=== PATIENT | female | born 1935 | race Caucasian/White ===

== ENCOUNTER → 2018-06-29 | Outpatient (CLI) | payer MEDICARE, BC ==
--- NOTE | 2018-06-29 21:57 | US ---
EXAMINATION TYPE: US kidneys/renal and bladder DATE OF EXAM: 06/29/2018 COMPARISON: NONE CLINICAL HISTORY: Chronic Kidney Disease N18.9. EXAM MEASUREMENTS: Right Kidney: 9.8 x 4.1 x 4.4 cm Left Kidney: 11.1 x 5.0 x 4.6 cm Right Kidney: Cyst measuring 3.4 x 2.4 x 2.8cm Left Kidney: No hydronephrosis or masses seen Bladder: wnl There is no evidence for hydronephrosis at this point in time. No nephrolithiasis is seen. Cystic fo cus upper pole right kidney is anechoic and shows increased through transmission, imperceptible wall. . The urinary bladder is anechoic. Cortical medullary differentiation is maintained, there is cortical thinning noted in the right kidne y. IMPRESSION: Simple cyst right kidney. Cortical thinning right kidney.
== END | disposition home or self-care (01) ==
LOC: RADUSMAIN 16:11
PROVIDERS: ATTEND Internal Medicine
DX: N28.1 Cyst of kidney, acquired (principal); N28.89 Other specified disorders of kidney and ureter; N18.3 Chronic kidney disease, stage 3 (moderate)
CPT/HCPCS: 76770

== ENCOUNTER 2019-12-15 05:47 | Emergency (ER) | payer MEDICARE, BC ==
[2019-12-15 05:58] VITALS: RESP 18; TEMP 98.5
[2019-12-15] MEDS ORDERED: ACETAMINOPHEN TAB 325 MG TAB PO STA (06:14)
[2019-12-15] MEDS ORDERED: SODIUM CHLORIDE 0.9% 500 ML 500 ML IV STA (06:14)
--- NOTE | 2019-12-15 06:21 | ED ---
General Adult HPI - General Chief complaint: Urogenital Stated complaint: Nausea/Cold To Touch/Frequent Urination Time Seen by Provider: 12/15/19 06:01 Source: patient, RN notes reviewed Mode of arrival: ambulatory Limitations: no limitations - History of Present Illness Initial comments: This is an 84-year-old female presents emergency Department chief complaint weakness. Patient states that around midnight she developed the sudden onset weakness states that she has had shaking chills just does not feel well. She does complain of a headache but did not take any Tylenol which she normally would. She denies any focal weakness denies any chest pain or shortness breath. Patient states that she she was treated with ciprofloxacin for urinary tract infection last week was notified a day or so ago that they need to switch to Macrobid in which she's taken 2 doses. She does admit that she's had frequent urination slight lower abdominal pain. She has meant to some nausea but this seems to be improving. - Related Data Home Medications Medication Instructions Recorded Confirmed ALPRAZolam [Xanax] 0.25 mg PO DAILY PRN 02/25/17 12/15/19 Aspirin [Adult Low Dose Aspirin EC] 81 mg PO DAILY 02/25/17 12/15/19 Cyanocobalamin [Vitamin B-12 1 injection SQ Q28D 02/25/17 12/15/19 Injection] Ergocalciferol [Vitamin D2 50,000 unit PO Q14D 02/25/17 12/15/19 (DRISDOL)] Lisinopril [Zestril] 10 mg PO DAILY 02/25/17 12/15/19 Nitroglycerin Sl Tabs [Nitrostat] 0.4 mg SL Q5M PRN 02/25/17 12/15/19 Oxybutynin Chloride [Ditropan] 5 mg PO DAILY 02/25/17 12/15/19 Propafenone [Rythmol] 150 mg PO TID 02/25/17 12/15/19 Allopurinol [Zyloprim] 100 mg PO BID 12/15/19 12/15/19 HYDROcodone/APAP 5-325MG [[place] 1 tab PO DAILY PRN 12/15/19 12/15/19 5-325] Warfarin [Coumadin] 7.5 mg PO HS 12/15/19 12/15/19 Allergies Allergy/AdvReac Type Severity Reaction Status Date / Time No Known Allergies Allergy Verified 12/15/19 09:59 Review of Systems ROS Statement: Those systems with pertinent positive or pertinent negative responses have been documented in the HPI. ROS Other: All systems not noted in ROS Statement are negative. Past Medical History Past Medical History: Atrial Fibrillation, Blood Disorder, Diabetes Mellitus, Hypertension, Osteoarthritis (OA) Additional Past Medical History / Comment(s): NEUTROPENIA. ANEMIA. History of Any Multi-Drug Resistant Organisms: None Reported Past Surgical History: Appendectomy, Cholecystectomy, Orthopedic Surgery Additional Past Surgical History / Comment(s): LEFT SHOULDER SURGERY. BILATERAL CATARACTS. Past Anesthesia/Blood Transfusion Reactions: No Reported Reaction Past Psychological History: No Psychological Hx Reported Smoking Status: Former smoker Past Alcohol Use History: None Reported Past Drug Use History: None Reported - Past Family History Mother Family Medical History: Rheumatoid Arthritis (RA) Father Family Medical History: Diabetes Mellitus General Exam Limitations: no limitations General appearance: alert, in no apparent distress Head exam: Present: atraumatic, normocephalic, normal inspection Eye exam: Present: normal appearance, PERRL, EOMI. Absent: scleral icterus, conjunctival injection, periorbital swelling ENT exam: Present: normal exam, normal oropharynx, mucous membranes moist, TM's normal bilaterally Neck exam: Present: normal inspection, full ROM. Absent: tenderness, meningismus, lymphadenopathy Respiratory exam: Present: normal lung sounds bilaterally. Absent: respiratory distress, wheezes, rales, rhonchi, stridor Cardiovascular Exam: Present: regular rate, normal rhythm, normal heart sounds. Absent: systolic murmur, diastolic murmur, rubs, gallop, clicks GI/Abdominal exam: Present: soft, tenderness (Mild suprapubic), normal bowel sounds. Absent: distended, guarding, rebound, rigid Back exam: Absent: CVA tenderness (R), CVA tenderness (L) Neurological exam: Present: alert, oriented X3, CN II-XII intact Skin exam: Present: warm, dry, intact, normal color. Absent: rash Course Vital Signs 12/15/19 05:50 Temperature 98.5 F Pulse Rate 100 Respiratory 18 Rate Blood Pressure 106/71 O2 Sat by Pulse 96 Oximetry Medical Decision Making - Medical Decision Making 84-year-old presented for generalized weakness. Labs reviewed is shows mild elevation of her renal function which is normal for her. Patient feels improved after IV fluids. Patient was given Rocephin for urinary tract infection. Patient's vital are stable no leukocytosis afebrile. Patient will continue her Macrobid as directed home return for any worsening symptoms. - Lab Data Result diagrams: 12/15/19 06:37 12/15/19 06:37 Lab Results 12/15/19 12/15/19 12/15/19 Range/Units 06:30 06:37 06:37 WBC 7.2 (3.8-10.6) k/uL RBC 4.17 (3.80-5.40) m/uL Hgb 12.5 (11.4-16.0) gm/dL Hct 38.2 (34.0-46.0) % MCV 91.4 (80.0-100.0) fL MCH 29.9 (25.0-35.0) pg MCHC 32.7 (31.0-37.0) g/dL RDW 13.6 (11.5-15.5) % Plt Count 181 (150-450) k/uL Neutrophils % 88 % Lymphocytes % 5 % Monocytes % 5 % Eosinophils % 2 % Basophils % 0 % Neutrophils # 6.3 (1.3-7.7) k/uL Lymphocytes # 0.4 L (1.0-4.8) k/uL Monocytes # 0.3 (0-1.0) k/uL Eosinophils # 0.1 (0-0.7) k/uL Basophils # 0.0 (0-0.2) k/uL Sodium 142 (137-145) mmol/L Potassium 4.0 (3.5-5.1) mmol/L Chloride 107 (98-107) mmol/L Carbon Dioxide 26 (22-30) mmol/L Anion Gap 9 mmol/L BUN 27 H (7-17) mg/dL Creatinine 1.07 H (0.52-1.04) mg/dL Est GFR (CKD-EPI)AfAm 56 (>60 ml/min/1.73 sqM) Est GFR (CKD-EPI)NonAf 48 (>60 ml/min/1.73 sqM) Glucose 153 H (74-99) mg/dL Plasma Lactic Acid Pk (0.7-2.0) mmol/L Calcium 9.6 (8.4-10.2) mg/dL Magnesium 2.1 (1.6-2.3) mg/dL Total Bilirubin 0.8 (0.2-1.3) mg/dL AST 25 (14-36) U/L ALT 14 (4-34) U/L Alkaline Phosphatase 83 (38-126) U/L Troponin I (0.000-0.034) ng/mL Total Protein 7.4 (6.3-8.2) g/dL Albumin 4.1 (3.5-5.0) g/dL Urine Color Urine Appearance (Clear) Urine pH (5.0-8.0) Ur Specific [place] (1.001-1.035) Urine Protein (Negative) Urine Glucose (UA) (Negative) Urine Ketones (Negative) Urine Blood (Negative) Urine Nitrite (Negative) Urine Bilirubin (Negative) Urine Urobilinogen (<2.0) mg/dL Ur Leukocyte Esterase (Negative) Urine RBC (0-5) /hpf Urine WBC (0-5) /hpf Ur Squamous Epith Cells (0-4) /hpf Urine Bacteria (None) /hpf Hyaline Casts (0-2) /lpf Urine Mucus (None) /hpf Influenza Type A RNA Not Detected (Not Detectd) Influenza Type B (PCR) Not Detected (Not Detectd) 12/15/19 12/15/19 12/15/19 Range/Units 06:37 06:37 09:10 WBC (3.8-10.6) k/uL RBC (3.80-5.40) m/uL Hgb (11.4-16.0) gm/dL Hct (34.0-46.0) % MCV (80.0-100.0) fL MCH (25.0-35.0) pg MCHC (31.0-37.0) g/dL RDW (11.5-15.5) % Plt Count (150-450) k/uL Neutrophils % % Lymphocytes % % Monocytes % % Eosinophils % % Basophils % % Neutrophils # (1.3-7.7) k/uL Lymphocytes # (1.0-4.8) k/uL Monocytes # (0-1.0) k/uL Eosinophils # (0-0.7) k/uL Basophils # (0-0.2) k/uL Sodium (137-145) mmol/L Potassium (3.5-5.1) mmol/L Chloride (98-107) mmol/L Carbon Dioxide (22-30) mmol/L Anion Gap mmol/L BUN (7-17) mg/dL Creatinine (0.52-1.04) mg/dL Est GFR (CKD-EPI)AfAm (>60 ml/min/1.73 sqM) Est GFR (CKD-EPI)NonAf (>60 ml/min/1.73 sqM) Glucose (74-99) mg/dL Plasma Lactic Acid Pk 0.9 (0.7-2.0) mmol/L Calcium (8.4-10.2) mg/dL Magnesium (1.6-2.3) mg/dL Total Bilirubin (0.2-1.3) mg/dL AST (14-36) U/L ALT (4-34) U/L Alkaline Phosphatase (38-126) U/L Troponin I <0.012 (0.000-0.034) ng/mL Total Protein (6.3-8.2) g/dL Albumin (3.5-5.0) g/dL Urine Color Yellow Urine Appearance Cloudy H (Clear) Urine pH 5.5 (5.0-8.0) Ur Specific [place] 1.018 (1.001-1.035) Urine Protein 1+ H (Negative) Urine Glucose (UA) Negative (Negative) Urine Ketones 1+ H (Negative) Urine Blood Moderate H (Negative) Urine Nitrite Negative (Negative) Urine Bilirubin Negative (Negative) Urine Urobilinogen <2.0 (<2.0) mg/dL Ur Leukocyte Esterase Large H (Negative) Urine RBC 48 H (0-5) /hpf Urine WBC >182 H (0-5) /hpf Ur Squamous Epith Cells 2 (0-4) /hpf Urine Bacteria Moderate H (None) /hpf Hyaline Casts 10 H (0-2) /lpf Urine Mucus Few H (None) /hpf Influenza Type A RNA (Not Detectd) Influenza Type B (PCR) (Not Detectd) Disposition Clinical Impression: Urinary tract infection Disposition: HOME SELF-CARE Condition: Stable Instructions (If sedation given, give patient instructions): Urinary Tract Infection in Women (ED) Additional Instructions: Please return to the Emergency Department if symptoms worsen or any other concerns. Is patient prescribed a controlled substance at d/c from ED?: No Referrals: Raissa Munguia MD [Primary Care Provider] - 1-2 days Time of Disposition: 10:20
--- NOTE | 2019-12-15 06:59 | XR ---
EXAM: XR Chest, 2 Views CLINICAL HISTORY: Reason: Weakness TECHNIQUE: Frontal and lateral views of the chest. COMPARISON: 12/14/15 FINDINGS: Lungs: Normal lung volumes. No evidence of airspace consolidation. No evidence of acute interstitial abnormality. Pleural space: Unremarkable. No pneumothorax. No pleural effusions. Heart: Unremarkable. No cardiomegaly. Mediastinum: No mediastinal widening or shift. Bones/joints: No acute osseous abnormality. IMPRESSION: No evidence of acute cardiopulmonary abnormality.
[2019-12-15 07:22] LABS: Basophils % (A) 0 %; Eosinophils # (A) 0.1 k/uL (0-0.7); Eosinophils % (A) 2 %; HCT 38.2 % (34.0-46.0); HGB 12.5 gm/dL (11.4-16.0); Lymphocytes # (A) 0.4 k/uL (1.0-4.8); Lymphocytes % (A) 5 %; MCH 29.9 pg (25.0-35.0); MCHC 32.7 g/dL (31.0-37.0); MCV 91.4 fL (80.0-100.0); Mean Platelet Volume 7.4; Monocytes # (A) 0.3 k/uL (0-1.0); Monocytes % (A) 5 %; Neutrophils # (A) 6.3 k/uL (1.3-7.7); Neutrophils % (A) 88 %; Platelet Count 181 k/uL (150-450); RBC 4.17 m/uL (3.80-5.40); RDW 13.6 % (11.5-15.5); WBC 7.2 k/uL (3.8-10.6)
[2019-12-15 07:26] LABS: Albumin 4.1 g/dL (3.5-5.0); Calcium 9.6 mg/dL (8.4-10.2); Magnesium 2.1 mg/dL (1.6-2.3); Total Bilirubin 0.8 mg/dL (0.2-1.3); Total Protein 7.4 g/dL (6.3-8.2)
[2019-12-15] MEDS ORDERED: SODIUM CHLORIDE 0.9% 1,000 ML IV ONE (08:06)
[2019-12-15 10:06] LABS: Appearance,Urine Cloudy (Clear); Bacteria,Urine Moderate /hpf; Bilirubin,Urine Negative (Negative); Blood,Urine Moderate (Negative); Color,Urine Yellow; Glucose,Urine (UA) Negative (Negative); Hyaline Casts,Urine 10 /lpf (0-2); Ketones,Urine 1+ (Negative); Leukocyte Esterase,Urine Large (Negative); Mucus,Urine Few /hpf; Nitrite,Urine Negative (Negative); PH, Urine 5.5 (5.0-8.0); Protein,Urine 1+ (Negative); RBC,Urine 48 /hpf (0-5); Specific Gravity,Urine 1.018 (1.001-1.035); Squamous Epithelial Cell,Urine 2 /hpf (0-4); Urobilinogen,Urine <2.0 mg/dL (<2.0); WBC,Urine >182 /hpf (0-5)
[2019-12-15] MEDS ORDERED: cefTRIAXone IN SWFI 1,000 MG/10 ML SYRINGE IVP STA (10:13)
[2019-12-15] MEDS ORDERED: ONDANSETRON 4 MG/2 ML VIAL IVP STA (10:19)
[2019-12-15 10:33] VITALS: BP 110/72; PULSE 88
== END 2019-12-15 10:32 | disposition home or self-care (01) ==
LOC: EC 05:47
DX: N39.0 Urinary tract infection, site not specified (principal); R53.1 Weakness; R51 Headache; R11.0 Nausea; I48.91 Unspecified atrial fibrillation; I10 Essential (primary) hypertension; M19.90 Unspecified osteoarthritis, unspecified site; Z87.891 Personal history of nicotine dependence; Z79.01 Long term (current) use of anticoagulants; Z79.82 Long term (current) use of aspirin; Z79.899 Other long term (current) drug therapy; Z90.49 Acquired absence of other specified parts of digestive tract
CPT/HCPCS: 99284; 96374; 96375; 96361 ×2; 36415; 93005; 80053; 83605; 83735; 84484; 85025; 81001; 87040; 87086; 87502; 71046; J2405; J0696

== ENCOUNTER 2019-12-23 09:03 | Inpatient (IN) | payer MEDICARE, BC ==
[2019-12-23] MEDS ORDERED: KETOROLAC 60 MG/2 ML VIAL IVP STA (09:14)
[2019-12-23] MEDS ORDERED: HYDROmorphone 1 MG/ML 1 ML SYRINGE IVP STA (09:15)
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
[2019-12-23 09:53] LABS: Basophils % (A) 1 %; Eosinophils # (A) 0.1 k/uL (0-0.7); Eosinophils % (A) 1 %; HCT 31.2 % (34.0-46.0); HGB 10.1 gm/dL (11.4-16.0); Lymphocytes # (A) 0.4 k/uL (1.0-4.8); Lymphocytes % (A) 6 %; MCH 29.9 pg (25.0-35.0); MCHC 32.5 g/dL (31.0-37.0); MCV 92.1 fL (80.0-100.0); Mean Platelet Volume 7.8; Monocytes # (A) 0.4 k/uL (0-1.0); Monocytes % (A) 7 %; Neutrophils # (A) 5.3 k/uL (1.3-7.7); Neutrophils % (A) 84 %; Platelet Count 218 k/uL (150-450); RBC 3.38 m/uL (3.80-5.40); RDW 13.2 % (11.5-15.5); WBC 6.3 k/uL (3.8-10.6)
[2019-12-23 10:20] LABS: Albumin 3.5 g/dL (3.5-5.0); C Reactive Protein 52.3 mg/L (<10.0); Calcium 8.6 mg/dL (8.4-10.2); Potassium 3.8 mmol/L (3.5-5.1); Total Bilirubin 0.7 mg/dL (0.2-1.3); Total Protein 6.5 g/dL (6.3-8.2)
--- NOTE | 2019-12-23 11:07 | XR ---
EXAMINATION TYPE: XR femur RT, XR knee complete RT DATE OF EXAM: 12/23/2019 CLINICAL HISTORY: Nontraumatic right leg pain TECHNIQUE: Two views of the right femur are obtained. 3 views of the right knee were also obtained. COMPARISON: None FINDINGS: There is no acute fracture or dislocation seen in the right femur. The right hip and knee joints appear aligned. However there is [id number] articulation of the weightbearing surface of th e acetabular roof with the femoral head with opposing surface sclerosis and small marginal osteophyte s. There is also diffuse osseous demineralization. Within the knee there is medial compartment joint space narrowing, tricompartmental pressure by osteophytes, and bicompartmental chondrocalcinosis. The re is also a small suprapatellar joint effusion. The overlying soft tissue appears unremarkable. IMPRESSION: 1. No acute fracture or dislocation in the right femur nor knee. 2. Severe right hip arthropathy as there is [id number] articulation of the acetabulum with the femo ral head and severe tricompartmental arthropathy of the right knee with bicompartmental chondrocalcin osis also noted. 3. Diffuse osseous demineralization.
[2019-12-23] MEDS ORDERED: cefTRIAXone IN SWFI 1,000 MG/10 ML SYRINGE IVP STA (11:37)
[2019-12-23] MEDS ORDERED: VANCOMYCIN IV PER PHARMACY 1 EACH MISC MISCELLANE PRN (11:39)
[2019-12-23] MEDS ORDERED: SODIUM CHLORIDE 0.9% 1,000 ML IV ONE (11:40)
[2019-12-23] MEDS ORDERED: VANCOMYCIN 1,500 MG in SODIUM CHLORIDE 0.9% 250 ML IVPB ONE (12:00)
[2019-12-23] MEDS ORDERED: PNEUMOCOCCAL VACC-PNEUMOVAX 23 25 MCG/0.5 ML VIAL IM ONE (12:49)
[2019-12-23] MEDS ORDERED: methylPREDNISolone ACETATE 80 MG/ML 1 ML VIAL INTRAARTIC STA (13:16)
[2019-12-23] MEDS ORDERED: LIDOCAINE 2% INJ 20 MG/ML (20 ML MDV) IV STA (13:17)
--- NOTE | 2019-12-23 13:31 | P.CNOR ---
History of Present Illness - [facility] Consult date: 12/23/19 Consult reason: joint pain History of present illness: The patient is very pleasant 84-year-old female who presents to the ER with relatively acute onset right knee and leg pain. She is accompanied in the ER by her son and daughter. She was seen by the emergency room physician and orthopedics was consulted to rule out possible septic knee arthritis. At the time of my evaluation the patient is complaining of severe right knee pain radiating up into her leg. Her son relates that she has had 1 week of progr essively worsening generalized malaise, low-grade fever, and chills. She has a history of both knee and hip arthritis. She also has a history of urinary tract infections. Past Medical History Past Medical History: Atrial Fibrillation, Blood Disorder, Diabetes Mellitus, Hypertension, Osteoarthritis (OA), Renal Disease, Vascular Disorder Additional Past Medical History / Comment(s): Bilateral knee injuries over 20 yrs ago, NIDDM type II-now diet controlled, iron anemia-has received iron infusions in the past, neutropenia, PVD, varicosities bilateral legs, arthritis in spine, CKD, past R renal cyst, UTIs, diverticular disease, sinus problems. History of Any Multi-Drug Resistant Organisms: None Reported Past Surgical History: Appendectomy, Cholecystectomy, Orthopedic Surgery Additional Past Surgical History / Comment(s): L shoulder rotator cuff repair, bilateral cataract removals, colonoscopies. Past Anesthesia/Blood Transfusion Reactions: No Reported Reaction, Motion Sickness Smoking Status: Former smoker - Past Family History Mother Family Medical History: Rheumatoid Arthritis (RA) Father Family Medical History: Diabetes Mellitus Additional Family Medical History / Comment(s): Father had diabetes later in his life. Medications and Allergies Home Medications Medication Instructions Recorded Confirmed Type ALPRAZolam [Xanax] 0.25 mg PO BID PRN 02/25/17 12/23/19 History Aspirin [Adult Low Dose Aspirin EC] 81 mg PO DAILY 02/25/17 12/23/19 History Cyanocobalamin [Vitamin B-12 1,000 mcg SQ Q21D 02/25/17 12/23/19 History Injection] Ergocalciferol [Vitamin D2 100,000 unit PO Q30D 02/25/17 12/23/19 History (DRISDOL)] Lisinopril [Zestril] 10 mg PO DAILY 02/25/17 12/23/19 History Nitroglycerin Sl Tabs [Nitrostat] 0.4 mg SL Q5M PRN 02/25/17 12/23/19 History Oxybutynin Chloride [Ditropan] 5 mg PO DAILY 02/25/17 12/23/19 History Propafenone [Rythmol] 150 mg PO TID 02/25/17 12/23/19 History Allopurinol [Zyloprim] 100 mg PO DAILY 12/15/19 12/23/19 History HYDROcodone/APAP 5-325MG [[place] 1 tab PO DAILY PRN 12/15/19 12/23/19 History 5-325] Warfarin [Coumadin] 7.5 mg PO HS 12/15/19 12/23/19 History Epoetin Mika [Procrit] 2,000 unit IJ Q30D 12/23/19 12/23/19 History Lidocaine 5% Patch [Lidoderm] 1 patch TOPICAL DAILY 12/23/19 12/23/19 History Nitrofurantoin Monohyd/M-Cryst 100 mg PO Q12HR 12/23/19 12/23/19 History [Macrobid] Allergies Allergy/AdvReac Type Severity Reaction Status Date / Time No Known Allergies Allergy Verified 12/23/19 10:46 Physical Examination On exam the patient is in moderate distress secondary to pain in her knee. She is alert and easily able to answer questions. A focused exam of the right knee was conducted. On inspection there is a moderate effusion to the knee. There is no overlying erythema or warmth. The knee is exquisitely tender and there is pain with any attempts at passive range of motion. There is minimal pain with passive range of motion of the hip. Results - Labs Labs: Abnormal Lab Results - Last 24 Hours (Table) 12/23/19 12/23/19 Range/Units 09:38 09:38 RBC 3.38 L (3.80-5.40) m/uL Hgb 10.1 L (11.4-16.0) gm/dL Hct 31.2 L (34.0-46.0) % Lymphocytes # 0.4 L (1.0-4.8) k/uL Glucose 144 H (74-99) mg/dL C-Reactive Protein 52.3 H (<10.0) mg/L H & H 12/23/19 Range/Units 09:38 Hgb 10.1 L (11.4-16.0) gm/dL Hct 31.2 L (34.0-46.0) % Result Diagrams: 12/23/19 09:38 12/23/19 09:38 Assessment and Plan (1) Arthritis of knee, degenerative Current Visit: Yes Status: Acute Code(s): M17.10 - UNILATERAL PRIMARY OSTEOARTHRITIS, UNSPECIFIED KNEE SNOMED Code(s): 819933488 Plan: The patient's presenting with a likely acute flare of arthritis in the right knee. She has a moderate to large effusion and x-rays show end-stage arthritis throughout the knee. Her knee was aspirated in the ER to rule out septic knee or crystalline arthropathy. 20 mL's of bloody fluid was aspirated. This was sent to the lab for culture, Gram stain, cell count, and crystal analysis. Due to the high likelihood of an acute flare of arthritis and corticosteroid injection was performed. I will defer to the ER for disposition. Procedure: Verbal consent for knee aspiration and injection was performed. The knee over the superolateral pole of the patella was prepped with alcohol and chlorhexidine. Easing sterile technique an 18-gauge needle was used to aspirate the knee. 20 mL's of blood-tinged fluid was aspirated. This was sent to the lab for analysis in Vacutainer tubes. The skin was once again prepped in a solution containing 1 mL of 80 mg/mL of Depo-Medrol and 3 mL's of 2% lidocaine was then sterilely injected into the knee without resistance. A Band-Aid was applied. The patient tolerated this well. Time with Patient: Greater than 30
[2019-12-23 13:53] LABS: Erythrocyte Sedimentation Rate 62 mm/hr (0-20)
[2019-12-23] MEDS ORDERED: HYDROcodone/APAP 5-325MG 1 EACH TAB PO PRN (14:16)
[2019-12-23] MEDS ORDERED: ALPRAZolam 0.25 MG TAB PO PRN (14:16)
[2019-12-23] MEDS ORDERED: NITROGLYCERIN SL TABS 0.4 MG TAB SUBLINGUAL PRN (14:16)
[2019-12-23] MEDS ORDERED: KETOROLAC 30 MG/ML 1 ML VIAL IVP PRN (14:18)
[2019-12-23 14:27] LABS: Amorphous Sediment,Urine Rare /hpf; Appearance,Urine Clear (Clear); Bacteria,Urine Occasional /hpf; Bilirubin,Urine Negative (Negative); Blood,Urine Moderate (Negative); Color,Urine Yellow; Glucose,Urine (UA) Negative (Negative); Ketones,Urine Trace (Negative); Leukocyte Esterase,Urine Negative (Negative); Mucus,Urine Rare /hpf; Nitrite,Urine Negative (Negative); PH, Urine 5.5 (5.0-8.0); Protein,Urine 1+ (Negative); RBC,Urine 43 /hpf (0-5); Specific Gravity,Urine 1.016 (1.001-1.035); Urobilinogen,Urine <2.0 mg/dL (<2.0); WBC,Urine 32 /hpf (0-5)
[2019-12-23 14:57] LABS: INR 4.3 (<1.2); Prothrombin Time 42.5 sec (9.0-12.0)
[2019-12-23 15:28] LABS: Appearance,BF Bloody; Color,BF Red; RBC, Body Fluid 82500 /uL
[2019-12-23] MEDS: PROPAFENONE 150 MG TAB PO SCH ×2 (15:59→21:49)
[2019-12-23 16:28] LABS: Nucleated Cells, Body Fluid 18000 /uL
[2019-12-23 16:30] LABS: Polynuclear WBC,Body Fluid 100 %; Total Cells Counted,Body Fluid 100
[2019-12-23] MEDS ORDERED: WARFARIN 0.5 MG TAB PO ONE (18:00)
[2019-12-23] MEDS ORDERED: ACETAMINOPHEN TAB 500 MG TAB PO PRN (21:15)
--- NOTE | 2019-12-23 23:07 | HP ---
HISTORY AND PHYSICAL DATE OF SERVICE: 12/23/2019 CHIEF COMPLAINTS: Pain and swelling of the right knee. HISTORY OF PRESENT ILLNESS: This 84-year-old woman with a past medical history of multiple medical problems, including atrial fibrillation, history of diabetes mellitus, hypertension, DJD, history of appendectomy, being followed by Dr. Munguia in the outpatient setting, had a rather sudden onset of pain and weakness of the right knee. The pain went up to the hip and the patient was unable to walk and put weight on it. The patient came to [facility] Emergency Room and the patient had a knee aspiration which resulted in some bloody aspiration. Initially septic arthritis was suspected, but according to Orthopedic Surgery, most likely the patient had DJD and osteoarthritis exacerbation with some fluid and gait instability resulting from that. The final cultures are pending at this time. There is no history of any fever, rigor or chills. No history of headache, loss of consciousness, seizures. INR was found to be 4.3. PAST MEDICAL HISTORY: History of atrial fibrillation, history of diabetes, hypertension, history of DJD, history of neutropenia, anemia. HOME MEDICATIONS: Home medications prior to admission include: 1. Coumadin 7.5 mg at bedtime. 2. Nitrostat 0.4 sublingually p.r.n. 3. [place] 1 tablet p.o. t.i.d. p.r.n. 4. Drisdol. 5. Procrit 2000 q.30 days. 6. Xanax 0.25 b.i.d. p.r.n. 7. Rythmol 150 mg p.o. t.i.d. 8. Macrobid 100 mg p.o. b.i.d. 9. Lidoderm 1 patch daily. 10.Ditropan 5 mg p.o. daily. 11.Zestril 10 mg p.o. daily. 12.Vitamin B2 1000 mcg b.i.d. 13.Aspirin 81 mg p.o. daily. 14.Zyloprim 100 mg p.o. daily. ALLERGIES: NONE. FAMILY HISTORY: History of rheumatoid arthritis in the family. SOCIAL HISTORY: Previous history of smoking. Occasional alcohol intake. REVIEW OF SYSTEMS: ENT: Diminished hearing. Diminished vision. CARDIOVASCULAR SYSTEM: No angina, palpitations. RESPIRATORY SYSTEM: No cough, hemoptysis. GI: No nausea, vomiting. : No dysuria or retention. NERVOUS SYSTEM: No numbness, weakness. ALLERGY/IMMUNOLOGY: No asthma, hayfever. MUSCULOSKELETAL: As mentioned earlier. HEMATOLOGY/ONCOLOGY: No history of anemia. ENDOCRINE: No history of diabetes, hypothyroidism. CONSTITUTIONAL: As mentioned earlier. DERMATOLOGY: Negative. RHEUMATOLOGY: Negative. PSYCHIATRY: As mentioned earlier. PHYSICAL EXAMINATION: Patient alert and oriented x3. Pulse 80, blood pressure 160/80, respirations 16, temperature 97.2, pulse ox 97% on room air. HEENT: Conjunctivae normal. Oral mucosa moist. NECK: No jugular venous distention. No carotid bruit. No lymph node enlargement. CARDIOVASCULAR SYSTEM: S1, S2 muffled. No S3. No S4. RESPIRATORY SYSTEM: Breath sounds diminished at the bases. No rhonchi. No crackles. ABDOMEN: Soft, non-tender. No mass palpable. LEGS: Right knee is slightly swollen. The movements are painful. Otherwise, no other abnormality. Gait dysfunction present. LYMPHATICS: No lymph node palpable in neck, axillae or groin. L JOINTS: No active deforming arthropathy. NERVOUS SYSTEM: Higher functions as mentioned earlier. Moves all 4 limbs. No focal deficit. LABS: WBC 6.3, hemoglobin 10.1. INR 4.3. Glucose 144. UA noted. The synovial fluid was also noted. RBC 82,500. ASSESSMENT: 1. Acute right arthritis with knee joint effusion, possibly secondary to degenerative joint disease. 2. Coumadin coagulopathy. 3. Anemia, normocytic; anemia of chronic disease. 4. History of atrial fibrillation, chronic, persistent. 5. Diabetes mellitus, type 2. 6. Hypertension. 7. History of degenerative joint disease. 8. History of neutropenia, anemia. 9. Appendectomy. 10.History of cholecystectomy. 11.History of degenerative joint disease. 12.Gait dysfunction. RECOMMENDATIONS AND DISCUSSION: In this 84-year-old woman who presented with multiple complex medical issues, we will monitor the patient closely, continue the current medications, continue with symptomatic treatment. I recommend holding Coumadin and aspirin at this time. Repeat labs. Follow closely with Orthopedic Surgery. Methylprednisone 80 mg intraarterial injection has been given. Continue with the pain management. Will obtain the PT/OT evaluation tomorrow. If the patient is stabilized, the patient may be discharged home. Closely follow with Dr. Munguia as well as Orthopedic Surgery. Prognosis guarded. Further recommendations to follow. A copy of this dictation is being forwarded to Dr. Munguia, who is the primary physician. I discussed with the patient, who understands and agrees. MMODL / IJN: [id number] /
[2019-12-24] MEDS ORDERED: VANCOMYCIN 1,250 MG in SODIUM CHLORIDE 0.9% 250 ML IVPB SCH (02:00)
[2019-12-24] MEDS: PROPAFENONE 150 MG TAB PO SCH (08:18)
[2019-12-24] MEDS ORDERED: NITROFURANTOIN MONOHYD/M-CRYST 100 MG CAP PO SCH (09:00)
[2019-12-24] MEDS ORDERED: LIDOCAINE 5% PATCH TOPICAL SCH (09:00)
[2019-12-24] MEDS ORDERED: ALLOPURINOL 100 MG TAB PO SCH (09:00)
[2019-12-24] MEDS ORDERED: ASPIRIN 81 MG PO SCH (09:00)
[2019-12-24] MEDS ORDERED: OXYBUTYNIN CHLORIDE 5 MG TAB PO SCH (09:00)
[2019-12-24] MEDS ORDERED: LISINOPRIL 10 MG TAB PO SCH (09:00)
[2019-12-24 09:24] LABS: Basophils % (A) 0 %; Eosinophils % (A) 0 %; HCT 31.4 % (34.0-46.0); HGB 10.1 gm/dL (11.4-16.0); Lymphocytes # (A) 0.3 k/uL (1.0-4.8); Lymphocytes % (A) 4 %; MCH 30.1 pg (25.0-35.0); MCHC 32.3 g/dL (31.0-37.0); MCV 93.2 fL (80.0-100.0); Mean Platelet Volume 7.9; Monocytes # (A) 0.2 k/uL (0-1.0); Monocytes % (A) 2 %; Neutrophils % (A) 94 %; Platelet Count 268 k/uL (150-450); RBC 3.36 m/uL (3.80-5.40); RDW 12.9 % (11.5-15.5); WBC 8.5 k/uL (3.8-10.6)
[2019-12-24 09:30] LABS: INR 4.3 (<1.2)
[2019-12-24 09:38] LABS: Calcium 8.6 mg/dL (8.4-10.2); Potassium 4.4 mmol/L (3.5-5.1)
--- NOTE | 2019-12-24 10:10 | P.PN ---
Subjective Progress Note Date: 12/24/19 This patient is an 84 year old female that presented to [facility] yesterday with complaints of right knee pain. The patient was evaluated by Dr. Clifton in the emergency room, and there was low concern for septic arthritis, and the patient was diagnosed with an acute arthritic flare. The patient's right knee was aspirated and synovial fluid was sent for analysis, and her knee was also injected with cortisone. Synovial fluid analysis revealed no crystals, nucleated cells 18,000. She was admitted under the care of internal medicine following this procedure. The patient was examined bedside. She states she is feeling very well this morning, she states her knee pain has improved substantially from yesterday. She was able to ambulate to the bathroom without assistance or a walker today. She denies hip pain, thigh pain, or knee pain. Patient denies fevers, chills, nausea, vomiting. She has no complaints today. Vital signs stable. Objective - Vital Signs Vital signs: Vital Signs Temp 98.4 F 12/24/19 05:06 Pulse 72 12/24/19 05:06 Resp 18 12/24/19 05:06 BP 157/74 12/24/19 05:06 Pulse Ox 98 12/24/19 05:06 Intake & Output 12/23/19 12/24/19 12/24/19 18:59 06:59 18:59 Intake Total 540 Balance 540 Weight 74.843 kg Intake: Oral 540 Other: Voiding Method Bedside Commode Bedside Commode # Voids 1 3 - Exam On examination, the patient is sitting up in bed in no apparent distress. She is alert and oriented 3. On inspection of the knee, there is no swelling, erythema, warmth, or skin discoloration. There is no pain on palpation of the knee. There is no pain with passive range of motion of the knee. There is no pain with passive range of motion of the hip. The calf is soft and nontender to palpation. Motor and sensory function appear to be intact of the right lower extremity. - Labs CBC & Chem 7: 12/24/19 09:01 12/24/19 09:01 Labs: Abnormal Lab Results - Last 24 Hours (Table) 12/23/19 12/23/19 12/23/19 Range/Units 09:38 09:38 09:40 RBC 3.38 L (3.80-5.40) m/uL Hgb 10.1 L (11.4-16.0) gm/dL Hct 31.2 L (34.0-46.0) % Neutrophils # (1.3-7.7) k/uL Lymphocytes # 0.4 L (1.0-4.8) k/uL ESR 62 H (0-20) mm/hr PT 42.5 H (9.0-12.0) sec INR 4.3 H (<1.2) Sodium (137-145) mmol/L BUN (7-17) mg/dL Glucose 144 H (74-99) mg/dL C-Reactive Protein 52.3 H (<10.0) mg/L Urine Protein (Negative) Urine Ketones (Negative) Urine Blood (Negative) Urine RBC (0-5) /hpf Urine WBC (0-5) /hpf Amorphous Sediment (None) /hpf Urine Bacteria (None) /hpf Urine Mucus (None) /hpf 12/23/19 12/24/19 12/24/19 Range/Units 14:00 09:01 09:01 RBC 3.36 L (3.80-5.40) m/uL Hgb 10.1 L (11.4-16.0) gm/dL Hct 31.4 L (34.0-46.0) % Neutrophils # 8.0 H (1.3-7.7) k/uL Lymphocytes # 0.3 L (1.0-4.8) k/uL ESR (0-20) mm/hr PT 43.0 H (9.0-12.0) sec INR 4.3 H (<1.2) Sodium (137-145) mmol/L BUN (7-17) mg/dL Glucose (74-99) mg/dL C-Reactive Protein (<10.0) mg/L Urine Protein 1+ H (Negative) Urine Ketones Trace H (Negative) Urine Blood Moderate H (Negative) Urine RBC 43 H (0-5) /hpf Urine WBC 32 H (0-5) /hpf Amorphous Sediment Rare H (None) /hpf Urine Bacteria Occasional H (None) /hpf Urine Mucus Rare H (None) /hpf 12/24/19 Range/Units 09:01 RBC (3.80-5.40) m/uL Hgb (11.4-16.0) gm/dL Hct (34.0-46.0) % Neutrophils # (1.3-7.7) k/uL Lymphocytes # (1.0-4.8) k/uL ESR (0-20) mm/hr PT (9.0-12.0) sec INR (<1.2) Sodium 135 L (137-145) mmol/L BUN 19 H (7-17) mg/dL Glucose 291 H (74-99) mg/dL C-Reactive Protein (<10.0) mg/L Urine Protein (Negative) Urine Ketones (Negative) Urine Blood (Negative) Urine RBC (0-5) /hpf Urine WBC (0-5) /hpf Amorphous Sediment (None) /hpf Urine Bacteria (None) /hpf Urine Mucus (None) /hpf Microbiology - Last 24 Hours (Table) 12/23/19 13:30 Gram Stain - Preliminary Knee - Right Body Fluid Culture - Preliminary 12/23/19 14:00 Urine Culture - Preliminary Urine,Catheterized Assessment and Plan Assessment: Right knee osteoarthritis Plan: - The patient is clear for discharge from an orthopedic standpoint. She may benson ght bear as tolerated on the right knee. I recommended she use a walker for ambulation until she may weight bear without pain. - I recommended rest, ice, elevation of the right knee is painful. Recommended topical or oral NSAIDs for pain control. - I explained to the patient that she may have cortisone injections into the right knee once every 3 months if needed. We will signing off this patient, and she may follow-up in the office as an outpatient on an as needed basis. Patient discussed with Dr. Clifton.
[2019-12-24 14:34] VITALS: BP 138/87; PULSE 76; RESP 16; TEMP 98.9
--- NOTE | 2019-12-27 08:48 | P.DS ---
Providers Date of admission: 12/23/19 11:40 Expected date of discharge: 12/24/19 Attending physician: Jeferson Reed Consults: 12/23/19 11:40 Consult Physician Urgent Consulting Provider: Edd Clifton Consult Reason/Comments: Septic knee Do you want consulting provider notified?: Yes Primary care physician: Raissa Munguia Hospital Course: Final diagnosis Acute right arthritis with knee joint effusion, possibly secondary to degenerative joint disease Coumadin coagulopathy Anemia, normocytic, anemia of chronic disease History of atrial fibrillation, chronic, persistent Diabetes mellitus type 2 Hypertension History of degenerative joint disease history of neutropenia, anemia Appendectomy history of cholecystectomy history of degenerative joint disease Gait dysfunction Discharge disposition Patient is being discharged in a stable condition with guarded prognosis to home and will follow-up with the Dr. Munguia in the outpatient setting upon discharge. Patient will also follow-up with Dr. Clifton as needed in the outpatient setting. Total time taken is 35 minutes. History of present illness This is a 84-year-old female who was recently admitted with sudden onset of pain and weakness of the right knee with the inability to walk or put weight on and was being closely monitored. During hospitalization patient had a right knee aspiration and was evaluated by orthopedic surgery. Recommendations to follow up with Dr. Clifton in the outpatient setting as needed. Cultures were obtained of the knee aspiration but are pending at this time. Orthopedic surgery suspected likely her DJD along with osteoarthritis exacerbation with some fluid buildup and gait instability resulted from that. Patient will continue with outpatient physical therapy in the outpatient setting. Currently patient's condition is stable and is ready for discharge today. No reports of chest pain, palpitations, or shortness of breath. Patient is afebrile. No reports of nausea or vomiting and patient is tolerating diet. Guarded prognosis. On exam vital signs are stable. Temp is 98.9 F, pulse is 76, respirations are 16, blood pressures 138/87, oxygen saturation is 97 % on room air. Cardio S1, S2 are muffled. Respiratory system shows diminished breath sounds at the bases with no wheezing or rhonchi noted. Abdomen is soft, and nontender. Nervous system shows no focal deficits with mild diffuse weakness. Please refer to medication reconciliation sheet for a list of medications. Patient Condition at Discharge: Stable Plan - Discharge Summary Discharge Rx Participant: No New Discharge Prescriptions: Continue Lisinopril [Zestril] 10 mg PO DAILY ALPRAZolam [Xanax] 0.25 mg PO BID PRN PRN Reason: Anxiety Ergocalciferol [Vitamin D2 (DRISDOL)] 100,000 unit PO Q30D Oxybutynin Chloride [Ditropan] 5 mg PO DAILY Nitroglycerin Sl Tabs [Nitrostat] 0.4 mg SL Q5M PRN PRN Reason: Chest Pain Cyanocobalamin [Vitamin B-12 Injection] 1,000 mcg SQ Q21D Aspirin [Adult Low Dose Aspirin EC] 81 mg PO DAILY Propafenone [Rythmol] 150 mg PO TID Warfarin [Coumadin] 7.5 mg PO HS Allopurinol [Zyloprim] 100 mg PO DAILY Nitrofurantoin Monohyd/M-Cryst [Macrobid] 100 mg PO Q12HR Lidocaine 5% Patch [Lidoderm 5% Patch] 1 patch TOPICAL DAILY Epoetin Mika [Procrit] 2,000 unit IJ Q30D HYDROcodone/APAP 5-325MG [[place] 5-325] 1 tab PO DAILY PRN #12 tab PRN Reason: Pain Discharge Medication List ALPRAZolam [Xanax] 0.25 mg PO BID PRN 02/25/17 [History] Aspirin [Adult Low Dose Aspirin EC] 81 mg PO DAILY 02/25/17 [History] Cyanocobalamin [Vitamin B-12 Injection] 1,000 mcg SQ Q21D 02/25/17 [History] Ergocalciferol [Vitamin D2 (DRISDOL)] 100,000 unit PO Q30D 02/25/17 [History] Lisinopril [Zestril] 10 mg PO DAILY 02/25/17 [History] Nitroglycerin Sl Tabs [Nitrostat] 0.4 mg SL Q5M PRN 02/25/17 [History] Oxybutynin Chloride [Ditropan] 5 mg PO DAILY 02/25/17 [History] Propafenone [Rythmol] 150 mg PO TID 02/25/17 [History] Allopurinol [Zyloprim] 100 mg PO DAILY 12/15/19 [History] Warfarin [Coumadin] 7.5 mg PO HS 12/15/19 [History] Epoetin Mika [Procrit] 2,000 unit IJ Q30D 12/23/19 [History] Lidocaine 5% Patch [Lidoderm 5% Patch] 1 patch TOPICAL DAILY 12/23/19 [History] Nitrofurantoin Monohyd/M-Cryst [Macrobid] 100 mg PO Q12HR 12/23/19 [History] HYDROcodone/APAP 5-325MG [[place] 5-325] 1 tab PO DAILY PRN #12 tab 12/24/19 [Rx] Follow up Appointment(s)/Referral(s): Raissa Munguia MD [Primary Care Provider] - 12/31/19 11:00 am Edd Clifton MD [Medical Doctor] - As Needed Ambulatory/Diagnostic Orders: Prothrombin Time INR [LAB.AMB] Time Frame: 1 Day, Location: None Selected Patient Instructions/Handouts: Arthritis (DC) Activity/Diet/Wound Care/Special Instructions: Activity Limited until follow-up Follow-up with primary care provider upon discharge Follow-up with orthopedics Hold Coumadin this evening and repeat PT/INR in the morning Discharge Disposition: HOME SELF-CARE
[2020-01-09] MEDS ORDERED: CYANOCOBALAMIN 1,000 MCG/ML 1 ML VIAL SQ SCH (09:00)
[2020-01-09] MEDS ORDERED: ERGOCALCIFEROL 50,000 UNIT CAP PO SCH (09:00)
== END 2019-12-24 14:20 | disposition home or self-care (01) | DRG 554 ==
LOC: EC 09:03 → 6NMEDSUR 11:40
PROVIDERS: ADMIT Internal Medicine; ATTEND Internal Medicine
PROC: 3E0U3BZ Introduction of Anesthetic Agent into Joints, Percutaneous Approach (ICD-10-PCS; principal; 2019-12-23)
PROC: 3E0U33Z Introduction of Anti-inflammatory into Joints, Percutaneous Approach (ICD-10-PCS; principal; 2019-12-23)
PROC: 0S9C3ZX Drainage of Right Knee Joint, Percutaneous Approach, Diagnostic (ICD-10-PCS; principal; 2019-12-23)
PROC: 3E0234Z Introduction of Serum, Toxoid and Vaccine into Muscle, Percutaneous Approach (ICD-10-PCS; 2019-12-23)
DX: M17.0 Bilateral primary osteoarthritis of knee (principal); I48.19 Other persistent atrial fibrillation; D63.8 Anemia in other chronic diseases classified elsewhere; E11.51 Type 2 diabetes mellitus with diabetic peripheral angiopathy without gangrene; I10 Essential (primary) hypertension; M16.0 Bilateral primary osteoarthritis of hip; Z23 Encounter for immunization; K57.90 Diverticulosis of intestine, part unspecified, without perforation or abscess without bleeding; M47.9 Spondylosis, unspecified; N28.1 Cyst of kidney, acquired; R79.1 Abnormal coagulation profile; T45.515A Adverse effect of anticoagulants, initial encounter; R26.9 Unspecified abnormalities of gait and mobility; Z79.82 Long term (current) use of aspirin; Z79.01 Long term (current) use of anticoagulants; Z79.899 Other long term (current) drug therapy; Z87.891 Personal history of nicotine dependence; Z90.49 Acquired absence of other specified parts of digestive tract; Z87.440 Personal history of urinary (tract) infections; Z98.42 Cataract extraction status, left eye; Z98.41 Cataract extraction status, right eye; Z98.890 Other specified postprocedural states; Z83.3 Family history of diabetes mellitus; Z82.61 Family history of arthritis
CPT/HCPCS: 20610; 36415; 80048; 80053; 81001; 83605; 84550; 85025; 85610; 85652; 86140; 87040; 87070; 87086; 87205; 89050; 89060; 90732; 96374; 96375; 99285

== ENCOUNTER → 2021-10-15 | Outpatient (CLI) | payer MEDICARE, BC ==
--- NOTE | 2021-10-15 22:42 | US ---
EXAMINATION TYPE: US pelvic complete DATE OF EXAM: 10/15/2021 COMPARISON: CT 2009 CLINICAL HISTORY: R10.2 Pelvic and perineal pain. Generalize pain TECHNIQUE: Transabdominal (TA). Transabdominal sonographic images of the pelvis were acquired. Date of LMP: Pt states in age 41's EXAM MEASUREMENTS: Uterus: 6.3 x 2.8 x 4.1 cm Endometrial Stripe: 0.3 cm 1. Uterus: Anteverted Heterogeneous with some dystrophic calcifications 2. Endometrium: wnl 3. Right Ovary: Obscured by overlying bowel gas 4. Left Ovary: Obscured by overlying bowel gas 5. Bilateral Adnexa: wnl 6. Posterior cul-de-sac: wnl Heterogeneous anteverted small size uterus correlates with patient's age. No suspicious thickening of endometrial stripe. No free fluid. Neither ovary identified but no suspicious adnexal masses seen. IMPRESSION: No adnexal masses noted.
== END | disposition home or self-care (01) ==
LOC: RADUSWWP 15:11
PROVIDERS: ATTEND Internal Medicine
DX: R10.2 Pelvic and perineal pain (principal); R10.84 Generalized abdominal pain
CPT/HCPCS: 76856

== ENCOUNTER → 2021-10-15 | Outpatient (CLI) | payer MEDICARE, BC ==
--- NOTE | 2021-10-15 16:26 | US ---
EXAMINATION TYPE: US kidneys/renal and bladder DATE OF EXAM: 10/15/2021 COMPARISON: US kidneys June 29, 2018. CT abdomen and pelvis October 01, 2010 CLINICAL HISTORY: CKD Stage III N18.3. CKD EXAM MEASUREMENTS: Right Kidney: 10.3 x 4.5 x 4.8 cm Left Kidney: 10.5 x 4.5 x 4.8 cm Right Kidney: No evidence of hydro, cyst mid= 4.4 x 3.6 x 4.5 cm- appears to have increased in size w hen compared to previous Left Kidney: Appeared wnl Bladder: wnl Bilateral Jets seen: Yes There is no evidence for hydronephrosis at this point in time. No nephrolithiasis is seen. Exophytic 4.5 cm thin-walled cyst upper pole of the right kidney not significantly changed from 2010 CT. Some increased cortical echogenicity bilaterally. The urinary bladder is satisfactorily distended. Bilat eral ureteral jets are seen. IMPRESSION: No hydronephrosis is seen bilaterally.
== END | disposition home or self-care (01) ==
LOC: RADUSWWP 15:13
PROVIDERS: ATTEND Nurse Practitioner Family
DX: N18.31 Chronic kidney disease, stage 3a (principal)
CPT/HCPCS: 76770

== ENCOUNTER → 2021-10-18 | Outpatient (CLI) | payer MEDICARE, BC ==
--- NOTE | 2021-10-18 13:50 | BD ---
EXAMINATION TYPE: Axial Bone Density DATE OF EXAM: 10/18/2021 COMPARISON: NONE CLINICAL HISTORY: 86 YR OLD FEMALE.....ICD-10 CODE: M85.89 DISORDER OF BD Height: 63.2 Weight: 171 FRAX RISK QUESTIONS: Glucocorticoids (More than 3mos): YES (Ex: prednisone, prednisolone, methylprednisolone, dexamethasone, and hydrocortisone). RISK FACTORS HISTORY OF: Active: NO, USING CANE, Postmenopausal woman: YES, 51 Lost more than 2 inches in height since high school: YES Frequent falls: UNSTEADY, USING CANE Hyperparathyroidism: UNKNOWN Adrenal Insufficiency: UNKNOWN MEDICATIONS: Additional Medications: ASPIRIN, VIT D, BP MEDS, CHOLESTEROL MEDS, KIDNEY MEDS, Additional History: RENAL, ARTHRITIS, SEVERE BACK AND HIP PAIN EXAM MEASUREMENTS: Bone mineral densitometry was performed using the [employer] System. Bone mineral density as measured about the Lumbar spine is: ----- L1-L4(G/cm2): 1.352 T Score Values are as follows: ----- L1: 0.3 ----- L2: -1.1 ----- L3: 1.9 ----- L4: 2.4 ----- L1-L4: 1.4 Bone mineral density FIRST DEXA STUDY.....BASELINE Bone mineral density about the R hip (g/cm2): 0.800 Bone mineral density about the L hip (g/cm2): 0.800 T Score values are as follows: -----R Neck: -1.8 -----L Neck: -2.6 -----R Total: -1.6 -----L Total: -1.6 Bone mineral density FIRST DEXA SCAN.......BASELINE STUDY FRAX%s: THERE IS A 27.5% CHANCE FOR A MAJOR OSTEOPOROTIC FX AND A 11.5% FOR HIPS......PROBABILITY FOR FX IN 10 YRS TIME IMPRESSION: Osteopenia NOTE: T-SCORE=SD OF THE YOUNG ADULT MEAN.
== END | disposition home or self-care (01) ==
LOC: RADBDWWP 12:23
PROVIDERS: ATTEND Internal Medicine
DX: M85.89 Other specified disorders of bone density and structure, multiple sites (principal); Z78.0 Asymptomatic menopausal state
CPT/HCPCS: 77080

== ENCOUNTER → 2021-10-18 | Outpatient (CLI) | payer MEDICARE, BC ==
[2021-10-18 14:40] LABS: Appearance,Urine Cloudy (Clear); Bacteria,Urine Rare /hpf; Bilirubin,Urine Negative (Negative); Blood,Urine Small (Negative); Color,Urine Yellow; Glucose,Urine (UA) Negative (Negative); Ketones,Urine Negative (Negative); Leukocyte Esterase,Urine Large (Negative); Mucus,Urine Rare /hpf; Nitrite,Urine Negative (Negative); PH, Urine 5.5 (5.0-8.0); Protein,Urine 1+ (Negative); RBC,Urine 4 /hpf (0-5); Specific Gravity,Urine 1.017 (1.001-1.035); Squamous Epithelial Cell,Urine 19 /hpf (0-4); Urobilinogen,Urine <2.0 mg/dL (<2.0); WBC,Urine 14 /hpf (0-5)
[2021-10-18 19:03] LABS: HCT 33.9 % (37.2-46.3); HGB 10.6 g/dL (12.0-15.0); MCH 29.9 pg (27.0-32.0); MCHC 31.3 g/dL (32.0-37.0); MCV 95.8 fL (80.0-97.0); Mean Platelet Volume 10.8 fL (9.5-12.2); Platelet Count 197 X 10*3/uL (140-440); RBC 3.54 X 10*6/uL (4.10-5.20); WBC 3.91 X 10*3/uL (4.50-10.00)
[2021-10-18 21:37] LABS: % Iron Saturation 26.74 (12.00-45.00); African American GFR (CKD) 62.5 (60.0-200.0); Albumin 4.3 g/dL (3.8-4.9); Albumin/Globulin Ratio 1.57 (1.60-3.17); Anion Gap 12.7 mmol/L (10.00-18.00); BUN/Creat Ratio 28.96 Ratio (12.00-20.00); Blood Urea Nitrogen 27.8 mg/dL (9.0-27.0); Calcium 9.5 mg/dL (8.7-10.3); Carbon Dioxide 24.6 mmol/L (20.0-27.5); Globulin 2.7 g/dL (1.6-3.3); Magnesium 2.3 mg/dL (1.5-2.4); Non-African American GFR(CKD) 53.9 (60.0-200.0); Potassium 4.2 mmol/L (3.5-5.5); Total Bilirubin 0.3 mg/dL (0.30-1.20); Uric Acid 7.2 mg/dL (2.9-7.7)
[2021-10-19 01:57] LABS: Urine Creatinine 86.5 mg/dL (28.0-217.0)
== END | disposition home or self-care (01) ==
LOC: LABWHC1 12:27
PROVIDERS: ATTEND Nurse Practitioner Family
DX: D64.9 Anemia, unspecified (principal); N39.0 Urinary tract infection, site not specified; N25.81 Secondary hyperparathyroidism of renal origin; E55.9 Vitamin D deficiency, unspecified; M10.9 Gout, unspecified; N18.31 Chronic kidney disease, stage 3a; R80.9 Proteinuria, unspecified
CPT/HCPCS: 36415; 80053; 81001; 82043; 82306; 82570; 82728; 83540; 83550; 83735; 83970; 84100; 84550; 85027; 85610

== ENCOUNTER → 2023-06-18 | Outpatient (CLI) | payer MEDICARE, BC ==
--- NOTE | 2023-06-18 16:32 | XR ---
EXAMINATION TYPE: XR Hip Complete RT DATE OF EXAM: 06/18/2023 4:04 PM INDICATION: Patient age:Female; 88 years old; Reason for study: [id number] RT HIP PAIN; [facility]. COMPARISON: Right femur radiograph 12/23/2019 TECHNIQUE: The right hip was examined in the frontal and lateral projections and a AP pelvis. FINDINGS: No acute fracture or dislocation. Severe osteoarthritic changes of the right hip with super ior joint space narrowing with [id number] contact. There is acetabular sclerosis identified with walker bchondral cystic change. Marginal spurring demonstrated. No soft tissue swelling or joint effusion. D egenerative changes of the pubic symphysis. IMPRESSION: 1. No acute osseous pathology. 2. Severe right hip osteoarthritic changes redemonstrated.
== END | disposition home or self-care (01) ==
LOC: RADXRYALE 15:45
PROVIDERS: ATTEND Internal Medicine
DX: M16.11 Unilateral primary osteoarthritis, right hip (principal)
CPT/HCPCS: 73502

== ENCOUNTER 2023-08-14 01:36 | Inpatient (IN) | payer MEDICARE, BC ==
--- NOTE | 2023-08-14 03:38 | ED ---
General Adult HPI - General Chief complaint: Back Pain/Injury Stated complaint: Nausea, Pain Time Seen by Provider: 08/14/23 01:58 Source: patient Mode of arrival: wheelchair Limitations: no limitations - History of Present Illness Initial comments: Aileen is an 88-year-old female who presents the emergency department today for evaluation of generalized body aches, pain in her back and bilateral legs, low- grade fever nausea and decreased appetite. Patient reports she just really not feeling well at all this started on Friday and is progressively worsened. She has been hospitalized before for dehydration but feels worse today than those previous times. - Related Data Home Medications Medication Instructions Recorded Confirmed ALPRAZolam [Xanax] 0.25 mg PO BID PRN 02/25/17 12/23/19 Aspirin [Adult Low Dose Aspirin EC] 81 mg PO DAILY 02/25/17 12/23/19 Cyanocobalamin [Vitamin B-12 1,000 mcg SQ Q21D 02/25/17 12/23/19 Injection] Ergocalciferol [Vitamin D2 100,000 unit PO Q30D 02/25/17 12/23/19 (DRISDOL)] Nitroglycerin Sl Tabs [Nitrostat] 0.4 mg SL Q5M PRN 02/25/17 12/23/19 Propafenone [Rythmol] 150 mg PO TID 02/25/17 12/23/19 lisinopriL [Zestril] 10 mg PO DAILY 02/25/17 12/23/19 oxyBUTYnin chloride [Ditropan] 5 mg PO DAILY 02/25/17 12/23/19 Warfarin [Coumadin] 7.5 mg PO HS 12/15/19 12/23/19 allopurinoL [Zyloprim] 100 mg PO DAILY 12/15/19 12/23/19 Epoetin Mika [Procrit] 2,000 unit IJ Q30D 12/23/19 12/23/19 Lidocaine 5% Patch [Lidoderm 5% 1 patch TOPICAL DAILY 12/23/19 12/23/19 Patch] Nitrofurantoin Monohyd/M-Cryst 100 mg PO Q12HR 12/23/19 12/23/19 [Macrobid] Previous Rx's Medication Instructions Recorded HYDROcodone/APAP 5-325MG [Mears 1 tab PO DAILY PRN #12 tab 12/24/19 5325] Allergies Allergy/AdvReac Type Severity Reaction Status Date / Time No Known Allergies Allergy Verified 08/14/23 01:42 Review of Systems ROS Statement: Those systems with pertinent positive or pertinent negative responses have been documented in the HPI. ROS Other: All systems not noted in ROS Statement are negative. Past Medical History Past Medical History: Atrial Fibrillation, Blood Disorder, Diabetes Mellitus, Hypertension, Osteoarthritis (OA) Additional Past Medical History / Comment(s): NEUTROPENIA. ANEMIA. History of Any Multi-Drug Resistant Organisms: None Reported Past Surgical History: Appendectomy, Cholecystectomy, Orthopedic Surgery Additional Past Surgical History / Comment(s): LEFT SHOULDER SURGERY. BILATERAL CATARACTS. Past Anesthesia/Blood Transfusion Reactions: No Reported Reaction Past Psychological History: No Psychological Hx Reported Smoking Status: Never smoker Past Alcohol Use History: None Reported Past Drug Use History: None Reported - Past Family History Mother Family Medical History: Rheumatoid Arthritis (RA) Father Family Medical History: Diabetes Mellitus Additional Family Medical History / Comment(s): Father had diabetes later in his life. General Exam - General Exam Comments Initial Comments: Physical Exam GENERAL: Elderly female in moderate distress secondary to pain HENT: Normocephalic, Atraumatic. EYES: PERRL, EOMI PULMONARY: Unlabored respirations. CARDIOVASCULAR: RRR Warm and well perfused extremities ABDOMEN: Soft, Non-distended SKIN: No rashes or bruising : Deferred NEUROLOGIC: Alert and oriented Normal speech MUSCULOSKELETAL: Moving all extremities with no apparent injury PSYCHIATRIC: No SI/HI Limitations: no limitations Course Vital Signs 08/14/23 08/14/23 08/14/23 01:42 02:45 06:08 Temperature 99.8 F H Pulse Rate 87 76 73 Respiratory 18 18 18 Rate Blood Pressure 133/70 132/80 138/73 O2 Sat by Pulse 98 98 95 Oximetry Medical Decision Making - Medical Decision Making Was pt. sent in by a medical professional or institution (, PA, SADDLE STITCHER, urgent care, hospital, or alf...) When possible be specific @ -No Did you speak to anyone other than the patient for history (EMS, parent, family, police, friend...)? What history was obtained from this source @ -Son Did you review nursing and triage notes (agree or disagree)? Why? @ -I reviewed and agree with nursing and triage notes Were old charts reviewed (outside hosp., previous admission, EMS record, old EKG, old radiological studies, urgent care reports/EKG's, alf records)? Report findings @ -Previous labs reviewed Differential Diagnosis (chest pain, altered mental status, abdominal pain women, abdominal pain men, vaginal bleeding, weakness, fever, dyspnea, syncope, headache, dizziness, GI bleed, back pain, seizure, CVA, palpatations, mental health, musculoskeletal)? @ -Differential: Hypoglycemia, shock, sepsis, hyponatremia, anemia, infection, [place], ETOH, adverse medicine reaction, overdose, stroke, this is not meant to be an all-inclusive list. EKG interpreted by me (3pts min.). @ -As above X-rays interpreted by me (1pt min.). @ -None done CT interpreted by me (1pt min.). @ -None done U/S interpreted by me (1pt. min.). @ -None done What testing was considered but not performed or refused? (CT, X-rays, U/S, labs)? Why? @ -None What meds were considered but not given or refused? Why? @ -None Did you discuss the management of the patient with other professionals (professionals i.e. , PA, SADDLE STITCHER, lab, RT, psych nurse, social professionals, grinder, teacher, senior grants officer, watch caser)? Give summary @ -No Was smoking cessation discussed for >3mins.? @ -No Was critical care preformed (if so, how long)? @ -No Were there social determinants of health that impacted care today? How? (Homelessness, low income, unemployed, alcoholism, drug addiction, transportation, low edu. Level, literacy, decrease access to med. care, [place] [facility], rehab)? @ -No Was there de-escalation of care discussed even if they declined (Discuss DNR or withdrawal of care, Hospice)? DNR status @ -No What co-morbidities impacted this encounter? (DM, HTN, Smoking, COPD, CAD, Cancer, CVA, ARF, Chemo, Hep., AIDS, mental health diagnosis, sleep apnea, morbid obesity)? @ -None Was patient admitted / discharged? Hospital course, mention meds given and route, prescriptions, significant lab abnormalities, going to OR and other per tinent info. @ -Admit Patient seen and evaluated labs were obtained, labs are significant for mild acute kidney injury suggestive of dehydration and elevated creatinine kinase. P atient was not feeling much better after gentle IV fluids and pain medication. Patient will be admitted for further evaluation. Undiagnosed new problem with uncertain prognosis? @ -No Drug Therapy requiring intensive monitoring for toxicity (Heparin, Nitro, Insulin, Cardizem)? @ -No Were any procedures done? @ -No Diagnosis/symptom? @ Acute, or Chronic, or Acute on Chronic? @ -default Uncomplicated (without systemic symptoms) or Complicated (systemic symptoms)? @ -default Side effects of treatment? @ -No Exacerbation, Progression, or Severe Exacerbation? @ -No Poses a threat to life or bodily function? How? (Chest pain, [place], [place], pneumonia, PE, COPD, DKA, ARF, appy, cholecystitis, CVA, Diverticulitis, Homicidal, Suicidal, threat to staff... and all critical care pts) @ -No - Lab Data Result diagrams: 08/14/23 03:55 08/14/23 03:55 Lab Results 08/14/23 08/14/23 08/14/23 Range/Units 03:06 03:55 03:55 WBC 7.7 (3.8-10.6) k/uL RBC 4.29 (3.80-5.40) m/uL Hgb 13.1 (11.4-16.0) gm/dL Hct 39.3 (34.0-46.0) % MCV 91.7 (80.0-100.0) fL MCH 30.6 (25.0-35.0) pg MCHC 33.3 (31.0-37.0) g/dL RDW 14.0 (11.5-15.5) % Plt Count 129 L (150-450) k/uL MPV 7.4 Neutrophils % 90 % Lymphocytes % 4 % Monocytes % 5 % Eosinophils % 1 % Basophils % 0 % Neutrophils # 6.9 (1.3-7.7) k/uL Lymphocytes # 0.3 L (1.0-4.8) k/uL Monocytes # 0.3 (0-1.0) k/uL Eosinophils # 0.0 (0-0.7) k/uL Basophils # 0.0 (0-0.2) k/uL PT 10.7 (9.0-12.0) sec INR 1.0 (<1.2) APTT 27.8 (22.0-30.0) sec Sodium (137-145) mmol/L Potassium (3.5-5.1) mmol/L Chloride (98-107) mmol/L Carbon Dioxide (22-30) mmol/L Anion Gap mmol/L BUN (7-17) mg/dL Creatinine (0.52-1.04) mg/dL Est GFR (CKD-EPI)AfAm (>60 ml/min/1.73 sqM) Est GFR (CKD-EPI)NonAf (>60 ml/min/1.73 sqM) Glucose (74-99) mg/dL Plasma Lactic Acid Pk (0.7-2.0) mmol/L Calcium (8.4-10.2) mg/dL Magnesium (1.6-2.3) mg/dL Total Bilirubin (0.2-1.3) mg/dL AST (14-36) U/L ALT (4-34) U/L Alkaline Phosphatase (38-126) U/L Creatine Kinase (30-135) U/L Total Protein (6.3-8.2) g/dL Albumin (3.5-5.0) g/dL Influenza Type A (PCR) Not Detected (Not Detectd) Influenza Type B (PCR) Not Detected (Not Detectd) RSV (PCR) Not Detected (Not Detectd) SARS-CoV-2 (PCR) Not Detected (Not Detectd) 08/14/23 08/14/23 Range/Units 03:55 03:55 WBC (3.8-10.6) k/uL RBC (3.80-5.40) m/uL Hgb (11.4-16.0) gm/dL Hct (34.0-46.0) % MCV (80.0-100.0) fL MCH (25.0-35.0) pg MCHC (31.0-37.0) g/dL RDW (11.5-15.5) % Plt Count (150-450) k/uL MPV Neutrophils % % Lymphocytes % % Monocytes % % Eosinophils % % Basophils % % Neutrophils # (1.3-7.7) k/uL Lymphocytes # (1.0-4.8) k/uL Monocytes # (0-1.0) k/uL Eosinophils # (0-0.7) k/uL Basophils # (0-0.2) k/uL PT (9.0-12.0) sec INR (<1.2) APTT (22.0-30.0) sec Sodium 140 (137-145) mmol/L Potassium 3.3 L (3.5-5.1) mmol/L Chloride 102 (98-107) mmol/L Carbon Dioxide 25 (22-30) mmol/L Anion Gap 13 mmol/L BUN 30 H (7-17) mg/dL Creatinine 1.08 H (0.52-1.04) mg/dL Est GFR (CKD-EPI)AfAm 53 (>60 ml/min/1.73 sqM) Est GFR (CKD-EPI)NonAf 46 (>60 ml/min/1.73 sqM) Glucose 210 H (74-99) mg/dL Plasma Lactic Acid Pk 1.1 (0.7-2.0) mmol/L Calcium 9.7 (8.4-10.2) mg/dL Magnesium 2.5 H (1.6-2.3) mg/dL Total Bilirubin 1.8 H (0.2-1.3) mg/dL AST 35 (14-36) U/L ALT 25 (4-34) U/L Alkaline Phosphatase 86 (38-126) U/L Creatine Kinase 208 H (30-135) U/L Total Protein 7.1 (6.3-8.2) g/dL Albumin 3.9 (3.5-5.0) g/dL Influenza Type A (PCR) (Not Detectd) Influenza Type B (PCR) (Not Detectd) RSV (PCR) (Not Detectd) SARS-CoV-2 (PCR) (Not Detectd) Disposition Clinical Impression: Myalgia, Hypokalemia, Elevated creatine kinase Disposition: ADMITTED IP TO THIS HOSP Condition: Stable Is patient prescribed a controlled substance at d/c from ED?: No Referrals: Raissa Munguia MD [Primary Care Provider] - 1-2 days
[2023-08-14 04:08] LABS: Basophils % (A) 0 %; Eosinophils % (A) 1 %; HCT 39.3 % (34.0-46.0); HGB 13.1 gm/dL (11.4-16.0); Lymphocytes # (A) 0.3 k/uL (1.0-4.8); Lymphocytes % (A) 4 %; MCH 30.6 pg (25.0-35.0); MCHC 33.3 g/dL (31.0-37.0); MCV 91.7 fL (80.0-100.0); Mean Platelet Volume 7.4; Monocytes # (A) 0.3 k/uL (0-1.0); Monocytes % (A) 5 %; Neutrophils # (A) 6.9 k/uL (1.3-7.7); Neutrophils % (A) 90 %; Platelet Count 129 k/uL (150-450); RBC 4.29 m/uL (3.80-5.40); WBC 7.7 k/uL (3.8-10.6)
[2023-08-14 04:29] LABS: Partial Thromboplastin Time 27.8 sec (22.0-30.0); Prothrombin Time 10.7 sec (9.0-12.0)
[2023-08-14] MEDS ORDERED: ACETAMINOPHEN TAB 325 MG TAB PO STA (04:39)
[2023-08-14 04:44] LABS: ALT 25 U/L (4-34); AST 35 U/L (14-36); African American GFR (CKD) 53 (>60 ml/min/1.73 sqM); Albumin 3.9 g/dL (3.5-5.0); Alkaline Phosphatase 86 U/L (38-126); Anion Gap 13 mmol/L; Blood Urea Nitrogen 30 mg/dL (7-17); Calcium 9.7 mg/dL (8.4-10.2); Carbon Dioxide 25 mmol/L (22-30); Chloride 102 mmol/L (98-107); Creatine Kinase 208 U/L (30-135); Glucose 210 mg/dL (74-99); Magnesium 2.5 mg/dL (1.6-2.3); Non-African American GFR(CKD) 46 (>60 ml/min/1.73 sqM); Potassium 3.3 mmol/L (3.5-5.1); Sodium 140 mmol/L (137-145); Total Bilirubin 1.8 mg/dL (0.2-1.3); Total Protein 7.1 g/dL (6.3-8.2)
[2023-08-14] MEDS ORDERED: SODIUM CHLORIDE 0.9% 500 ML 500 ML IV ONE (05:52)
[2023-08-14] MEDS ORDERED: POTASSIUM CHLORIDE ER 20 MEQ TAB.ER PO STA (05:53)
[2023-08-14] MEDS: SODIUM CHLORIDE 0.9% 1,000 ML IV SCH ×2 (06:07→21:33)
[2023-08-14] MEDS ORDERED: MORPHINE SULFATE 2 MG/ML SYRINGE IVP STA (06:50)
[2023-08-14] MEDS ORDERED: NALOXONE 0.4 MG/ML 1 ML VIAL IV PRN (07:27)
[2023-08-14] MEDS ORDERED: MORPHINE SULFATE 4 MG/ML SYRINGE IVP STA (08:09)
[2023-08-14 09:04] LABS: Appearance,Urine Cloudy (Clear); Bacteria,Urine Many /hpf; Bilirubin,Urine Negative (Negative); Blood,Urine Moderate (Negative); Budding Yeast,Urine Many /hpf; Color,Urine Light Yellow; Glucose,Urine (UA) 4+ (Negative); Ketones,Urine 1+ (Negative); Leukocyte Esterase,Urine Moderate (Negative); Mucus,Urine Occasional /hpf; Nitrite,Urine Negative (Negative); Protein,Urine 1+ (Negative); RBC,Urine 36 /hpf (0-5); Specific Gravity,Urine 1.024 (1.001-1.035); Squamous Epithelial Cell,Urine 1 /hpf (0-4); Urobilinogen,Urine <2.0 mg/dL (<2.0); WBC,Urine 38 /hpf (0-5)
[2023-08-14] MEDS ORDERED: DEXTROSE 50% SYRINGE 50 ML IVP PRN ×2 (09:41)
[2023-08-14] MEDS ORDERED: CYCLOBENZAPRINE 5 MG TAB PO STA (09:41)
[2023-08-14] MEDS ORDERED: NON FORMULARY DRUG (Ergocalciferol 50,000 UNIT Cap) PO SCH (09:45)
[2023-08-14] MEDS: Acetaminophen-Codeine 300-30mg TAB PO PRN ×2 (09:54→17:05)
[2023-08-14] MEDS: NON FORMULARY DRUG (Neuriva 1 CAP) PO SCH (10:33)
[2023-08-14] MEDS: NON FORMULARY DRUG (Glucosamine/Chondr Su A Sod [Osteo Bi-Flex Caplet] 1 EACH Tablet) PO SCH (10:33)
[2023-08-14] MEDS: NON FORMULARY DRUG (Prevagen 1 CAP) PO SCH (10:34)
[2023-08-14] MEDS: AMIODARONE 200 MG TAB PO SCH (10:51)
[2023-08-14] MEDS: METOPROLOL SUCCINATE (ER) 50 MG TAB.ER.24H PO SCH (10:51)
[2023-08-14] MEDS: APIXABAN 5 MG TAB PO SCH ×2 (10:51→21:32)
[2023-08-14] MEDS: DOCUSATE 100 MG CAP PO SCH (10:51)
[2023-08-14] MEDS: DAPAGLIFLOZIN PROPANEDIOL 5 MG TABLET PO SCH (10:51)
[2023-08-14 13:01] LABS: Glucose,Whole Blood 157 mg/dL (70-110)
[2023-08-14] MEDS: INSULIN ASPART (NovoLOG) 100 UNIT/ML VIAL SQ SCH ×3 (13:28→21:33)
--- NOTE | 2023-08-14 14:50 | XR ---
EXAMINATION TYPE: XR chest 1V DATE OF EXAM: 08/14/2023 COMPARISON: 12/15/2019 HISTORY: 88-year-old female with fever TECHNIQUE: Single frontal view of the chest is obtained. FINDINGS: Heart borderline enlarged. Interstitial dominance to slightly increased. No consolidation or pleural effusion. Rotator cuff arthropathy on the right. Suture anchors left humeral head from prior cuff rep air. Postsurgical widening left AC joint. IMPRESSION: Slight increased interstitial density could represent bronchitis or asthma. No focal infiltrate seen.
--- NOTE | 2023-08-14 15:48 | US ---
EXAMINATION TYPE: US kidneys/renal and bladder DATE OF EXAM: 08/14/2023 COMPARISON: CLINICAL INDICATION: Female, 88 years old with history of VIVIAN, UTI; Abnormal labs. Hx renal cyst. EXAM MEASUREMENTS: Right Kidney: 10.5 x 4.7 x 5.0 cm Left Kidney: 9.8 x 4.4 x 4.5 cm Right Kidney: Exophytic upper pole cyst measuring 5.7 x 5.3 x 4.5 cm. No hydronephrosis. Left Kidney: No hydronephrosis or masses seen Bladder: Dependent echoes along the posterior wall suggesting debris Right jet seen IMPRESSION: 1. No hydronephrosis. 2. A large exophytic cyst from the upper pole right kidney measuring up to 5.7 cm. 3. Some layering debris within the bladder. Correlate with urinalysis and with symptoms to exclude cy stitis or hematuria.
[2023-08-14] MEDS ORDERED: CYCLOBENZAPRINE 5 MG TAB PO PRN (17:04)
[2023-08-14 17:27] LABS: Glucose,Whole Blood 135 mg/dL (70-110)
[2023-08-14 20:48] LABS: Glucose,Whole Blood 236 mg/dL (70-110)
--- NOTE | 2023-08-14 20:56 | P.HPIM ---
History of Present Illness H&P Date: 08/14/23 Chief Complaint: Generalized body aches Patient is a 88-year-old female with a past medical history of atrial fibrillation on anticoagulation with Eliquis, and diabetes type 2 [id number], hypertension, hyperlipidemia, osteoarthritis and other problems presents to ER with complaints of generalized body aches, pain in her back and also bilateral lower extremities. Patient states that she did have low-grade fever and nausea and decreased appetite since last Friday and is getting worse. Denies any chest pain or shortness of breath. No diarrhea or abdominal pain. Laboratory data showed WBC 7.7 hemoglobin 13.1 and platelets 129 Sodium 140 potassium 3.3 chloride 102 bicarb is 25 BUN 13 creatinine 1.08 and blood sugar is 210 Magnesium 2.5, total bilirubin level is 1.8 and alk phos 86. CK2 08 Urinalysis showed cloudy with 1+ protein 4+ glucose 1+ ketones and elevated RBCs and WBCs. With moderate leukocyte esterase. Influenza A, B, RSV PCR and COVID-19 PCR not detected. Patient has been taking Farxiga for the past 2 months. Chest x-ray showed slight increased interstitial density could represent bronchitis or asthma. No focal infiltrate seen. Bladder ultrasound showed no hydronephrosis. Large ago Phytex cyst on the upper pole of the right kidney measuring 5.7 cm. Some layering debris's within the bladder. Correlate with urinalysis and symptoms. Exclude cystitis or hematuria. Review of Systems Constitutional: Patient complains of low-grade fevers and no chills. Patient does have generalized weakness and muscle aches.. Abdomen: Patient denied any nausea or vomiting or abd. pain Cardiovascular: Patient denies any chest pain or short of breath no palpitations. Respiratory: patient denied any cough . no sputum production. No shortness of breath Neurologic: Patient denied any numbness or tingling headache. Musculoskeletal: Patient denies any complaints of joint swelling or deformity. Lower extremity pain. Skin: Negative Psychiatric: Negative Endocrine: No heat or cold intolerance. No recent weight gain. Genitourinary: No dysuria or hematuria. All other 14 point ROS negative except the above Past Medical History Past Medical History: Atrial Fibrillation, Blood Disorder, Diabetes Mellitus, Hypertension, Osteoarthritis (OA) Additional Past Medical History / Comment(s): NEUTROPENIA. ANEMIA. History of Any Multi-Drug Resistant Organisms: None Reported Past Surgical History: Appendectomy, Cholecystectomy, Orthopedic Surgery Additional Past Surgical History / Comment(s): LEFT SHOULDER SURGERY. BILATERAL CATARACTS. Past Anesthesia/Blood Transfusion Reactions: No Reported Reaction Past Psychological History: No Psychological Hx Reported Smoking Status: Never smoker Past Alcohol Use History: None Reported Past Drug Use History: None Reported - Past Family History Mother Family Medical History: Rheumatoid Arthritis (RA) Father Family Medical History: Diabetes Mellitus Additional Family Medical History / Comment(s): Father had diabetes later in his life. Medications and Allergies Home Medications Medication Instructions Recorded Confirmed Type Ergocalciferol [Vitamin D2 100,000 unit PO Q30D 02/25/17 08/14/23 History (DRISDOL)] Acetaminophen-Codeine 300-30mg 1 tab PO BID PRN 08/14/23 08/14/23 History [Tylenol w/codeine #3] Amiodarone [Cordarone] 200 mg PO DAILY 08/14/23 08/14/23 History Apixaban [Eliquis] 5 mg PO BID 08/14/23 08/14/23 History Dapagliflozin Propanediol [Farxiga] 5 mg PO DAILY 08/14/23 08/14/23 History Docusate [Colace] 100 mg PO DAILY 08/14/23 08/14/23 History Glucosamine/Chondr Belcher A Sod [Osteo 1 tab PO DAILY 08/14/23 08/14/23 History Bi-Flex Caplet] Metoprolol Succinate (ER) [Toprol 50 mg PO DAILY 08/14/23 08/14/23 History Xl] Neuriva 1 cap PO DAILY 08/14/23 08/14/23 History Prevagen 1 cap PO DAILY 08/14/23 08/14/23 History Rosuvastatin Calcium 5 mg PO HS 08/14/23 08/14/23 History calcitrioL [Calcitriol] 0.25 mcg PO MOWEFR 08/14/23 08/14/23 History Allergies Allergy/AdvReac Type Severity Reaction Status Date / Time No Known Allergies Allergy Verified 08/14/23 08:09 Physical Exam Vitals: Vital Signs Temp Pulse Pulse Resp BP BP Pulse Ox 08/14/23 09:35 98.8 F 82 15 149/81 99 08/14/23 09:05 98.4 F 82 16 155/72 90 L 08/14/23 08:30 75 18 147/95 97 08/14/23 06:08 73 18 138/73 95 08/14/23 02:45 76 18 132/80 98 08/14/23 01:42 99.8 F H 87 18 133/70 98 Intake and Output 08/13/23 08/14/23 08/14/23 22:59 06:59 14:59 Other: Weight 72.575 kg PHYSICAL EXAMINATION: Patient is lying in the bed comfortably, no acute distress, awake alert and oriented.. HEENT: Normocephalic. Neck is supple. Pupils reactive. Nostrils clear. Oral cavity is moist. Neck reveals no JVD, carotid bruits, or thyromegaly. CHEST EXAMINATION: Trachea is central. Symmetrical expansion. Lung vargas clear to auscultation and percussion. Bibasilar diminished sounds. No wheezing. CARDIAC: Normal S1, S2 with no gallops. No murmurs ABDOMEN: Soft. Bowel sounds present. Nontender. No organomegaly. No abdominal bruits. Extremities: reveal no edema. No clubbing or cyanosis Neurologically awake, alert, oriented x2-3 with well-coordinated movements. No focal deficits noted Skin: No rash or skin lesions. Psychiatric: Coperative. Nonsuicidal, Musculoskeletal: No joint swelling or deformity. Results CBC & Chem 7: 08/14/23 03:55 08/14/23 03:55 Labs: Abnormal Lab Results - Last 24 Hours (Table) 08/14/23 08/14/23 08/14/23 Range/Units 03:55 03:55 07:54 Plt Count 129 L (150-450) k/uL Lymphocytes # 0.3 L (1.0-4.8) k/uL Potassium 3.3 L (3.5-5.1) mmol/L BUN 30 H (7-17) mg/dL Creatinine 1.08 H (0.52-1.04) mg/dL Glucose 210 H (74-99) mg/dL Magnesium 2.5 H (1.6-2.3) mg/dL Total Bilirubin 1.8 H (0.2-1.3) mg/dL Creatine Kinase 208 H (30-135) U/L Urine Appearance Cloudy H (Clear) Urine Protein 1+ H (Negative) Urine Glucose (UA) 4+ H (Negative) Urine Ketones 1+ H (Negative) Urine Blood Moderate H (Negative) Ur Leukocyte Esterase Moderate H (Negative) Urine RBC 36 H (0-5) /hpf Urine WBC 38 H (0-5) /hpf Urine Bacteria Many H (None) /hpf Urine Mucus Occasional H (None) /hpf Urine Yeast (Budding) Many H (None) /hpf Thrombosis Risk Factor Assmnt - DVT/VTE Prophylaxis DVT/VTE Prophylaxis: Pharmacologic Prophylaxis ordered Assessment and Plan Assessment: Acute urinary tract infection Generalized body aches and pain in her back and lower extremities. Mild acute kidney injury likely prerenal Mild rhabdomyolysis with CPK 208 Chronic persistent atrial fibrillation on anticoagulation with Eliquis Diabetes type 2 with hyperglycemia Hypertension Degenerative joint disease History of cholecystectomy Gait dysfunction DVT prophylaxis and GI prophylaxis. Patient is already on Eliquis. Plan: Patient will be continued on IV hydration with normal saline at 75 cc/h. Started on antibiotics, ceftriaxone 1 g daily and follow-up urine culture report. Continue with Flexeril for muscle spasms. Continue with pain management. Patient will be started back on home medications including amiodarone, apixaban and metoprolol. Cardiac insulin sliding scale and A1c level was ordered. Follow-up renal function. Follow-up CBC and BMP tomorrow. Replace potassium. Prognosis guarded at this time. PT OT will be consulted. Time with Patient: Greater than 30
[2023-08-14] MEDS: ATORVASTATIN 10 MG TAB PO SCH (21:32)
[2023-08-14] MEDS: CYCLOBENZAPRINE 5 MG TAB PO PRN (21:33)
[2023-08-15 07:15] LABS: Glucose,Whole Blood 154 mg/dL (70-110)
[2023-08-15] MEDS: Acetaminophen-Codeine 300-30mg TAB PO PRN (08:41)
[2023-08-15] MEDS: AMIODARONE 200 MG TAB PO SCH (08:43)
[2023-08-15] MEDS: CYCLOBENZAPRINE 5 MG TAB PO PRN (08:43)
[2023-08-15] MEDS: METOPROLOL SUCCINATE (ER) 50 MG TAB.ER.24H PO SCH (08:43)
[2023-08-15] MEDS: DAPAGLIFLOZIN PROPANEDIOL 5 MG TABLET PO SCH (08:43)
[2023-08-15] MEDS: FAMOTIDINE 20 MG TAB PO SCH (08:44)
[2023-08-15] MEDS: DOCUSATE 100 MG CAP PO SCH (08:44)
[2023-08-15] MEDS: APIXABAN 5 MG TAB PO SCH ×2 (08:44→20:53)
[2023-08-15] MEDS ORDERED: Acetaminophen-Codeine 300-30mg TAB PO PRN (08:53)
--- NOTE | 2023-08-15 09:29 | P.GSCN ---
History of Present Illness Consult date: 08/15/23 Reason for Consult: Bilateral lower extremity pain and discoloration Requesting physician: Dolores Chaudhari History of present illness: This is a pleasant 88-year-old female who was admitted to the hospital for generalized weakness and myalgia. She has a past medical history including type 2 diabetes mellitus, atrial fibrillation on Eliquis, anemia, hypertension, hyperlipidemia, and osteoarthritis. She is a nonsmoker. Patient came in with complaints of generalized body aches and pain from her neck she states down to her back to her hips and down her legs. She states his pain has been constant and wakes her up during the night. States that she feels like her legs are burning and changed colors and purple at times. Patient has not had any workup done for lower extremity or back pain at this point. She currently denies any chest pain, shortness of breath, abdominal pain, however does state she has nausea with no vomiting, had a low-grade fever at home and a headache currently. She was admitted for generalized myalgia, mild rhabdomyolysis, concern for acute urinary tract infection and started on ceftriaxone. Vascular surgery was consulted for lower extremity pain. Review of Systems A 14 point review systems was completed all pertinent positives and negatives as stated in the HPI. Past Medical History Past Medical History: Atrial Fibrillation, Blood Disorder, Diabetes Mellitus, Hypertension, Osteoarthritis (OA) Additional Past Medical History / Comment(s): NEUTROPENIA. ANEMIA. History of Any Multi-Drug Resistant Organisms: None Reported Past Surgical History: Appendectomy, Cholecystectomy, Orthopedic Surgery Additional Past Surgical History / Comment(s): LEFT SHOULDER SURGERY. BILATERAL CATARACTS. Past Anesthesia/Blood Transfusion Reactions: No Reported Reaction Past Psychological History: No Psychological Hx Reported Smoking Status: Never smoker Past Alcohol Use History: None Reported Past Drug Use History: None Reported - Past Family History Mother Family Medical History: Rheumatoid Arthritis (RA) Father Family Medical History: Diabetes Mellitus Additional Family Medical History / Comment(s): Father had diabetes later in his life. Medications and Allergies Home Medications Medication Instructions Recorded Confirmed Type Ergocalciferol [Vitamin D2 100,000 unit PO Q30D 02/25/17 08/14/23 History (DRISDOL)] Acetaminophen-Codeine 300-30mg 1 tab PO BID PRN 08/14/23 08/14/23 History [Tylenol w/codeine #3] Amiodarone [Cordarone] 200 mg PO DAILY 08/14/23 08/14/23 History Apixaban [Eliquis] 5 mg PO BID 08/14/23 08/14/23 History Dapagliflozin Propanediol [Farxiga] 5 mg PO DAILY 08/14/23 08/14/23 History Docusate [Colace] 100 mg PO DAILY 08/14/23 08/14/23 History Glucosamine/Chondr Belcher A Sod [Osteo 1 tab PO DAILY 08/14/23 08/14/23 History Bi-Flex Caplet] Metoprolol Succinate (ER) [Toprol 50 mg PO DAILY 08/14/23 08/14/23 History Xl] Neuriva 1 cap PO DAILY 08/14/23 08/14/23 History Prevagen 1 cap PO DAILY 08/14/23 08/14/23 History Rosuvastatin Calcium 5 mg PO HS 08/14/23 08/14/23 History calcitrioL [Calcitriol] 0.25 mcg PO MOWEFR 08/14/23 08/14/23 History Allergies Allergy/AdvReac Type Severity Reaction Status Date / Time No Known Allergies Allergy Verified 08/14/23 08:09 Surgical - Exam Vital Signs Temp Pulse Resp BP Pulse Ox 99.8 F H 87 18 133/70 98 08/14/23 01:42 08/14/23 01:42 08/14/23 01:42 08/14/23 01:42 08/14/23 01:42 General appearance: The patient is alert, oriented, appears in no acute distress. HET: Head is normocephalic and atraumatic. Pupils are equal and reactive. Neck: Supple. Heart: Regular. Lungs: Equal expansion, normal respiratory effort. Abdomen: Soft, nontender, nondistended. Extremities: Normal skin color and turgor. Palpable bilateral femoral, popliteal, posterior tibial and dorsalis pedis pulses. Sensorimotor intact. She does have tenderness to the touch. Neurological: No focal deficits. Sensorimotor intact. Results - Labs 08/15/23 05:40 08/14/23 03:55 Abnormal Lab Results - Last 24 Hours (Table) 08/14/23 08/14/23 08/14/23 Range/Units 07:54 12:55 17:26 POC Glucose (mg/dL) 157 H 135 H (70-110) mg/dL Urine Appearance Cloudy H (Clear) Urine Protein 1+ H (Negative) Urine Glucose (UA) 4+ H (Negative) Urine Ketones 1+ H (Negative) Urine Blood Moderate H (Negative) Ur Leukocyte Esterase Moderate H (Negative) Urine RBC 36 H (0-5) /hpf Urine WBC 38 H (0-5) /hpf Urine Bacteria Many H (None) /hpf Urine Mucus Occasional H (None) /hpf Urine Yeast (Budding) Many H (None) /hpf 08/14/23 08/15/23 Range/Units 20:47 07:14 POC Glucose (mg/dL) 236 H 154 H (70-110) mg/dL Urine Appearance (Clear) Urine Protein (Negative) Urine Glucose (UA) (Negative) Urine Ketones (Negative) Urine Blood (Negative) Ur Leukocyte Esterase (Negative) Urine RBC (0-5) /hpf Urine WBC (0-5) /hpf Urine Bacteria (None) /hpf Urine Mucus (None) /hpf Urine Yeast (Budding) (None) /hpf - Imaging Comments: Chest x-ray slight increased interstitial density could represent bronchitis or asthma. No focal infiltrate seen. Bladder ultrasound: No hydronephrosis, large exophytic cyst from the upper pole right kidney measuring up to 5.7 cm, some layering debris within the bladder. Correlate with urinalysis with symptoms to exclude cystitis or hematuria. Lower extremity arterial ultrasound with bilateral multiphasic signals. Normal TBI. Overall normal study. Assessment and Plan Assessment: 1. Lower extremity pain likely related to diabetic neuropathy/microvascular disease 2. Myalgia 3. Weakness 4. Suspected urinary tract infection 5. Neck and Back pain 6. Atrial fibrillation on Eliquis 7. Osteoarthritis Plan: 1. Arterial ultrasound of lower extremities ordered and reviewed 2. Will try gabapentin 100 mg 3 times a day for peripheral neuropathy 3. There is no indication for any vascular surgical intervention at this time 4. Consider further workup for back pain and lower extremity pain with neurology Thank you for this consultation. We will sign off at this time. The impression and plan of care has been dictated as directed. Dr. Becker I performed a history and examination of this patient, discussed the same with the dictator. I agree with the dictator's note ,documented as a scribe. Any additional findings or plans will be noted.
[2023-08-15] MEDS: NON FORMULARY DRUG (Neuriva 1 CAP) PO SCH (10:35)
[2023-08-15] MEDS: NON FORMULARY DRUG (Glucosamine/Chondr Su A Sod [Osteo Bi-Flex Caplet] 1 EACH Tablet) PO SCH (10:35)
[2023-08-15] MEDS: NON FORMULARY DRUG (Prevagen 1 CAP) PO SCH (10:37)
--- NOTE | 2023-08-15 10:45 | US ---
EXAMINATION TYPE: US arterial LE single level DATE OF EXAM: 08/15/2023 10:15 AM CLINICAL INDICATION: Female, 88 years old with history of DM, bilateral lower extremity pain; leg carmel n History of: Smoker: N Hypertension: ON MEDS Diabetic: TYPE 2 Hyperlipidemia: N TIA/CVA: N Previous Vascular Surgery: N CAD: N HI: N Vascular Ulcers: N Claudication: N Gangrene: N Doppler Waveforms: Right: Multiphasic Left: Multiphasic Right Brachial Pressure: 121 Left Brachial Pressure: IV IN ARM Ankle-Brachial Indices: Right: Not obtainable due to non-occlusive vessels Left: Not obtainable due to non-occlusive vessels Toe Brachial Indices: Right: 1.3 Left: 1.4 IMPRESSION: Normal TBI indices.
[2023-08-15] MEDS: INSULIN ASPART (NovoLOG) 100 UNIT/ML VIAL SQ SCH ×4 (10:46→20:53)
[2023-08-15 11:10] LABS: HCT 37.4 % (37.2-46.3); HGB 11.8 d/dL (12.0-15.0); MCH 29.3 pg (27.0-32.0); MCHC 31.6 d/dL (32.0-37.0); MCV 92.8 FL (80.0-97.0); Mean Platelet Volume 10.4 FL (9.5-12.2); NRBC Per 100 WBC 0 X 10*3/uL (0.00-0.01); Platelet Count 124 X 10*3/uL (140-440); RBC 4.03 X 10*6/uL (4.10-5.20); RDW 14.5 % (11.5-14.5); WBC 7.04 X 10*3/uL (4.50-10.00)
[2023-08-15 11:32] LABS: Glucose,Whole Blood 186 mg/dL (70-110)
[2023-08-15 11:55] LABS: Basophils # (A) 0.01 X 10*3/uL (0.00-0.10); Basophils % (A) 0.1 %; Eosinophils # (A) 0 X 10*3/uL (0.04-0.35); Eosinophils % (A) 0 %; Lymphocytes % (A) 4.3 %; Monocytes # (A) 0.71 X 10*3/uL (0.20-1.00); Monocytes % (A) 10.1 %; Neutrophils # (A) 5.99 X 10*3/uL (1.80-7.70); Neutrophils % (A) 85.1 %
[2023-08-15 11:56] LABS: Crenated RBC 2+
[2023-08-15] MEDS: SODIUM CHLORIDE 0.9% 1,000 ML IV SCH ×2 (13:35→20:55)
[2023-08-15] MEDS: HYDROmorphone 0.5 MG/0.5 ML SYRINGE IVP PRN (13:51)
[2023-08-15 14:11] LABS: ALT 15 U/L (8-44); AST 20 U/L (13-35); Albumin 2.9 d/dL (3.8-4.9); Albumin/Globulin Ratio 1.12 Ratio (1.60-3.17); Alkaline Phosphatase 65 U/L (41-126); Blood Urea Nitrogen 22.7 mg/dL (9.0-27.0); Calcium 8.9 mg/dL (8.7-10.3); Carbon Dioxide 19.8 mmol/L (21.6-31.8); Chloride 102 mmol/L (96-109); Creatine Kinase 67 U/L (26-186); Globulin 2.6 d/dL (1.6-3.3); Glucose 147 mg/dL (70-110); Potassium 3.3 mmol/L (3.5-5.5); Sodium 136 mmol/L (135-145); Total Bilirubin 0.8 mg/dL (0.3-1.2); Total Protein 5.5 d/dL (6.2-8.2)
--- NOTE | 2023-08-15 15:20 | CT ---
EXAMINATION TYPE: CT CervThorLumbar spine w con DATE OF EXAM: 08/15/2023 COMPARISON: None HISTORY: 88-year-old female neck, back, and leg pain with weakness TECHNIQUE: Contiguous axial scanning of the cervical, thoracic, and lumbar spine performed with IV Co ntrast, patient injected with 80 cc mL of Isovue 300. Coronal/sagittal reconstructions performed. CT DLP: 1982.6 mGycm Automated exposure control for dose reduction was used. FINDINGS: CERVICAL SPINE: S-shaped scoliosis throughout the spine. No craniocervical junction abnormality, predental space widening, or prevertebral soft tissue swellin g. Degenerative change of the C1 dens articulation. There There is moderate multilevel spondylotic change. Degenerative grade 1 anterolisthesis C3-C4 and C4-C5. Degenerative grade 1 retrolisthesis C5-C6 and C 6-C7. Overall changes result in at least moderate spinal canal stenosis at C5-C6 and C6/C7. Mild elsewhere in the cervical spine. Moderate bilateral neural foraminal stenoses at C3-C4, severe left C4-C5, moderate to severe both ignacio es C5-C6, mild to moderate C6/C7. THORACIC SPINE: Moderate multilevel spondylotic change. [facility] within the mid thoracic spine. Vertebral body heights are preserved and alignment is maintained. Scattered mild disc osteophyte complexes mildly narrowing the spinal canal such as at T2-T3 and T4-T5 . Scattered facet arthropathy. On the right, changes result in moderate neuroforaminal stenosis at T1-T2 and mild at T10-T11. On the left, changes result in moderate neuroforaminal stenosis at T1-T2 and mild at T10-T11. On the right, changes result in mild neural foraminal stenosis T1-T2 and T2-T3 as well as T10-T11. LUMBAR SPINE: Advanced multilevel spondylotic changes including degenerative disc disease as well as hypertrophic f acet arthropathy. Degenerative trace grade 1 retrolisthesis L1-L2, L2-L3, L3-L4. Vertebral body heights are preserved. Baastrup's disease. Changes result in a focal moderate spinal canal stenosis at L3-L4 and also L1-L2. On the left, moderate to severe neural foraminal stenosis at L5-S1 and moderate at L4-L5. Moderate al so at L2-L3. On the right, changes result in moderate to severe neuroforaminal stenosis L1-L2 and moderate at L2-L 3 and L5-S1. INCIDENTAL COLON * Enlarged caliber to the main right and left pulmonary arteries up to 2.8 cm suggesting underlying pulmonary artery hypertension. * Dependent atelectasis. Small right and trace left effusions. * Right renal cyst measuring 5.1 cm. * Multiple cysts are present throughout the pancreas measuring up to 3.2 cm. Only a few were present back in 2010, largest measuring 2.0 cm. * Sigmoid diverticulosis. IMPRESSION: 1. S-SHAPED SCOLIOSIS THROUGHOUT THE SPINE. GREATEST CURVATURE IN THE LUMBAR SPINE AND SECONDARY LEFT LATERAL SUBLUXATION AT L3-L4. CERVICAL SPINE: 2. Moderate multilevel spondylotic change in the cervical spine with degenerative grade 1 spondylolis thesis C3-C4, C4-C5, C5-C6, C6-C7. 3. Overall moderate spinal canal stenoses at C5-C6 and C6/C7. 4. Variable neuroforaminal stenoses as outlined above. THORACIC SPINE: 5. Mild/moderate degenerative disc disease. Scattered facet arthropathy. No vertebral compression col lapse or malalignment. 6. 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 LUMBAR SPINE: 7. Moderate to advanced multilevel spondylotic change 8. No vertebral compression collapse or malalignment. 9. Focal moderate spinal canal stenoses at L1-L2 and L3-L4. 10. Variable neuroforaminal stenoses as outlined above, moderate to severe on the left at L5-S1 and o n the right at L1-L2. INCIDENTAL: 11. Extensive cystic change throughout the pancreas with cysts measuring up to 3.2 cm. These are incr eased in both size and number compared to 06/29/2010 where cysts measuring up to 2.0 cm. Correlate for any known diagnosis. Multiple underlying serous cystadenomas or sequela of prior pancreatitis are in the differential. 12. Small bilateral pleural effusions with adjacent atelectasis.
[2023-08-15] MEDS: HYDROcodone/APAP 5-325MG 1 EACH TAB PO PRN ×2 (15:27→21:16)
[2023-08-15] MEDS: GABAPENTIN 100 MG CAP PO SCH ×2 (15:27→20:53)
[2023-08-15 17:06] LABS: Glucose,Whole Blood 257 mg/dL (70-110)
[2023-08-15 20:19] LABS: Glucose,Whole Blood 301 mg/dL (70-110)
[2023-08-15] MEDS: ATORVASTATIN 10 MG TAB PO SCH (20:53)
--- NOTE | 2023-08-15 23:26 | PN ---
PROGRESS NOTE DATE OF SERVICE: 08/15/2023 SUBJECTIVE: This 88-year-old woman with past medical history of multiple medical issues with significant pain and weakness of both lower limbs. The patient also had evidence of some local tenderness and some swelling also. The lower extremity ultrasound was unremarkable. The patient is closely monitored. There is no history of any fever, rigors, or chills. COVID-19 is negative. PAST MEDICAL HISTORY: Reviewed. REVIEW OF SYSTEMS: A 14-point review is negative except as mentioned. CURRENT MEDICATIONS: Reviewed include metoprolol, dose and rest of medications noted. OBJECTIVE: VITAL SIGNS: Pulse is 70, blood pressure 119/60, respirations 17. HEENT: Conjunctivae normal. NECK: No jugular venous distention. CARDIOVASCULAR: S1, S2. RESPIRATIONS: Breath sounds diminished at the bases. ABDOMEN: Soft. LEGS: Minimal edema bilateral, significant weakness and significant pain also present. LABORATORY DATA: Creatinine 1.08 and creatine kinase 208, other labs are noted. ASSESSMENT: 1. Bilateral pain and weakness, possibly acute myositis. 2. Generalized body aches in the back and lower extremities. 3. Mild acute kidney injury. 4. Mild rhabdomyolysis. 5. Chronic persistent atrial fibrillation. 6. Diabetes mellitus, type 2. 7. Hypertension. 8. Multiple medical issues. 9. Mild thrombocytopenia. RECOMMENDATIONS AND DISCUSSION: I recommended to continue current management, continue symptomatic treatment. Please also history and diagnosis some mild thrombocytopenia. Recommended repeat labs, symptomatic treatment, pain management. Monitor blood sugars closely, monitor CK closely. I would also recommend COVID-19 PCR testing also. Guarded prognosis. Further recommendations to follow. MMODL / IJN: [id number] /
[2023-08-16] MEDS: HYDROcodone/APAP 5-325MG 1 EACH TAB PO PRN (06:47)
[2023-08-16 07:35] LABS: Glucose,Whole Blood 222 mg/dL (70-110)
[2023-08-16] MEDS: DOCUSATE 100 MG CAP PO SCH (08:05)
[2023-08-16] MEDS: DAPAGLIFLOZIN PROPANEDIOL 5 MG TABLET PO SCH (08:05)
[2023-08-16] MEDS: INSULIN ASPART (NovoLOG) 100 UNIT/ML VIAL SQ SCH ×4 (08:05→20:28)
[2023-08-16] MEDS: FAMOTIDINE 20 MG TAB PO SCH (08:06)
[2023-08-16] MEDS: METOPROLOL SUCCINATE (ER) 50 MG TAB.ER.24H PO SCH (08:06)
[2023-08-16] MEDS: GABAPENTIN 100 MG CAP PO SCH ×3 (08:06→20:29)
[2023-08-16] MEDS: AMIODARONE 200 MG TAB PO SCH (08:06)
[2023-08-16] MEDS: APIXABAN 5 MG TAB PO SCH ×2 (08:06→20:29)
[2023-08-16] MEDS: NON FORMULARY DRUG (Prevagen 1 CAP) PO SCH (10:04)
[2023-08-16] MEDS: NON FORMULARY DRUG (Glucosamine/Chondr Su A Sod [Osteo Bi-Flex Caplet] 1 EACH Tablet) PO SCH (10:04)
[2023-08-16] MEDS: NON FORMULARY DRUG (Neuriva 1 CAP) PO SCH (10:04)
[2023-08-16] MEDS: HYDROmorphone 0.5 MG/0.5 ML SYRINGE IVP PRN (11:08)
[2023-08-16 12:27] LABS: Glucose,Whole Blood 191 mg/dL (70-110)
[2023-08-16] MEDS: methylPREDNISolone SOD SUCCI 125 MG/2 ML VIAL IV SCH ×2 (13:57→18:30)
[2023-08-16] MEDS ORDERED: Potassium Replacement Protocol 1 EACH MISC MISCELLANE PRN (15:04)
[2023-08-16] MEDS ORDERED: Magnesium Replacement Protocol 1 EACH MISC MISCELLANE PRN (15:04)
[2023-08-16] MEDS: SODIUM CHLORIDE 0.9% 1,000 ML IV SCH (15:36)
[2023-08-16 17:46] LABS: Glucose,Whole Blood 190 mg/dL (70-110)
[2023-08-16 20:18] LABS: Glucose,Whole Blood 166 mg/dL (70-110)
[2023-08-16] MEDS: ATORVASTATIN 10 MG TAB PO SCH (20:29)
--- NOTE | 2023-08-16 23:42 | P.CONS ---
History of Present Illness - Reason for Consult Consult date: 08/16/23 Infection questionable Requesting physician: Ana Novoa - Chief Complaint Generalized body aches and weakness x few days - History of Present Illness Patient is a 88-year-old female with a past medical history significant for Atrial Fibrillation, Blood Disorder, Diabetes Mellitus, Hypertension, Osteoarthritis (OA) presenting to the hospital 2 days ago for eval uation of generalized body aches pain in her back and bilateral legs low-grade fever nausea and decreased appetite apparently patient symptom has been getting worse for about 4 days before presentation to the hospital the patient denies having any history of any trauma or fall has been complaining of some chills and low-grade fever no headache or URI symptoms did have decreased oral intake nausea but no vomiting no abdominal pain or diarrhea patient did have a urinary symptoms of concentrated urine some burning but no suprapubic or flank pain patient on presentation to the hospital did have a low-grade fever of 99.8 degrees for right patient did have a normal white count BUN/creatinine was m ildly elevated liver enzymes are normal CRP is elevated urine was cloudy with moderate leukocyte esterase 38 WBC influenza RSV and COVID testing was negative urine cultures currently growing gram-negative patient did have a abdominal bladder ultrasound no hydronephrosis some layering debris's within the bladder concerning for cystitis did have a CT of the cervical thoracic and lumbar spine mostly degenerative changes patient currently on Rocephin infectious disease was consulted today concerning for infection and antibiotic therapy Review of Systems Positive point and negatives has been mentioned in the HPI, complete review of systems was performed and all other systems are negative Past Medical History Past Medical History: Atrial Fibrillation, Blood Disorder, Diabetes Mellitus, Hypertension, Osteoarthritis (OA) Additional Past Medical History / Comment(s): NEUTROPENIA. ANEMIA. History of Any Multi-Drug Resistant Organisms: None Reported Past Surgical History: Appendectomy, Cholecystectomy, Orthopedic Surgery Additional Past Surgical History / Comment(s): LEFT SHOULDER SURGERY. BILATERAL CATARACTS. Past Anesthesia/Blood Transfusion Reactions: No Reported Reaction Past Psychological History: No Psychological Hx Reported Smoking Status: Never smoker Past Alcohol Use History: None Reported Past Drug Use History: None Reported - Past Family History Mother Family Medical History: Rheumatoid Arthritis (RA) Father Family Medical History: Diabetes Mellitus Additional Family Medical History / Comment(s): Father had diabetes later in his life. Medications and Allergies Home Medications Medication Instructions Recorded Confirmed Type Ergocalciferol [Vitamin D2 100,000 unit PO Q30D 02/25/17 08/14/23 History (DRISDOL)] Acetaminophen-Codeine 300-30mg 1 tab PO BID PRN 08/14/23 08/14/23 History [Tylenol w/codeine #3] Amiodarone [Cordarone] 200 mg PO DAILY 08/14/23 08/14/23 History Apixaban [Eliquis] 5 mg PO BID 08/14/23 08/14/23 History Dapagliflozin Propanediol [Farxiga] 5 mg PO DAILY 08/14/23 08/14/23 History Docusate [Colace] 100 mg PO DAILY 08/14/23 08/14/23 History Glucosamine/Chondr Belcher A Sod [Osteo 1 tab PO DAILY 08/14/23 08/14/23 History Bi-Flex Caplet] Metoprolol Succinate (ER) [Toprol 50 mg PO DAILY 08/14/23 08/14/23 History Xl] Neuriva 1 cap PO DAILY 08/14/23 08/14/23 History Prevagen 1 cap PO DAILY 08/14/23 08/14/23 History Rosuvastatin Calcium 5 mg PO HS 08/14/23 08/14/23 History calcitrioL [Calcitriol] 0.25 mcg PO MOWEFR 08/14/23 08/14/23 History Allergies Allergy/AdvReac Type Severity Reaction Status Date / Time No Known Allergies Allergy Verified 08/14/23 08:09 Physical Exam Vitals: Vital Signs Temp Pulse Resp BP Pulse Ox 08/16/23 08:00 99.2 F 118 H 18 113/70 08/16/23 02:17 98.7 F 80 16 117/74 94 L 08/15/23 20:00 16 08/15/23 19:18 97.8 F 78 16 97/63 93 L 08/15/23 11:30 98.6 F 70 17 109/61 95 Intake and Output 08/15/23 08/16/23 08/16/23 22:59 06:59 14:59 Output Total 300 300 Balance -300 -300 Output: Urine 300 300 Other: Voiding Method External Catheter External Catheter GENERAL DESCRIPTION: An elderly female lying in bed, no distress. No tachypnea or accessory muscle of respiration use. HEENT: Shows Pallor , no scleral icterus. Oral mucous membrane is dry. NECK: Trachea central, no thyromegaly. LUNGS: Unlabored breathing. Clear to auscultation anteriorly. No wheeze or crackle. HEART: S1, S2, regular rate and rhythm. No loud murmur ABDOMEN: Soft, mild distention but no significant tenderness EXTREMITIES: No edema of feet. SKIN: No rash, no masses palpable. NEUROLOGICAL: The patient is awake, alert, oriented x3, mood and affect normal. Results CBC & Chem 7: 08/15/23 05:40 08/15/23 05:40 Labs: Abnormal Lab Results - Last 24 Hours (Table) 08/15/23 08/15/23 08/15/23 Range/Units 05:40 05:40 05:40 RBC 4.03 L (4.10-5.20) X 10*6/uL Hgb 11.8 L (12.0-15.0) d/dL MCHC 31.6 L (32.0-37.0) d/dL Plt Count 124 L (140-440) X 10*3/uL Lymphocytes # 0.30 L (0.90-5.00) X 10*3/uL Eosinophils # 0 L (0.04-0.35) X 10*3/uL Crenated Cell 2+ A ESR (0-30) mm/Hr Potassium 3.3 L (3.5-5.5) mmol/L Carbon Dioxide 19.8 L (21.6-31.8) mmol/L Anion Gap 14.20 H (4.00-12.00) mmol/L Est GFR (CKD-EPI) 55 L (>=60) BUN/Creatinine Ratio 22.70 H (12.00-20.00) Ratio Glucose 147 H (70-110) mg/dL POC Glucose (mg/dL) (70-110) mg/dL Hemoglobin A1c 7.9 H (<=6.0) % C-Reactive Protein (0.00-0.80) mg/dL Total Protein 5.5 L (6.2-8.2) d/dL Albumin 2.9 L (3.8-4.9) d/dL Albumin/Globulin Ratio 1.12 L (1.60-3.17) Ratio 08/15/23 08/15/23 08/15/23 Range/Units 05:40 05:40 11:31 RBC (4.10-5.20) X 10*6/uL Hgb (12.0-15.0) d/dL MCHC (32.0-37.0) d/dL Plt Count (140-440) X 10*3/uL Lymphocytes # (0.90-5.00) X 10*3/uL Eosinophils # (0.04-0.35) X 10*3/uL Crenated Cell ESR 77 H (0-30) mm/Hr Potassium (3.5-5.5) mmol/L Carbon Dioxide (21.6-31.8) mmol/L Anion Gap (4.00-12.00) mmol/L Est GFR (CKD-EPI) (>=60) BUN/Creatinine Ratio (12.00-20.00) Ratio Glucose (70-110) mg/dL POC Glucose (mg/dL) 186 H (70-110) mg/dL Hemoglobin A1c (<=6.0) % C-Reactive Protein 29.30 H (0.00-0.80) mg/dL Total Protein (6.2-8.2) d/dL Albumin (3.8-4.9) d/dL Albumin/Globulin Ratio (1.60-3.17) Ratio 08/15/23 08/15/23 08/16/23 Range/Units 17:05 20:17 07:18 RBC (4.10-5.20) X 10*6/uL Hgb (12.0-15.0) d/dL MCHC (32.0-37.0) d/dL Plt Count (140-440) X 10*3/uL Lymphocytes # (0.90-5.00) X 10*3/uL Eosinophils # (0.04-0.35) X 10*3/uL Crenated Cell ESR (0-30) mm/Hr Potassium (3.5-5.5) mmol/L Carbon Dioxide (21.6-31.8) mmol/L Anion Gap (4.00-12.00) mmol/L Est GFR (CKD-EPI) (>=60) BUN/Creatinine Ratio (12.00-20.00) Ratio Glucose (70-110) mg/dL POC Glucose (mg/dL) 257 H 301 H 222 H (70-110) mg/dL Hemoglobin A1c (<=6.0) % C-Reactive Protein (0.00-0.80) mg/dL Total Protein (6.2-8.2) d/dL Albumin (3.8-4.9) d/dL Albumin/Globulin Ratio (1.60-3.17) Ratio Microbiology - Last 24 Hours (Table) 08/14/23 11:58 Urine Culture - Preliminary Urine,Clean Catch Gram Neg Bacilli Assessment and Plan (1) UTI (urinary tract infection) Current Visit: Yes Status: Acute Code(s): N39.0 - URINARY TRACT INFECTION, SITE NOT SPECIFIED SNOMED Code(s): 71446847 Plan: 1patient was in the hospital generalized weakness decreased appetite did have low-grade fever urinary symptom positive UA likely a component of symptomatic Uritact infection likely from enteric gram-negative pathogen with urine currently showing gram-negative bacilli with ID and sensitivities pending, patient is currently breathing comfortably on room air abdominal soft on clear examination no evidence of any joint swelling or cellulitis 2-Rocephin 1 g daily to continue while waiting for the culture to finalize 3-gentle IV fluid We will follow on clinical condition and cultures to further adjust medication if needed Thank you for this consultation we will follow the patient along with you Dictation was produced using [employer] dictation software. please excuse any grammatical, word or spelling errors. Time with Patient: Greater than 30
--- NOTE | 2023-08-17 02:44 | PN ---
PROGRESS NOTE DATE OF SERVICE: 08/16/2023 SUBJECTIVE: This is an 88-year-old woman, admitted with multiple complex medical issues including severe pain and weakness, also had elevated CRP and ESR. The patient also has history of rheumatoid arthritis, empiric treatment with IV steroids recommended for rheumatoid arthritis exacerbation or possible inflammatory myositis or polyarthropathy. The patient is covered by empiric antibiotics. Urine culture showed gram-negative bacilli. PAST MEDICAL HISTORY: Reviewed. REVIEW OF SYSTEMS: A 14-point review is negative except as mentioned earlier. CURRENT MEDICATIONS: Reviewed. IV steroids. PHYSICAL EXAMINATION: VITAL SIGNS: Pulse is 118, blood pressure 113/70, respirations 18. HEENT: Conjunctivae normal. CARDIOVASCULAR: S1, S2. RESPIRATIONS: Breath sounds diminished at the bases. ABDOMEN: Soft, nontender. LEGS: Bilateral legs are painful, swollen and tender. LABORATORY DATA: Creatine kinase is improved at 67, glucose is 191, potassium 3.3. ASSESSMENT: 1. Bilateral pain and weakness of both legs, possibly inflammatory myopathy or rheumatoid arthritis acute exacerbation. 2. Generalized body aches of the back and lower extremities. 3. Acute kidney injury. 4. Acute urinary tract infection, present on admission with gram-negative bacilli. 5. Mild acute abnormalities present on admission. 6. Chronic persistent atrial fibrillation. 7. Diabetes mellitus, type 2. 8. Multiple medical issues. 9. Mild thrombocytopenia. RECOMMENDATIONS AND DISCUSSION: This is an 88-year-old woman presented with multiple complex medical issues, we will monitor the patient closely. Recommend IV steroids. Monitor blood sugars closely. Otherwise, I would also recommend symptomatic treatment for Pain and Infectious Disease evaluation. Obtain cultures. Closely monitor rheumatoid factor and GRETCHEN. Prognosis guarded. Further recommendations to follow. See orders for further details. MMODL / IJN: [id number] /
[2023-08-17] MEDS: methylPREDNISolone SOD SUCCI 125 MG/2 ML VIAL IV SCH ×5 (03:53→23:24)
[2023-08-17] MEDS: SODIUM CHLORIDE 0.9% 1,000 ML IV SCH ×3 (04:16→23:24)
[2023-08-17 07:39] LABS: Glucose,Whole Blood 193 mg/dL (70-110)
[2023-08-17] MEDS: FAMOTIDINE 20 MG TAB PO SCH (09:03)
[2023-08-17] MEDS: AMIODARONE 200 MG TAB PO SCH (09:03)
[2023-08-17] MEDS: INSULIN ASPART (NovoLOG) 100 UNIT/ML VIAL SQ SCH ×4 (09:03→20:51)
[2023-08-17] MEDS: DOCUSATE 100 MG CAP PO SCH (09:03)
[2023-08-17] MEDS: APIXABAN 5 MG TAB PO SCH ×2 (09:03→20:51)
[2023-08-17] MEDS: GABAPENTIN 100 MG CAP PO SCH ×3 (09:03→20:50)
[2023-08-17] MEDS: DAPAGLIFLOZIN PROPANEDIOL 5 MG TABLET PO SCH (09:03)
[2023-08-17] MEDS: METOPROLOL SUCCINATE (ER) 50 MG TAB.ER.24H PO SCH (09:03)
[2023-08-17 10:09] LABS: Basophils # (A) 0.01 X 10*3/uL (0.00-0.10); Basophils % (A) 0.1 %; Eosinophils # (A) 0 X 10*3/uL (0.04-0.35); Eosinophils % (A) 0 %; HCT 36.6 % (37.2-46.3); HGB 11.7 d/dL (12.0-15.0); Lymphocytes # (A) 0.41 X 10*3/uL (0.90-5.00); Lymphocytes % (A) 5.5 %; MCV 90.6 FL (80.0-97.0); Mean Platelet Volume 10.9 FL (9.5-12.2); Monocytes # (A) 0.22 X 10*3/uL (0.20-1.00); NRBC Per 100 WBC 0 X 10*3/uL (0.00-0.01); Neutrophils # (A) 6.74 X 10*3/uL (1.80-7.70); Neutrophils % (A) 90.9 %; Platelet Count 128 X 10*3/uL (140-440); RBC 4.04 X 10*6/uL (4.10-5.20); WBC 7.42 X 10*3/uL (4.50-10.00)
[2023-08-17] MEDS: NON FORMULARY DRUG (Neuriva 1 CAP) PO SCH (10:10)
[2023-08-17] MEDS: NON FORMULARY DRUG (Glucosamine/Chondr Su A Sod [Osteo Bi-Flex Caplet] 1 EACH Tablet) PO SCH (10:10)
[2023-08-17] MEDS: NON FORMULARY DRUG (Prevagen 1 CAP) PO SCH (10:10)
--- NOTE | 2023-08-17 10:34 | P.CNNES ---
History of Present Illness Consult date: 08/16/23 Requesting physician: Dolores Chaudhari Reason for Consult: neck, back, lumbar weakness, inability to ambulate History of Present Illness: Patient is a 88-year-old female otherwise very healthy came to the hospital the day before yesterday on 08/14/2023 at 1:36 AM for diffuse body pains, weakness, altered mental status. Patient not able to provide any history. I spoke to patient's son on the phone, who provided very detailed history. Apparently patient has been having legs hurting for the last 1 month. Patient saw her primary physician, who recommended arterial Doppler to be checked. Patient's son also has noted that patient's personality has somewhat changed in the last 1 month, and she is is more of an "angry person", which she never used to be before. Patient's son mentions that last Friday on 08/10/2023 patient was otherwise well. On Friday, 4 AM patient woke up with pain in the back of her legs that extended down from neck all the way to the feet. He saw her on when his stay and patient wasn't diffuse body pains. When he came in, she was sitting on the edge of the bed, sitting there for 3 hours, as she has no strength and was hurting. Any movement was producing extreme pain. If he would move her leg about 1-1/2 inch, patient would be in so much pain. It hurts all the way from neck to the feet. Patient's son mentions that he has to help her stand and put her in the wheelchair as she was crying from pain. She was very miserable. Patient does admit to having headache 08/19 and states it is "a lot". She does not have any previous history of headaches. He noticed that she was hallucinating, seeing people, talking to people who were not there. The nurse reported that patient believes that she is in her kitchen at home. Patient's son mentions that she will use his walker at home. He also admits that patient loves being outside and patient's daughter has mentioned that there were some horrendous mosquitoes around her home. When I entered the room, patient said "come here, get my arms, so I can go out". She then had hallucinated, something pointing to eggs on my working cart. Vital signs on arrival blood pressure 133/70, pulse rate 87 to present 99.8. Blood test shows normal CBC, PT/PTT, normal sodium, potassium 3.3, BUN 30, creatinine 1.08. Hepatic panel is normal, CK mildly elevated 208. UA shows moderate leukocyte esterase, 38 WBCs and many bacteria. Influenza, RSV and coronavirus PCR negative. Repeat CK normal at 67. Chest x-ray showed slight increased interstitial density could represent bronchitis or asthma. No focal infiltrates seen. Abdominal ultrasound showed no hydronephrosis. A large exophytic cyst from the upper pole right kidney measuring up to 5.7 cm. Some alleviating debris within the bladder. Correlate with urinalysis and with symptoms to exclude cystitis or hematuria. Arterial Doppler negative for any peripheral arterial disease. CT of the lumbar spine showed moderate to advanced multilevel spondylotic change. No vertebral compression collapse or malalignment. Focal moderate spinal canal stenosis at L1-L2 and L3-L4. Variable neuro foraminal stenosis, moderate to severe on the left at L5-S1 and on the right at L1-L2. Thoracic spine revealed mild/moderate degenerative disc disease. Scattered facet arthropathy. No vertebral compression collapse or malalignment. 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 CT of the cervical spine showed moderate multilevel spondylotic change in the cervical spine with degenerative grade 1 spondylolisthesis C3-C4, C4-C5, C5-C6, C6-C7. Overall moderate spinal canal stenosis at C5-C6 and C6-C7. Variable neural foraminal stenosis. Overall, S shaped scoliosis throughout the spine. Grade discourage her in the lumbar spine and secondary left lateral subluxation at L3-L4. No history of tobacco or alcohol use. Review of Systems Review of systems as per description from patient's son. Patient does admit to having headache "a lot" very severe. Constitutional: Denies chills, Denies fever (Feels cold constantly) Eyes: denies blurred vision, denies diplopia, denies pain Ears: deny: decreased hearing, ear discharge Ears, nose, mouth and throat: Reports headache, Reports nasal congestion, Denies sore throat Cardiovascular: Reports shortness of breath, Denies chest pain, Denies lightheadedness Respiratory: Denies cough, Denies excessive sputum Gastrointestinal: Reports nausea, Reports vomiting, Denies abdominal pain, Denies diarrhea Genitourinary: Reports urinary frequency, Denies dysuria, Denies hematuria, Denies urge incontinence Musculoskeletal: Reports low back pain, Reports myalgias, Reports neck pain Integumentary: Denies pruritus, Denies rash Neurological: Reports weakness, Denies seizures Psychiatric: Reports anxiety, Reports depression, Reports hallucinations Endocrine: Reports fatigue, Denies weight change Past Medical History Past Medical History: Atrial Fibrillation, Blood Disorder, Diabetes Mellitus, Hypertension, Osteoarthritis (OA) Additional Past Medical History / Comment(s): NEUTROPENIA. ANEMIA. History of Any Multi-Drug Resistant Organisms: None Reported Past Surgical History: Appendectomy, Cholecystectomy, Orthopedic Surgery Additional Past Surgical History / Comment(s): LEFT SHOULDER SURGERY. BILATERAL CATARACTS. Past Anesthesia/Blood Transfusion Reactions: No Reported Reaction Past Psychological History: No Psychological Hx Reported Smoking Status: Never smoker Past Alcohol Use History: None Reported Past Drug Use History: None Reported - Past Family History Mother Family Medical History: Rheumatoid Arthritis (RA) Father Family Medical History: Diabetes Mellitus Additional Family Medical History / Comment(s): Father had diabetes later in his life. Medications and Allergies Home Medications Medication Instructions Recorded Confirmed Type Ergocalciferol [Vitamin D2 100,000 unit PO Q30D 02/25/17 08/14/23 History (DRISDOL)] Acetaminophen-Codeine 300-30mg 1 tab PO BID PRN 08/14/23 08/14/23 History [Tylenol w/codeine #3] Amiodarone [Cordarone] 200 mg PO DAILY 08/14/23 08/14/23 History Apixaban [Eliquis] 5 mg PO BID 08/14/23 08/14/23 History Dapagliflozin Propanediol [Farxiga] 5 mg PO DAILY 08/14/23 08/14/23 History Docusate [Colace] 100 mg PO DAILY 08/14/23 08/14/23 History Glucosamine/Chondr Belcher A Sod [Osteo 1 tab PO DAILY 08/14/23 08/14/23 History Bi-Flex Caplet] Metoprolol Succinate (ER) [Toprol 50 mg PO DAILY 08/14/23 08/14/23 History Xl] Neuriva 1 cap PO DAILY 08/14/23 08/14/23 History Prevagen 1 cap PO DAILY 08/14/23 08/14/23 History Rosuvastatin Calcium 5 mg PO HS 08/14/23 08/14/23 History calcitrioL [Calcitriol] 0.25 mcg PO MOWEFR 08/14/23 08/14/23 History Allergies Allergy/AdvReac Type Severity Reaction Status Date / Time No Known Allergies Allergy Verified 08/14/23 08:09 Physical Examination - Vital Signs Vital Signs: Vital Signs Temp Pulse Resp BP Pulse Ox 08/16/23 15:18 92 L 08/16/23 11:14 98.1 F 78 16 109/70 94 L 08/16/23 08:00 99.2 F 118 H 18 113/70 08/16/23 02:17 98.7 F 80 16 117/74 94 L 08/15/23 20:00 16 08/15/23 19:18 97.8 F 78 16 97/63 93 L Intake and Output 08/16/23 08/16/23 08/16/23 06:59 14:59 22:59 Intake Total 525 Output Total 300 Balance -300 525 Intake: Intake, IV Titration 525 Amount Sodium Chloride 0.9% 1, 525 000 ml @ 75 mls/hr IV . [id number] [facility] Rx#:[id number] Output: Urine 300 Other: Voiding Method External Catheter Patient is an elderly female, who is laying in the bed in no obvious distress at rest, but however when she is moved, she winces in pain. Patient is obviously encephalopathic, altered mentation, hallucinating, trying to pick something from the air it appears. Patient does wake up, and answers to the questions. Patient believes it is July and the year is in the 80s. She could not tell what building she is in. At first she said that she was in [place], but then she said that she is in [place]. Patient was able to tell that she lives in [place], [place]. Speech and language functions are normal. Patient can name and repeat very well. No aphasia or dysarthria. Attention, concentration is significantly impaired and fund of knowledge is very limited at this time. On cranial nerve examination, pupils are equal, round and reacting to light, visual vargas are full on confrontation, with no neglect on double simultaneous depression. Extraocular muscles are intact with no nystagmus. Face is symmetric, tongue protrudes to the midline. Palatal elevation and sensation normal, hearing and shoulder shrug normal, facial sensation normal. Her neck appears very stiff and it hurts to move passively. 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 Deltoids are weak partly from pain. In the lower limbs, patient able to lift her legs off the bed just a little. However any passive movement makes her wince and it hurts. Deep tendon reflexes are symmetric about 1+ and plantars downgoing. Sensory to touch is equal with no neglect on double simultaneous stimulation. Cerebellar function showed no ataxia for [id number] testing. Cannot perform for [id number] testing the lower limbs. Tone and bulk of muscles normal. Gait deferred. Patient not able to walk because of pain. On general examination, there is no carotid bruit or murmur, S1-S2 audible. Chest is clear on consultation. Abdomen is soft nontender. No organomegaly, bowel sounds present. Peripheral pulses are present. Mild peripheral edema. Patient's knees appear swollen, very tender. Results - Laboratory Findings CBC and BMP: 08/15/23 05:40 08/15/23 05:40 Abnormal Lab Findings: Abnormal Labs 08/14/23 08/14/23 08/14/23 03:55 03:55 07:54 RBC Hgb MCHC Plt Count 129 L Lymphocytes # 0.3 L Eosinophils # Crenated Cell ESR Potassium 3.3 L Carbon Dioxide Anion Gap BUN 30 H Creatinine 1.08 H Est GFR (CKD-EPI) BUN/Creatinine Ratio Glucose 210 H POC Glucose (mg/dL) Hemoglobin A1c Magnesium 2.5 H Total Bilirubin 1.8 H Creatine Kinase 208 H C-Reactive Protein Total Protein Albumin Albumin/Globulin Ratio Urine Appearance Cloudy H Urine Protein 1+ H Urine Glucose (UA) 4+ H Urine Ketones 1+ H Urine Blood Moderate H Ur Leukocyte Esterase Moderate H Urine RBC 36 H Urine WBC 38 H Urine Bacteria Many H Urine Mucus Occasional H Urine Yeast (Budding) Many H Rheumatoid Factor 08/14/23 08/14/23 08/14/23 12:55 17:26 20:47 RBC Hgb MCHC Plt Count Lymphocytes # Eosinophils # Crenated Cell ESR Potassium Carbon Dioxide Anion Gap BUN Creatinine Est GFR (CKD-EPI) BUN/Creatinine Ratio Glucose POC Glucose (mg/dL) 157 H 135 H 236 H Hemoglobin A1c Magnesium Total Bilirubin Creatine Kinase C-Reactive Protein Total Protein Albumin Albumin/Globulin Ratio Urine Appearance Urine Protein Urine Glucose (UA) Urine Ketones Urine Blood Ur Leukocyte Esterase Urine RBC Urine WBC Urine Bacteria Urine Mucus Urine Yeast (Budding) Rheumatoid Factor 08/15/23 08/15/23 08/15/23 05:40 05:40 05:40 RBC 4.03 L Hgb 11.8 L MCHC 31.6 L Plt Count 124 L Lymphocytes # 0.30 L Eosinophils # 0 L Crenated Cell 2+ A ESR Potassium 3.3 L Carbon Dioxide 19.8 L Anion Gap 14.20 H BUN Creatinine Est GFR (CKD-EPI) 55 L BUN/Creatinine Ratio 22.70 H Glucose 147 H POC Glucose (mg/dL) Hemoglobin A1c 7.9 H Magnesium Total Bilirubin Creatine Kinase C-Reactive Protein Total Protein 5.5 L Albumin 2.9 L Albumin/Globulin Ratio 1.12 L Urine Appearance Urine Protein Urine Glucose (UA) Urine Ketones Urine Blood Ur Leukocyte Esterase Urine RBC Urine WBC Urine Bacteria Urine Mucus Urine Yeast (Budding) Rheumatoid Factor 08/15/23 08/15/23 08/15/23 05:40 05:40 07:14 RBC Hgb MCHC Plt Count Lymphocytes # Eosinophils # Crenated Cell ESR 77 H Potassium Carbon Dioxide Anion Gap BUN Creatinine Est GFR (CKD-EPI) BUN/Creatinine Ratio Glucose POC Glucose (mg/dL) 154 H Hemoglobin A1c Magnesium Total Bilirubin Creatine Kinase C-Reactive Protein 29.30 H Total Protein Albumin Albumin/Globulin Ratio Urine Appearance Urine Protein Urine Glucose (UA) Urine Ketones Urine Blood Ur Leukocyte Esterase Urine RBC Urine WBC Urine Bacteria Urine Mucus Urine Yeast (Budding) Rheumatoid Factor 08/15/23 08/15/23 08/15/23 11:31 17:05 20:17 RBC Hgb MCHC Plt Count Lymphocytes # Eosinophils # Crenated Cell ESR Potassium Carbon Dioxide Anion Gap BUN Creatinine Est GFR (CKD-EPI) BUN/Creatinine Ratio Glucose POC Glucose (mg/dL) 186 H 257 H 301 H Hemoglobin A1c Magnesium Total Bilirubin Creatine Kinase C-Reactive Protein Total Protein Albumin Albumin/Globulin Ratio Urine Appearance Urine Protein Urine Glucose (UA) Urine Ketones Urine Blood Ur Leukocyte Esterase Urine RBC Urine WBC Urine Bacteria Urine Mucus Urine Yeast (Budding) Rheumatoid Factor 08/16/23 08/16/23 08/16/23 07:18 10:35 12:07 RBC Hgb MCHC Plt Count Lymphocytes # Eosinophils # Crenated Cell ESR Potassium Carbon Dioxide Anion Gap BUN Creatinine Est GFR (CKD-EPI) BUN/Creatinine Ratio Glucose POC Glucose (mg/dL) 222 H 191 H Hemoglobin A1c Magnesium Total Bilirubin Creatine Kinase C-Reactive Protein Total Protein Albumin Albumin/Globulin Ratio Urine Appearance Urine Protein Urine Glucose (UA) Urine Ketones Urine Blood Ur Leukocyte Esterase Urine RBC Urine WBC Urine Bacteria Urine Mucus Urine Yeast (Budding) Rheumatoid Factor 18 H Assessment and Plan Assessment: * 88-year-old female, otherwise healthy, presented with 4 week history of leg pains, changes in the personality, with 5 day history of diffuse body pains from neck all the way to the feet, and also severe headache /. Patient is hallucinating, encephalopathic. Patient is slightly tremulous. Exact cause of encephalopathy uncertain. Altered mentation may be related to UTI. Rule out West Nile virus. Patient had a very low-grade fever only on presentation and does not have leukocytosis, but her symptoms are concerning for West Nile virus. * Elevated rheumatoid factor 18/15 with elevated ESR 77 and CRP 29/0.8. Rule out rheumatoid arthritis * Probable UTI with urine cultures growing greater than 100,000 CFU per mL Klebsiella pneumoniae * Hypokalemia * Diabetes * Atrial fibrillation, currently on Eliquis * Hypertension * Osteoarthritis Plan: * Patient currently on ceftriaxone for UTI. * Check West Nile virus serology. * Consider lumbar puncture for checking for West Nile virus. However patient is on Eliquis, which may have to be stopped. Lumbar puncture if needed, will be done under anesthesia, as patient will not be able to tolerate lumbar puncture by the bedside because of diffuse pain. * We will discuss with ID. * Check folic acid, B12 * Consider rheumatology consultation. * Discussed with patient's son in detail. Neurology will follow. * Thank you for the consult.
[2023-08-17 10:37] LABS: ALT 15 U/L (8-44); AST 21 U/L (13-35); Albumin 2.7 d/dL (3.8-4.9); Albumin/Globulin Ratio 1.04 Ratio (1.60-3.17); Alkaline Phosphatase 67 U/L (41-126); Blood Urea Nitrogen 34.5 mg/dL (9.0-27.0); Calcium 9.9 mg/dL (8.7-10.3); Carbon Dioxide 18.7 mmol/L (21.6-31.8); Chloride 102 mmol/L (96-109); Globulin 2.6 d/dL (1.6-3.3); Glucose 217 mg/dL (70-110); Magnesium 2.4 mg/dL (1.5-2.4); Potassium 4.3 mmol/L (3.5-5.5); Sodium 136 mmol/L (135-145); Total Bilirubin 0.5 mg/dL (0.3-1.2); Total Protein 5.3 d/dL (6.2-8.2)
[2023-08-17 11:06] LABS: Vitamin B12 >3600.0 pg/mL (200.0-944.0)
[2023-08-17 12:27] LABS: Glucose,Whole Blood 218 mg/dL (70-110)
--- NOTE | 2023-08-17 13:36 | P.PN ---
Subjective Progress Note Date: 08/17/23 Principal diagnosis: Klebsiella urinary tract infection Patient is a 88-year-old female with a past medical history significant for Atrial Fibrillation, Blood Disorder, Diabetes Mellitus, Hypertension, Osteoarthritis (OA) presenting to the hospital for evaluation of generalized body aches pain in her back and bilateral legs low-grade fever nausea and decreased appetite , patient did have a positive UA Unasyn concerning for a symptomatic UTI On today's evaluation and that is 08/17/2023, the patient continues to be afebrile, the patient is breathing comfortably on room air, the patient seemed to be slightly sleepy today and did not answer any questions no vomiting or diarrhea has been reported. Patient did have white count was 7.42, creatinine 1.0, urine is growing Klebsiella Objective - Vital Signs Vital signs: Vital Signs Temp 98.7 F 08/17/23 12:25 Pulse 76 08/17/23 12:25 Resp 17 08/17/23 12:25 BP 125/82 08/17/23 12:25 Pulse Ox 96 08/17/23 12:25 FiO2 Intake & Output 08/16/23 08/17/23 08/17/23 18:59 06:59 18:59 Intake Total 525 Output Total 350 Balance 525 -350 Intake: Intake, IV Titration 525 Amount Sodium Chloride 0.9% 1, 525 000 ml @ 75 mls/hr IV . [id number] [facility] Rx#:[id number] Oral 0 Output: Urine 350 Other: Voiding Method External Catheter External Catheter External Catheter # Voids 1 - Exam GENERAL DESCRIPTION: An elderly female lying in bed in no distress RESPIRATORY SYSTEM: Unlabored breathing , decreased breath sounds at bases HEART: S1 S2 regular rate and rhythm , ABDOMEN: Soft , no tenderness EXTREMITIES: No edema feet - Labs CBC & Chem 7: 08/17/23 06:09 08/17/23 06:09 Labs: Abnormal Lab Results - Last 24 Hours (Table) 08/16/23 08/16/23 08/16/23 Range/Units 10:35 17:19 20:17 RBC (4.10-5.20) X 10*6/uL Hgb (12.0-15.0) d/dL Hct (37.2-46.3) % RDW (11.5-14.5) % Plt Count (140-440) X 10*3/uL Lymphocytes # (0.90-5.00) X 10*3/uL Eosinophils # (0.04-0.35) X 10*3/uL Carbon Dioxide (21.6-31.8) mmol/L Anion Gap (4.00-12.00) mmol/L BUN (9.0-27.0) mg/dL Est GFR (CKD-EPI) (>=60) BUN/Creatinine Ratio (12.00-20.00) Ratio Glucose (70-110) mg/dL POC Glucose (mg/dL) 190 H 166 H (70-110) mg/dL Total Protein (6.2-8.2) d/dL Albumin (3.8-4.9) d/dL Albumin/Globulin Ratio (1.60-3.17) Ratio Vitamin B12 (200.0-944.0) pg/mL Rheumatoid Factor 18 H (0-15) IU/mL 08/17/23 08/17/23 08/17/23 Range/Units 06:09 06:09 07:19 RBC 4.04 L (4.10-5.20) X 10*6/uL Hgb 11.7 L (12.0-15.0) d/dL Hct 36.6 L (37.2-46.3) % RDW 15.0 H (11.5-14.5) % Plt Count 128 L (140-440) X 10*3/uL Lymphocytes # 0.41 L (0.90-5.00) X 10*3/uL Eosinophils # 0 L (0.04-0.35) X 10*3/uL Carbon Dioxide 18.7 L (21.6-31.8) mmol/L Anion Gap 15.30 H (4.00-12.00) mmol/L BUN 34.5 H (9.0-27.0) mg/dL Est GFR (CKD-EPI) 55 L (>=60) BUN/Creatinine Ratio 34.50 H (12.00-20.00) Ratio Glucose 217 H (70-110) mg/dL POC Glucose (mg/dL) 193 H (70-110) mg/dL Total Protein 5.3 L (6.2-8.2) d/dL Albumin 2.7 L (3.8-4.9) d/dL Albumin/Globulin Ratio 1.04 L (1.60-3.17) Ratio Vitamin B12 >3600.0 H (200.0-944.0) pg/mL Rheumatoid Factor (0-15) IU/mL 08/17/23 Range/Units 12:22 RBC (4.10-5.20) X 10*6/uL Hgb (12.0-15.0) d/dL Hct (37.2-46.3) % RDW (11.5-14.5) % Plt Count (140-440) X 10*3/uL Lymphocytes # (0.90-5.00) X 10*3/uL Eosinophils # (0.04-0.35) X 10*3/uL Carbon Dioxide (21.6-31.8) mmol/L Anion Gap (4.00-12.00) mmol/L BUN (9.0-27.0) mg/dL Est GFR (CKD-EPI) (>=60) BUN/Creatinine Ratio (12.00-20.00) Ratio Glucose (70-110) mg/dL POC Glucose (mg/dL) 218 H (70-110) mg/dL Total Protein (6.2-8.2) d/dL Albumin (3.8-4.9) d/dL Albumin/Globulin Ratio (1.60-3.17) Ratio Vitamin B12 (200.0-944.0) pg/mL Rheumatoid Factor (0-15) IU/mL Microbiology - Last 24 Hours (Table) 08/14/23 11:58 Urine Culture - Final Urine,Clean Catch Klebsiella pneumoniae Assessment and Plan (1) UTI (urinary tract infection) Current Visit: Yes Status: Acute Code(s): N39.0 - URINARY TRACT INFECTION, SITE NOT SPECIFIED SNOMED Code(s): 23364582 Plan: 1patient was in the hospital generalized weakness decreased appetite did have low-grade fever urinary symptom positive UA likely a component of symptomatic Uritact infection likely from enteric gram-negative pathogen with urine currently showing gram-negative bacilli with ID and sensitivities pending, patient is currently breathing comfortably on room air abdominal soft on clear examination no evidence of any joint swelling or cellulitis 2-patient urine culture did grow Klebsiella that is sensitive to Rocephin 3patient to continue with Rocephin 1 g daily and monitor clinical course closely Dictation was produced using dragon dictation software. please excuse any grammatical, word or spelling errors. Time with Patient: Less than 30
[2023-08-17 17:02] LABS: Glucose,Whole Blood 215 mg/dL (70-110)
[2023-08-17 20:24] LABS: Glucose,Whole Blood 317 mg/dL (70-110)
[2023-08-17 20:24] LABS: Glucose,Whole Blood 484 mg/dL (70-110)
[2023-08-17] MEDS: ATORVASTATIN 10 MG TAB PO SCH (20:50)
--- NOTE | 2023-08-17 23:05 | PN ---
PROGRESS NOTE DATE OF SERVICE: 08/17/2023 SUBJECTIVE: This is an 88-year-old woman who was admitted with bilateral leg pain, probably has rheumatoid arthritis acute exacerbation. Multiple consultants are following the patient closely. Infectious Disease is also following the patient. UTI with Klebsiella pneumonia is also noted, which is poly sensitive. PAST MEDICAL HISTORY: Reviewed. REVIEW OF SYSTEMS: A 14-point review is negative except as mentioned earlier. CURRENT MEDICATIONS: Reviewed include Rocephin. Doses and rest of medication noted. PHYSICAL EXAMINATION: VITAL SIGNS: Pulse is 94, blood pressure 119/70, respirations 16. HEENT: Conjunctivae normal. NECK: No jugular venous distention. CARDIOVASCULAR: S1, S2. RESPIRATIONS: Diminished at the bases, scattered rhonchi. ABDOMEN: Soft. NERVOUS SYSTEM: Significant pain and swelling in the lower legs. Otherwise, no focal deficits. LABORATORY DATA: Reviewed. ASSESSMENT: 1. 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 2. Generalized body aches in back and lower extremity. 3. Acute kidney injury. 4. Acute urinary tract infection with Klebsiella pneumonia present on admission. 5. Chronic persistent atrial fibrillation. 6. Diabetes mellitus, type 2. 7. Multiple medical issues. 8. Gait dysfunction. RECOMMENDATIONS: Recommend to continue current medications, continue symptomatic treatment. I would recommend repeat labs. Monitor blood sugars closely. Continue the IV steroids. Continue empiric antibiotics. Closely follow with multiple consultants including Neurology. The prognosis guarded. Further recommendations to follow. MMODL / IJN: [id number] /
--- NOTE | 2023-08-18 01:15 | P.PN ---
Subjective Progress Note Date: 08/17/23 Patient was seen for a follow-up. Patient is sleeping at this time. Family members were not present. Objective - Vital Signs Vital signs: Vital Signs Temp 97.8 F 08/17/23 20:00 Pulse 94 08/17/23 20:00 Resp 17 08/17/23 20:00 BP 123/79 08/17/23 20:00 Pulse Ox 96 08/17/23 20:00 FiO2 Intake & Output 08/17/23 08/17/23 08/18/23 06:59 18:59 06:59 Output Total 350 Balance -350 Output: Urine 350 Other: Voiding Method External Catheter External Catheter External Catheter # Voids 2 - Exam Examination deferred. Per nurse report, patient is not screaming as much in her mentation is slightly better. Not much hallucinating. - Labs CBC & Chem 7: 08/17/23 06:09 08/17/23 06:09 Labs: Abnormal Lab Results - Last 24 Hours (Table) 08/17/23 08/17/23 08/17/23 Range/Units 06:09 06:09 07:19 RBC 4.04 L (4.10-5.20) X 10*6/uL Hgb 11.7 L (12.0-15.0) d/dL Hct 36.6 L (37.2-46.3) % RDW 15.0 H (11.5-14.5) % Plt Count 128 L (140-440) X 10*3/uL Lymphocytes # 0.41 L (0.90-5.00) X 10*3/uL Eosinophils # 0 L (0.04-0.35) X 10*3/uL Carbon Dioxide 18.7 L (21.6-31.8) mmol/L Anion Gap 15.30 H (4.00-12.00) mmol/L BUN 34.5 H (9.0-27.0) mg/dL Est GFR (CKD-EPI) 55 L (>=60) BUN/Creatinine Ratio 34.50 H (12.00-20.00) Ratio Glucose 217 H (70-110) mg/dL POC Glucose (mg/dL) 193 H (70-110) mg/dL Total Protein 5.3 L (6.2-8.2) d/dL Albumin 2.7 L (3.8-4.9) d/dL Albumin/Globulin Ratio 1.04 L (1.60-3.17) Ratio Vitamin B12 >3600.0 H (200.0-944.0) pg/mL 08/17/23 08/17/23 08/17/23 Range/Units 12:22 17:01 20:05 RBC (4.10-5.20) X 10*6/uL Hgb (12.0-15.0) d/dL Hct (37.2-46.3) % RDW (11.5-14.5) % Plt Count (140-440) X 10*3/uL Lymphocytes # (0.90-5.00) X 10*3/uL Eosinophils # (0.04-0.35) X 10*3/uL Carbon Dioxide (21.6-31.8) mmol/L Anion Gap (4.00-12.00) mmol/L BUN (9.0-27.0) mg/dL Est GFR (CKD-EPI) (>=60) BUN/Creatinine Ratio (12.00-20.00) Ratio Glucose (70-110) mg/dL POC Glucose (mg/dL) 218 H 215 H 484 H (70-110) mg/dL Total Protein (6.2-8.2) d/dL Albumin (3.8-4.9) d/dL Albumin/Globulin Ratio (1.60-3.17) Ratio Vitamin B12 (200.0-944.0) pg/mL 08/17/23 Range/Units 20:06 RBC (4.10-5.20) X 10*6/uL Hgb (12.0-15.0) d/dL Hct (37.2-46.3) % RDW (11.5-14.5) % Plt Count (140-440) X 10*3/uL Lymphocytes # (0.90-5.00) X 10*3/uL Eosinophils # (0.04-0.35) X 10*3/uL Carbon Dioxide (21.6-31.8) mmol/L Anion Gap (4.00-12.00) mmol/L BUN (9.0-27.0) mg/dL Est GFR (CKD-EPI) (>=60) BUN/Creatinine Ratio (12.00-20.00) Ratio Glucose (70-110) mg/dL POC Glucose (mg/dL) 317 H (70-110) mg/dL Total Protein (6.2-8.2) d/dL Albumin (3.8-4.9) d/dL Albumin/Globulin Ratio (1.60-3.17) Ratio Vitamin B12 (200.0-944.0) pg/mL Microbiology - Last 24 Hours (Table) 08/16/23 12:03 Blood Culture - Preliminary Blood Assessment and Plan Assessment: * 88-year-old female, otherwise healthy, presented with 4 week history of leg pains, changes in the personality, with 5 day history of diffuse body pains from neck all the way to the feet, and also severe headache 08/19. Patient is hallucinating, encephalopathic. Patient is slightly tremulous. Exact cause of encephalopathy uncertain. Altered mentation may be related to UTI. Rule out West Nile virus. Patient had a very low-grade fever only on presentation and does not have leukocytosis, but her symptoms are concerning for West Nile virus. * Elevated rheumatoid factor 18/15 with elevated ESR 77 and CRP 29/0.8. Rule out rheumatoid arthritis * Probable UTI with urine cultures growing greater than 100,000 CFU per mL Klebsiella pneumoniae * Hypokalemia * Diabetes * Atrial fibrillation, currently on Eliquis * Hypertension * Osteoarthritis Plan: * Patient currently on ceftriaxone for UTI. * Check West Nile virus serology. * Anesthesia declined lumbar puncture because patient on Eliquis. * We will discuss with ID. * Folic acid 12.30, B12 > 3600 * Consider rheumatology consultation. * Dr. Eleazar Huddleston to resume neurology service in the morning.
[2023-08-18] MEDS: methylPREDNISolone SOD SUCCI 125 MG/2 ML VIAL IV SCH ×3 (05:24→18:20)
[2023-08-18] MEDS: HYDROmorphone 0.5 MG/0.5 ML SYRINGE IVP PRN (05:52)
[2023-08-18 07:37] LABS: Glucose,Whole Blood 291 mg/dL (70-110)
[2023-08-18] MEDS: APIXABAN 5 MG TAB PO SCH ×2 (08:24→20:22)
[2023-08-18] MEDS: FAMOTIDINE 20 MG TAB PO SCH (08:24)
[2023-08-18] MEDS: METOPROLOL SUCCINATE (ER) 50 MG TAB.ER.24H PO SCH (08:24)
[2023-08-18] MEDS: INSULIN ASPART (NovoLOG) 100 UNIT/ML VIAL SQ SCH ×3 (08:24→18:13)
[2023-08-18] MEDS: DAPAGLIFLOZIN PROPANEDIOL 5 MG TABLET PO SCH (08:24)
[2023-08-18] MEDS: AMIODARONE 200 MG TAB PO SCH (08:24)
[2023-08-18] MEDS: DOCUSATE 100 MG CAP PO SCH (08:24)
[2023-08-18] MEDS: GABAPENTIN 100 MG CAP PO SCH ×3 (08:24→20:22)
[2023-08-18] MEDS: NON FORMULARY DRUG (Glucosamine/Chondr Su A Sod [Osteo Bi-Flex Caplet] 1 EACH Tablet) PO SCH (08:25)
[2023-08-18] MEDS: NON FORMULARY DRUG (Prevagen 1 CAP) PO SCH (08:26)
[2023-08-18] MEDS: NON FORMULARY DRUG (Neuriva 1 CAP) PO SCH (08:26)
[2023-08-18 11:08] LABS: BUN/Creat Ratio 43.91 Ratio (12.00-20.00); Blood Urea Nitrogen 48.3 mg/dL (9.0-27.0); Carbon Dioxide 19.8 mmol/L (21.6-31.8); Chloride 101 mmol/L (96-109); Glucose 315 mg/dL (70-110); Potassium 4.6 mmol/L (3.5-5.5); Sodium 136 mmol/L (135-145)
[2023-08-18 11:50] LABS: Glucose,Whole Blood 432 mg/dL (70-110)
[2023-08-18 12:05] LABS: Basophils # (A) 0.05 X 10*3/uL (0.00-0.10); Basophils % (A) 0.5 %; Eosinophils # (A) 0.03 X 10*3/uL (0.04-0.35); Eosinophils % (A) 0.3 %; HCT 40.8 % (37.2-46.3); Lymphocytes # (A) 0.51 X 10*3/uL (0.90-5.00); Lymphocytes % (A) 4.7 %; MCH 29.5 pg (27.0-32.0); MCHC 31.9 d/dL (32.0-37.0); MCV 92.5 FL (80.0-97.0); Mean Platelet Volume 11.3 FL (9.5-12.2); Monocytes # (A) 0.35 X 10*3/uL (0.20-1.00); Monocytes % (A) 3.2 %; NRBC Per 100 WBC 0 X 10*3/uL (0.00-0.01); Neutrophils # (A) 9.78 X 10*3/uL (1.80-7.70); Neutrophils % (A) 90.2 %; Platelet Count 181 X 10*3/uL (140-440); RBC 4.41 X 10*6/uL (4.10-5.20); RBC Morphology Normal (Normal); RDW 15.7 % (11.5-14.5); WBC 10.84 X 10*3/uL (4.50-10.00)
[2023-08-18] MEDS ORDERED: INSULIN REGULAR 100 UNIT/ML VIAL (IV) IV ONE (12:48)
[2023-08-18] MEDS: INSULIN DETEMIR (LEVEMIR) 100 UNIT/ML SYR SQ SCH ×2 (13:22→20:20)
[2023-08-18] MEDS: KETOROLAC 15 MG/ML 1 ML VIAL IVP SCH ×2 (13:22→20:20)
--- NOTE | 2023-08-18 13:23 | PN ---
PROGRESS NOTE DATE OF SERVICE: 08/18/2023 This is an 88-year-old woman, who was admitted with possible acute rheumatoid arthritis exacerbation, also on IV steroids. The sugars are significantly elevated to 484, improved to 291, but again is 432 F. Recommend the patient be started on Lantus 20 subcu b.i.d. and regular insulin 10 IV extra to 12 units. She also got discussed at length with the staff and we will monitor sugars after 2 hours and continue to monitor. Overall prognosis extremely guarded because of multiple complex medical issues and further recommendations to follow. See orders for further details. MMODL / IJN: [id number] /
--- NOTE | 2023-08-18 13:41 | PN ---
PROGRESS NOTE DATE OF SERVICE: 08/18/2023 SUBJECTIVE: This 88-year-old woman was admitted with weakness of both legs, possibly rheumatoid arthritis exacerbation. The patient is improving significantly. No chest pain, no palpitations, no fever. OBJECTIVE: VITAL SIGNS: Pulse 77, blood pressure 140/70, and respirations 18. CHEST: Clear to auscultation. CARDIOVASCULAR: S1, S2. ABDOMEN: Soft. NERVOUS SYSTEM: Mild pain and weakness in the lower limbs. LABORATORY DATA: Noted. ASSESSMENT: 1. Bilateral pain and weakness with both legs, possible inflammatory myopathy, rheumatoid arthritis, acute exacerbation. 2. Generalized body aches in the back and lower extremity. 3. Acute kidney injury. 4. Acute urinary tract infection with Klebsiella pneumonia present on admission. 5. Chronic persistent atrial fibrillation. 6. Diabetes mellitus type 2. 7. Multiple medical issues. 8. Gait dysfunction. RECOMMENDATIONS AND DISCUSSION: This 88-year-old woman presented with multiple complex medical issues, we will monitor the patient closely. I would recommend to continue the current management, continue symptomatic treatment. We will initiate Lantus insulin, continue to monitor. Guarded prognosis. Further recommendations to follow. Consistent carb diet. MMODL / IJN: [id number] /
[2023-08-18 17:03] LABS: Glucose,Whole Blood 500 mg/dL (70-110)
[2023-08-18 17:27] LABS: Glucose,Whole Blood 471 mg/dL (70-110)
[2023-08-18] MEDS ORDERED: DEXTROSE 50% SYRINGE 50 ML IVP PRN ×2 (18:08)
[2023-08-18] MEDS: SODIUM CHLORIDE 0.9% 1,000 ML IV SCH (18:21)
[2023-08-18 18:50] LABS: Glucose,Whole Blood 581 mg/dL (70-110)
[2023-08-18] MEDS: INSULIN REGULAR 100 UNIT in SODIUM CHLORIDE 0.9% 100 ML IV SCH (18:53)
[2023-08-18 20:03] LABS: Glucose,Whole Blood 484 mg/dL (70-110)
[2023-08-18] MEDS: ATORVASTATIN 10 MG TAB PO SCH (20:21)
[2023-08-18 21:10] LABS: Glucose,Whole Blood 394 mg/dL (70-110)
[2023-08-18 22:08] LABS: Glucose,Whole Blood 354 mg/dL (70-110)
[2023-08-18 22:52] LABS: Glucose,Whole Blood 347 mg/dL (70-110)
[2023-08-19 00:03] LABS: Glucose,Whole Blood 307 mg/dL (70-110)
[2023-08-19] MEDS: methylPREDNISolone SOD SUCCI 125 MG/2 ML VIAL IV SCH ×3 (00:32→13:25)
[2023-08-19 01:09] LABS: Glucose,Whole Blood 312 mg/dL (70-110)
[2023-08-19 01:50] LABS: Glucose,Whole Blood 193 mg/dL (70-110)
[2023-08-19] MEDS: INSULIN REGULAR 100 UNIT in SODIUM CHLORIDE 0.9% 100 ML IV SCH ×2 (01:57→02:19)
[2023-08-19 03:07] LABS: Glucose,Whole Blood 161 mg/dL (70-110)
[2023-08-19 04:13] LABS: Glucose,Whole Blood 113 mg/dL (70-110)
[2023-08-19] MEDS: KETOROLAC 15 MG/ML 1 ML VIAL IVP SCH ×3 (04:36→22:49)
[2023-08-19 05:01] LABS: Glucose,Whole Blood 77 mg/dL (70-110)
[2023-08-19 06:07] LABS: Glucose,Whole Blood 64 mg/dL (70-110)
[2023-08-19 06:31] LABS: Glucose,Whole Blood 111 mg/dL (70-110)
[2023-08-19 07:00] LABS: Glucose,Whole Blood 115 mg/dL (70-110)
[2023-08-19 07:59] LABS: Glucose,Whole Blood 106 mg/dL (70-110)
[2023-08-19 09:02] LABS: Glucose,Whole Blood 98 mg/dL (70-110)
[2023-08-19] MEDS: DOCUSATE 100 MG CAP PO SCH (09:54)
[2023-08-19] MEDS: GABAPENTIN 100 MG CAP PO SCH ×3 (09:54→22:49)
[2023-08-19] MEDS: FAMOTIDINE 20 MG TAB PO SCH (09:55)
[2023-08-19] MEDS: APIXABAN 5 MG TAB PO SCH ×2 (09:55→22:49)
[2023-08-19] MEDS: AMIODARONE 200 MG TAB PO SCH (09:55)
[2023-08-19] MEDS: DAPAGLIFLOZIN PROPANEDIOL 5 MG TABLET PO SCH (09:55)
[2023-08-19] MEDS: NON FORMULARY DRUG (Neuriva 1 CAP) PO SCH (09:56)
[2023-08-19] MEDS: NON FORMULARY DRUG (Glucosamine/Chondr Su A Sod [Osteo Bi-Flex Caplet] 1 EACH Tablet) PO SCH (09:56)
[2023-08-19] MEDS: METOPROLOL SUCCINATE (ER) 50 MG TAB.ER.24H PO SCH (09:57)
[2023-08-19] MEDS: NON FORMULARY DRUG (Prevagen 1 CAP) PO SCH (10:01)
[2023-08-19 10:03] LABS: Glucose,Whole Blood 85 mg/dL (70-110)
[2023-08-19] MEDS: SODIUM CHLORIDE 0.9% 1,000 ML IV SCH ×2 (10:05→18:55)
[2023-08-19 11:04] LABS: Glucose,Whole Blood 121 mg/dL (70-110)
[2023-08-19 12:02] LABS: Glucose,Whole Blood 162 mg/dL (70-110)
--- NOTE | 2023-08-19 12:37 | P.PN ---
Subjective Progress Note Date: 08/18/23 Principal diagnosis: Klebsiella urinary tract infection Patient is a 88-year-old female with a past medical history significant for Atrial Fibrillation, Blood Disorder, Diabetes Mellitus, Hypertension, Osteoarthritis (OA) presenting to the hospital for evaluation of generalized body aches pain in her back and bilateral legs low-grade fever nausea and decreased appetite , patient did have a positive UA Unasyn concerning for a symptomatic UTI On today's evaluation and that is 08/18/2023, the patient denies any fever or any chills, the patient is breathing comfortably on room air and no need for supplemental oxygen, patient denies abdominal pain and no nausea/vomiting /diarrhea,the patient denies chest pain or cough, Patient did have white count is 10.84, creatinine 1.1, urine is growing Klebsiella Objective - Vital Signs Vital signs: Vital Signs Temp 97.5 F L 08/18/23 11:40 Pulse 77 08/18/23 11:40 Resp 18 08/18/23 11:40 BP 114/74 08/18/23 11:40 Pulse Ox 92 L 08/18/23 11:40 FiO2 Intake & Output 08/17/23 08/18/23 08/18/23 18:59 06:59 18:59 Other: Voiding Method External Catheter External Catheter Bedside Commode Diaper Incontinent # Voids 2 1 # Bowel Movements 1 - Exam GENERAL DESCRIPTION: An elderly female lying in bed in no distress RESPIRATORY SYSTEM: Unlabored breathing , decreased breath sounds at bases HEART: S1 S2 regular rate and rhythm , ABDOMEN: Soft , no tenderness EXTREMITIES: No edema feet - Labs CBC & Chem 7: 08/18/23 06:57 08/18/23 06:57 Labs: Abnormal Lab Results - Last 24 Hours (Table) 08/16/23 08/17/23 08/17/23 Range/Units 10:35 17:01 20:05 WBC (4.50-10.00) X 10*3/uL MCHC (32.0-37.0) d/dL RDW (11.5-14.5) % Neutrophils # (1.80-7.70) X 10*3/uL Lymphocytes # (0.90-5.00) X 10*3/uL Eosinophils # (0.04-0.35) X 10*3/uL Carbon Dioxide (21.6-31.8) mmol/L Anion Gap (4.00-12.00) mmol/L BUN (9.0-27.0) mg/dL Est GFR (CKD-EPI) (>=60) BUN/Creatinine Ratio (12.00-20.00) Ratio Glucose (70-110) mg/dL POC Glucose (mg/dL) 215 H 484 H (70-110) mg/dL GRETCHEN Screen POSITIVE A (Negative) 08/17/23 08/18/23 08/18/23 Range/Units 20:06 06:57 06:57 WBC 10.84 H (4.50-10.00) X 10*3/uL MCHC 31.9 L (32.0-37.0) d/dL RDW 15.7 H (11.5-14.5) % Neutrophils # 9.78 H (1.80-7.70) X 10*3/uL Lymphocytes # 0.51 L (0.90-5.00) X 10*3/uL Eosinophils # 0.03 L (0.04-0.35) X 10*3/uL Carbon Dioxide 19.8 L (21.6-31.8) mmol/L Anion Gap 15.20 H (4.00-12.00) mmol/L BUN 48.3 H (9.0-27.0) mg/dL Est GFR (CKD-EPI) 49 L (>=60) BUN/Creatinine Ratio 43.91 H (12.00-20.00) Ratio Glucose 315 H (70-110) mg/dL POC Glucose (mg/dL) 317 H (70-110) mg/dL GRETCHEN Screen (Negative) 08/18/23 08/18/23 Range/Units 07:11 11:42 WBC (4.50-10.00) X 10*3/uL MCHC (32.0-37.0) d/dL RDW (11.5-14.5) % Neutrophils # (1.80-7.70) X 10*3/uL Lymphocytes # (0.90-5.00) X 10*3/uL Eosinophils # (0.04-0.35) X 10*3/uL Carbon Dioxide (21.6-31.8) mmol/L Anion Gap (4.00-12.00) mmol/L BUN (9.0-27.0) mg/dL Est GFR (CKD-EPI) (>=60) BUN/Creatinine Ratio (12.00-20.00) Ratio Glucose (70-110) mg/dL POC Glucose (mg/dL) 291 H 432 H (70-110) mg/dL GRETCHEN Screen (Negative) Microbiology - Last 24 Hours (Table) 08/16/23 12:03 Blood Culture - Preliminary Blood Assessment and Plan (1) UTI (urinary tract infection) Current Visit: Yes Status: Acute Code(s): N39.0 - URINARY TRACT INFECTION, SITE NOT SPECIFIED SNOMED Code(s): 98445311 Plan: 1patient was in the hospital generalized weakness decreased appetite did have low-grade fever urinary symptom positive UA likely a component of symptomatic Uritact infection likely from enteric gram-negative pathogen with urine currently showing gram-negative bacilli with ID and sensitivities pending, patient is currently breathing comfortably on room air abdominal soft on clear examination no evidence of any joint swelling or cellulitis 2-patient urine culture did grow Klebsiella that is sensitive to Rocephin 3patient did have some clinical improvement and will continue with Rocephin 1 g daily and monitor clinical course closely Dictation was produced using [employer] dictation software. please excuse any gra mmatical, word or spelling errors. Time with Patient: Less than 30
--- NOTE | 2023-08-19 12:38 | P.PN ---
Subjective Progress Note Date: 08/19/23 Principal diagnosis: Klebsiella urinary tract infection Patient is a 88-year-old female with a past medical history significant for Atrial Fibrillation, Blood Disorder, Diabetes Mellitus, Hypertension, Osteoarthritis (OA) presenting to the hospital for evaluation of generalized body aches pain in her back and bilateral legs low-grade fever nausea and decreased appetite , patient did have a positive UA Unasyn concerning for a symptomatic UTI On today's evaluation and that is 08/19/2023, the patient remains to be afebrile the patient is breathing comfortably on room air, the patient denies having any chest pain shortness of breath or cough, patient denies abdominal pain and no nausea/vomiting /diarrhea, patient denies any headache and is aware that she is at [facility], transferred to the cardiology floor because of mental status changes and did have a low blood sugar Patient did have white count is 10.84, creatinine 1.1 as of yesterday no lab drawn today, urine is growing Klebsiella Objective - Vital Signs Vital signs: Vital Signs Temp 97.3 F L 08/19/23 12:00 Pulse 62 08/19/23 12:00 Resp 18 08/19/23 12:00 BP 120/68 08/19/23 12:00 Pulse Ox 99 08/19/23 12:00 FiO2 Intake & Output 08/18/23 08/19/23 08/19/23 18:59 06:59 18:59 Intake Total 900 687.430 0 Output Total 100 Balance 900 687.430 -100 Weight 72.575 kg Intake: Intake, IV Titration 900 147.430 0 Amount Insulin Regular 100 unit 147.430 0 In Sodium Chloride 0.9% 100 ml @ Titrate IV .Q0M JACEK Rx#:[id number] Sodium Chloride 0.9% 1, 900 000 ml @ 75 mls/hr IV . [id number] JACEK Rx#:[id number] Oral 540 Output: Urine 100 Other: Voiding Method Bedside Commode Bedside Commode Bedside Commode Diaper Diaper Diaper Incontinent Incontinent Incontinent # Voids 3 1 - Exam GENERAL DESCRIPTION: An elderly female lying in bed in no distress RESPIRATORY SYSTEM: Unlabored breathing , decreased breath sounds at bases HEART: S1 S2 regular rate and rhythm , ABDOMEN: Soft , no tenderness EXTREMITIES: No edema feet - Labs CBC & Chem 7: 08/18/23 06:57 08/18/23 06:57 Labs: Abnormal Lab Results - Last 24 Hours (Table) 08/18/23 08/18/23 08/18/23 Range/Units 17:02 17:04 18:48 POC Glucose (mg/dL) 500 H 471 H 581 H (70-110) mg/dL 08/18/23 08/18/23 08/18/23 Range/Units 20:01 20:59 22:06 POC Glucose (mg/dL) 484 H 394 H 354 H (70-110) mg/dL 08/18/23 08/19/23 08/19/23 Range/Units 22:51 00:02 01:08 POC Glucose (mg/dL) 347 H 307 H 312 H (70-110) mg/dL 08/19/23 08/19/23 08/19/23 Range/Units 01:49 03:02 04:12 POC Glucose (mg/dL) 193 H 161 H 113 H (70-110) mg/dL 08/19/23 08/19/23 08/19/23 Range/Units 06:06 06:28 06:58 POC Glucose (mg/dL) 64 L 111 H 115 H (70-110) mg/dL 08/19/23 08/19/23 Range/Units 11:03 12:01 POC Glucose (mg/dL) 121 H 162 H (70-110) mg/dL Microbiology - Last 24 Hours (Table) 08/16/23 12:03 Blood Culture - Preliminary Blood Assessment and Plan (1) UTI (urinary tract infection) Current Visit: Yes Status: Acute Code(s): N39.0 - URINARY TRACT INFECTION, SITE NOT SPECIFIED SNOMED Code(s): 34163988 Plan: 1patient was in the hospital generalized weakness decreased appetite did have low-grade fever urinary symptom positive UA likely a component of symptomatic Uritact infection likely from enteric gram-negative pathogen with urine currently showing gram-negative bacilli with ID and sensitivities pending, patient is currently breathing comfortably on room air abdominal soft on clear examination no evidence of any joint swelling or cellulitis 2-patient urine culture did grow Klebsiella that is sensitive to Rocephin 3patient has shown clinical improvement and will continue with Rocephin 1 g daily clinically doubt encephalitis Dictation was produced using [employer] software. please excuse any grammatical, word or spelling errors. Time with Patient: Less than 30
[2023-08-19 16:19] LABS: Glucose,Whole Blood 320 mg/dL (70-110)
[2023-08-19] MEDS: INSULIN ASPART (NovoLOG) 100 UNIT/ML VIAL SQ SCH ×2 (17:10→22:50)
--- NOTE | 2023-08-19 18:01 | P.PN ---
Subjective Progress Note Date: 08/19/23 I'm seeing the patient for the first time during this admission. Please refer to Dr. Cunningham's note for further details. According to the patient she's been having chronic lower back pain for at least a year and it's in the posterior entire back pain that radiates down both legs and the she stated that she followed up with a surgeon for her lower back was told the she had severe stenosis and she does not qualify for any surgical intervention because of her age. In the last 1 week and she's been having worsening of lower back pain. She denies of any urinary bowel issues denies of any upper extremity weakness or numbness in the upper extremity and denies any numbness in the lower extremity at. She usually walks with a cane but because of her worsening the back pain and she's having difficulty. She stated that she has minimal headache if all and denies any nausea vomiting or visual disturbance. In his hospital stay it seems that she has underlying urinary tract infection and ID is on board. Objective - Vital Signs Vital signs: Vital Signs Temp 97.7 F 08/19/23 16:00 Pulse 63 08/19/23 16:00 Resp 16 08/19/23 16:00 BP 121/62 08/19/23 16:00 Pulse Ox 97 08/19/23 16:00 FiO2 Intake & Output 08/18/23 08/19/23 08/19/23 18:59 06:59 18:59 Intake Total 900 687.430 180 Output Total 200 Balance 900 687.430 -20 Weight 72.575 kg Intake: Intake, IV Titration 900 147.430 0 Amount Insulin Regular 100 unit 147.430 0 In Sodium Chloride 0.9% 100 ml @ Titrate IV .Q0M JACEK Rx#:[id number] Sodium Chloride 0.9% 1, 900 000 ml @ 75 mls/hr IV . [id number] JACEK Rx#:[id number] Oral 540 180 Output: Urine 200 Other: Voiding Method Bedside Commode Bedside Commode Bedside Commode Diaper Diaper Diaper Incontinent Incontinent Incontinent # Voids 3 1 - Exam GENERAL: The patient is lying in bed and is in mild acute distress. NEUROLOGICAL: Higher mental function: The patient is awake, alert, oriented to self, place. She correctly stated current year. Initially stated it was July but then later stated August. Patient is following commands. No aphasia and no neglect. Cranial nerves: The pupils are round, equal and reactive to light. Visual f ields are full to confrontation throughout. Extraocular movement is intact no nystagmus is noted. The facial strength is normal throughout. Hearing is normal bilaterally to hand rub. Tongue is midline and moved [id number] without any difficulty. No dysarthria is noted but patient is moderate hypophonic. Motor: The strength is bilateral forearm extension is 4-4+. Otherwise uppers are 5/5. In lowers was limited because of pain and had 2 bilaterally. Normal tone and bulk. Cerebellum: Normal finger to nose bilaterally. Sensation: Sensation is normal to touch throughout. Reflexes (right/left): 2+ in uppers while lowers are 1+. Plantars are mute bilaterally. - Labs CBC & Chem 7: 08/18/23 06:57 08/18/23 06:57 Labs: Abnormal Lab Results - Last 24 Hours (Table) 08/18/23 08/18/23 08/18/23 Range/Units 18:48 20:01 20:59 POC Glucose (mg/dL) 581 H 484 H 394 H (70-110) mg/dL 08/18/23 08/18/23 08/19/23 Range/Units 22:06 22:51 00:02 POC Glucose (mg/dL) 354 H 347 H 307 H (70-110) mg/dL 08/19/23 08/19/23 08/19/23 Range/Units 01:08 01:49 03:02 POC Glucose (mg/dL) 312 H 193 H 161 H (70-110) mg/dL 08/19/23 08/19/23 08/19/23 Range/Units 04:12 06:06 06:28 POC Glucose (mg/dL) 113 H 64 L 111 H (70-110) mg/dL 08/19/23 08/19/23 08/19/23 Range/Units 06:58 11:03 12:01 POC Glucose (mg/dL) 115 H 121 H 162 H (70-110) mg/dL 08/19/23 Range/Units 16:18 POC Glucose (mg/dL) 320 H (70-110) mg/dL Microbiology - Last 24 Hours (Table) 08/16/23 12:03 Blood Culture - Preliminary Blood Assessment and Plan Assessment: * 88-year-old female, otherwise healthy, presented with 4 week history of leg pains, changes in the personality, with 5 day history of diffuse body pains from neck all the way to the feet, and also severe headache 10/10. Patient is hallucinating, encephalopathic. Patient is slightly tremulous. Exact cause of encephalopathy uncertain. Encephalopathy due to urosepsis. Denies off any further headaches. No confusion.--mentation has improved * acute on chronic lower back pain. Possible urosepsis exacerbated her lower back pain. * Elevated rheumatoid factor 18/15 with elevated ESR 77 and CRP 29/0.8. * Probable UTI with urine cultures growing greater than 100,000 CFU per mL Klebsiella pneumoniae * Hypokalemia * Diabetes * Atrial fibrillation, currently on Eliquis * Hypertension * Osteoarthritis Plan: * CT of the lumbar spine showed moderate to advanced multilevel spondylotic change. No vertebral compression collapse or malalignment. Focal moderate spinal canal stenosis at L1-L2 and L3-L4. Variable neuro foraminal stenosis, moderate to severe on the left at L5-S1 and on the right at L1-L2. Thoracic spine revealed mild/moderate degenerative disc disease. Scattered facet arthropathy. No vertebral compression collapse or malalignment. 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 CT of the cervical spine showed moderate multilevel spondylotic change in the cervical spine with degenerative grade 1 spondylolisthesis C3-C4, C4-C5, C5-C6, C6-C7. Overall moderate spinal canal stenosis at C5-C6 and C6-C7. Variable neural foraminal stenosis. Overall, S shaped scoliosis throughout the spine. Grade discourage her in the lumbar spine and secondary left lateral subluxation at L3-L4. * Patient currently on ceftriaxone for UTI. * West Nile virus serology is ordered by Dr. Cunningham and is pending. * Dr. Willis was concerned about West Nile virus and he spoke with elvia mcguire and they declined lumbar puncture since the patient is on Eliquis at. Also he notified me that the he spoke with ID and they felt that this was due to underlying the urinary tract infection. * Rheumatoid factor is 18. GRETCHEN is positive. * Folic acid 12.30, B12 > 3600 * Hemoglobin A1c 7.9. * Initial CK level is 208 and the repeated is 67. * Per Dr. Cunningham, Consider rheumatology consultation. * PT and OT are consulted * We'll defer the rest of the medical management to primary team The plan was discussed with the patient and her nurse. Will continue to follow-up sporadically. Time with Patient: Less than 30
[2023-08-19 20:34] LABS: Glucose,Whole Blood 368 mg/dL (70-110)
[2023-08-19] MEDS: ATORVASTATIN 10 MG TAB PO SCH (22:49)
[2023-08-19] MEDS: INSULIN DETEMIR (LEVEMIR) 100 UNIT/ML SYR SQ SCH (23:10)
--- NOTE | 2023-08-20 05:20 | P.PN ---
Subjective Progress Note Date: 08/19/23 This is an 88-year-old female who was recently admitted with weakness of bilateral lower extremities with significant pain and difficulty in ambulation. Patient was noted to have significant history of severe stenosis and was deemed not a surgical candidate given her age. Patient is lethargic today although arousable oral intake remains poor and patient was seen and evaluated by physical therapy awaiting notes for possible ECF. Patient maintained on antibiotics in the form of ceftriaxone with infectious disease following an urine culture showing Klebsiella pneumonia. Patient's urine is more co ncentrated and having some retention requiring indwelling Merchant catheter. Patient being lethargic will limit IV narcotic use and discontinue Dilaudid and add Celebrex and adjust medications accordingly. Patient is currently afebrile with no reported chest pain or shortness of breath. Patient needs encouragement with meals. Review of systems: Constitutional: reports of fatigue, no fever, or chills Cardiovascular: No reports of chest pain or palpitations Respiratory: No reports of shortness of breath or cough GI: No reports of nausea, no reports of vomiting, reports not much of an appetite : No reports of dysuria nursing staff reported retention requiring indwelling Merchant catheter with decreased urine output Neurovascular: reports of generalized weakness, difficulty in ambulating All medications have been reviewed PHYSICAL EXAMINATION: GENERAL: The patient is alert and oriented x2, lethargic although arousable Well developed, ill-appearing, elderly appearing HEENT: Pupils are round and equally reacting to light. EOMI. no scleral icterus. No conjunctival pallor. Normocephalic, atraumatic. No pharyngeal erythema. No thyromegaly. CARDIOVASCULAR: S1 and S2 muffled PULMONARY: diminished breath sounds bilaterally with no wheezing or rhonchi noted. ABDOMEN: soft. Nontender on exam. non-distended, normoactive bowel sounds. No palpable organomegaly. MUSCULOSKELETAL: No joint swelling or deformity. EXTREMITIES: No cyanosis, clubbing, or pedal edema. NEUROLOGICAL: Gross neurological examination did not reveal any focal deficits. Diffuse weakness, significant muscle wasting noted SKIN: No rashes. Assessment: Bilateral lower extremity pain and weakness, likely secondary to severe spinal stenosis, rheumatoid arthritis ruled out generalized body aches of the back and lower extremity Acute kidney injury likely secondary to poor oral intake and dehydration Acute urinary tract infection with Klebsiella pneumonia, present on admission Urinary retention requiring indwelling Merchant catheter Chronic persistent atrial fibrillation, currently rate controlled Diabetes mellitus, type II, uncontrolled with hyper glycemia Gait dysfunction and generalized weakness GI prophylaxis DVT prophylaxis Full code Plan: Patient presented with significant pain in the lower extremities and inability to ambulate although was supposedly ambulatory a few days prior to admission Extensive neurological workup with no plans of surgical intervention. Interventional radiology was consulted for possible LP although refusing as patient was on anticoagulation Patient did have elevated sed rate although do not believe this is rheumatoid arthritis, most likely significant osteoarthritis with no noted wilmar involvement or features to represent rheumatoid arthritis Patient with extremely uncontrolled elevated blood sugars was placed on insulin drip which is discontinued as blood sugars are in the 60s and will adjust medications and continue with Accu-Cheks before meals and at bedtime and 2 AM and sliding scale along with long-acting. Awaiting PT/OT therapy evaluation and would recommend physical therapy daily and will consult case management for possible ECF Infectious disease following this patient is maintained on antibiotics in the form of ceftriaxone with urine cultures positive for Klebsiella pneumonia. Patient did have some difficulty with urination and decreasing urine output was retention requiring indwelling Merchant catheter. Follow-up a.m. labs The impression and plan of care has been dictated by Dolores Chaudhari, nurse practitioner as directed. Dr. Mo MD I have performed a history and examination and MDM of this patient, discussed the same with the dictator, and agree with the dictator's assessment and plan as written ,documented as a scribe. Based on total visit time, I have performed more than 50% of the visit. Any additional findings or plans will be noted. Objective - Vital Signs Vital signs: Vital Signs Temp 97.3 F L 08/19/23 08:00 Pulse 57 L 08/19/23 08:00 Resp 18 08/19/23 08:00 BP 115/64 08/19/23 08:00 Pulse Ox 97 08/19/23 08:00 FiO2 Intake & Output 08/18/23 08/19/23 08/19/23 18:59 06:59 18:59 Intake Total 900 687.430 0 Output Total 100 Balance 900 687.430 -100 Weight 72.575 kg Intake: Intake, IV Titration 900 147.430 0 Amount Insulin Regular 100 unit 147.430 0 In Sodium Chloride 0.9% 100 ml @ Titrate IV .Q0M [facility] Rx#:[id number] Sodium Chloride 0.9% 1, 900 000 ml @ 75 mls/hr IV . [id number] Rx#:[id number] Oral 540 Output: Urine 100 Other: Voiding Method Bedside Commode Bedside Commode Diaper Diaper Incontinent Incontinent # Voids 3 1 - Labs CBC & Chem 7: 08/18/23 06:57 08/18/23 06:57 Labs: Abnormal Lab Results - Last 24 Hours (Table) 08/16/23 08/18/23 08/18/23 Range/Units 10:35 06:57 06:57 WBC 10.84 H (4.50-10.00) X 10*3/uL MCHC 31.9 L (32.0-37.0) d/dL RDW 15.7 H (11.5-14.5) % Neutrophils # 9.78 H (1.80-7.70) X 10*3/uL Lymphocytes # 0.51 L (0.90-5.00) X 10*3/uL Eosinophils # 0.03 L (0.04-0.35) X 10*3/uL Carbon Dioxide 19.8 L (21.6-31.8) mmol/L Anion Gap 15.20 H (4.00-12.00) mmol/L BUN 48.3 H (9.0-27.0) mg/dL Est GFR (CKD-EPI) 49 L (>=60) BUN/Creatinine Ratio 43.91 H (12.00-20.00) Ratio Glucose 315 H (70-110) mg/dL POC Glucose (mg/dL) (70-110) mg/dL GRETCHEN Screen POSITIVE A (Negative) 08/18/23 08/18/23 08/18/23 Range/Units 11:42 17:02 17:04 WBC (4.50-10.00) X 10*3/uL MCHC (32.0-37.0) d/dL RDW (11.5-14.5) % Neutrophils # (1.80-7.70) X 10*3/uL Lymphocytes # (0.90-5.00) X 10*3/uL Eosinophils # (0.04-0.35) X 10*3/uL Carbon Dioxide (21.6-31.8) mmol/L Anion Gap (4.00-12.00) mmol/L BUN (9.0-27.0) mg/dL Est GFR (CKD-EPI) (>=60) BUN/Creatinine Ratio (12.00-20.00) Ratio Glucose (70-110) mg/dL POC Glucose (mg/dL) 432 H 500 H 471 H (70-110) mg/dL GRETCHEN Screen (Negative) 08/18/23 08/18/23 08/18/23 Range/Units 18:48 20:01 20:59 WBC (4.50-10.00) X 10*3/uL MCHC (32.0-37.0) d/dL RDW (11.5-14.5) % Neutrophils # (1.80-7.70) X 10*3/uL Lymphocytes # (0.90-5.00) X 10*3/uL Eosinophils # (0.04-0.35) X 10*3/uL Carbon Dioxide (21.6-31.8) mmol/L Anion Gap (4.00-12.00) mmol/L BUN (9.0-27.0) mg/dL Est GFR (CKD-EPI) (>=60) BUN/Creatinine Ratio (12.00-20.00) Ratio Glucose (70-110) mg/dL POC Glucose (mg/dL) 581 H 484 H 394 H (70-110) mg/dL GRETCHEN Screen (Negative) 08/18/23 08/18/23 08/19/23 Range/Units 22:06 22:51 00:02 WBC (4.50-10.00) X 10*3/uL MCHC (32.0-37.0) d/dL RDW (11.5-14.5) % Neutrophils # (1.80-7.70) X 10*3/uL Lymphocytes # (0.90-5.00) X 10*3/uL Eosinophils # (0.04-0.35) X 10*3/uL Carbon Dioxide (21.6-31.8) mmol/L Anion Gap (4.00-12.00) mmol/L BUN (9.0-27.0) mg/dL Est GFR (CKD-EPI) (>=60) BUN/Creatinine Ratio (12.00-20.00) Ratio Glucose (70-110) mg/dL POC Glucose (mg/dL) 354 H 347 H 307 H (70-110) mg/dL GRETCHEN Screen (Negative) 08/19/23 08/19/23 08/19/23 Range/Units 01:08 01:49 03:02 WBC (4.50-10.00) X 10*3/uL MCHC (32.0-37.0) d/dL RDW (11.5-14.5) % Neutrophils # (1.80-7.70) X 10*3/uL Lymphocytes # (0.90-5.00) X 10*3/uL Eosinophils # (0.04-0.35) X 10*3/uL Carbon Dioxide (21.6-31.8) mmol/L Anion Gap (4.00-12.00) mmol/L BUN (9.0-27.0) mg/dL Est GFR (CKD-EPI) (>=60) BUN/Creatinine Ratio (12.00-20.00) Ratio Glucose (70-110) mg/dL POC Glucose (mg/dL) 312 H 193 H 161 H (70-110) mg/dL GERTCHEN Screen (Negative) 08/19/23 08/19/23 08/19/23 Range/Units 04:12 06:06 06:28 WBC (4.50-10.00) X 10*3/uL MCHC (32.0-37.0) d/dL RDW (11.5-14.5) % Neutrophils # (1.80-7.70) X 10*3/uL Lymphocytes # (0.90-5.00) X 10*3/uL Eosinophils # (0.04-0.35) X 10*3/uL Carbon Dioxide (21.6-31.8) mmol/L Anion Gap (4.00-12.00) mmol/L BUN (9.0-27.0) mg/dL Est GFR (CKD-EPI) (>=60) BUN/Creatinine Ratio (12.00-20.00) Ratio Glucose (70-110) mg/dL POC Glucose (mg/dL) 113 H 64 L 111 H (70-110) mg/dL GRETCHEN Screen (Negative) 08/19/23 Range/Units 06:58 WBC (4.50-10.00) X 10*3/uL MCHC (32.0-37.0) d/dL RDW (11.5-14.5) % Neutrophils # (1.80-7.70) X 10*3/uL Lymphocytes # (0.90-5.00) X 10*3/uL Eosinophils # (0.04-0.35) X 10*3/uL Carbon Dioxide (21.6-31.8) mmol/L Anion Gap (4.00-12.00) mmol/L BUN (9.0-27.0) mg/dL Est GFR (CKD-EPI) (>=60) BUN/Creatinine Ratio (12.00-20.00) Ratio Glucose (70-110) mg/dL POC Glucose (mg/dL) 115 H (70-110) mg/dL GRETCHEN Screen (Negative) Microbiology - Last 24 Hours (Table) 08/16/23 12:03 Blood Culture - Preliminary Blood
[2023-08-20] MEDS: KETOROLAC 15 MG/ML 1 ML VIAL IVP SCH (06:48)
[2023-08-20 07:03] LABS: Glucose,Whole Blood 307 mg/dL (70-110)
[2023-08-20] MEDS: INSULIN ASPART (NovoLOG) 100 UNIT/ML VIAL SQ SCH ×5 (07:06→21:00)
[2023-08-20] MEDS: INSULIN DETEMIR (LEVEMIR) 100 UNIT/ML SYR SQ SCH ×2 (07:06→21:00)
[2023-08-20] MEDS: MELOXICAM 7.5 MG TAB PO SCH (09:43)
[2023-08-20] MEDS: METOPROLOL SUCCINATE (ER) 50 MG TAB.ER.24H PO SCH (09:44)
[2023-08-20] MEDS: FAMOTIDINE 20 MG TAB PO SCH (09:44)
[2023-08-20] MEDS: DOCUSATE 100 MG CAP PO SCH (09:44)
[2023-08-20] MEDS: AMIODARONE 200 MG TAB PO SCH (09:44)
[2023-08-20] MEDS: GABAPENTIN 100 MG CAP PO SCH (09:44)
[2023-08-20] MEDS: APIXABAN 5 MG TAB PO SCH ×2 (09:44→21:00)
[2023-08-20] MEDS: DAPAGLIFLOZIN PROPANEDIOL 5 MG TABLET PO SCH (09:52)
[2023-08-20] MEDS: NON FORMULARY DRUG (Glucosamine/Chondr Su A Sod [Osteo Bi-Flex Caplet] 1 EACH Tablet) PO SCH (09:55)
[2023-08-20] MEDS: NON FORMULARY DRUG (Neuriva 1 CAP) PO SCH (09:56)
[2023-08-20] MEDS: NON FORMULARY DRUG (Prevagen 1 CAP) PO SCH (11:42)
[2023-08-20 11:43] LABS: Glucose,Whole Blood 303 mg/dL (70-110)
--- NOTE | 2023-08-20 11:57 | P.PN ---
Subjective Progress Note Date: 08/20/23 Principal diagnosis: Klebsiella urinary tract infection Patient is a 88-year-old female with a past medical history significant for Atrial Fibrillation, Blood Disorder, Diabetes Mellitus, Hypertension, Osteoarthritis (OA) presenting to the hospital for evaluation of generalized body aches pain in her back and bilateral legs low-grade fever nausea and decreased appetite , patient did have a positive UA Unasyn concerning for a symptomatic UTI On today's evaluation and that is 08/20/2023, the patient denies any fever or any chills, the patient is breathing comfortably on room air and no need for supplemental oxygen, the patient denies chest pain or cough, patient denies nausea/vomiting and no diarrhea has been reported Patient did have white count is 10.84, creatinine 1.1 as of 08/18/2023 no lab results in the system today, urine is growing Klebsiella Objective - Vital Signs Vital signs: Vital Signs Temp 97.8 F 08/20/23 08:00 Pulse 67 08/20/23 08:00 Resp 16 08/20/23 08:00 BP 134/83 08/20/23 08:00 Pulse Ox 100 08/20/23 08:00 FiO2 Intake & Output 08/19/23 08/20/23 08/20/23 18:59 06:59 18:59 Intake Total 360 Output Total 1225 700 Balance -865 -700 Weight 72.575 kg Intake: Intake, IV Titration 0 Amount Insulin Regular 100 unit 0 In Sodium Chloride 0.9% 100 ml @ Titrate IV .Q0M [facility] Rx#:[id number] Oral 360 Output: Urine 1225 700 Uretheral (Merchant) 1025 Other: Voiding Method Bedside Commode Bedside Commode Bedside Commode Diaper Diaper Diaper Incontinent Incontinent Incontinent Indwelling Catheter - Exam GENERAL DESCRIPTION: An elderly female lying in bed in no distress RESPIRATORY SYSTEM: Unlabored breathing , decreased breath sounds at bases HEART: S1 S2 regular rate and rhythm , ABDOMEN: Soft , no tenderness EXTREMITIES: No edema feet - Labs CBC & Chem 7: 08/18/23 06:57 08/18/23 06:57 Labs: Abnormal Lab Results - Last 24 Hours (Table) 08/19/23 08/19/23 08/19/23 Range/Units 12:01 16:18 20:33 POC Glucose (mg/dL) 162 H 320 H 368 H (70-110) mg/dL 08/20/23 08/20/23 Range/Units 07:02 11:40 POC Glucose (mg/dL) 307 H 303 H (70-110) mg/dL Microbiology - Last 24 Hours (Table) 08/16/23 12:03 Blood Culture - Preliminary Blood Assessment and Plan (1) UTI (urinary tract infection) Current Visit: Yes Status: Acute Code(s): N39.0 - URINARY TRACT INFECTION, SITE NOT SPECIFIED SNOMED Code(s): 93224137 Plan: 1patient was in the hospital generalized weakness decreased appetite did have low-grade fever urinary symptom positive UA likely a component of symptomatic Uritact infection likely from enteric gram-negative pathogen with urine currently showing gram-negative bacilli with ID and sensitivities pending, patient is currently breathing comfortably on room air abdominal soft on clear examination no evidence of any joint swelling or cellulitis 2-patient urine culture did grow Klebsiella that is sensitive to Rocephin 3patient is slowly clinically improving and will continue with Rocephin 1 g daily and plan to finish therapy with oral Ceftin Dictation was produced using [employer] dictation software. please excuse any grammatical, word or spelling errors. Time with Patient: Less than 30
[2023-08-20 12:26] LABS: Basophils % (A) 0 %; Eosinophils % (A) 0 %; HCT 39.9 % (34.0-46.0); HGB 12.3 gm/dL (11.4-16.0); Hypochromasia Marked; Lymphocytes # (A) 0.5 k/uL (1.0-4.8); Lymphocytes % (A) 4 %; MCH 29.8 pg (25.0-35.0); MCHC 30.9 g/dL (31.0-37.0); MCV 96.4 fL (80.0-100.0); Mean Platelet Volume 8.5; Monocytes # (A) 0.4 k/uL (0-1.0); Monocytes % (A) 3 %; Neutrophils # (A) 12.1 k/uL (1.3-7.7); Neutrophils % (A) 92 %; Platelet Count 223 k/uL (150-450); RBC 4.14 m/uL (3.80-5.40); RDW 14.7 % (11.5-15.5); WBC 13.1 k/uL (3.8-10.6)
[2023-08-20] MEDS: DULoxetine HCL 30 MG CAPSULE.DR PO SCH (12:53)
[2023-08-20 12:58] LABS: ALT 16 U/L (4-34); AST 18 U/L (14-36); African American GFR (CKD) 45 (>60 ml/min/1.73 sqM); Albumin 2.1 g/dL (3.5-5.0); Alkaline Phosphatase 62 U/L (38-126); Anion Gap 8 mmol/L; Blood Urea Nitrogen 75 mg/dL (7-17); Calcium 9.2 mg/dL (8.4-10.2); Carbon Dioxide 18 mmol/L (22-30); Chloride 103 mmol/L (98-107); Glucose 305 mg/dL (74-99); Non-African American GFR(CKD) 39 (>60 ml/min/1.73 sqM); Potassium 5.3 mmol/L (3.5-5.1); Sodium 129 mmol/L (137-145); Total Bilirubin 0.4 mg/dL (0.2-1.3); Total Protein 4.9 g/dL (6.3-8.2)
[2023-08-20] MEDS ORDERED: BENZOCAINE/MENTHOL LOZENG 1 EACH LOZENGE MUCOUS MEM PRN (14:35)
[2023-08-20 16:27] LABS: Glucose,Whole Blood 314 mg/dL (70-110)
[2023-08-20] MEDS ORDERED: DEXTROSE 50% SYRINGE 50 ML IVP PRN ×2 (17:44)
--- NOTE | 2023-08-20 18:09 | P.PN ---
Subjective Progress Note Date: 08/20/23 On follow-up with the patient and she continues to have weakness in the lower extremities. Per physical therapy and she is a bit better today compared to couple days ago in which she is able to sit up on her own but she continues to have the significant weakness in the lowers. Objective - Vital Signs Vital signs: Vital Signs Temp 97.9 F 08/20/23 16:00 Pulse 66 08/20/23 16:00 Resp 17 08/20/23 16:00 BP 114/74 08/20/23 16:00 Pulse Ox 97 08/20/23 16:00 FiO2 Intake & Output 08/19/23 08/20/23 08/20/23 18:59 06:59 18:59 Intake Total 360 Output Total 1225 1175 Balance -865 -1175 Weight 72.575 kg Intake: Intake, IV Titration 0 Amount Insulin Regular 100 unit 0 In Sodium Chloride 0.9% 100 ml @ Titrate IV .Q0M [facility] Rx#:[id number] Oral 360 Output: Urine 1225 1175 Uretheral (Merchant) 1025 Other: Voiding Method Bedside Commode Bedside Commode Bedside Commode Diaper Diaper Diaper Incontinent Incontinent Incontinent Indwelling Catheter - Exam GENERAL: The patient is sitting up in chair and is in mild acute distress. NEUROLOGICAL: Higher mental function: The patient is awake, alert, oriented to self, place. She correctly stated current year. Initially stated it was July but then later stated August. Patient is following commands. No aphasia and no neglect. Cranial nerves: The pupils are round, equal and reactive to light. Visual vargas are full to confrontation throughout. Extraocular movement is intact no nystagmus is noted. The facial strength is normal throughout. Hearing is normal bilaterally to hand rub. Tongue is midline and moved [id number] without any difficulty. No dysarthria is noted but patient is moderate hypophonic. Motor: The strength is bilateral forearm extension is 4-4+. Otherwise uppers are 5/5. In lowers was limited because of pain and had 2 bilaterally. Normal tone and bulk. Cerebellum: Normal finger to nose bilaterally. Sensation: Sensation is normal to touch throughout. Reflexes (right/left): 2+ in uppers while lowers are 1+. Plantars are mute bilaterally. - Labs CBC & Chem 7: 08/20/23 11:32 08/20/23 11:32 Labs: Abnormal Lab Results - Last 24 Hours (Table) 08/19/23 08/20/23 08/20/23 Range/Units 20:33 07:02 11:32 WBC 13.1 H (3.8-10.6) k/uL MCHC 30.9 L (31.0-37.0) g/dL Neutrophils # 12.1 H (1.3-7.7) k/uL Lymphocytes # 0.5 L (1.0-4.8) k/uL Sodium (137-145) mmol/L Potassium (3.5-5.1) mmol/L Carbon Dioxide (22-30) mmol/L BUN (7-17) mg/dL Creatinine (0.52-1.04) mg/dL Glucose (74-99) mg/dL POC Glucose (mg/dL) 368 H 307 H (70-110) mg/dL Total Protein (6.3-8.2) g/dL Albumin (3.5-5.0) g/dL 08/20/23 08/20/23 08/20/23 Range/Units 11:32 11:40 16:25 WBC (3.8-10.6) k/uL MCHC (31.0-37.0) g/dL Neutrophils # (1.3-7.7) k/uL Lymphocytes # (1.0-4.8) k/uL Sodium 129 L (137-145) mmol/L Potassium 5.3 H (3.5-5.1) mmol/L Carbon Dioxide 18 L (22-30) mmol/L BUN 75 H (7-17) mg/dL Creatinine 1.24 H (0.52-1.04) mg/dL Glucose 305 H (74-99) mg/dL POC Glucose (mg/dL) 303 H 314 H (70-110) mg/dL Total Protein 4.9 L (6.3-8.2) g/dL Albumin 2.1 L (3.5-5.0) g/dL Microbiology - Last 24 Hours (Table) 08/16/23 12:03 Blood Culture - Preliminary Blood Assessment and Plan Assessment: * 88-year-old female, otherwise healthy, presented with 4 week history of leg pains, changes in the personality, with 5 day history of diffuse body pains from neck all the way to the feet, and also severe headache 10/10. Patient is hallucinating, encephalopathic. Patient is slightly tremulous. Exact cause of encephalopathy uncertain. Encephalopathy due to urosepsis. Denies off any further headaches. No confusion.--mentation has improved * acute on chronic lower back pain. On examination has lowers > upper extremity weakness: Rule out any cervical or lumbar severe stenosis. Possible urosepsis exacerbated her lower back pain. * Elevated rheumatoid factor 18/15 with elevated ESR 77 and CRP 29/0.8. * Probable UTI with urine cultures growing greater than 100,000 CFU per mL Klebsiella pneumoniae * Hypokalemia * Diabetes * Atrial fibrillation, currently on Eliquis * Hypertension * Osteoarthritis Plan: * CT of the lumbar spine showed moderate to advanced multilevel spondylotic change. No vertebral compression collapse or malalignment. Focal moderate spinal canal stenosis at L1-L2 and L3-L4. Variable neuro foraminal stenosis, moderate to severe on the left at L5-S1 and on the right at L1-L2. Thoracic spine revealed mild/moderate degenerative disc disease. Scattered facet arthropathy. No vertebral compression collapse or malalignment. 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 CT of the cervical spine showed moderate multilevel spondylotic change in the cervical spine with degenerative grade 1 spondylolisthesis C3-C4, C4-C5, C5-C6, C6-C7. Overall moderate spinal canal stenosis at C5-C6 and C6-C7. Variable neural foraminal stenosis. Overall, S shaped scoliosis throughout the spine. Grade discourage her in the lumbar spi ne and secondary left lateral subluxation at L3-L4. * Patient currently on ceftriaxone for UTI. * West Nile virus serology is ordered by Dr. Cunningham and is pending. * Dr. Cunningham was concerned about West Nile virus and he spoke with anesthesiology and they declined lumbar puncture since the patient is on Eliquis at. Also he notified me that the he spoke with ID and they felt that this was due to underlying the urinary tract infection. * I ordered MRI Cervical and lumbar spine w/ and w/o. If negative pursue MRI Thoracic spine. * Rheumatoid factor is 18. GRETCHEN is positive. I ordered titer level. * Folic acid 12.30, B12 > 3600 * Hemoglobin A1c 7.9. * Initial CK level is 208 and the repeated is 67. * Per Dr. Cunningham, Consider rheumatology consultation. * PT and OT are consulted * We'll defer the rest of the medical management to primary team The plan was discussed with the patient and her nurse and primary team N.P. Will continue to follow. Time with Patient: Less than 30
[2023-08-20 20:56] LABS: Glucose,Whole Blood 230 mg/dL (70-110)
[2023-08-20] MEDS: ATORVASTATIN 10 MG TAB PO SCH (21:00)
[2023-08-20] MEDS: SODIUM CHLORIDE 0.9% 1,000 ML IV SCH (23:13)
--- NOTE | 2023-08-21 01:45 | P.PN ---
Subjective Progress Note Date: 08/20/23 This is an 88-year-old female who was recently admitted with weakness of bilateral lower extremities with significant pain and difficulty in ambulation. Patient was noted to have significant history of severe stenosis and was deemed not a surgical candidate given her age. Patient is lethargic today although arousable oral intake remains poor and patient was seen and evaluated by physical therapy awaiting notes for possible ECF. Patient maintained on antibiotics in the form of ceftriaxone with infectious disease following an urine culture showing Klebsiella pneumonia. Patient's urine is more co ncentrated and having some retention requiring indwelling Merchant catheter. Patient being lethargic will limit IV narcotic use and discontinue Dilaudid and add Celebrex and adjust medications accordingly. Patient is currently afebrile with no reported chest pain or shortness of breath. Patient needs encouragement with meals. 08/20/2023 Patient seen and evaluated in follow-up today with family members at bedside. Patient is more awake and alert and reports continued significant weakness. Patient being followed by multiple medical consultations including neurology and has ordered MRI of the spine which is currently pending. Patient continues to have indwelling Merchant catheter and urine is significantly concentrated with scant amount of blood and sediment noted and is being maintained on IV antibiotics with infectious disease following 4 Klebsiella UTI. Patient is afebrile with no reported chest pain or shortness of breath. Patient's blood sugars are uncontrolled and have resume long-acting along with sliding scale and will add pre-meal insulins. Continue consistent carb, low potassium diet. Encouraged to increase activity as tolerated and recommended physical therapy daily. Case management following plan is for ECF once stabilized discharge. Review of systems: Constitutional: reports of fatigue, no fever, or chills Cardiovascular: No reports of chest pain or palpitations Respiratory: No reports of shortness of breath or cough GI: No reports of nausea, no reports of vomiting, reports not much of an appetite and dislikes bread products and receiving these with each meal : No reports of dysuria nursing staff reported retention requiring indwelling Merchant catheter with decreased urine output Neurovascular: reports of generalized weakness, difficulty in ambulating All medications have been reviewed PHYSICAL EXAMINATION: GENERAL: The patient is alert and oriented x2, lethargic although arousable Well developed, ill-appearing, elderly appearing HEENT: Pupils are round and equally reacting to light. EOMI. no scleral icterus. No conjunctival pallor. Normocephalic, atraumatic. No pharyngeal erythema. No thyromegaly. CARDIOVASCULAR: S1 and S2 muffled PULMONARY: diminished breath sounds bilaterally with no wheezing or rhonchi noted. ABDOMEN: soft. Nontender on exam. non-distended, normoactive bowel sounds. No palpable organomegaly. MUSCULOSKELETAL: No joint swelling or deformity. EXTREMITIES: No cyanosis, clubbing, or pedal edema. NEUROLOGICAL: Gross neurological examination did not reveal any focal deficits. Diffuse weakness, significant muscle wasting noted SKIN: No rashes. Assessment: Bilateral lower extremity pain and weakness, likely secondary to severe spinal stenosis, rheumatoid arthritis ruled out generalized body aches of the back and lower extremity Acute kidney injury likely secondary to poor oral intake and dehydration Acute urinary tract infection with Klebsiella pneumonia, present on admission Urinary retention requiring indwelling Merchant catheter Chronic persistent atrial fibrillation, currently rate controlled Diabetes mellitus, type II, uncontrolled with hyper glycemia Gait dysfunction and generalized weakness GI prophylaxis DVT prophylaxis Full code Plan: Patient presented with significant pain in the lower extremities and inability to ambulate although was supposedly ambulatory a few days prior to admission Extensive neurological workup with no plans of surgical intervention. Interventional radiology was consulted for possible LP although refusing as patient was on anticoagulation Patient did have elevated sed rate although do not believe this is rheumatoid arthritis, most likely significant osteoarthritis with no noted wilmar involvement or features to represent rheumatoid arthritis Neuro has ordered MRI of the spine which is currently pending. Neurology had ordered West Nile viral studies which are pending and per lab takes one to 7 days for results and was sent on 08/19/2023 Patient with extremely uncontrolled elevated blood sugars currently off insulin drip maintained on long-acting along with sliding scale and will adjust the medications and add pre-meal insulins as well Continue with physical therapy daily and discussed with case management for possible ECF. Encouraged increased activity as tolerated Infectious disease following this patient is maintained on antibiotics in the form of ceftriaxone with urine cultures positive for Klebsiella pneumonia. Patient did have some difficulty with urination and decreasing urine output was retention requiring indwelling Merchant catheter. Continue indwelling Merchant catheter for now. Follow-up a.m. labs The impression and plan of care has been dictated by Dolores Chaudhari, nurse practitioner as directed. Dr. Mo MD I have performed a history and examination and MDM of this patient, discussed the same with the dictator, and agree with the dictator's assessment and plan as written ,documented as a scribe. Based on total visit time, I have performed more than 50% of the visit. Any additional findings or plans will be noted. Objective - Vital Signs Vital signs: Vital Signs Temp 97.8 F 08/20/23 12:00 Pulse 64 08/20/23 12:00 Resp 16 08/20/23 12:00 BP 109/62 08/20/23 12:00 Pulse Ox 99 08/20/23 12:00 FiO2 Intake & Output 08/19/23 08/20/23 08/20/23 18:59 06:59 18:59 Intake Total 360 Output Total 1225 700 Balance -865 -700 Weight 72.575 kg Intake: Intake, IV Titration 0 Amount Insulin Regular 100 unit 0 In Sodium Chloride 0.9% 100 ml @ Titrate IV .Q0M [facility] Rx#:[id number] Oral 360 Output: Urine 1225 700 Uretheral (Merchant) 1025 Other: Voiding Method Bedside Commode Bedside Commode Bedside Commode Diaper Diaper Diaper Incontinent Incontinent Incontinent Indwelling Catheter - Labs CBC & Chem 7: 08/20/23 11:32 08/20/23 11:32 Labs: Abnormal Lab Results - Last 24 Hours (Table) 08/19/23 08/19/23 08/20/23 Range/Units 16:18 20:33 07:02 WBC (3.8-10.6) k/uL MCHC (31.0-37.0) g/dL Neutrophils # (1.3-7.7) k/uL Lymphocytes # (1.0-4.8) k/uL Sodium (137-145) mmol/L Potassium (3.5-5.1) mmol/L Carbon Dioxide (22-30) mmol/L BUN (7-17) mg/dL Creatinine (0.52-1.04) mg/dL Glucose (74-99) mg/dL POC Glucose (mg/dL) 320 H 368 H 307 H (70-110) mg/dL Total Protein (6.3-8.2) g/dL Albumin (3.5-5.0) g/dL 08/20/23 08/20/23 08/20/23 Range/Units 11:32 11:32 11:40 WBC 13.1 H (3.8-10.6) k/uL MCHC 30.9 L (31.0-37.0) g/dL Neutrophils # 12.1 H (1.3-7.7) k/uL Lymphocytes # 0.5 L (1.0-4.8) k/uL Sodium 129 L (137-145) mmol/L Potassium 5.3 H (3.5-5.1) mmol/L Carbon Dioxide 18 L (22-30) mmol/L BUN 75 H (7-17) mg/dL Creatinine 1.24 H (0.52-1.04) mg/dL Glucose 305 H (74-99) mg/dL POC Glucose (mg/dL) 303 H (70-110) mg/dL Total Protein 4.9 L (6.3-8.2) g/dL Albumin 2.1 L (3.5-5.0) g/dL Microbiology - Last 24 Hours (Table) 08/16/23 12:03 Blood Culture - Preliminary Blood
[2023-08-21 06:16] LABS: Glucose,Whole Blood 67 mg/dL (70-110)
[2023-08-21] MEDS: INSULIN DETEMIR (LEVEMIR) 100 UNIT/ML SYR SQ SCH ×2 (06:23→21:03)
[2023-08-21] MEDS: INSULIN ASPART (NovoLOG) 100 UNIT/ML VIAL SQ SCH ×7 (06:23→21:04)
[2023-08-21 06:29] LABS: Glucose,Whole Blood 66 mg/dL (70-110)
[2023-08-21 06:35] LABS: ANA Pattern SPK
[2023-08-21 06:45] LABS: Glucose,Whole Blood 79 mg/dL (70-110)
[2023-08-21] MEDS: APIXABAN 5 MG TAB PO SCH ×2 (08:34→22:34)
[2023-08-21] MEDS: AMIODARONE 200 MG TAB PO SCH (08:34)
[2023-08-21] MEDS: DULoxetine HCL 30 MG CAPSULE.DR PO SCH (08:34)
[2023-08-21 08:35] LABS: Basophils % (A) 0 %; Eosinophils # (A) 0.1 k/uL (0-0.7); Eosinophils % (A) 0 %; HCT 39.5 % (34.0-46.0); HGB 12.3 gm/dL (11.4-16.0); Hypochromasia Slight; Lymphocytes # (A) 0.7 k/uL (1.0-4.8); Lymphocytes % (A) 5 %; MCH 29.6 pg (25.0-35.0); MCV 95.4 fL (80.0-100.0); Mean Platelet Volume 8.4; Monocytes # (A) 0.5 k/uL (0-1.0); Monocytes % (A) 3 %; Neutrophils # (A) 13.5 k/uL (1.3-7.7); Neutrophils % (A) 91 %; Platelet Count 221 k/uL (150-450); RBC 4.14 m/uL (3.80-5.40); RDW 14.9 % (11.5-15.5); WBC 14.8 k/uL (3.8-10.6)
[2023-08-21] MEDS: FAMOTIDINE 20 MG TAB PO SCH (08:35)
[2023-08-21] MEDS: DOCUSATE 100 MG CAP PO SCH (08:35)
[2023-08-21] MEDS: METOPROLOL SUCCINATE (ER) 50 MG TAB.ER.24H PO SCH (08:35)
[2023-08-21] MEDS: MELOXICAM 7.5 MG TAB PO SCH (08:35)
[2023-08-21] MEDS: NON FORMULARY DRUG (Prevagen 1 CAP) PO SCH (08:36)
[2023-08-21] MEDS: DAPAGLIFLOZIN PROPANEDIOL 5 MG TABLET PO SCH (08:39)
[2023-08-21] MEDS: NON FORMULARY DRUG (Neuriva 1 CAP) PO SCH (08:39)
[2023-08-21] MEDS: NON FORMULARY DRUG (Glucosamine/Chondr Su A Sod [Osteo Bi-Flex Caplet] 1 EACH Tablet) PO SCH (08:39)
[2023-08-21 08:59] LABS: ALT 15 U/L (4-34); AST 19 U/L (14-36); African American GFR (CKD) 57 (>60 ml/min/1.73 sqM); Alkaline Phosphatase 59 U/L (38-126); Anion Gap 7 mmol/L; Blood Urea Nitrogen 63 mg/dL (7-17); Calcium 9.1 mg/dL (8.4-10.2); Carbon Dioxide 19 mmol/L (22-30); Chloride 105 mmol/L (98-107); Glucose 100 mg/dL (74-99); Non-African American GFR(CKD) 50 (>60 ml/min/1.73 sqM); Potassium 4.3 mmol/L (3.5-5.1); Sodium 131 mmol/L (137-145); Total Bilirubin 0.3 mg/dL (0.2-1.3); Total Protein 4.6 g/dL (6.3-8.2)
[2023-08-21 11:25] LABS: Glucose,Whole Blood 71 mg/dL (70-110)
[2023-08-21 12:23] LABS: West Nile Virus IgM Antibody 0.05 INDEX (<0.90)
--- NOTE | 2023-08-21 15:22 | MR ---
EXAMINATION TYPE: MR lumbar spine wo/w con DATE OF EXAM: 08/21/2023 2:53 PM COMPARISON: NONE HISTORY: Leg weakness CONTRAST: The patient was injected with 7 mL intravenous Gadavist gadolinium contrast. Multiplanar, MultiSpin echo imaging of the lumbar spine was performed. There is severe scoliotic cur vature convex to the left. Left lateral subluxation of L3 on L4. L1-L2: Severe disc desiccation with posterocentral disc endplate complex. Mild central stenosis and r ight foraminal encroachment. Right greater than left foraminal encroachment. L2-L3: Severe disc desiccation. Posterior disc bulge without evidence for herniation or central steno sis. No significant foraminal encroachment. L3-L4: Severe disc desiccation with circumferential disc bulge greatest posteriorly. Posterocentral d isc endplate complex results in mild constriction of the thecal sac with borderline stenosis. Mild bi lateral neural foraminal encroachment. L4-L5: Severe disc desiccation with circumferential disc bulge. Mild posterocentral disc protrusion. Effacement ventral thecal sac with resultant left lateral recess stenosis and left foraminal encroach ment. No central stenosis present. L5-S1: Mild disc desiccation with mild posterior disc bulge. No herniation or central stenosis. Moder ate left-sided foraminal encroachment with mild right-sided foraminal encroachment. No evidence for c entral stenosis. Lumbar segments are intact. No paraspinal masses are identified. Conus medullaris has a normal appe arance. No pathologic enhancement. IMPRESSION: 1. Multilevel degenerative disc disease with disc endplate complex seen at several levels. Mild centr al stenosis and right foraminal encroachment at L1-L2. Borderline stenosis at L3-4. Left lateral rece ss stenosis at L4-5. 2. Varying degrees of foraminal encroachment.
--- NOTE | 2023-08-21 15:31 | P.PN ---
Subjective Progress Note Date: 08/21/23 I am following up with patient and continues to have weakness predominately lowers > upper extremity. Feels slightly getting better. Objective - Vital Signs Vital signs: Vital Signs Temp 98.2 F 08/21/23 15:14 Pulse 69 08/21/23 15:14 Resp 19 08/21/23 15:14 BP 108/70 08/21/23 15:14 Pulse Ox 95 08/21/23 15:14 FiO2 Intake & Output 08/20/23 08/21/23 08/21/23 18:59 06:59 18:59 Intake Total 360 Output Total 1175 800 Balance -1175 -800 360 Weight 72.575 kg Intake: Oral 360 Output: Urine 1175 800 Other: Voiding Method Bedside Commode Indwelling Catheter Indwelling Catheter Diaper Incontinent Indwelling Catheter # Voids 1 # Bowel Movements 1 - Exam GENERAL: The patient is sitting up in chair and is in mild acute distress. NEUROLOGICAL: Higher mental function: The patient is awake, alert, oriented to self, place. She correctly stated current year. Initially stated it was July but then later stated August. Patient is following commands. No aphasia and no neglect. Cranial nerves: The pupils are round, equal and reactive to light. Visual vargas are full to confrontation throughout. Extraocular movement is intact no nystagmus is noted. The facial strength is normal throughout. Hearing is normal bilaterally to hand rub. Tongue is midline and moved [id number] without any difficulty. No dysarthria is noted but patient is moderate hypophonic. Motor: The strength is bilateral forearm extension is 4-4+. Otherwise uppers are 5/5. In lowers was limited because of pain and had 2 bilaterally. Normal tone and bulk. Cerebellum: Normal finger to nose bilaterally. Sensation: Sensation is normal to touch throughout. Reflexes (right/left): 2+ in uppers while lowers are 1+. Plantars are mute bilaterally. - Labs CBC & Chem 7: 08/21/23 08:22 08/21/23 08:22 Labs: Abnormal Lab Results - Last 24 Hours (Table) 08/20/23 08/20/23 08/20/23 Range/Units 16:25 18:17 20:55 WBC (3.8-10.6) k/uL Neutrophils # (1.3-7.7) k/uL Lymphocytes # (1.0-4.8) k/uL Sodium (137-145) mmol/L Carbon Dioxide (22-30) mmol/L BUN (7-17) mg/dL Glucose (74-99) mg/dL POC Glucose (mg/dL) 314 H 230 H (70-110) mg/dL Total Protein (6.3-8.2) g/dL Albumin (3.5-5.0) g/dL GRETCHEN Screen POSITIVE A (Negative) 08/21/23 08/21/23 08/21/23 Range/Units 06:15 06:28 08:22 WBC 14.8 H (3.8-10.6) k/uL Neutrophils # 13.5 H (1.3-7.7) k/uL Lymphocytes # 0.7 L (1.0-4.8) k/uL Sodium (137-145) mmol/L Carbon Dioxide (22-30) mmol/L BUN (7-17) mg/dL Glucose (74-99) mg/dL POC Glucose (mg/dL) 67 L 66 L (70-110) mg/dL Total Protein (6.3-8.2) g/dL Albumin (3.5-5.0) g/dL GRETCHEN Screen (Negative) 08/21/23 Range/Units 08:22 WBC (3.8-10.6) k/uL Neutrophils # (1.3-7.7) k/uL Lymphocytes # (1.0-4.8) k/uL Sodium 131 L (137-145) mmol/L Carbon Dioxide 19 L (22-30) mmol/L BUN 63 H (7-17) mg/dL Glucose 100 H (74-99) mg/dL POC Glucose (mg/dL) (70-110) mg/dL Total Protein 4.6 L (6.3-8.2) g/dL Albumin 2.0 L (3.5-5.0) g/dL GRETCHEN Screen (Negative) Assessment and Plan Assessment: * 88-year-old female, otherwise healthy, presented with 4 week history of leg pains, changes in the personality, with 5 day history of diffuse body pains from neck all the way to the feet, and also severe headache 10/. Patient is hallucinating, encephalopathic. Patient is slightly tremulous. Exact cause of encephalopathy uncertain. Encephalopathy due to urosepsis. Denies off any further headaches. No confusion.--mentation has improved * acute on chronic lower back pain. On examination has lowers > upper extremity weakness: Rule out any cervical or lumbar severe stenosis. Possible urosepsis exacerbated her lower back pain. * Elevated rheumatoid factor 18/15 with elevated ESR 77 and CRP 29/0.8. * Probable UTI with urine cultures growing greater than 100,000 CFU per mL Klebs iella pneumoniae * Hypokalemia * Diabetes * Atrial fibrillation, currently on Eliquis * Hypertension * Osteoarthritis Plan: * CT of the lumbar spine showed moderate to advanced multilevel spondylotic change. No vertebral compression collapse or malalignment. Focal moderate s constantin canal stenosis at L1-L2 and L3-L4. Variable neuro foraminal stenosis, moderate to severe on the left at L5-S1 and on the right at L1-L2. Thoracic spine revealed mild/moderate degenerative disc disease. Scattered facet arthropathy. No vertebral compression collapse or malalignment. 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 CT of the cervical spine showed moderate multilevel spondylotic change in the cervical spine with degenerative grade 1 spondylolisthesis C3-C4, C4-C5, C5-C6, C6-C7. Overall moderate spinal canal stenosis at C5-C6 and C6-C7. Variable neural foraminal stenosis. Overall, S shaped scoliosis throughout the spine. Grade discourage her in the lumbar spine and secondary left lateral subluxation at L3-L4. * Patient currently on ceftriaxone for UTI. * West Nile virus serology is negative. * Dr. Cunningham was concerned about West Nile virus and he spoke with anesthesiology and they declined lumbar puncture since the patient is on Eliquis at. Also he notified me that the he spoke with ID and they felt that this was due to underlying the urinary tract infection. * Pending MRI Cervical and lumbar spine w/ and w/o. If negative pursue MRI Thoracic spine. * Rheumatoid factor is 18. GRETCHEN is positive. Titer level: 1:320. Per Dr. Cunningham, Consider rheumatology consultation. * I ordered dsDNA, repeat ESR and CRP. * Folic acid 12.30, B12 > 3600 * Hemoglobin A1c 7.9. * Initial CK level is 208 and the repeated is 67. * PT and OT are consulted * We'll defer the rest of the medical management to primary team The plan was discussed with the patient, her niece who is at bedside and primary team N.P. Will continue to follow. Time with Patient: Less than 30
--- NOTE | 2023-08-21 15:48 | MR ---
EXAMINATION TYPE: MR cervical spine wo/w con DATE OF EXAM: 08/21/2023 2:54 PM COMPARISON: NONE HISTORY: Arm and leg weakness CONTRAST: The patient was injected with 7 mL intravenous Gadavist gadolinium contrast. Multiplanar MultiSpin echo imaging of the cervical spine was performed. C2-C3: No evidence for degenerative disc disease. No disc bulge/herniation or protrusion. No Canal stenosis. Foramina are patent bilaterally. C3-C4: Disc desiccation noted. Mild posterior disc bulge with effacement ventral thecal sac. No evide nce of herniation. Mild degenerative change of the left-sided uncovertebral joint resulting in mild l eft foraminal encroachment. C4-C5: Disc desiccation noted. Mild posterior disc bulge with effacement ventral thecal sac. No evide nce of herniation. Mild degenerative change of the left-sided uncovertebral joint resulting in modera te left foraminal encroachment. C5-C6: Moderate disc desiccation posterior disc bulge and partial encapsulating spur. Ventral spondyl osis. Effacement ventral thecal sac with mild central stenosis noted. Moderate bilateral neural robyn inal encroachment seen. No evidence for compressive myelopathy. C6-C7: Moderate to severe disc desiccation with posterocentral disc endplate complex. There is efface ment of the ventral thecal sac collections seen in borderline stenosis. Mild bilateral foraminal encr oachment. Spondylosis and degenerative endplate marrow change. C7-T1: No evidence for degenerative disc disease. No disc bulge/herniation or protrusion. No Canal stenosis. Foramina are patent bilaterally. Incidental T1 hemangioma. No cervical spine fracture. There is normal alignment. Cervical spinal cord is of normal signal. C raniovertebral junction relationships are within normal limits. No pathologic enhancement. IMPRESSION: 1. Multilevel degenerative disc disease 2. Borderline to mild central stenosis at C5-6 and C6-7. 3. Varying degrees of bilateral foraminal encroachment.
[2023-08-21] MEDS: traMADol 50 MG TAB PO PRN (15:58)
[2023-08-21] MEDS: NYSTATIN 100,000 UNIT/ML SUSP 500,000 UNIT/5 ML CUP PO SCH ×3 (15:59→22:34)
[2023-08-21 16:12] LABS: Glucose,Whole Blood 111 mg/dL (70-110)
--- NOTE | 2023-08-21 16:21 | P.PN ---
Subjective Progress Note Date: 08/21/23 Principal diagnosis: Klebsiella urinary tract infection Patient is a 88-year-old female with a past medical history significant for Atrial Fibrillation, Blood Disorder, Diabetes Mellitus, Hypertension, Osteoarthritis (OA) presenting to the hospital for evaluation of generalized body aches pain in her back and bilateral legs low-grade fever nausea and decreased appetite , patient did have a positive UA Unasyn concerning for a symptomatic UTI On today's evaluation and that is 08/21/2023, the patient remains to be afebrile the patient is breathing comfortably on room air, the patient denies chest pain and no significant cough or sputum production, patient denies nausea/vomiting however is complaining of diarrhea with 3 loose stools today, patient, during of some sores in the mouth but no difficulty swallowing Patient did have white count is slightly up to 14.8, creatinine 1.02, urine is growing Klebsiella Objective - Vital Signs Vital signs: Vital Signs Temp 98.3 F 08/21/23 08:32 Pulse 68 08/21/23 11:31 Resp 16 08/21/23 11:31 BP 124/58 08/21/23 11:31 Pulse Ox 96 08/21/23 11:31 FiO2 Intake & Output 08/20/23 08/21/23 08/21/23 18:59 06:59 18:59 Intake Total 360 Output Total 1175 800 Balance -1175 -800 360 Weight 72.575 kg Intake: Oral 360 Output: Urine 1175 800 Other: Voiding Method Bedside Commode Indwelling Catheter Indwelling Catheter Diaper Incontinent Indwelling Catheter # Voids 1 # Bowel Movements 1 - Exam GENERAL DESCRIPTION: An elderly female lying in bed in no distress RESPIRATORY SYSTEM: Unlabored breathing , decreased breath sounds at bases HEART: S1 S2 regular rate and rhythm , ABDOMEN: Soft , no tenderness EXTREMITIES: No edema feet - Labs CBC & Chem 7: 08/21/23 08:22 08/21/23 08:22 Labs: Abnormal Lab Results - Last 24 Hours (Table) 08/20/23 08/20/23 08/20/23 Range/Units 16:25 18:17 20:55 WBC (3.8-10.6) k/uL Neutrophils # (1.3-7.7) k/uL Lymphocytes # (1.0-4.8) k/uL Sodium (137-145) mmol/L Carbon Dioxide (22-30) mmol/L BUN (7-17) mg/dL Glucose (74-99) mg/dL POC Glucose (mg/dL) 314 H 230 H (70-110) mg/dL Total Protein (6.3-8.2) g/dL Albumin (3.5-5.0) g/dL GRETCHEN Screen POSITIVE A (Negative) 08/21/23 08/21/23 08/21/23 Range/Units 06:15 06:28 08:22 WBC 14.8 H (3.8-10.6) k/uL Neutrophils # 13.5 H (1.3-7.7) k/uL Lymphocytes # 0.7 L (1.0-4.8) k/uL Sodium (137-145) mmol/L Carbon Dioxide (22-30) mmol/L BUN (7-17) mg/dL Glucose (74-99) mg/dL POC Glucose (mg/dL) 67 L 66 L (70-110) mg/dL Total Protein (6.3-8.2) g/dL Albumin (3.5-5.0) g/dL GRETCHEN Screen (Negative) 08/21/23 Range/Units 08:22 WBC (3.8-10.6) k/uL Neutrophils # (1.3-7.7) k/uL Lymphocytes # (1.0-4.8) k/uL Sodium 131 L (137-145) mmol/L Carbon Dioxide 19 L (22-30) mmol/L BUN 63 H (7-17) mg/dL Glucose 100 H (74-99) mg/dL POC Glucose (mg/dL) (70-110) mg/dL Total Protein 4.6 L (6.3-8.2) g/dL Albumin 2.0 L (3.5-5.0) g/dL GRETCHEN Screen (Negative) Assessment and Plan (1) UTI (urinary tract infection) Current Visit: Yes Status: Acute Code(s): N39.0 - URINARY TRACT INFECTION, SITE NOT SPECIFIED SNOMED Code(s): 25390712 (2) Diarrhea Current Visit: Yes Status: Acute Code(s): R19.7 - DIARRHEA, UNSPECIFIED SNOMED Code(s): 94618587 (3) Thrush Current Visit: Yes Status: Acute Code(s): B37.0 - CANDIDAL STOMATITIS SNOMED Code(s): 75862156 Plan: 1patient was in the hospital generalized weakness decreased appetite did have low-grade fever urinary symptom positive UA likely a component of symptomatic Uritact infection likely from enteric gram-negative pathogen with urine currently showing gram-negative bacilli with ID and sensitivities pending, patient is currently breathing comfortably on room air abdominal soft on clear examination no evidence of any joint swelling or cellulitis 2-patient urine culture did grow Klebsiella that is sensitive to Rocephin 3-patient did have diarrhea which a culture for C. diff and treat if positive 4-also complaining of sores in the mouth we will add nystatin swish and swallow continue with Rocephin and monitor clinical course closely Dictation was produced using [employer] dictation software. please excuse any grammatical, word or spelling errors. Time with Patient: Less than 30
[2023-08-21 16:38] LABS: C Reactive Protein 3.4 mg/dL (<1.0)
[2023-08-21 20:33] LABS: Glucose,Whole Blood 192 mg/dL (70-110)
[2023-08-21] MEDS: ATORVASTATIN 10 MG TAB PO SCH (22:34)
[2023-08-22] MEDS: traMADol 50 MG TAB PO PRN ×3 (00:41→12:09)
[2023-08-22 05:17] LABS: DNA Double-Stranded POSITIVE
--- NOTE | 2023-08-22 05:47 | P.PN ---
Subjective Progress Note Date: 08/21/23 This is an 88-year-old female who was recently admitted with weakness of bilateral lower extremities with significant pain and difficulty in ambulation. Patient was noted to have significant history of severe stenosis and was deemed not a surgical candidate given her age. Patient is lethargic today although arousable oral intake remains poor and patient was seen and evaluated by physical therapy awaiting notes for possible ECF. Patient maintained on antibiotics in the form of ceftriaxone with infectious disease following an urine culture showing Klebsiella pneumonia. Patient's urine is more co ncentrated and having some retention requiring indwelling Merchant catheter. Patient being lethargic will limit IV narcotic use and discontinue Dilaudid and add Celebrex and adjust medications accordingly. Patient is currently afebrile with no reported chest pain or shortness of breath. Patient needs encouragement with meals. 08/20/2023 Patient seen and evaluated in follow-up today with family members at bedside. Patient is more awake and alert and reports continued significant weakness. Patient being followed by multiple medical consultations including neurology and has ordered MRI of the spine which is currently pending. Patient continues to have indwelling Merchant catheter and urine is significantly concentrated with scant amount of blood and sediment noted and is being maintained on IV antibiotics with infectious disease following 4 Klebsiella UTI. Patient is afebrile with no reported chest pain or shortness of breath. Patient's blood sugars are uncontrolled and have resume long-acting along with sliding scale and will add pre-meal insulins. Continue consistent carb, low potassium diet. Encouraged to increase activity as tolerated and recommended physical therapy daily. Case management following plan is for ECF once stabilized discharge. 08/21/2023 Patient is seen in follow-up today more awake and alert AND is with significant weakness. Patient is being scheduled for MRI of the cervical and lumbar spine with neurology following closely. Patient is also continued on antibiotics with infectious disease following for Klebsiella pneumonia noted in the urine. Blood cultures remain negative. Blood sugars are extremely uncontrolled with hyper and hypoglycemia and will adjust the medications accordingly. Dietary following and will continue low potassium with consistent carb diet. Encouraged oral intake as patient is not eating very much. Family at bedside reports he is eating better than yesterday. Continue with physical therapy daily. Concerns with positive GRETCHEN and titer is elevated at 1/320 which is significant and further lab tests being ordered by neurology will attempt to consult rheumatology and appreciate input and recommendations. Patient is maintained on Tylenol and having some continued pain will add low-dose Ultram and monitor mentation. Patient is currently afebrile with reports of chest pain or shortness of breath. No reported nausea or vomiting and tolerating oral intake Review of systems: Constitutional: reports of fatigue, no fever, or chills Cardiovascular: No reports of chest pain or palpitations Respiratory: No reports of shortness of breath or cough GI: No reports of nausea, no reports of vomiting, reports not much of an appetite and is reporting to eating a little better today : No reports of dysuria nursing staff reported retention requiring indwelling Merchant catheter with decreased urine output, reports urine is more clear Neurovascular: reports of generalized weakness, difficulty in ambulating All medications have been reviewed PHYSICAL EXAMINATION: GENERAL: The patient is alert and oriented x2, more awake today, Well developed, ill-appearing, elderly appearing HEENT: Pupils are round and equally reacting to light. EOMI. no scleral icterus. No conjunctival pallor. Normocephalic, atraumatic. No pharyngeal erythema. No thyromegaly. CARDIOVASCULAR: S1 and S2 muffled PULMONARY: diminished breath sounds bilaterally with no wheezing or rhonchi noted. ABDOMEN: soft. Nontender on exam. non-distended, normoactive bowel sounds. No palpable organomegaly. MUSCULOSKELETAL: No joint swelling or deformity. EXTREMITIES: No cyanosis, clubbing, or pedal edema. NEUROLOGICAL: Gross neurological examination did not reveal any focal deficits. Diffuse weakness, significant muscle wasting noted SKIN: No rashes. Assessment: Bilateral lower extremity pain and weakness, likely secondary to severe spinal stenosis, undergoing further workup and MRI cervical and lumbar ordered and pending generalized body aches of the back and lower extremity Acute kidney injury likely secondary to poor oral intake and dehydration Acute urinary tract infection with Klebsiella pneumonia, present on admission Urinary retention requiring indwelling Merchant catheter Chronic persistent atrial fibrillation, currently rate controlled Diabetes mellitus, type II, uncontrolled with hyper glycemia Gait dysfunction and generalized weakness History of osteoarthritis Positive GRETCHEN and elevated titer, under investigation GI prophylaxis DVT prophylaxis Full code Plan: Patient presented with significant pain in the lower extremities and inability to ambulate although was supposedly ambulatory a few days prior to admission Extensive neurological workup with no plans of surgical intervention. Interventional radiology was consulted for possible LP although refusing as patient was on anticoagulation Patient did have elevated sed rate although do not believe this is rheumatoid arthritis, most likely significant osteoarthritis with no noted wilmar involvement or features to represent rheumatoid arthritis. Concerned with positive GRETCHEN and titer is elevated, discussed with neurology and further testing ordered and pending and will consult rheumatology and appreciate input and recommendations Neuro has ordered MRI of the cervical and lumbar spine which is currently pending. West Nile viral studies are negative Patient with extremely uncontrolled blood sugars with hyper and hypoglycemia currently off insulin drip maintained on long-acting along with sliding scale and pre-meal insulin. Will adjust and monitor closely Continue with physical therapy daily and discussed with case management for possible ECF. Encouraged increased activity as tolerated Infectious disease following this patient is maintained on antibiotics in the form of ceftriaxone with urine cultures positive for Klebsiella pneumonia. Neri zheng did have some difficulty with urination and decreasing urine output was retention requiring indwelling Merchant catheter. Continue indwelling Merchant catheter for now. Follow-up a.m. labs Await rheumatology evaluation The impression and plan of care has been dictated by Dolores Chaudhari, nurse practitioner as directed. Dr. Mo MD I have performed a history and examination and MDM of this patient, discussed the same with the dictator, and agree with the dictator's assessment and plan as written ,documented as a scribe. Based on total visit time, I have performed more than 50% of the visit. Any additional findings or plans will be noted. Objective - Vital Signs Vital signs: Vital Signs Temp 98 F 08/22/23 02:00 Pulse 65 08/22/23 02:00 Resp 17 08/21/23 19:50 BP 105/68 08/22/23 02:00 Pulse Ox 95 08/22/23 02:00 FiO2 Intake & Output 08/21/23 08/21/23 08/22/23 06:59 18:59 06:59 Intake Total 360 Output Total 800 450 450 Balance -800 -90 -450 Weight 72.575 kg Intake: Oral 360 Output: Urine 800 450 450 Uretheral (Merchant) 450 450 Other: Voiding Method Indwelling Catheter Indwelling Catheter Indwelling Catheter # Voids 1 # Bowel Movements 1 - Labs CBC & Chem 7: 08/21/23 08:22 08/21/23 08:22 Labs: Abnormal Lab Results - Last 24 Hours (Table) 08/21/23 08/21/23 08/21/23 Range/Units 06:15 06:28 08:22 WBC (3.8-10.6) k/uL Neutrophils # (1.3-7.7) k/uL Lymphocytes # (1.0-4.8) k/uL Sodium (137-145) mmol/L Carbon Dioxide (22-30) mmol/L BUN (7-17) mg/dL Glucose (74-99) mg/dL POC Glucose (mg/dL) 67 L 66 L (70-110) mg/dL C-Reactive Protein (<1.0) mg/dL Total Protein (6.3-8.2) g/dL Albumin (3.5-5.0) g/dL GRETCHEN Screen POSITIVE A (Negative) 08/21/23 08/21/23 08/21/23 Range/Units 08:22 08:22 16:08 WBC 14.8 H (3.8-10.6) k/uL Neutrophils # 13.5 H (1.3-7.7) k/uL Lymphocytes # 0.7 L (1.0-4.8) k/uL Sodium 131 L (137-145) mmol/L Carbon Dioxide 19 L (22-30) mmol/L BUN 63 H (7-17) mg/dL Glucose 100 H (74-99) mg/dL POC Glucose (mg/dL) (70-110) mg/dL C-Reactive Protein 3.4 H (<1.0) mg/dL Total Protein 4.6 L (6.3-8.2) g/dL Albumin 2.0 L (3.5-5.0) g/dL GRETCHEN Screen (Negative) 08/21/23 08/21/23 Range/Units 16:11 20:31 WBC (3.8-10.6) k/uL Neutrophils # (1.3-7.7) k/uL Lymphocytes # (1.0-4.8) k/uL Sodium (137-145) mmol/L Carbon Dioxide (22-30) mmol/L BUN (7-17) mg/dL Glucose (74-99) mg/dL POC Glucose (mg/dL) 111 H 192 H (70-110) mg/dL C-Reactive Protein (<1.0) mg/dL Total Protein (6.3-8.2) g/dL Albumin (3.5-5.0) g/dL GRETCHEN Screen (Negative) Microbiology - Last 24 Hours (Table) 08/16/23 12:03 Blood Culture - Final Blood
[2023-08-22 06:06] LABS: Glucose,Whole Blood 137 mg/dL (70-110)
[2023-08-22] MEDS: INSULIN ASPART (NovoLOG) 100 UNIT/ML VIAL SQ SCH ×7 (07:07→21:07)
[2023-08-22] MEDS: INSULIN DETEMIR (LEVEMIR) 100 UNIT/ML SYR SQ SCH ×2 (07:28→21:07)
[2023-08-22] MEDS: APIXABAN 5 MG TAB PO SCH ×2 (09:06→21:07)
[2023-08-22] MEDS: DAPAGLIFLOZIN PROPANEDIOL 5 MG TABLET PO SCH (09:06)
[2023-08-22] MEDS: DOCUSATE 100 MG CAP PO SCH (09:06)
[2023-08-22] MEDS: AMIODARONE 200 MG TAB PO SCH (09:06)
[2023-08-22] MEDS: DULoxetine HCL 30 MG CAPSULE.DR PO SCH (09:06)
[2023-08-22] MEDS: FAMOTIDINE 20 MG TAB PO SCH (09:06)
[2023-08-22] MEDS: NON FORMULARY DRUG (Glucosamine/Chondr Su A Sod [Osteo Bi-Flex Caplet] 1 EACH Tablet) PO SCH ×2 (09:45→09:58)
[2023-08-22] MEDS: NON FORMULARY DRUG (Neuriva 1 CAP) PO SCH (09:45)
[2023-08-22] MEDS: NYSTATIN 100,000 UNIT/ML SUSP 500,000 UNIT/5 ML CUP PO SCH ×4 (09:51→21:07)
[2023-08-22] MEDS: MELOXICAM 7.5 MG TAB PO SCH (09:51)
[2023-08-22] MEDS: METOPROLOL SUCCINATE (ER) 50 MG TAB.ER.24H PO SCH (09:52)
[2023-08-22] MEDS: NON FORMULARY DRUG (Prevagen 1 CAP) PO SCH (09:53)
[2023-08-22 11:09] LABS: Glucose,Whole Blood 157 mg/dL (70-110)
[2023-08-22 11:28] LABS: Basophils # (A) 0.03 X 10*3/uL (0.00-0.10); Basophils % (A) 0.2 %; Eosinophils # (A) 0.12 X 10*3/uL (0.04-0.35); Eosinophils % (A) 0.7 %; HCT 35.9 % (37.2-46.3); HGB 11.4 d/dL (12.0-15.0); Lymphocytes # (A) 0.81 X 10*3/uL (0.90-5.00); Lymphocytes % (A) 4.6 %; MCH 28.9 pg (27.0-32.0); MCHC 31.8 d/dL (32.0-37.0); MCV 90.9 FL (80.0-97.0); Mean Platelet Volume 10.8 FL (9.5-12.2); Monocytes # (A) 0.68 X 10*3/uL (0.20-1.00); Monocytes % (A) 3.9 %; NRBC Per 100 WBC 0 X 10*3/uL (0.00-0.01); Neutrophils # (A) 15.54 X 10*3/uL (1.80-7.70); Neutrophils % (A) 89.1 %; Platelet Count 208 X 10*3/uL (140-440); RBC 3.95 X 10*6/uL (4.10-5.20); RDW 15.9 % (11.5-14.5); WBC 17.44 X 10*3/uL (4.50-10.00)
[2023-08-22 11:43] LABS: Magnesium 2.1 mg/dL (1.5-2.4)
[2023-08-22 11:52] LABS: ALT 15 U/L (8-44); AST 15 U/L (13-35); Albumin 2.1 d/dL (3.8-4.9); Albumin/Globulin Ratio 0.91 Ratio (1.60-3.17); Alkaline Phosphatase 54 U/L (41-126); BUN/Creat Ratio 50.78 Ratio (12.00-20.00); Blood Urea Nitrogen 45.7 mg/dL (9.0-27.0); Carbon Dioxide 23.6 mmol/L (21.6-31.8); Chloride 104 mmol/L (96-109); Globulin 2.3 d/dL (1.6-3.3); Glucose 142 mg/dL (70-110); Potassium 4.1 mmol/L (3.5-5.5); Sodium 134 mmol/L (135-145); Total Bilirubin 0.2 mg/dL (0.3-1.2); Total Protein 4.4 d/dL (6.2-8.2)
[2023-08-22] MEDS ORDERED: GABAPENTIN 100 MG CAP PO SCH (12:45)
[2023-08-22 13:19] LABS: ANA Pattern SPK
--- NOTE | 2023-08-22 14:08 | XR ---
EXAMINATION TYPE: XR Hip Complete RT DATE OF EXAM: 08/22/2023 CLINICAL HISTORY: pain TECHNIQUE: AP and frogleg views of the right hip are obtained. COMPARISON: 06/18/2023 FINDINGS: There is no acute fracture/dislocation evident. The joint space appears severely narrowe d with subchondral sclerosis noted of the humeral head and superior acetabulum. Subchondral cyst form ation and marginal bony spurring.. The overlying soft tissue appears unremarkable. IMPRESSION: 1. There is no acute fracture or dislocation. Advanced changes of osteoarthritis. ICD 10 NO FRACTURE, INITIAL EVALUATION
[2023-08-22] MEDS ORDERED: GABAPENTIN 100 MG CAP PO PRN (14:32)
--- NOTE | 2023-08-22 14:50 | P.PN ---
Subjective Progress Note Date: 08/22/23 I am following-up with patient and she feels about the same. She continues to have diffuse pain with movement. Objective - Vital Signs Vital signs: Vital Signs Temp 98.0 F 08/22/23 13:14 Pulse 66 08/22/23 13:14 Resp 19 08/22/23 13:14 BP 96/59 08/22/23 13:14 Pulse Ox 95 08/22/23 13:14 FiO2 Intake & Output 08/21/23 08/22/23 08/22/23 18:59 06:59 18:59 Intake Total 360 Output Total 450 1160 600 Balance -90 -1160 -600 Weight 72.575 kg 86 kg Intake: Oral 360 Output: Urine 450 1160 600 Uretheral (Merchant) 450 450 600 Other: Voiding Method Indwelling Catheter Indwelling Catheter Indwelling Catheter # Bowel Movements 1 - Exam GENERAL: The patient is lyin in bed and is not in acute distress. NEUROLOGICAL: Higher mental function: The patient is awake, alert, oriented to self, place and time. Is following simple commands. No aphasia and no neglect. Cranial nerves: The pupils are round, equal and reactive to light. Visual vargas are full to confrontation throughout. Extraocular movement is intact no nystagmus is noted. The facial strength is normal throughout. Tongue is midline and moved [id number] without any difficulty. No dysarthria is noted but patient is moderate hypophonic. Motor: The strength is bilateral forearm extension is 4-4+. Otherwise uppers are 5/5. In lowers was limited because of pain and had 2 bilaterally. Normal tone and bulk. Cerebellum: Normal finger to nose bilaterally. Sensation: Sensation is normal to touch throughout. - Labs CBC & Chem 7: 08/22/23 06:30 08/22/23 06:30 Labs: Abnormal Lab Results - Last 24 Hours (Table) 08/21/23 08/21/23 08/21/23 Range/Units 08:22 16:08 16:11 WBC (4.50-10.00) X 10*3/uL RBC (4.10-5.20) X 10*6/uL Hgb (12.0-15.0) d/dL Hct (37.2-46.3) % MCHC (32.0-37.0) d/dL RDW (11.5-14.5) % Neutrophils # (1.80-7.70) X 10*3/uL Lymphocytes # (0.90-5.00) X 10*3/uL Sodium (135-145) mmol/L BUN (9.0-27.0) mg/dL BUN/Creatinine Ratio (12.00-20.00) Ratio Glucose (70-110) mg/dL POC Glucose (mg/dL) 111 H (70-110) mg/dL Total Bilirubin (0.3-1.2) mg/dL C-Reactive Protein 3.4 H (<1.0) mg/dL Total Protein (6.2-8.2) d/dL Albumin (3.8-4.9) d/dL Albumin/Globulin Ratio (1.60-3.17) Ratio GRETCHEN Screen POSITIVE A (Negative) 08/21/23 08/22/23 08/22/23 Range/Units 20:31 06:05 06:30 WBC 17.44 H (4.50-10.00) X 10*3/uL RBC 3.95 L (4.10-5.20) X 10*6/uL Hgb 11.4 L (12.0-15.0) d/dL Hct 35.9 L (37.2-46.3) % MCHC 31.8 L (32.0-37.0) d/dL RDW 15.9 H (11.5-14.5) % Neutrophils # 15.54 H (1.80-7.70) X 10*3/uL Lymphocytes # 0.81 L (0.90-5.00) X 10*3/uL Sodium (135-145) mmol/L BUN (9.0-27.0) mg/dL BUN/Creatinine Ratio (12.00-20.00) Ratio Glucose (70-110) mg/dL POC Glucose (mg/dL) 192 H 137 H (70-110) mg/dL Total Bilirubin (0.3-1.2) mg/dL C-Reactive Protein (<1.0) mg/dL Total Protein (6.2-8.2) d/dL Albumin (3.8-4.9) d/dL Albumin/Globulin Ratio (1.60-3.17) Ratio GRETCHEN Screen (Negative) 08/22/23 08/22/23 Range/Units 06:30 11:08 WBC (4.50-10.00) X 10*3/uL RBC (4.10-5.20) X 10*6/uL Hgb (12.0-15.0) d/dL Hct (37.2-46.3) % MCHC (32.0-37.0) d/dL RDW (11.5-14.5) % Neutrophils # (1.80-7.70) X 10*3/uL Lymphocytes # (0.90-5.00) X 10*3/uL Sodium 134 L (135-145) mmol/L BUN 45.7 H (9.0-27.0) mg/dL BUN/Creatinine Ratio 50.78 H (12.00-20.00) Ratio Glucose 142 H (70-110) mg/dL POC Glucose (mg/dL) 157 H (70-110) mg/dL Total Bilirubin 0.2 L (0.3-1.2) mg/dL C-Reactive Protein (<1.0) mg/dL Total Protein 4.4 L (6.2-8.2) d/dL Albumin 2.1 L (3.8-4.9) d/dL Albumin/Globulin Ratio 0.91 L (1.60-3.17) Ratio GRETCHEN Screen (Negative) Microbiology - Last 24 Hours (Table) 08/16/23 12:03 Blood Culture - Final Blood Assessment and Plan Assessment: * 88-year-old female, otherwise healthy, presented with 4 week history of leg pains, changes in the personality, with 5 day history of diffuse body pains from neck all the way to the feet, and also severe headache 08/19. Patient is hallucinating, encephalopathic. Patient is slightly tremulous. Encephalopathy due to urosepsis. Denies off any further headaches. No confusion.--mentation has improved. Unsure if patient had lupus exacerbation. * acute on chronic lower back pain. On examination has lowers > upper extremity weakness: Rule out any cervical or lumbar severe stenosis. Possible urosepsis exacerbated her lower back pain. * Elevated rheumatoid factor 18/15 with elevated ESR 77 and CRP 29/0.8. Repeat ESR is normal. * Probable UTI with urine cultures growing greater than 100,000 CFU per mL Klebsiella pneumoniae * Lupus for past couple years * Diabetes * Atrial fibrillation, currently on Eliquis * Hypertension * Osteoarthritis Plan: * CT of the lumbar spine showed moderate to advanced multilevel spondylotic bland ge. No vertebral compression collapse or malalignment. Focal moderate spinal canal stenosis at L1-L2 and L3-L4. Variable neuro foraminal stenosis, moderate to severe on the left at L5-S1 and on the right at L1-L2. Thoracic spine revealed mild/moderate degenerative disc disease. Scattered facet arthropathy. No vertebral compression collapse or malalignment. 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 CT of the cervical spine showed moderate multilevel spondylotic change in the cervical spine with degenerative grade 1 spondylolisthesis C3-C4, C4-C5, C5-C6, C6-C7. Overall moderate spinal canal stenosis at C5-C6 and C6-C7. Variable neural foraminal stenosis. Overall, S shaped scoliosis throughout the spine. Grade discourage her in the lumbar spine and secondary left lateral subluxation at L3-L4. * Patient currently on ceftriaxone for UTI. * West Nile virus serology is negative. * MRI of the cervical spine is reported as multilevel degenerative disc disease. Borderline mild central stenosis at C5-C6 and C6-C7. Varying degree of bilateral foraminal encroachment. * MRI lumbar spine is reported as multilevel degenerative disc disease with disc endplate complex seen at several levels. Mild central stenosis and right for maternal encroachment at L1-L2. Borderline stenosis at L3-L4. Left lateral recess stenosis at L4 5. Varying degree of foraminal encroachment. * I spoke with the family members regarding her MRI results of the cervical and lumbar and they stated that stated that its chronic and they want to hold off any orthopedic surgical intervention at this time. * During her initial hospital visit Dr. Cunningham was concerned about West Nile and recommended an LP. Since patient continues to have significant weakness mostly in the lower than upper extremity can consider LP. * Rheumatoid factor is 18. GRETCHEN is positive. Titer level: 1:320. Her antidsDNA is positive. She states she is known to have Lupus and was diagnosed by her Digital Campaign Specialist a couple years ago per patient. According to her family members they're not aware that she had lupus. Per Dr. Cunningham, recommended Consideration of rheumatology consultation. Unsure if patient had a flare lupus exacerbating her weakness of the extremities mostly lower than the upper. Consider starting her on steroids. * For pain that the patient was started on gabapentin 100 mg 1 tablet 3 times a day when necessary. Cymbalta was discontinued since the per family member she was too sleepy. * Folic acid 12.30, B12 > 3600 * Hemoglobin A1c 7.9. * Initial CK level is 208 and the repeated is 67. * PT and OT are consulted * We'll defer the rest of the medical management to primary team The plan was discussed with the patient, family member and primary team N.P. Will continue to follow. Dr. Reddy will start neurology service tomorrow A.M. then Dr. Cunningham will resume this Friday A.M. Time with Patient: Less than 30
[2023-08-22 17:27] LABS: Glucose,Whole Blood 143 mg/dL (70-110)
--- NOTE | 2023-08-22 17:40 | CT ---
EXAMINATION TYPE: CT brain wo con CT DLP: 1189.4 mGycm, Automated exposure control for dose reduction was used. DATE OF EXAM: 08/22/2023 5:29 PM COMPARISON: None. CLINICAL INDICATION:Female, 88 years old with history of altered mental status, AMS TECHNIQUE: Brain: Axial CT images of the brain were obtained with coronal and sagittal reformats created and rev iewed. Contrast used: None. Oral contrast used: None. FINDINGS: Brain: Extra-axial spaces: No abnormal extra-axial fluid collections. Ventricular system: Dilatation in proportion to the degree of cerebral atrophy. Cerebral parenchyma: No acute intraparenchymal hemorrhage or mass effect. The nava-white junction ap pears well preserved. Moderate generalized atrophy. Cerebellum: Unremarkable. Mass effect: No evidence of midline shift. Intracranial vasculature: Atherosclerotic calcifications of the larger arteries noted near the skull base. Soft tissues: Normal. Calvarium/osseous structures: No depressed skull fracture. Chronic degenerative changes of the cranio cervical junction are seen. Paranasal sinuses and mastoid air cells: Small fluid levels and/or mucosal thickening in the right mo re so than left sphenoid sinuses. Mastoid air cells are clear. Visualized orbits: Orbital contents are intact. IMPRESSION: No acute intracranial CT abnormality. Mild paranasal sinus disease, correlate for sinusitis.
[2023-08-22 19:56] LABS: Glucose,Whole Blood 188 mg/dL (70-110)
[2023-08-22] MEDS: ATORVASTATIN 10 MG TAB PO SCH (21:07)
--- NOTE | 2023-08-22 22:11 | P.PN ---
Subjective Progress Note Date: 08/22/23 This is an 88-year-old female who was recently admitted with weakness of bilateral lower extremities with significant pain and difficulty in ambulation. Patient was noted to have significant history of severe stenosis and was deemed not a surgical candidate given her age. Patient is lethargic today although arousable oral intake remains poor and patient was seen and evaluated by physical therapy awaiting notes for possible ECF. Patient maintained on antibiotics in the form of ceftriaxone with infectious disease following an urine culture showing Klebsiella pneumonia. Patient's urine is more co ncentrated and having some retention requiring indwelling Merchant catheter. Patient being lethargic will limit IV narcotic use and discontinue Dilaudid and add Celebrex and adjust medications accordingly. Patient is currently afebrile with no reported chest pain or shortness of breath. Patient needs encouragement with meals. 08/20/2023 Patient seen and evaluated in follow-up today with family members at bedside. Patient is more awake and alert and reports continued significant weakness. Patient being followed by multiple medical consultations including neurology and has ordered MRI of the spine which is currently pending. Patient continues to have indwelling Merchant catheter and urine is significantly concentrated with scant amount of blood and sediment noted and is being maintained on IV antibiotics with infectious disease following 4 Klebsiella UTI. Patient is afebrile with no reported chest pain or shortness of breath. Patient's blood sugars are uncontrolled and have resume long-acting along with sliding scale and will add pre-meal insulins. Continue consistent carb, low potassium diet. Encouraged to increase activity as tolerated and recommended physical therapy daily. Case management following plan is for ECF once stabilized discharge. 08/21/2023 Patient is seen in follow-up today more awake and alert AND is with significant weakness. Patient is being scheduled for MRI of the cervical and lumbar spine with neurology following closely. Patient is also continued on antibiotics with infectious disease following for Klebsiella pneumonia noted in the urine. Blood cultures remain negative. Blood sugars are extremely uncontrolled with hyper and hypoglycemia and will adjust the medications accordingly. Dietary following and will continue low potassium with consistent carb diet. Encouraged oral intake as patient is not eating very much. Family at bedside reports he is eating better than yesterday. Continue with physical therapy daily. Concerns with positive GRETCHEN and titer is elevated at 1/320 which is significant and further lab tests being ordered by neurology will attempt to consult rheumatology and appreciate input and recommendations. Patient is maintained on Tylenol and having some continued pain will add low-dose Ultram and monitor mentation. Patient is currently afebrile with reports of chest pain or shortness of breath. No reported nausea or vomiting and tolerating oral intake 08/22/2023 Patient is seen in follow-up and continues to report pain most significantly in her lower extremities and her right hip and is having very little improvement. Family reports have noticed significant sleepiness since starting Cymbalta and requesting to have it discontinued. Patient is maintained on Ultram along with Tylenol as needed and will add low-dose gabapentin as needed as well. Patient did have positive GRETCHEN and DNA stranding suggesting lupus and after further discussion with the patient, patient reported she was told she had this years ago although unsure when. Family was not aware of this. Patient continues with right upper and lower extremity weakness and family is concerned as patient had a stroke. Will obtain CT brain. Patient was on a course of steroids with no relief other than causing increased uncontrollable diabetes leading to insulin drip. Patient is afebrile with no reported chest pain or shortness of breath. Patient is making little improvement on working with physical therapy. Patient will need ECF on discharge for continued strength and mobility. Review of systems: Constitutional: reports of fatigue, no fever, or chills Cardiovascular: No reports of chest pain or palpitations Respiratory: No reports of shortness of breath or cough GI: No reports of nausea, no reports of vomiting, reports not much of an appetite and is reporting to eating very little today : No reports of dysuria nursing staff reported retention requiring indwelling Merchant catheter, Merchant catheter was removed today Neurovascular: reports of generalized weakness, difficulty in ambulating All medications have been reviewed PHYSICAL EXAMINATION: GENERAL: The patient is alert and oriented x2, lethargic today, Well developed, ill-appearing, elderly appearing HEENT: Pupils are round and equally reacting to light. EOMI. no scleral icterus. No conjunctival pallor. Normocephalic, atraumatic. No pharyngeal erythema. No thyromegaly. CARDIOVASCULAR: S1 and S2 muffled PULMONARY: diminished breath sounds bilaterally with no wheezing or rhonchi noted. ABDOMEN: soft. Nontender on exam. non-distended, normoactive bowel sounds. No palpable organomegaly. MUSCULOSKELETAL: No joint swelling or deformity. EXTREMITIES: No cyanosis, clubbing, or pedal edema. NEUROLOGICAL: Gross neurological examination did not reveal any focal deficits. Diffuse weakness, significant muscle wasting noted SKIN: No rashes. Assessment: Bilateral lower extremity pain and weakness, likely secondary to severe spinal stenosis, undergoing further workup and MRI cervical and lumbar was negative for significant findings other than degenerative disc disease with stenosis at multiple levels generalized body aches of the back and lower extremity Positive GRETCHEN titer and antibody and DNA strand was positive suggesting lupus. Patient reports being told she had lupus years ago although unsure when and family had no recollection of this Acute kidney injury likely secondary to poor oral intake and dehydration Acute urinary tract infection with Klebsiella pneumonia, present on admission Urinary retention requiring indwelling Merchant catheter, Merchant removed today due to void Chronic persistent atrial fibrillation, currently rate controlled Diabetes mellitus, type II, uncontrolled with hyper glycemia Gait dysfunction and generalized weakness History of osteoarthritis GI prophylaxis DVT prophylaxis Full code Plan: Patient presented with significant pain in the lower extremities and inability to ambulate although was supposedly ambulatory a few days prior to admission Extensive neurological workup with no plans of surgical intervention. Concerned with positive GRETCHEN and titer is elevated, discussed with neurology and DNA stra nds were positive suggesting lupus. After further discussion with the patient she reported she was told by hematology that she follows with that she had lupus although family was not aware of this, patient had been maintained on IV steroids and showed no improvement and were discontinued due to continued persistent uncontrolled elevated blood sugars West Nile virus is negative Patient continue on IV antibiotics with infectious disease following for Klebsiella pneumonia Family reporting they feel she is more fatigued and lethargic with Cymbalta being started and will discontinue. Make gabapentin when necessary and continue with Ultram and Tylenol as needed Patient with extremely uncontrolled blood sugars with hyper and hypoglycemia currently off insulin drip maintained on long-acting along with sliding scale and pre-meal insulin. Will adjust and monitor closely Continue with physical therapy daily and discussed with case management for ECF. Patient will need ECF on discharge. Patient making minimal improvements and is almost maximum assist and due to pain has been not working very well with physical therapy. Encouraged increased activity as tolerated Indwelling Merchant catheter was removed and patient is due to void Follow-up a.m. labs Attempted to consult rheumatology to appreciate input and recommendations although no available rheumatology services at this time and will refer outpatient Family discussing further with other members of the family about CODE STATUS and will update nursing staff. No code is appropriate for this patient given significant comorbidities and age. Due to Multiple complex medical issues, prognosis is guarded The impression and plan of care has been dictated by Dolores Chaudhari, nurse practitioner as directed. Dr. Derek MD I have performed a history and examination and MDM of this patient, discussed the same with the dictator, and agree with the dictator's assessment and plan as written ,documented as a scribe. Based on total visit time, I have performed more than 50% of the visit. Any additional findings or plans will be noted. Objective - Vital Signs Vital signs: Vital Signs Temp 97.3 F L 08/22/23 20:00 Pulse 63 08/22/23 20:00 Resp 18 08/22/23 20:00 BP 121/70 08/22/23 20:00 Pulse Ox 97 08/22/23 20:00 FiO2 Intake & Output 08/22/23 08/22/23 08/23/23 06:59 18:59 06:59 Output Total 1160 900 Balance -1160 -900 Weight 86 kg Output: Urine 1160 900 Uretheral (Merchant) 450 600 Other: Voiding Method Indwelling Catheter Indwelling Catheter - Labs CBC & Chem 7: 08/22/23 06:30 08/22/23 06:30 Labs: Abnormal Lab Results - Last 24 Hours (Table) 08/22/23 08/22/23 08/22/23 Range/Units 06:05 06:30 06:30 WBC 17.44 H (4.50-10.00) X 10*3/uL RBC 3.95 L (4.10-5.20) X 10*6/uL Hgb 11.4 L (12.0-15.0) d/dL Hct 35.9 L (37.2-46.3) % MCHC 31.8 L (32.0-37.0) d/dL RDW 15.9 H (11.5-14.5) % Neutrophils # 15.54 H (1.80-7.70) X 10*3/uL Lymphocytes # 0.81 L (0.90-5.00) X 10*3/uL Sodium 134 L (135-145) mmol/L BUN 45.7 H (9.0-27.0) mg/dL BUN/Creatinine Ratio 50.78 H (12.00-20.00) Ratio Glucose 142 H (70-110) mg/dL POC Glucose (mg/dL) 137 H (70-110) mg/dL Total Bilirubin 0.2 L (0.3-1.2) mg/dL Total Protein 4.4 L (6.2-8.2) d/dL Albumin 2.1 L (3.8-4.9) d/dL Albumin/Globulin Ratio 0.91 L (1.60-3.17) Ratio 08/22/23 08/22/23 08/22/23 Range/Units 11:08 17:25 19:55 WBC (4.50-10.00) X 10*3/uL RBC (4.10-5.20) X 10*6/uL Hgb (12.0-15.0) d/dL Hct (37.2-46.3) % MCHC (32.0-37.0) d/dL RDW (11.5-14.5) % Neutrophils # (1.80-7.70) X 10*3/uL Lymphocytes # (0.90-5.00) X 10*3/uL Sodium (135-145) mmol/L BUN (9.0-27.0) mg/dL BUN/Creatinine Ratio (12.00-20.00) Ratio Glucose (70-110) mg/dL POC Glucose (mg/dL) 157 H 143 H 188 H (70-110) mg/dL Total Bilirubin (0.3-1.2) mg/dL Total Protein (6.2-8.2) d/dL Albumin (3.8-4.9) d/dL Albumin/Globulin Ratio (1.60-3.17) Ratio Microbiology - Last 24 Hours (Table) 08/16/23 12:03 Blood Culture - Final Blood
--- NOTE | 2023-08-22 23:11 | P.PN ---
Subjective Progress Note Date: 08/22/23 Principal diagnosis: Klebsiella urinary tract infection Patient is a 88-year-old female with a past medical history significant for Atrial Fibrillation, Blood Disorder, Diabetes Mellitus, Hypertension, Osteoarthritis (OA) presenting to the hospital for evaluation of generalized body aches pain in her back and bilateral legs low-grade fever nausea and decreased appetite , patient did have a positive UA Unasyn concerning for a symptomatic UTI On today's evaluation and that is 08/22/2023, the patient continues to be afebrile the patient is breathing comfortably on room air, the patient denies chest pain or cough, patient denies abdominal pain and no nausea/vomiting and no diarrhea has been reported by nursing staff , during of some sores in the mouth but no difficulty swallowing Patient did have white count is slightly up to 17.44, creatinine 0.9, urine is growing Klebsiella Objective - Vital Signs Vital signs: Vital Signs Temp 98.0 F 08/22/23 13:14 Pulse 66 08/22/23 13:14 Resp 19 08/22/23 13:14 BP 96/59 08/22/23 13:14 Pulse Ox 95 08/22/23 13:14 FiO2 Intake & Output 08/21/23 08/22/23 08/22/23 18:59 06:59 18:59 Intake Total 360 Output Total 450 1160 600 Balance -90 -1160 -600 Weight 72.575 kg 86 kg Intake: Oral 360 Output: Urine 450 1160 600 Uretheral (Merchant) 450 450 600 Other: Voiding Method Indwelling Catheter Indwelling Catheter Indwelling Catheter # Bowel Movements 1 - Exam GENERAL DESCRIPTION: An elderly female lying in bed in no distress RESPIRATORY SYSTEM: Unlabored breathing , decreased breath sounds at bases HEART: S1 S2 regular rate and rhythm , ABDOMEN: Soft , no tenderness EXTREMITIES: No edema feet - Labs CBC & Chem 7: 08/22/23 06:30 08/22/23 06:30 Labs: Abnormal Lab Results - Last 24 Hours (Table) 08/21/23 08/21/23 08/21/23 Range/Units 08:22 16:08 16:11 WBC (4.50-10.00) X 10*3/uL RBC (4.10-5.20) X 10*6/uL Hgb (12.0-15.0) d/dL Hct (37.2-46.3) % MCHC (32.0-37.0) d/dL RDW (11.5-14.5) % Neutrophils # (1.80-7.70) X 10*3/uL Lymphocytes # (0.90-5.00) X 10*3/uL Sodium (135-145) mmol/L BUN (9.0-27.0) mg/dL BUN/Creatinine Ratio (12.00-20.00) Ratio Glucose (70-110) mg/dL POC Glucose (mg/dL) 111 H (70-110) mg/dL Total Bilirubin (0.3-1.2) mg/dL C-Reactive Protein 3.4 H (<1.0) mg/dL Total Protein (6.2-8.2) d/dL Albumin (3.8-4.9) d/dL Albumin/Globulin Ratio (1.60-3.17) Ratio GRETCHEN Screen POSITIVE A (Negative) 08/21/23 08/22/23 08/22/23 Range/Units 20:31 06:05 06:30 WBC 17.44 H (4.50-10.00) X 10*3/uL RBC 3.95 L (4.10-5.20) X 10*6/uL Hgb 11.4 L (12.0-15.0) d/dL Hct 35.9 L (37.2-46.3) % MCHC 31.8 L (32.0-37.0) d/dL RDW 15.9 H (11.5-14.5) % Neutrophils # 15.54 H (1.80-7.70) X 10*3/uL Lymphocytes # 0.81 L (0.90-5.00) X 10*3/uL Sodium (135-145) mmol/L BUN (9.0-27.0) mg/dL BUN/Creatinine Ratio (12.00-20.00) Ratio Glucose (70-110) mg/dL POC Glucose (mg/dL) 192 H 137 H (70-110) mg/dL Total Bilirubin (0.3-1.2) mg/dL C-Reactive Protein (<1.0) mg/dL Total Protein (6.2-8.2) d/dL Albumin (3.8-4.9) d/dL Albumin/Globulin Ratio (1.60-3.17) Ratio GRETCHEN Screen (Negative) 08/22/23 08/22/23 Range/Units 06:30 11:08 WBC (4.50-10.00) X 10*3/uL RBC (4.10-5.20) X 10*6/uL Hgb (12.0-15.0) d/dL Hct (37.2-46.3) % MCHC (32.0-37.0) d/dL RDW (11.5-14.5) % Neutrophils # (1.80-7.70) X 10*3/uL Lymphocytes # (0.90-5.00) X 10*3/uL Sodium 134 L (135-145) mmol/L BUN 45.7 H (9.0-27.0) mg/dL BUN/Creatinine Ratio 50.78 H (12.00-20.00) Ratio Glucose 142 H (70-110) mg/dL POC Glucose (mg/dL) 157 H (70-110) mg/dL Total Bilirubin 0.2 L (0.3-1.2) mg/dL C-Reactive Protein (<1.0) mg/dL Total Protein 4.4 L (6.2-8.2) d/dL Albumin 2.1 L (3.8-4.9) d/dL Albumin/Globulin Ratio 0.91 L (1.60-3.17) Ratio GRETCHEN Screen (Negative) Microbiology - Last 24 Hours (Table) 08/16/23 12:03 Blood Culture - Final Blood Assessment and Plan (1) UTI (urinary tract infection) Current Visit: Yes Status: Acute Code(s): N39.0 - URINARY TRACT INFECTION, SITE NOT SPECIFIED SNOMED Code(s): 49803255 (2) Diarrhea Current Visit: Yes Status: Acute Code(s): R19.7 - DIARRHEA, UNSPECIFIED SNOMED Code(s): 49409252 (3) Thrush Current Visit: Yes Status: Acute Code(s): B37.0 - CANDIDAL STOMATITIS SNOMED Code(s): 41015688 Plan: 1patient was in the hospital generalized weakness decreased appetite did have low-grade fever urinary symptom positive UA likely a component of symptomatic Uritact infection likely from enteric gram-negative pathogen with urine current ly showing gram-negative bacilli with ID and sensitivities pending, patient is currently breathing comfortably on room air abdominal soft on clear examination no evidence of any joint swelling or cellulitis 2-patient urine culture did grow Klebsiella that is sensitive to Rocephin 3-patient complaining of sores in the mouth we will add nystatin swish and swallow continue with Rocephin and monitor clinical course closely 4-leukocytosis , will repeat her UA , check CRP and repeat CBC with am Lab , MARY esparza if no retention d/w nursning staff Dictation was produced using [employer] dictation software. please excuse any grammatical, word or spelling errors. Time with Patient: Less than 30
[2023-08-23] MEDS: traMADol 50 MG TAB PO PRN ×3 (01:55→20:53)
[2023-08-23 05:54] LABS: Glucose,Whole Blood 83 mg/dL (70-110)
[2023-08-23] MEDS: INSULIN ASPART (NovoLOG) 100 UNIT/ML VIAL SQ SCH ×7 (06:30→21:05)
[2023-08-23 07:22] LABS: Basophils % (A) 0 %; Eosinophils # (A) 0.1 k/uL (0-0.7); Eosinophils % (A) 0 %; HCT 38.9 % (34.0-46.0); HGB 12.2 gm/dL (11.4-16.0); Hypochromasia Slight; Lymphocytes # (A) 0.8 k/uL (1.0-4.8); Lymphocytes % (A) 5 %; MCH 29.3 pg (25.0-35.0); MCHC 31.2 g/dL (31.0-37.0); MCV 93.8 fL (80.0-100.0); Mean Platelet Volume 8.3; Monocytes # (A) 0.5 k/uL (0-1.0); Monocytes % (A) 3 %; Neutrophils # (A) 16.9 k/uL (1.3-7.7); Neutrophils % (A) 92 %; Platelet Count 219 k/uL (150-450); RBC 4.15 m/uL (3.80-5.40); WBC 18.3 k/uL (3.8-10.6)
[2023-08-23 07:37] LABS: African American GFR (CKD) 67 (>60 ml/min/1.73 sqM); Anion Gap 6 mmol/L; Blood Urea Nitrogen 40 mg/dL (7-17); C Reactive Protein 6.8 mg/dL (<1.0); Calcium 8.9 mg/dL (8.4-10.2); Carbon Dioxide 25 mmol/L (22-30); Chloride 103 mmol/L (98-107); Glucose 80 mg/dL (74-99); Non-African American GFR(CKD) 59 (>60 ml/min/1.73 sqM); Potassium 3.8 mmol/L (3.5-5.1); Sodium 134 mmol/L (137-145)
[2023-08-23] MEDS: FAMOTIDINE 20 MG TAB PO SCH (08:13)
[2023-08-23] MEDS: APIXABAN 5 MG TAB PO SCH ×2 (08:15→20:54)
[2023-08-23] MEDS: AMIODARONE 200 MG TAB PO SCH (08:15)
[2023-08-23] MEDS: METOPROLOL SUCCINATE (ER) 50 MG TAB.ER.24H PO SCH (08:15)
[2023-08-23] MEDS: MELOXICAM 7.5 MG TAB PO SCH (08:15)
[2023-08-23] MEDS: INSULIN DETEMIR (LEVEMIR) 100 UNIT/ML SYR SQ SCH ×2 (08:16→20:53)
[2023-08-23] MEDS: NON FORMULARY DRUG (Glucosamine/Chondr Su A Sod [Osteo Bi-Flex Caplet] 1 EACH Tablet) PO SCH (10:00)
[2023-08-23] MEDS: DOCUSATE 100 MG CAP PO SCH (10:00)
[2023-08-23] MEDS: NON FORMULARY DRUG (Neuriva 1 CAP) PO SCH (10:02)
[2023-08-23] MEDS: NON FORMULARY DRUG (Prevagen 1 CAP) PO SCH (10:02)
[2023-08-23] MEDS: DAPAGLIFLOZIN PROPANEDIOL 5 MG TABLET PO SCH (10:02)
[2023-08-23] MEDS: NYSTATIN 100,000 UNIT/ML SUSP 500,000 UNIT/5 ML CUP PO SCH ×4 (10:03→20:55)
[2023-08-23 11:16] LABS: Glucose,Whole Blood 125 mg/dL (70-110)
[2023-08-23] MEDS: ONDANSETRON 4 MG/2 ML VIAL IVP PRN (13:34)
--- NOTE | 2023-08-23 13:43 | P.PN ---
Subjective Progress Note Date: 08/23/23 Principal diagnosis: Klebsiella urinary tract infection Patient is a 88-year-old female with a past medical history significant for Atrial Fibrillation, Blood Disorder, Diabetes Mellitus, Hypertension, Osteoarthritis (OA) presenting to the hospital for evaluation of generalized body aches pain in her back and bilateral legs low-grade fever nausea and decreased appetite , patient did have a positive UA Unasyn concerning for a symptomatic UTI On today's evaluation and that is 08/23/2023, the patient remains to be afebrile the patient is breathing comfortably on room air and not requiring supplemental oxygen, the patient denies chest pain and no significant cough, patient denies abdominal pain and no nausea/vomiting or diarrhea reported by PCT Patient did have white count is slightly up to 18.3, creatinine 0.89, repeat UA requested and not done Objective - Vital Signs Vital signs: Vital Signs Temp 97.7 F 08/23/23 07:05 Pulse 75 08/23/23 07:05 Resp 19 08/23/23 07:05 BP 110/62 08/23/23 07:05 Pulse Ox 100 08/23/23 07:05 FiO2 Intake & Output 08/22/23 08/23/23 08/23/23 18:59 06:59 18:59 Output Total 707 167 5884 Balance -900 -847 -1400 Output: Urine 503 319 7239 Straight 350 700 Uretheral (Merchant) 600 Stool 1 Other: Voiding Method Indwelling Catheter External Catheter # Bowel Movements 2 - Exam GENERAL DESCRIPTION: An elderly female lying in bed in no distress RESPIRATORY SYSTEM: Unlabored breathing , decreased breath sounds at bases HEART: S1 S2 regular rate and rhythm , ABDOMEN: Soft , no tenderness EXTREMITIES: No edema feet - Labs CBC & Chem 7: 08/23/23 06:55 08/23/23 06:55 Labs: Abnormal Lab Results - Last 24 Hours (Table) 08/22/23 08/22/23 08/23/23 Range/Units 17:25 19:55 06:55 WBC 18.3 H (3.8-10.6) k/uL Neutrophils # 16.9 H (1.3-7.7) k/uL Lymphocytes # 0.8 L (1.0-4.8) k/uL Sodium (137-145) mmol/L BUN (7-17) mg/dL POC Glucose (mg/dL) 143 H 188 H (70-110) mg/dL C-Reactive Protein (<1.0) mg/dL 08/23/23 08/23/23 Range/Units 06:55 11:14 WBC (3.8-10.6) k/uL Neutrophils # (1.3-7.7) k/uL Lymphocytes # (1.0-4.8) k/uL Sodium 134 L (137-145) mmol/L BUN 40 H (7-17) mg/dL POC Glucose (mg/dL) 125 H (70-110) mg/dL C-Reactive Protein 6.8 H (<1.0) mg/dL Assessment and Plan (1) UTI (urinary tract infection) Current Visit: Yes Status: Acute Code(s): N39.0 - URINARY TRACT INFECTION, SITE NOT SPECIFIED SNOMED Code(s): 94820046 (2) Diarrhea Current Visit: Yes Status: Acute Code(s): R19.7 - DIARRHEA, UNSPECIFIED SNOMED Code(s): 88851066 (3) Thrush Current Visit: Yes Status: Acute Code(s): B37.0 - CANDIDAL STOMATITIS SNOMED Code(s): 90798971 Plan: 1patient was in the hospital generalized weakness decreased appetite did have low-grade fever urinary symptom positive UA likely a component of symptomatic Uritact infection likely from enteric gram-negative pathogen with urine currently showing gram-negative bacilli with ID and sensitivities pending, ronna nt is currently breathing comfortably on room air abdominal soft on clear examination no evidence of any joint swelling or cellulitis 2-patient urine culture did grow Klebsiella that is sensitive to Rocephin 3-patient complaining of sores in the mouth we will add nystatin swish and swallow 4- with worsening leukocytosis , will repeat her UA which was ordered yesterday and not done , add diflucan and repeat CBC with am labs Dictation was produced using [employer] dictation software. please excuse any grammatical, word or spelling errors. Time with Patient: Less than 30
--- NOTE | 2023-08-23 16:10 | XR ---
EXAMINATION TYPE: XR chest 1V portable DATE OF EXAM: 08/23/2023 3:14 PM CLINICAL INDICATION:Female, 88 years old with history of hypoxia on RA; COMPARISON: Chest radiographs from 08/14/2023, CT 08/15/2023. TECHNIQUE: XR chest 1V portable Frontal view of the chest. FINDINGS: Lungs/Pleura: Right lower lobe airspace opacities. Small left pleural effusion. There is no evidence of pleural effusion, focal consolidation, or pneumothorax. Pulmonary vascularity: Mild pulmonary vascular congestion. Heart/mediastinum: Cardiomediastinal silhouette is enlarged and stable. Musculoskeletal: No acute osseous pathology. Other findings: None IMPRESSION: 1. Right lower lobe airspace opacities concerning for pneumonia. Correlate for aspiration. 2. Small pleural effusion correlate for CHF.
[2023-08-23 16:32] LABS: Glucose,Whole Blood 127 mg/dL (70-110)
[2023-08-23 17:04] LABS: Appearance,Urine Cloudy (Clear); Bacteria,Urine Moderate /hpf; Bilirubin,Urine Negative (Negative); Blood,Urine Large (Negative); Budding Yeast,Urine Many /hpf; Color,Urine Light Red; Glucose,Urine (UA) 4+ (Negative); Hyaline Casts,Urine 46 /lpf (0-2); Ketones,Urine Negative (Negative); Leukocyte Esterase,Urine Large (Negative); Mucus,Urine Rare /hpf; Nitrite,Urine Negative (Negative); PH, Urine 5.5 (5.0-8.0); Protein,Urine 1+ (Negative); RBC,Urine >182 /hpf (0-5); Specific Gravity,Urine 1.018 (1.001-1.035); Squamous Epithelial Cell,Urine 3 /hpf (0-4); Urobilinogen,Urine <2.0 mg/dL (<2.0); WBC,Urine >182 /hpf (0-5)
[2023-08-23] MEDS: FLUCONAZOLE 100 MG TAB PO SCH (17:10)
[2023-08-23 19:42] LABS: Glucose,Whole Blood 258 mg/dL (70-110)
[2023-08-23] MEDS: ATORVASTATIN 10 MG TAB PO SCH (20:54)
[2023-08-23] MEDS ORDERED: SODIUM CHLORIDE 0.9% 1,000 ML IV SCH (22:15)
--- NOTE | 2023-08-23 22:16 | P.PN ---
Subjective Progress Note Date: 08/23/23 This is an 88-year-old female who was recently admitted with weakness of bilateral lower extremities with significant pain and difficulty in ambulation. Patient was noted to have significant history of severe stenosis and was deemed not a surgical candidate given her age. Patient is lethargic today although arousable oral intake remains poor and patient was seen and evaluated by physical therapy awaiting notes for possible ECF. Patient maintained on antibiotics in the form of ceftriaxone with infectious disease following an urine culture showing Klebsiella pneumonia. Patient's urine is more conc entrated and having some retention requiring indwelling Merchant catheter. Patient being lethargic will limit IV narcotic use and discontinue Dilaudid and add Celebrex and adjust medications accordingly. Patient is currently afebrile with no reported chest pain or shortness of breath. Patient needs encouragement with meals. 08/20/2023 Patient seen and evaluated in follow-up today with family members at bedside. Patient is more awake and alert and reports continued significant weakness. Patient being followed by multiple medical consultations including neurology and has ordered MRI of the spine which is currently pending. Patient continues to have indwelling Merchant catheter and urine is significantly concentrated with scant amount of blood and sediment noted and is being maintained on IV antibiotics with infectious disease following 4 Klebsiella UTI. Patient is afebrile with no reported chest pain or shortness of breath. Patient's blood sugars are uncontrolled and have resume long-acting along with sliding scale and will add pre-meal insulins. Continue consistent carb, low potassium diet. Encouraged to increase activity as tolerated and recommended physical therapy daily. Case management following plan is for ECF once stabilized discharge. 08/21/2023 Patient is seen in follow-up today more awake and alert AND is with significant weakness. Patient is being scheduled for MRI of the cervical and lumbar spine with neurology following closely. Patient is also continued on antibiotics with infectious disease following for Klebsiella pneumonia noted in the urine. Blood cultures remain negative. Blood sugars are extremely uncontrolled with hyper and hypoglycemia and will adjust the medications accordingly. Dietary following and will continue low potassium with consistent carb diet. Encouraged oral intake as patient is not eating very much. Family at bedside reports he is eating better than yesterday. Continue with physical therapy daily. Concerns with positive GRETCHEN and titer is elevated at 1/320 which is significant and further lab tests being ordered by neurology will attempt to consult rheumatology and appreciate input and recommendations. Patient is maintained on Tylenol and having some continued pain will add low-dose Ultram and monitor mentation. Patient is currently afebrile with reports of chest pain or shortness of breath. No reported nausea or vomiting and tolerating oral intake 08/22/2023 Patient is seen in follow-up and continues to report pain most significantly in her lower extremities and her right hip and is having very little improvement. Family reports have noticed significant sleepiness since starting Cymbalta and requesting to have it discontinued. Patient is maintained on Ultram along with Tylenol as needed and will add low-dose gabapentin as needed as well. Patient did have positive GRETCHEN and DNA stranding suggesting lupus and after further discussion with the patient, patient reported she was told she had this years ago although unsure when. Family was not aware of this. Patient continues with right upper and lower extremity weakness and family is concerned as patient had a stroke. Will obtain CT brain. Patient was on a course of steroids with no relief other than causing increased uncontrollable diabetes leading to insulin drip. Patient is afebrile with no reported chest pain or shortness of breath. Patient is making little improvement on working with physical therapy. Patient will need ECF on discharge for continued strength and mobility. 08/23/2023 Patient is currently lying in the bed. Awake, alert but lethargic and weak. Patient does have a minimal oral intake. Also requiring oxygen at 2 L via nasal cannula. Patient is also retaining urine requiring straight catheterization x2 and Merchant cath is being placed today. Patient has been afebrile. No nausea vomiting. Patient did not have any bowel movement today. Repeat UA and chest x-ray was ordered. Patient is being current on ceftriaxone 1 g daily for urinary tract infection. Urine culture showed Klebsiella. Laboratory data showed WBC count increasing to 18.3 hemoglobin 12.2 and platelets 219 Sodium 134 potassium 3.8 chloride 103 bicarb is 25 BUN 40 and creatinine 0.89 and blood sugar is 125. CRP 6.8. Current medications reviewed. Review of systems: Constitutional: reports of fatigue, no fever, or chills Cardiovascular: No reports of chest pain or palpitations Respiratory: No reports of shortness of breath or cough GI: No reports of nausea, no reports of vomiting, reports not much of an appetite and is reporting to eating very little today : No reports of dysuria nursing staff reported retention requiring indwelling Merchant catheter, Merchant catheter was removed today Neurovascular: reports of generalized weakness, difficulty in ambulating All medications have been reviewed PHYSICAL EXAMINATION: GENERAL: The patient is alert and oriented x2, lethargic today, Well developed, ill-appearing, elderly appearing HEENT: Pupils are round and equally reacting to light. EOMI. no scleral icterus. No conjunctival pallor. Normocephalic, atraumatic. No pharyngeal erythema. No thyromegaly. CARDIOVASCULAR: S1 and S2 muffled PULMONARY: diminished breath sounds bilaterally with no wheezing or rhonchi noted. ABDOMEN: soft. Nontender on exam. non-distended, normoactive bowel sounds. No palpable organomegaly. MUSCULOSKELETAL: No joint swelling or deformity. EXTREMITIES: No cyanosis, clubbing, or pedal edema. NEUROLOGICAL: Gross neurological examination did not reveal any focal deficits. Diffuse weakness, significant muscle wasting noted SKIN: No rashes. Assessment: Bilateral lower extremity pain and weakness, likely secondary to severe spinal stenosis, undergoing further workup and MRI cervical and lumbar was negative for significant findings other than degenerative disc disease with stenosis at multiple levels generalized body aches of the back and lower extremity Positive GRETCHEN titer and antibody and DNA strand was positive suggesting lupus. Patient reports being told she had lupus years ago although unsure when and family had no recollection of this Acute kidney injury likely secondary to poor oral intake and dehydration Acute urinary tract infection with Klebsiella pneumonia, present on admission Urinary retention requiring indwelling Merchant catheter, Merchant removed today due to void Chronic persistent atrial fibrillation, currently rate controlled Diabetes mellitus, type II, uncontrolled with hyper glycemia Gait dysfunction and generalized weakness History of osteoarthritis GI prophylaxis DVT prophylaxis Full code Plan: Patient presented with significant pain in the lower extremities and inability to ambulate although was supposedly ambulatory a few days prior to admission Extensive neurological workup with no plans of surgical intervention. Concerned with positive GRETCHEN and titer is elevated, discussed with neurology and DNA strands were positive suggesting lupus. After further discussion with the patient she reported she was told by hematology that she follows with that she had lupus although family was not aware of this, patient had been maintained on IV steroids and showed no improvement and were discontinued due to continued persistent uncontrolled elevated blood sugars West Nile virus is negative Patient continue on IV antibiotics with infectious disease following for Klebsiella pneumonia Family reporting they feel she is more fatigued and lethargic with Cymbalta being started and will discontinue. Make gabapentin when necessary and continue with Ultram and Tylenol as needed Patient with extremely uncontrolled blood sugars with hyper and hypoglycemia currently off insulin drip maintained on long-acting along with sliding scale and pre-meal insulin. Will adjust and monitor closely Continue with physical therapy daily and discussed with case management for ECF. Patient will need ECF on discharge. Patient making minimal improvements and is almost maximum assist and due to pain has been not working very well with physical therapy. Encouraged increased activity as tolerated Patient is still retaining urine requiring straight catheterization. Merchant catheter was replaced. Repeat urinalysis was ordered. Also chest x-ray was ordered due to patient requiring 2 L oxygen via nasal cannula. We will start on gentle IV hydration since patient has very poor oral intake. Attempted to consult rheumatology to appreciate input and recommendations although no available rheumatology services at this time and will refer outpatient Family discussing further with other members of the family about CODE STATUS and will update nursing staff. No code is appropriate for this patient given significant comorbidities and age. Due to Multiple complex medical issues, prognosis is guarded Objective - Vital Signs Vital signs: Vital Signs Temp 97.7 F 08/23/23 07:05 Pulse 75 08/23/23 07:05 Resp 19 08/23/23 07:05 BP 110/62 08/23/23 07:05 Pulse Ox 100 08/23/23 07:05 FiO2 Intake & Output 08/22/23 08/23/23 08/23/23 18:59 06:59 18:59 Output Total 557 854 6622 Balance -900 -847 -1400 Output: Urine 371 964 3841 Straight 350 700 Uretheral (Merchant) 600 Stool 1 Other: Voiding Method Indwelling Catheter External Catheter # Bowel Movements 2 - Labs CBC & Chem 7: 08/23/23 06:55 08/23/23 06:55 Labs: Abnormal Lab Results - Last 24 Hours (Table) 08/22/23 08/22/23 08/23/23 Range/Units 17:25 19:55 06:55 WBC 18.3 H (3.8-10.6) k/uL Neutrophils # 16.9 H (1.3-7.7) k/uL Lymphocytes # 0.8 L (1.0-4.8) k/uL Sodium (137-145) mmol/L BUN (7-17) mg/dL POC Glucose (mg/dL) 143 H 188 H (70-110) mg/dL C-Reactive Protein (<1.0) mg/dL 08/23/23 08/23/23 Range/Units 06:55 11:14 WBC (3.8-10.6) k/uL Neutrophils # (1.3-7.7) k/uL Lymphocytes # (1.0-4.8) k/uL Sodium 134 L (137-145) mmol/L BUN 40 H (7-17) mg/dL POC Glucose (mg/dL) 125 H (70-110) mg/dL C-Reactive Protein 6.8 H (<1.0) mg/dL
[2023-08-24] MEDS: PIPERACILLIN-TAZOBACTAM 3.375 GM in SODIUM CHLORIDE 0.9% 100 ML IVPB SCH ×4 (00:15→22:11)
[2023-08-24] MEDS: traMADol 50 MG TAB PO PRN (04:57)
[2023-08-24 06:04] LABS: Glucose,Whole Blood 199 mg/dL (70-110)
[2023-08-24] MEDS: INSULIN ASPART (NovoLOG) 100 UNIT/ML VIAL SQ SCH ×7 (06:47→22:11)
[2023-08-24] MEDS: INSULIN DETEMIR (LEVEMIR) 100 UNIT/ML SYR SQ SCH ×2 (06:51→20:21)
[2023-08-24 09:11] LABS: HCT 36.8 % (37.2-46.3); HGB 11.5 d/dL (12.0-15.0); MCHC 31.3 d/dL (32.0-37.0); MCV 92.7 FL (80.0-97.0); Mean Platelet Volume 11.2 FL (9.5-12.2); NRBC Per 100 WBC 0 X 10*3/uL (0.00-0.01); Platelet Count 224 X 10*3/uL (140-440); RBC 3.97 X 10*6/uL (4.10-5.20); WBC 22.87 X 10*3/uL (4.50-10.00)
[2023-08-24] MEDS: MELOXICAM 7.5 MG TAB PO SCH (09:13)
[2023-08-24] MEDS: AMIODARONE 200 MG TAB PO SCH (09:13)
[2023-08-24] MEDS: FLUCONAZOLE 100 MG TAB PO SCH (09:13)
[2023-08-24] MEDS: APIXABAN 5 MG TAB PO SCH ×2 (09:13→20:24)
[2023-08-24] MEDS: DAPAGLIFLOZIN PROPANEDIOL 5 MG TABLET PO SCH (09:14)
[2023-08-24] MEDS: NYSTATIN 100,000 UNIT/ML SUSP 500,000 UNIT/5 ML CUP PO SCH ×4 (09:14→22:09)
[2023-08-24] MEDS: FAMOTIDINE 20 MG TAB PO SCH (09:14)
[2023-08-24] MEDS: NON FORMULARY DRUG (Neuriva 1 CAP) PO SCH (09:15)
[2023-08-24] MEDS: NON FORMULARY DRUG (Prevagen 1 CAP) PO SCH (09:15)
[2023-08-24 09:19] LABS: ALT 12 U/L (8-44); AST 16 U/L (13-35); Albumin 2.3 d/dL (3.8-4.9); Albumin/Globulin Ratio 0.88 Ratio (1.60-3.17); Alkaline Phosphatase 61 U/L (41-126); Blood Urea Nitrogen 39.4 mg/dL (9.0-27.0); Calcium 9.2 mg/dL (8.7-10.3); Carbon Dioxide 22.9 mmol/L (21.6-31.8); Chloride 104 mmol/L (96-109); Globulin 2.6 d/dL (1.6-3.3); Glucose 219 mg/dL (70-110); Potassium 4.6 mmol/L (3.5-5.5); Sodium 136 mmol/L (135-145); Total Bilirubin 0.3 mg/dL (0.3-1.2); Total Protein 4.9 d/dL (6.2-8.2)
[2023-08-24 09:39] LABS: Basophils # (A) 0.02 X 10*3/uL (0.00-0.10); Basophils % (A) 0.1 %; Eosinophils # (A) 0.01 X 10*3/uL (0.04-0.35); Eosinophils % (A) 0 %; Lymphocytes # (A) 0.64 X 10*3/uL (0.90-5.00); Lymphocytes % (A) 2.8 %; Monocytes # (A) 0.93 X 10*3/uL (0.20-1.00); Monocytes % (A) 4.1 %; Neutrophils # (A) 21.07 X 10*3/uL (1.80-7.70); Neutrophils % (A) 92.1 %; RBC Morphology Normal (Normal)
[2023-08-24] MEDS: IPRATROPIUM-ALBUTEROL 3 ML NEB INHALATION PRN ×2 (10:08→17:20)
[2023-08-24] MEDS ORDERED: FUROSEMIDE 10 MG/ML 2 ML VIAL IV ONE ×2 (10:52→11:30)
[2023-08-24] MEDS: NON FORMULARY DRUG (Glucosamine/Chondr Su A Sod [Osteo Bi-Flex Caplet] 1 EACH Tablet) PO SCH (11:44)
[2023-08-24] MEDS: DOCUSATE 100 MG CAP PO SCH (11:44)
[2023-08-24] MEDS: METOPROLOL SUCCINATE (ER) 50 MG TAB.ER.24H PO SCH (11:46)
[2023-08-24 11:49] LABS: Glucose,Whole Blood 293 mg/dL (70-110)
[2023-08-24] MEDS: ONDANSETRON 4 MG/2 ML VIAL IVP PRN (12:41)
--- NOTE | 2023-08-24 13:24 | P.CNPUL ---
History of Present Illness Consult date: 08/24/23 Requesting physician: Jeferson Reed Reason for consult: dyspnea, hypoxemia, abnormal CXR/CT Chief complaint: Shortness of breath History of present illness: This is an 88-year-old female patient with a history of atrial fibrillation anticoagulated with Eliquis, diabetes mellitus, hypertension, osteoarthritis, lifetime nonsmoker. She presented here to the emergency department back on 08/14/2023 with his generalized aches pains weakness and poor appetite. She is being treated for severe spinal stenosis, possible lupus, acute kidney injury, urinary tract infection with Klebsiella pneumoniae. We're consulted today as she had developed increasing lethargy, shortness of breath and hypoxemia. Initially on room air and currently on 5 L nasal cannula. Computed tomography scan of the brain revealed no acute intracranial process. Chest x-ray reveals right lower lobe airspace opacity possible aspiration. Small bilateral effusions and fluid volume overload. White count 22.8. Hemoglobin 11.5. Platelets 224. Sodium 136. Potassium 4.6. Bicarb 23. BUN 39. Creatinine 1.0. Glucose 219. She is currently on Zosyn. Review of Systems ROS unobtainable: due to mental status Past Medical History Past Medical History: Atrial Fibrillation, Blood Disorder, Diabetes Mellitus, Hypertension, Osteoarthritis (OA) Additional Past Medical History / Comment(s): NEUTROPENIA. ANEMIA. History of Any Multi-Drug Resistant Organisms: None Reported Past Surgical History: Appendectomy, Cholecystectomy, Orthopedic Surgery Additional Past Surgical History / Comment(s): LEFT SHOULDER SURGERY. BILATERAL CATARACTS. Past Anesthesia/Blood Transfusion Reactions: No Reported Reaction Past Psychological History: No Psychological Hx Reported Smoking Status: Never smoker Past Alcohol Use History: None Reported Past Drug Use History: None Reported - Past Family History Mother Family Medical History: Rheumatoid Arthritis (RA) Father Family Medical History: Diabetes Mellitus Additional Family Medical History / Comment(s): Father had diabetes later in his life. Medications and Allergies Home Medications Medication Instructions Recorded Confirmed Type Ergocalciferol [Vitamin D2 100,000 unit PO Q30D 02/25/17 08/14/23 History (DRISDOL)] Acetaminophen-Codeine 300-30mg 1 tab PO BID PRN 08/14/23 08/14/23 History [Tylenol w/codeine #3] Amiodarone [Cordarone] 200 mg PO DAILY 08/14/23 08/14/23 History Apixaban [Eliquis] 5 mg PO BID 08/14/23 08/14/23 History Dapagliflozin Propanediol [Farxiga] 5 mg PO DAILY 08/14/23 08/14/23 History Docusate [Colace] 100 mg PO DAILY 08/14/23 08/14/23 History Glucosamine/Chondr Belcher A Sod [Osteo 1 tab PO DAILY 08/14/23 08/14/23 History Bi-Flex Caplet] Metoprolol Succinate (ER) [Toprol 50 mg PO DAILY 08/14/23 08/14/23 History Xl] Neuriva 1 cap PO DAILY 08/14/23 08/14/23 History Prevagen 1 cap PO DAILY 08/14/23 08/14/23 History Rosuvastatin Calcium 5 mg PO HS 08/14/23 08/14/23 History calcitrioL [Calcitriol] 0.25 mcg PO MOWEFR 08/14/23 08/14/23 History Allergies Allergy/AdvReac Type Severity Reaction Status Date / Time No Known Allergies Allergy Verified 08/14/23 08:09 Physical Exam Vitals: Vital Signs Temp Pulse Pulse Resp BP Pulse Ox 08/24/23 11:47 89 18 123/66 08/24/23 10:59 85 18 140/82 89 L 08/24/23 10:24 83 08/24/23 10:08 83 94 L 08/24/23 07:05 97.6 F 79 20 120/78 91 L 08/24/23 01:12 98 F 76 18 106/65 92 L 08/23/23 19:47 97.5 F L 81 18 129/69 91 L 08/23/23 13:45 97.9 F 73 16 103/68 94 L Intake and Output 08/23/23 08/24/23 08/24/23 22:59 06:59 14:59 Output Total 610 200 Balance -610 -200 Output: Urine 610 200 Other: Voiding Method Indwelling Catheter Weight 94.5 kg GENERAL EXAM: Lethargic, arousable, 88-year-old female, on 5 L nasal cannula, fairly comfortable in no apparent distress. HEAD: Normocephalic. EYES: Normal reaction of pupils, equal size. NOSE: Clear with pink turbinates. THROAT: No erythema or exudates. NECK: No masses, no JVD. CHEST: No chest wall deformity. LUNGS: Equal air entry with crackles in bilateral bases, few scattered rhonchi. CVS: S1 and S2 normal with no audible murmur, regular rhythm. ABDOMEN: No hepatosplenomegaly, normal bowel sounds, no guarding or rigidity. SPINE: No scoliosis or deformity SKIN: No rashes CENTRAL NERVOUS SYSTEM: No focal deficits, tone is normal in all 4 extremities. EXTREMITIES: There is no peripheral edema. No clubbing, no cyanosis. Peripher al pulses are intact. Results - Laboratory Findings CBC and BMP: 08/24/23 04:41 08/24/23 04:41 PT/INR, D-dimer PT 10.7 sec (9.0-12.0) 08/14/23 03:55 INR 1.0 (<1.2) 08/14/23 03:55 Abnormal lab findings: Abnormal Labs 08/14/23 08/14/23 08/14/23 03:55 03:55 07:54 WBC RBC Hgb Hct MCHC RDW Plt Count 129 L Neutrophils # Lymphocytes # 0.3 L Eosinophils # Crenated Cell ESR Sodium Potassium 3.3 L Carbon Dioxide Anion Gap BUN 30 H Creatinine 1.08 H Est GFR (CKD-EPI) BUN/Creatinine Ratio Glucose 210 H POC Glucose (mg/dL) Hemoglobin A1c Magnesium 2.5 H Total Bilirubin 1.8 H Creatine Kinase 208 H C-Reactive Protein Total Protein Albumin Albumin/Globulin Ratio Vitamin B12 Urine Appearance Cloudy H Urine Protein 1+ H Urine Glucose (UA) 4+ H Urine Ketones 1+ H Urine Blood Moderate H Ur Leukocyte Esterase Moderate H Urine RBC 36 H Urine WBC 38 H Urine WBC Clumps Urine Bacteria Many H Hyaline Casts Urine Mucus Occasional H Urine Yeast (Budding) Many H Rheumatoid Factor GRETCHEN Screen 08/14/23 08/14/23 08/14/23 12:55 17:26 20:47 WBC RBC Hgb Hct MCHC RDW Plt Count Neutrophils # Lymphocytes # Eosinophils # Crenated Cell ESR Sodium Potassium Carbon Dioxide Anion Gap BUN Creatinine Est GFR (CKD-EPI) BUN/Creatinine Ratio Glucose POC Glucose (mg/dL) 157 H 135 H 236 H Hemoglobin A1c Magnesium Total Bilirubin Creatine Kinase C-Reactive Protein Total Protein Albumin Albumin/Globulin Ratio Vitamin B12 Urine Appearance Urine Protein Urine Glucose (UA) Urine Ketones Urine Blood Ur Leukocyte Esterase Urine RBC Urine WBC Urine WBC Clumps Urine Bacteria Hyaline Casts Urine Mucus Urine Yeast (Budding) Rheumatoid Factor GRETCHEN Screen 08/15/23 08/15/23 08/15/23 05:40 05:40 05:40 WBC RBC 4.03 L Hgb 11.8 L Hct MCHC 31.6 L RDW Plt Count 124 L Neutrophils # Lymphocytes # 0.30 L Eosinophils # 0 L Crenated Cell 2+ A ESR Sodium Potassium 3.3 L Carbon Dioxide 19.8 L Anion Gap 14.20 H BUN Creatinine Est GFR (CKD-EPI) 55 L BUN/Creatinine Ratio 22.70 H Glucose 147 H POC Glucose (mg/dL) Hemoglobin A1c 7.9 H Magnesium Total Bilirubin Creatine Kinase C-Reactive Protein Total Protein 5.5 L Albumin 2.9 L Albumin/Globulin Ratio 1.12 L Vitamin B12 Urine Appearance Urine Protein Urine Glucose (UA) Urine Ketones Urine Blood Ur Leukocyte Esterase Urine RBC Urine WBC Urine WBC Clumps Urine Bacteria Hyaline Casts Urine Mucus Urine Yeast (Budding) Rheumatoid Factor GRETCHEN Screen 08/15/23 08/15/23 08/15/23 05:40 05:40 07:14 WBC RBC Hgb Hct MCHC RDW Plt Count Neutrophils # Lymphocytes # Eosinophils # Crenated Cell ESR 77 H Sodium Potassium Carbon Dioxide Anion Gap BUN Creatinine Est GFR (CKD-EPI) BUN/Creatinine Ratio Glucose POC Glucose (mg/dL) 154 H Hemoglobin A1c Magnesium Total Bilirubin Creatine Kinase C-Reactive Protein 29.30 H Total Protein Albumin Albumin/Globulin Ratio Vitamin B12 Urine Appearance Urine Protein Urine Glucose (UA) Urine Ketones Urine Blood Ur Leukocyte Esterase Urine RBC Urine WBC Urine WBC Clumps Urine Bacteria Hyaline Casts Urine Mucus Urine Yeast (Budding) Rheumatoid Factor GRETCHEN Screen 08/15/23 08/15/23 08/15/23 11:31 17:05 20:17 WBC RBC Hgb Hct MCHC RDW Plt Count Neutrophils # Lymphocytes # Eosinophils # Crenated Cell ESR Sodium Potassium Carbon Dioxide Anion Gap BUN Creatinine Est GFR (CKD-EPI) BUN/Creatinine Ratio Glucose POC Glucose (mg/dL) 186 H 257 H 301 H Hemoglobin A1c Magnesium Total Bilirubin Creatine Kinase C-Reactive Protein Total Protein Albumin Albumin/Globulin Ratio Vitamin B12 Urine Appearance Urine Protein Urine Glucose (UA) Urine Ketones Urine Blood Ur Leukocyte Esterase Urine RBC Urine WBC Urine WBC Clumps Urine Bacteria Hyaline Casts Urine Mucus Urine Yeast (Budding) Rheumatoid Factor GRETCHEN Screen 08/16/23 08/16/23 08/16/23 07:18 10:35 10:35 WBC RBC Hgb Hct MCHC RDW Plt Count Neutrophils # Lymphocytes # Eosinophils # Crenated Cell ESR Sodium Potassium Carbon Dioxide Anion Gap BUN Creatinine Est GFR (CKD-EPI) BUN/Creatinine Ratio Glucose POC Glucose (mg/dL) 222 H Hemoglobin A1c Magnesium Total Bilirubin Creatine Kinase C-Reactive Protein Total Protein Albumin Albumin/Globulin Ratio Vitamin B12 Urine Appearance Urine Protein Urine Glucose (UA) Urine Ketones Urine Blood Ur Leukocyte Esterase Urine RBC Urine WBC Urine WBC Clumps Urine Bacteria Hyaline Casts Urine Mucus Urine Yeast (Budding) Rheumatoid Factor 18 H GRETCHEN Screen POSITIVE A 08/16/23 08/16/23 08/16/23 12:07 17:19 20:17 WBC RBC Hgb Hct MCHC RDW Plt Count Neutrophils # Lymphocytes # Eosinophils # Crenated Cell ESR Sodium Potassium Carbon Dioxide Anion Gap BUN Creatinine Est GFR (CKD-EPI) BUN/Creatinine Ratio Glucose POC Glucose (mg/dL) 191 H 190 H 166 H Hemoglobin A1c Magnesium Total Bilirubin Creatine Kinase C-Reactive Protein Total Protein Albumin Albumin/Globulin Ratio Vitamin B12 Urine Appearance Urine Protein Urine Glucose (UA) Urine Ketones Urine Blood Ur Leukocyte Esterase Urine RBC Urine WBC Urine WBC Clumps Urine Bacteria Hyaline Casts Urine Mucus Urine Yeast (Budding) Rheumatoid Factor GRECTHEN Screen 08/17/23 08/17/23 08/17/23 06:09 06:09 07:19 WBC RBC 4.04 L Hgb 11.7 L Hct 36.6 L MCHC RDW 15.0 H Plt Count 128 L Neutrophils # Lymphocytes # 0.41 L Eosinophils # 0 L Crenated Cell ESR Sodium Potassium Carbon Dioxide 18.7 L Anion Gap 15.30 H BUN 34.5 H Creatinine Est GFR (CKD-EPI) 55 L BUN/Creatinine Ratio 34.50 H Glucose 217 H POC Glucose (mg/dL) 193 H Hemoglobin A1c Magnesium Total Bilirubin Creatine Kinase C-Reactive Protein Total Protein 5.3 L Albumin 2.7 L Albumin/Globulin Ratio 1.04 L Vitamin B12 >3600.0 H Urine Appearance Urine Protein Urine Glucose (UA) Urine Ketones Urine Blood Ur Leukocyte Esterase Urine RBC Urine WBC Urine WBC Clumps Urine Bacteria Hyaline Casts Urine Mucus Urine Yeast (Budding) Rheumatoid Factor GRETCHEN Screen 08/17/23 08/17/23 08/17/23 12:22 17:01 20:05 WBC RBC Hgb Hct MCHC RDW Plt Count Neutrophils # Lymphocytes # Eosinophils # Crenated Cell ESR Sodium Potassium Carbon Dioxide Anion Gap BUN Creatinine Est GFR (CKD-EPI) BUN/Creatinine Ratio Glucose POC Glucose (mg/dL) 218 H 215 H 484 H Hemoglobin A1c Magnesium Total Bilirubin Creatine Kinase C-Reactive Protein Total Protein Albumin Albumin/Globulin Ratio Vitamin B12 Urine Appearance Urine Protein Urine Glucose (UA) Urine Ketones Urine Blood Ur Leukocyte Esterase Urine RBC Urine WBC Urine WBC Clumps Urine Bacteria Hyaline Casts Urine Mucus Urine Yeast (Budding) Rheumatoid Factor GRETCHEN Screen 08/17/23 08/18/23 08/18/23 20:06 06:57 06:57 WBC 10.84 H RBC Hgb Hct MCHC 31.9 L RDW 15.7 H Plt Count Neutrophils # 9.78 H Lymphocytes # 0.51 L Eosinophils # 0.03 L Crenated Cell ESR Sodium Potassium Carbon Dioxide 19.8 L Anion Gap 15.20 H BUN 48.3 H Creatinine Est GFR (CKD-EPI) 49 L BUN/Creatinine Ratio 43.91 H Glucose 315 H POC Glucose (mg/dL) 317 H Hemoglobin A1c Magnesium Total Bilirubin Creatine Kinase C-Reactive Protein Total Protein Albumin Albumin/Globulin Ratio Vitamin B12 Urine Appearance Urine Protein Urine Glucose (UA) Urine Ketones Urine Blood Ur Leukocyte Esterase Urine RBC Urine WBC Urine WBC Clumps Urine Bacteria Hyaline Casts Urine Mucus Urine Yeast (Budding) Rheumatoid Factor GRETCHEN Screen 08/18/23 08/18/23 08/18/23 07:11 11:42 17:02 WBC RBC Hgb Hct MCHC RDW Plt Count Neutrophils # Lymphocytes # Eosinophils # Crenated Cell ESR Sodium Potassium Carbon Dioxide Anion Gap BUN Creatinine Est GFR (CKD-EPI) BUN/Creatinine Ratio Glucose POC Glucose (mg/dL) 291 H 432 H 500 H Hemoglobin A1c Magnesium Total Bilirubin Creatine Kinase C-Reactive Protein Total Protein Albumin Albumin/Globulin Ratio Vitamin B12 Urine Appearance Urine Protein Urine Glucose (UA) Urine Ketones Urine Blood Ur Leukocyte Esterase Urine RBC Urine WBC Urine WBC Clumps Urine Bacteria Hyaline Casts Urine Mucus Urine Yeast (Budding) Rheumatoid Factor GRETCHEN Screen 08/18/23 08/18/23 08/18/23 17:04 18:48 20:01 WBC RBC Hgb Hct MCHC RDW Plt Count Neutrophils # Lymphocytes # Eosinophils # Crenated Cell ESR Sodium Potassium Carbon Dioxide Anion Gap BUN Creatinine Est GFR (CKD-EPI) BUN/Creatinine Ratio Glucose POC Glucose (mg/dL) 471 H 581 H 484 H Hemoglobin A1c Magnesium Total Bilirubin Creatine Kinase C-Reactive Protein Total Protein Albumin Albumin/Globulin Ratio Vitamin B12 Urine Appearance Urine Protein Urine Glucose (UA) Urine Ketones Urine Blood Ur Leukocyte Esterase Urine RBC Urine WBC Urine WBC Clumps Urine Bacteria Hyaline Casts Urine Mucus Urine Yeast (Budding) Rheumatoid Factor GRETCHEN Screen 08/18/23 08/18/23 08/18/23 20:59 22:06 22:51 WBC RBC Hgb Hct MCHC RDW Plt Count Neutrophils # Lymphocytes # Eosinophils # Crenated Cell ESR Sodium Potassium Carbon Dioxide Anion Gap BUN Creatinine Est GFR (CKD-EPI) BUN/Creatinine Ratio Glucose POC Glucose (mg/dL) 394 H 354 H 347 H Hemoglobin A1c Magnesium Total Bilirubin Creatine Kinase C-Reactive Protein Total Protein Albumin Albumin/Globulin Ratio Vitamin B12 Urine Appearance Urine Protein Urine Glucose (UA) Urine Ketones Urine Blood Ur Leukocyte Esterase Urine RBC Urine WBC Urine WBC Clumps Urine Bacteria Hyaline Casts Urine Mucus Urine Yeast (Budding) Rheumatoid Factor GRETCHEN Screen 08/19/23 08/19/23 08/19/23 00:02 01:08 01:49 WBC RBC Hgb Hct MCHC RDW Plt Count Neutrophils # Lymphocytes # Eosinophils # Crenated Cell ESR Sodium Potassium Carbon Dioxide Anion Gap BUN Creatinine Est GFR (CKD-EPI) BUN/Creatinine Ratio Glucose POC Glucose (mg/dL) 307 H 312 H 193 H Hemoglobin A1c Magnesium Total Bilirubin Creatine Kinase C-Reactive Protein Total Protein Albumin Albumin/Globulin Ratio Vitamin B12 Urine Appearance Urine Protein Urine Glucose (UA) Urine Ketones Urine Blood Ur Leukocyte Esterase Urine RBC Urine WBC Urine WBC Clumps Urine Bacteria Hyaline Casts Urine Mucus Urine Yeast (Budding) Rheumatoid Factor GRETCHEN Screen 08/19/23 08/19/23 08/19/23 03:02 04:12 06:06 WBC RBC Hgb Hct MCHC RDW Plt Count Neutrophils # Lymphocytes # Eosinophils # Crenated Cell ESR Sodium Potassium Carbon Dioxide Anion Gap BUN Creatinine Est GFR (CKD-EPI) BUN/Creatinine Ratio Glucose POC Glucose (mg/dL) 161 H 113 H 64 L Hemoglobin A1c Magnesium Total Bilirubin Creatine Kinase C-Reactive Protein Total Protein Albumin Albumin/Globulin Ratio Vitamin B12 Urine Appearance Urine Protein Urine Glucose (UA) Urine Ketones Urine Blood Ur Leukocyte Esterase Urine RBC Urine WBC Urine WBC Clumps Urine Bacteria Hyaline Casts Urine Mucus Urine Yeast (Budding) Rheumatoid Factor GRETCHEN Screen 08/19/23 08/19/23 08/19/23 06:28 06:58 11:03 WBC RBC Hgb Hct MCHC RDW Plt Count Neutrophils # Lymphocytes # Eosinophils # Crenated Cell ESR Sodium Potassium Carbon Dioxide Anion Gap BUN Creatinine Est GFR (CKD-EPI) BUN/Creatinine Ratio Glucose POC Glucose (mg/dL) 111 H 115 H 121 H Hemoglobin A1c Magnesium Total Bilirubin Creatine Kinase C-Reactive Protein Total Protein Albumin Albumin/Globulin Ratio Vitamin B12 Urine Appearance Urine Protein Urine Glucose (UA) Urine Ketones Urine Blood Ur Leukocyte Esterase Urine RBC Urine WBC Urine WBC Clumps Urine Bacteria Hyaline Casts Urine Mucus Urine Yeast (Budding) Rheumatoid Factor GRETCHEN Screen 08/19/23 08/19/23 08/19/23 12:01 16:18 20:33 WBC RBC Hgb Hct MCHC RDW Plt Count Neutrophils # Lymphocytes # Eosinophils # Crenated Cell ESR Sodium Potassium Carbon Dioxide Anion Gap BUN Creatinine Est GFR (CKD-EPI) BUN/Creatinine Ratio Glucose POC Glucose (mg/dL) 162 H 320 H 368 H Hemoglobin A1c Magnesium Total Bilirubin Creatine Kinase C-Reactive Protein Total Protein Albumin Albumin/Globulin Ratio Vitamin B12 Urine Appearance Urine Protein Urine Glucose (UA) Urine Ketones Urine Blood Ur Leukocyte Esterase Urine RBC Urine WBC Urine WBC Clumps Urine Bacteria Hyaline Casts Urine Mucus Urine Yeast (Budding) Rheumatoid Factor GRETCHEN Screen 08/20/23 08/20/23 08/20/23 07:02 11:32 11:32 WBC 13.1 H RBC Hgb Hct MCHC 30.9 L RDW Plt Count Neutrophils # 12.1 H Lymphocytes # 0.5 L Eosinophils # Crenated Cell ESR Sodium 129 L Potassium 5.3 H Carbon Dioxide 18 L Anion Gap BUN 75 H Creatinine 1.24 H Est GFR (CKD-EPI) BUN/Creatinine Ratio Glucose 305 H POC Glucose (mg/dL) 307 H Hemoglobin A1c Magnesium Total Bilirubin Creatine Kinase C-Reactive Protein Total Protein 4.9 L Albumin 2.1 L Albumin/Globulin Ratio Vitamin B12 Urine Appearance Urine Protein Urine Glucose (UA) Urine Ketones Urine Blood Ur Leukocyte Esterase Urine RBC Urine WBC Urine WBC Clumps Urine Bacteria Hyaline Casts Urine Mucus Urine Yeast (Budding) Rheumatoid Factor GRETCHEN Screen 08/20/23 08/20/23 08/20/23 11:40 16:25 18:17 WBC RBC Hgb Hct MCHC RDW Plt Count Neutrophils # Lymphocytes # Eosinophils # Crenated Cell ESR Sodium Potassium Carbon Dioxide Anion Gap BUN Creatinine Est GFR (CKD-EPI) BUN/Creatinine Ratio Glucose POC Glucose (mg/dL) 303 H 314 H Hemoglobin A1c Magnesium Total Bilirubin Creatine Kinase C-Reactive Protein Total Protein Albumin Albumin/Globulin Ratio Vitamin B12 Urine Appearance Urine Protein Urine Glucose (UA) Urine Ketones Urine Blood Ur Leukocyte Esterase Urine RBC Urine WBC Urine WBC Clumps Urine Bacteria Hyaline Casts Urine Mucus Urine Yeast (Budding) Rheumatoid Factor GRETCHEN Screen POSITIVE A 08/20/23 08/21/23 08/21/23 20:55 06:15 06:28 WBC RBC Hgb Hct MCHC RDW Plt Count Neutrophils # Lymphocytes # Eosinophils # Crenated Cell ESR Sodium Potassium Carbon Dioxide Anion Gap BUN Creatinine Est GFR (CKD-EPI) BUN/Creatinine Ratio Glucose POC Glucose (mg/dL) 230 H 67 L 66 L Hemoglobin A1c Magnesium Total Bilirubin Creatine Kinase C-Reactive Protein Total Protein Albumin Albumin/Globulin Ratio Vitamin B12 Urine Appearance Urine Protein Urine Glucose (UA) Urine Ketones Urine Blood Ur Leukocyte Esterase Urine RBC Urine WBC Urine WBC Clumps Urine Bacteria Hyaline Casts Urine Mucus Urine Yeast (Budding) Rheumatoid Factor GRETCHEN Screen 08/21/23 08/21/23 08/21/23 08:22 08:22 08:22 WBC 14.8 H RBC Hgb Hct MCHC RDW Plt Count Neutrophils # 13.5 H Lymphocytes # 0.7 L Eosinophils # Crenated Cell ESR Sodium 131 L Potassium Carbon Dioxide 19 L Anion Gap BUN 63 H Creatinine Est GFR (CKD-EPI) BUN/Creatinine Ratio Glucose 100 H POC Glucose (mg/dL) Hemoglobin A1c Magnesium Total Bilirubin Creatine Kinase C-Reactive Protein Total Protein 4.6 L Albumin 2.0 L Albumin/Globulin Ratio Vitamin B12 Urine Appearance Urine Protein Urine Glucose (UA) Urine Ketones Urine Blood Ur Leukocyte Esterase Urine RBC Urine WBC Urine WBC Clumps Urine Bacteria Hyaline Casts Urine Mucus Urine Yeast (Budding) Rheumatoid Factor GRETCHEN Screen POSITIVE A 08/21/23 08/21/23 08/21/23 16:08 16:11 20:31 WBC RBC Hgb Hct MCHC RDW Plt Count Neutrophils # Lymphocytes # Eosinophils # Crenated Cell ESR Sodium Potassium Carbon Dioxide Anion Gap BUN Creatinine Est GFR (CKD-EPI) BUN/Creatinine Ratio Glucose POC Glucose (mg/dL) 111 H 192 H Hemoglobin A1c Magnesium Total Bilirubin Creatine Kinase C-Reactive Protein 3.4 H Total Protein Albumin Albumin/Globulin Ratio Vitamin B12 Urine Appearance Urine Protein Urine Glucose (UA) Urine Ketones Urine Blood Ur Leukocyte Esterase Urine RBC Urine WBC Urine WBC Clumps Urine Bacteria Hyaline Casts Urine Mucus Urine Yeast (Budding) Rheumatoid Factor GRETCHEN Screen 08/22/23 08/22/23 08/22/23 06:05 06:30 06:30 WBC 17.44 H RBC 3.95 L Hgb 11.4 L Hct 35.9 L MCHC 31.8 L RDW 15.9 H Plt Count Neutrophils # 15.54 H Lymphocytes # 0.81 L Eosinophils # Crenated Cell ESR Sodium 134 L Potassium Carbon Dioxide Anion Gap BUN 45.7 H Creatinine Est GFR (CKD-EPI) BUN/Creatinine Ratio 50.78 H Glucose 142 H POC Glucose (mg/dL) 137 H Hemoglobin A1c Magnesium Total Bilirubin 0.2 L Creatine Kinase C-Reactive Protein Total Protein 4.4 L Albumin 2.1 L Albumin/Globulin Ratio 0.91 L Vitamin B12 Urine Appearance Urine Protein Urine Glucose (UA) Urine Ketones Urine Blood Ur Leukocyte Esterase Urine RBC Urine WBC Urine WBC Clumps Urine Bacteria Hyaline Casts Urine Mucus Urine Yeast (Budding) Rheumatoid Factor GRETCHEN Screen 08/22/23 08/22/23 08/22/23 11:08 17:25 19:55 WBC RBC Hgb Hct MCHC RDW Plt Count Neutrophils # Lymphocytes # Eosinophils # Crenated Cell ESR Sodium Potassium Carbon Dioxide Anion Gap BUN Creatinine Est GFR (CKD-EPI) BUN/Creatinine Ratio Glucose POC Glucose (mg/dL) 157 H 143 H 188 H Hemoglobin A1c Magnesium Total Bilirubin Creatine Kinase C-Reactive Protein Total Protein Albumin Albumin/Globulin Ratio Vitamin B12 Urine Appearance Urine Protein Urine Glucose (UA) Urine Ketones Urine Blood Ur Leukocyte Esterase Urine RBC Urine WBC Urine WBC Clumps Urine Bacteria Hyaline Casts Urine Mucus Urine Yeast (Budding) Rheumatoid Factor GRETCHEN Screen 08/23/23 08/23/23 08/23/23 06:55 06:55 11:14 WBC 18.3 H RBC Hgb Hct MCHC RDW Plt Count Neutrophils # 16.9 H Lymphocytes # 0.8 L Eosinophils # Crenated Cell ESR Sodium 134 L Potassium Carbon Dioxide Anion Gap BUN 40 H Creatinine Est GFR (CKD-EPI) BUN/Creatinine Ratio Glucose POC Glucose (mg/dL) 125 H Hemoglobin A1c Magnesium Total Bilirubin Creatine Kinase C-Reactive Protein 6.8 H Total Protein Albumin Albumin/Globulin Ratio Vitamin B12 Urine Appearance Urine Protein Urine Glucose (UA) Urine Ketones Urine Blood Ur Leukocyte Esterase Urine RBC Urine WBC Urine WBC Clumps Urine Bacteria Hyaline Casts Urine Mucus Urine Yeast (Budding) Rheumatoid Factor GRETCHEN Screen 08/23/23 08/23/23 08/23/23 16:00 16:30 19:40 WBC RBC Hgb Hct MCHC RDW Plt Count Neutrophils # Lymphocytes # Eosinophils # Crenated Cell ESR Sodium Potassium Carbon Dioxide Anion Gap BUN Creatinine Est GFR (CKD-EPI) BUN/Creatinine Ratio Glucose POC Glucose (mg/dL) 127 H 258 H Hemoglobin A1c Magnesium Total Bilirubin Creatine Kinase C-Reactive Protein Total Protein Albumin Albumin/Globulin Ratio Vitamin B12 Urine Appearance Cloudy H Urine Protein 1+ H Urine Glucose (UA) 4+ H Urine Ketones Urine Blood Large H Ur Leukocyte Esterase Large H Urine RBC >182 H Urine WBC >182 H Urine WBC Clumps Occasional H Urine Bacteria Moderate H Hyaline Casts 46 H Urine Mucus Rare H Urine Yeast (Budding) Many H Rheumatoid Factor GRETCHEN Screen 08/24/23 08/24/23 08/24/23 04:41 04:41 06:03 WBC 22.87 H RBC 3.97 L Hgb 11.5 L Hct 36.8 L MCHC 31.3 L RDW 16.0 H Plt Count Neutrophils # 21.07 H Lymphocytes # 0.64 L Eosinophils # 0.01 L Crenated Cell ESR Sodium Potassium Carbon Dioxide Anion Gap BUN 39.4 H Creatinine Est GFR (CKD-EPI) 55 L BUN/Creatinine Ratio 39.40 H Glucose 219 H POC Glucose (mg/dL) 199 H Hemoglobin A1c Magnesium Total Bilirubin Creatine Kinase C-Reactive Protein 12.60 H Total Protein 4.9 L Albumin 2.3 L Albumin/Globulin Ratio 0.88 L Vitamin B12 Urine Appearance Urine Protein Urine Glucose (UA) Urine Ketones Urine Blood Ur Leukocyte Esterase Urine RBC Urine WBC Urine WBC Clumps Urine Bacteria Hyaline Casts Urine Mucus Urine Yeast (Budding) Rheumatoid Factor GRETCHEN Screen 08/24/23 11:48 WBC RBC Hgb Hct MCHC RDW Plt Count Neutrophils # Lymphocytes # Eosinophils # Crenated Cell ESR Sodium Potassium Carbon Dioxide Anion Gap BUN Creatinine Est GFR (CKD-EPI) BUN/Creatinine Ratio Glucose POC Glucose (mg/dL) 293 H Hemoglobin A1c Magnesium Total Bilirubin Creatine Kinase C-Reactive Protein Total Protein Albumin Albumin/Globulin Ratio Vitamin B12 Urine Appearance Urine Protein Urine Glucose (UA) Urine Ketones Urine Blood Ur Leukocyte Esterase Urine RBC Urine WBC Urine WBC Clumps Urine Bacteria Hyaline Casts Urine Mucus Urine Yeast (Budding) Rheumatoid Factor GRETCHEN Screen - Diagnostic Findings Chest x-ray: image reviewed Assessment and Plan Assessment: Acute hypoxemic respiratory failure secondary to suspected aspiration pneumonia and fluid volume overload Bilateral lower extremity pain and weakness suspect secondary to severe spinal stenosis, undergoing workup Positive GRETCHEN titer and antibody suggesting possible lupus Acute kidney injury secondary to dehydration Acute urinary tract infection secondary to Klebsiella pneumoniae Urinary retention requiring Merchant catheter placement History of chronic atrial fibrillation, anticoagulated with Eliquis Diabetes mellitus Poor overall functional performance based on the above-mentioned multiple comorbidities Plan: The patient was seen and evaluated CT brain, chest x-ray, labs and medications reviewed Give Lasix 40 mg IVP every 12 hours Continue Zosyn for now Swallow evaluation Titrate the FiO2 as tolerated Obtain echocardiogram We will continue to follow and make further recommendations based on her clinical status I have personally seen and examined the patient, performed the documentation and the assessment and plan as written. Number of minutes spent on the visit: 20.
[2023-08-24 16:44] LABS: Glucose,Whole Blood 276 mg/dL (70-110)
[2023-08-24] MEDS: ATORVASTATIN 10 MG TAB PO SCH (20:24)
[2023-08-24] MEDS: FUROSEMIDE 10 MG/ML 4 ML VIAL IV SCH (20:24)
[2023-08-24 21:07] LABS: Glucose,Whole Blood 238 mg/dL (70-110)
--- NOTE | 2023-08-24 23:27 | P.PN ---
Subjective Progress Note Date: 08/24/23 This is an 88-year-old female who was recently admitted with weakness of bilateral lower extremities with significant pain and difficulty in ambulation. Patient was noted to have significant history of severe stenosis and was deemed not a surgical candidate given her age. Patient is lethargic today although arousable oral intake remains poor and patient was seen and evaluated by physical therapy awaiting notes for possible ECF. Patient maintained on antibiotics in the form of ceftriaxone with infectious disease following an urine culture showing Klebsiella pneumonia. Patient's urine is more conc entrated and having some retention requiring indwelling Merchant catheter. Patient being lethargic will limit IV narcotic use and discontinue Dilaudid and add Celebrex and adjust medications accordingly. Patient is currently afebrile with no reported chest pain or shortness of breath. Patient needs encouragement with meals. 08/20/2023 Patient seen and evaluated in follow-up today with family members at bedside. Patient is more awake and alert and reports continued significant weakness. Patient being followed by multiple medical consultations including neurology and has ordered MRI of the spine which is currently pending. Patient continues to have indwelling Merchant catheter and urine is significantly concentrated with scant amount of blood and sediment noted and is being maintained on IV antibiotics with infectious disease following 4 Klebsiella UTI. Patient is afebrile with no reported chest pain or shortness of breath. Patient's blood sugars are uncontrolled and have resume long-acting along with sliding scale and will add pre-meal insulins. Continue consistent carb, low potassium diet. Encouraged to increase activity as tolerated and recommended physical therapy daily. Case management following plan is for ECF once stabilized discharge. 08/21/2023 Patient is seen in follow-up today more awake and alert AND is with significant weakness. Patient is being scheduled for MRI of the cervical and lumbar spine with neurology following closely. Patient is also continued on antibiotics with infectious disease following for Klebsiella pneumonia noted in the urine. Blood cultures remain negative. Blood sugars are extremely uncontrolled with hyper and hypoglycemia and will adjust the medications accordingly. Dietary following and will continue low potassium with consistent carb diet. Encouraged oral intake as patient is not eating very much. Family at bedside reports he is eating better than yesterday. Continue with physical therapy daily. Concerns with positive GRETCHEN and titer is elevated at 1/320 which is significant and further lab tests being ordered by neurology will attempt to consult rheumatology and appreciate input and recommendations. Patient is maintained on Tylenol and having some continued pain will add low-dose Ultram and monitor mentation. Patient is currently afebrile with reports of chest pain or shortness of breath. No reported nausea or vomiting and tolerating oral intake 08/22/2023 Patient is seen in follow-up and continues to report pain most significantly in her lower extremities and her right hip and is having very little improvement. Family reports have noticed significant sleepiness since starting Cymbalta and requesting to have it discontinued. Patient is maintained on Ultram along with Tylenol as needed and will add low-dose gabapentin as needed as well. Patient did have positive GRETCHEN and DNA stranding suggesting lupus and after further discussion with the patient, patient reported she was told she had this years ago although unsure when. Family was not aware of this. Patient continues with right upper and lower extremity weakness and family is concerned as patient had a stroke. Will obtain CT brain. Patient was on a course of steroids with no relief other than causing increased uncontrollable diabetes leading to insulin drip. Patient is afebrile with no reported chest pain or shortness of breath. Patient is making little improvement on working with physical therapy. Patient will need ECF on discharge for continued strength and mobility. 08/23/2023 Patient is currently lying in the bed. Awake, alert but lethargic and weak. Patient does have a minimal oral intake. Also requiring oxygen at 2 L via nasal cannula. Patient is also retaining urine requiring straight catheterization x2 and Merchant cath is being placed today. Patient has been afebrile. No nausea vomiting. Patient did not have any bowel movement today. Repeat UA and chest x-ray was ordered. Patient is being current on ceftriaxone 1 g daily for urinary tract infection. Urine culture showed Klebsiella. Laboratory data showed WBC count increasing to 18.3 hemoglobin 12.2 and platelets 219 Sodium 134 potassium 3.8 chloride 103 bicarb is 25 BUN 40 and creatinine 0.89 and blood sugar is 125. CRP 6.8. 08/24/2023 Patient is currently lying in bed. Awake alert but seems to be lethargic and weak. Requiring 5 L oxygen via nasal cannula. Patient is saturating at 94%. No complaints of chest pain or shortness of breath. Patient has been afebrile. Chest x-ray yesterday showed right lower lobe airspace opacities concerning for pneumonia. Correlate for aspiration. Small pleural effusion correlate for CHF. Patient was started on Zosyn last night and was also given a dose of IV Lasix. Pulmonary was consulted for further evaluation. Laboratory data showed WBC 22.8 hemoglobin 11.5 and platelets 224 BUN 39.4 and c reatinine 1.0 and blood sugar is 219 this morning. CRP 12.6 Repeat urinalysis showed cloudy with 1+ protein 4+ glucose and large blood, large leukocyte esterase. RBCs and WBCs. Patient is on Merchant catheter. Current medications reviewed. Review of systems: Constitutional: reports of fatigue, no fever, or chills Cardiovascular: No reports of chest pain or palpitations Respiratory: No reports of shortness of breath or cough GI: No reports of nausea, no reports of vomiting, reports not much of an appetite and is reporting to eating very little today : No reports of dysuria nursing staff reported retention requiring indwelling Merchant catheter, Merchant catheter was removed today Neurovascular: reports of generalized weakness, difficulty in ambulating All medications have been reviewed PHYSICAL EXAMINATION: GENERAL: The patient is alert and oriented x2, lethargic today, Well developed, ill-appearing, elderly appearing HEENT: Pupils are round and equally reacting to light. EOMI. no scleral icterus. No conjunctival pallor. Normocephalic, atraumatic. No pharyngeal erythema. No thyromegaly. CARDIOVASCULAR: S1 and S2 muffled PULMONARY: diminished breath sounds bilaterally with no wheezing or rhonchi noted. ABDOMEN: soft. Nontender on exam. non-distended, normoactive bowel sounds. No palpable organomegaly. MUSCULOSKELETAL: No joint swelling or deformity. EXTREMITIES: No cyanosis, clubbing, or pedal edema. NEUROLOGICAL: Gross neurological examination did not reveal any focal deficits. Diffuse weakness, significant muscle wasting noted SKIN: No rashes. Assessment: Acute hypoxic respiratory failure requiring 5 L oxygen via nasal cannula likely due to aspiration pneumonia and fluid load. Bilateral lower extremity pain and weakness, likely secondary to severe spinal stenosis, undergoing further workup and MRI cervical and lumbar was negative for significant findings other than degenerative disc disease with stenosis at multiple levels generalized body aches of the back and lower extremity Positive GRETCHEN titer and antibody and DNA strand was positive suggesting lupus. Patient reports being told she had lupus years ago although unsure when and family had no recollection of this Acute kidney injury likely secondary to poor oral intake and dehydration Acute urinary tract infection with Klebsiella pneumonia, present on admission Urinary retention requiring indwelling Merchant catheter, Merchant removed today due to void Chronic persistent atrial fibrillation, currently rate controlled Diabetes mellitus, type II, uncontrolled with hyper glycemia Gait dysfunction and generalized weakness History of osteoarthritis GI prophylaxis DVT prophylaxis Full code Plan: Patient presented with significant pain in the lower extremities and inability to ambulate although was supposedly ambulatory a few days prior to admission Extensive neurological workup with no plans of surgical intervention. Concerned with positive GRETCHEN and titer is elevated, discussed with neurology and DNA strands were positive suggesting lupus. After further discussion with the patient she reported she was told by hematology that she follows with that she had lupus although family was not aware of this, patient had been maintained on IV steroids and showed no improvement and were discontinued due to continued persistent uncontrolled elevated blood sugars West Nile virus is negative Patient continue on IV antibiotics with infectious disease following for Klebsiella pneumonia Family reporting they feel she is more fatigued and lethargic with Cymbalta being started and will discontinue. Make gabapentin when necessary and continue with Ultram and Tylenol as needed Patient with extremely uncontrolled blood sugars with hyper and hypoglycemia currently off insulin drip maintained on long-acting along with sliding scale and pre-meal insulin. Will adjust and monitor closely Continue with physical therapy daily and discussed with case management for ECF. Patient will need ECF on discharge. Patient making minimal improvements and is almost maximum assist and due to pain has been not working very well with physical therapy. Encouraged increased activity as tolerated Patient is still retaining urine requiring straight catheterization. Merchant catheter was replaced. Repeat urinalysis was ordered. Patient will be continued on Zosyn for aspiration pneumonia. Started on IV Lasix 40 mg twice daily. Pulmonary and ID is on board. Attempted to consult rheumatology to appreciate input and recommendations although no available rheumatology services at this time and will refer outpatient Family discussing further with other members of the family about CODE STATUS and will update nursing staff. No code is appropriate for this patient given significant comorbidities and age. Due to Multiple complex medical issues, prognosis is guarded Objective - Vital Signs Vital signs: Vital Signs Temp 97.5 F L 08/24/23 20:00 Pulse 82 08/24/23 20:00 Resp 20 08/24/23 13:00 BP 121/81 08/24/23 20:00 Pulse Ox 91 L 08/24/23 20:00 FiO2 Intake & Output 08/24/23 08/24/23 08/25/23 06:59 18:59 06:59 Output Total 610 1025 Balance -610 -1025 Weight 94.5 kg Output: Urine 610 1025 Other: Voiding Method Indwelling Catheter - Labs CBC & Chem 7: 08/24/23 04:41 08/24/23 04:41 Labs: Abnormal Lab Results - Last 24 Hours (Table) 08/24/23 08/24/23 08/24/23 Range/Units 04:41 04:41 06:03 WBC 22.87 H (4.50-10.00) X 10*3/uL RBC 3.97 L (4.10-5.20) X 10*6/uL Hgb 11.5 L (12.0-15.0) d/dL Hct 36.8 L (37.2-46.3) % MCHC 31.3 L (32.0-37.0) d/dL RDW 16.0 H (11.5-14.5) % Neutrophils # 21.07 H (1.80-7.70) X 10*3/uL Lymphocytes # 0.64 L (0.90-5.00) X 10*3/uL Eosinophils # 0.01 L (0.04-0.35) X 10*3/uL BUN 39.4 H (9.0-27.0) mg/dL Est GFR (CKD-EPI) 55 L (>=60) BUN/Creatinine Ratio 39.40 H (12.00-20.00) Ratio Glucose 219 H (70-110) mg/dL POC Glucose (mg/dL) 199 H (70-110) mg/dL C-Reactive Protein 12.60 H (0.00-0.80) mg/dL Total Protein 4.9 L (6.2-8.2) d/dL Albumin 2.3 L (3.8-4.9) d/dL Albumin/Globulin Ratio 0.88 L (1.60-3.17) Ratio 08/24/23 08/24/23 08/24/23 Range/Units 11:48 16:43 21:04 WBC (4.50-10.00) X 10*3/uL RBC (4.10-5.20) X 10*6/uL Hgb (12.0-15.0) d/dL Hct (37.2-46.3) % MCHC (32.0-37.0) d/dL RDW (11.5-14.5) % Neutrophils # (1.80-7.70) X 10*3/uL Lymphocytes # (0.90-5.00) X 10*3/uL Eosinophils # (0.04-0.35) X 10*3/uL BUN (9.0-27.0) mg/dL Est GFR (CKD-EPI) (>=60) BUN/Creatinine Ratio (12.00-20.00) Ratio Glucose (70-110) mg/dL POC Glucose (mg/dL) 293 H 276 H 238 H (70-110) mg/dL C-Reactive Protein (0.00-0.80) mg/dL Total Protein (6.2-8.2) d/dL Albumin (3.8-4.9) d/dL Albumin/Globulin Ratio (1.60-3.17) Ratio Microbiology - Last 24 Hours (Table) 08/23/23 16:00 Urine Culture - Preliminary Urine,Voided Group D Enterococcus
[2023-08-25] MEDS: PIPERACILLIN-TAZOBACTAM 3.375 GM in SODIUM CHLORIDE 0.9% 100 ML IVPB SCH ×2 (06:23→15:02)
[2023-08-25 06:24] LABS: Glucose,Whole Blood 188 mg/dL (70-110)
[2023-08-25] MEDS: INSULIN ASPART (NovoLOG) 100 UNIT/ML VIAL SQ SCH ×6 (06:42→17:24)
[2023-08-25] MEDS ORDERED: INSULIN DETEMIR (LEVEMIR) 100 UNIT/ML SYR SQ SCH (07:00)
[2023-08-25 08:50] LABS: Basophils # (A) 0.02 X 10*3/uL (0.00-0.10); Basophils % (A) 0.1 %; Eosinophils # (A) 0 X 10*3/uL (0.04-0.35); Eosinophils % (A) 0 %; HCT 33.4 % (37.2-46.3); HGB 10.4 d/dL (12.0-15.0); Lymphocytes # (A) 0.57 X 10*3/uL (0.90-5.00); Lymphocytes % (A) 3.1 %; MCH 28.8 pg (27.0-32.0); MCHC 31.1 d/dL (32.0-37.0); MCV 92.5 FL (80.0-97.0); Mean Platelet Volume 10.6 FL (9.5-12.2); Monocytes # (A) 0.82 X 10*3/uL (0.20-1.00); Monocytes % (A) 4.5 %; NRBC Per 100 WBC 0 X 10*3/uL (0.00-0.01); Neutrophils # (A) 16.86 X 10*3/uL (1.80-7.70); Neutrophils % (A) 91.8 %; Platelet Count 231 X 10*3/uL (140-440); RBC 3.61 X 10*6/uL (4.10-5.20); RDW 16.1 % (11.5-14.5); WBC 18.36 X 10*3/uL (4.50-10.00)
[2023-08-25] MEDS: ONDANSETRON 4 MG/2 ML VIAL IVP PRN ×2 (08:57→15:01)
[2023-08-25 09:25] LABS: BUN/Creat Ratio 35.08 Ratio (12.00-20.00); Blood Urea Nitrogen 42.1 mg/dL (9.0-27.0); Calcium 8.9 mg/dL (8.7-10.3); Carbon Dioxide 23.7 mmol/L (21.6-31.8); Chloride 104 mmol/L (96-109); Glucose 198 mg/dL (70-110); Potassium 3.5 mmol/L (3.5-5.5); Sodium 139 mmol/L (135-145)
[2023-08-25] MEDS: AMIODARONE 200 MG TAB PO SCH (10:21)
[2023-08-25] MEDS: DOCUSATE 100 MG CAP PO SCH (10:21)
[2023-08-25] MEDS: APIXABAN 5 MG TAB PO SCH (10:21)
[2023-08-25] MEDS: FLUCONAZOLE 100 MG TAB PO SCH (10:21)
[2023-08-25] MEDS: FAMOTIDINE 20 MG TAB PO SCH (10:21)
[2023-08-25] MEDS: NON FORMULARY DRUG (Glucosamine/Chondr Su A Sod [Osteo Bi-Flex Caplet] 1 EACH Tablet) PO SCH (10:21)
[2023-08-25] MEDS: DAPAGLIFLOZIN PROPANEDIOL 5 MG TABLET PO SCH (10:21)
[2023-08-25] MEDS: NON FORMULARY DRUG (Neuriva 1 CAP) PO SCH (10:22)
[2023-08-25] MEDS: MELOXICAM 7.5 MG TAB PO SCH (10:22)
[2023-08-25] MEDS: METOPROLOL SUCCINATE (ER) 50 MG TAB.ER.24H PO SCH (10:22)
[2023-08-25] MEDS: NON FORMULARY DRUG (Prevagen 1 CAP) PO SCH (10:22)
[2023-08-25] MEDS: NYSTATIN 100,000 UNIT/ML SUSP 500,000 UNIT/5 ML CUP PO SCH ×3 (10:22→17:24)
[2023-08-25] MEDS: FUROSEMIDE 10 MG/ML 4 ML VIAL IV SCH (11:30)
[2023-08-25 12:22] LABS: Glucose,Whole Blood 191 mg/dL (70-110)
[2023-08-25 13:48] VITALS: BMI 33.4
--- NOTE | 2023-08-25 14:29 | P.PN ---
Subjective Progress Note Date: 08/25/23 This is an 88-year-old female patient with a history of atrial fibrillation anticoagulated with Eliquis, diabetes mellitus, hypertension, osteoarthritis, lifetime nonsmoker. She presented here to the emergency department back on 08/14/2023 with his generalized aches pains weakness and poor appetite. She is being treated for severe spinal stenosis, possible lupus, acute kidney injury, urinary tract infection with Klebsiella pneumoniae. We're consulted today as she had developed increasing lethargy, shortness of breath and hypoxemia. Initially on room air and currently on 5 L nasal cannula. Computed tomography scan of the brain revealed no acute intracranial process. Chest x-ray reveals right lower lobe airspace opacity possible aspiration. Small bilateral effusions and fluid volume overload. White count 22.8. Hemoglobin 11.5. Platelets 224. Sodium 136. Potassium 4.6. Bicarb 23. BUN 39. Creatinine 1.0. Glucose 219. She is currently on Zosyn. The patient is seen today on 08/25/2023 in follow-up on the regular medical floor. She is currently resting in bed. Awake and alert. Somewhat nauseated. She is maintaining O2 saturations in the 90s on 10 L high flow nasal cannula. She's afebrile. Hemodynamically stable. Urine cultures positive for Klebsiella pneumoniae and group D enterococcus. Blood culture revealed no growth. White count 18.3. Hemoglobin 10.4. Platelets 231. Sodium 139. Potassium 3.5. Bicarb 24. BUN 42. Creatinine 1.2. Glucose 198. She is currently on Zosyn. Remains on IV diuretics. Anticoagulated with Eliquis. Currently in a -1 L balance. ProBNP 12,900, pro-calcitonin pending. Echocardiogram pending. Objective - Vital Signs Vital signs: Vital Signs Temp 97.4 F L 08/25/23 07:09 Pulse 79 08/25/23 07:09 Resp 18 08/25/23 07:09 BP 104/68 08/25/23 07:09 Pulse Ox 90 L 08/25/23 12:50 FiO2 Intake & Output 08/24/23 08/25/23 08/25/23 18:59 06:59 18:59 Output Total 1025 Balance -1025 Weight 94 kg 94 kg Output: Urine 1025 Other: Voiding Method Indwelling Catheter Indwelling Catheter # Voids 1,270 - Exam GENERAL EXAM: Awake, alert, nauseated, 88-year-old female, on 10 L nasal cannula, fairly comfortable in no apparent distress. HEAD: Normocephalic. EYES: Normal reaction of pupils, equal size. NOSE: Clear with pink turbinates. THROAT: No erythema or exudates. NECK: No masses, no JVD. CHEST: No chest wall deformity. LUNGS: Equal air entry with crackles in bilateral bases, few scattered rhonchi. CVS: S1 and S2 normal with no audible murmur, regular rhythm. ABDOMEN: No hepatosplenomegaly, normal bowel sounds, no guarding or rigidity. SPINE: No scoliosis or deformity SKIN: No rashes CENTRAL NERVOUS SYSTEM: No focal deficits, tone is normal in all 4 extremities. EXTREMITIES: There is no peripheral edema. No clubbing, no cyanosis. Peripheral pulses are intact. - Labs CBC & Chem 7: 08/25/23 05:18 08/25/23 05:18 Labs: Abnormal Lab Results - Last 24 Hours (Table) 08/24/23 08/24/23 08/25/23 Range/Units 16:43 21:04 05:18 WBC 18.36 H (4.50-10.00) X 10*3/uL RBC 3.61 L (4.10-5.20) X 10*6/uL Hgb 10.4 L (12.0-15.0) d/dL Hct 33.4 L (37.2-46.3) % MCHC 31.1 L (32.0-37.0) d/dL RDW 16.1 H (11.5-14.5) % Neutrophils # 16.86 H (1.80-7.70) X 10*3/uL Lymphocytes # 0.57 L (0.90-5.00) X 10*3/uL Eosinophils # 0 L (0.04-0.35) X 10*3/uL BUN (9.0-27.0) mg/dL Est GFR (CKD-EPI) (>=60) BUN/Creatinine Ratio (12.00-20.00) Ratio Glucose (70-110) mg/dL POC Glucose (mg/dL) 276 H 238 H (70-110) mg/dL 08/25/23 08/25/23 08/25/23 Range/Units 05:18 06:22 12:18 WBC (4.50-10.00) X 10*3/uL RBC (4.10-5.20) X 10*6/uL Hgb (12.0-15.0) d/dL Hct (37.2-46.3) % MCHC (32.0-37.0) d/dL RDW (11.5-14.5) % Neutrophils # (1.80-7.70) X 10*3/uL Lymphocytes # (0.90-5.00) X 10*3/uL Eosinophils # (0.04-0.35) X 10*3/uL BUN 42.1 H (9.0-27.0) mg/dL Est GFR (CKD-EPI) 44 L (>=60) BUN/Creatinine Ratio 35.08 H (12.00-20.00) Ratio Glucose 198 H (70-110) mg/dL POC Glucose (mg/dL) 188 H 191 H (70-110) mg/dL Microbiology - Last 24 Hours (Table) 08/23/23 16:00 Urine Culture - Preliminary Urine,Voided Group D Enterococcus Assessment and Plan Assessment: Acute hypoxemic respiratory failure secondary to suspected aspiration pneumonia and fluid volume overload and protocols tone and pending. ProBNP 12,900. Echocardiogram pending. Currently on Zosyn and diuretics. Bilateral lower extremity pain and weakness suspect secondary to severe spinal stenosis, undergoing workup Positive GRETCHEN titer and antibody suggesting possible lupus Acute kidney injury secondary to dehydration Acute urinary tract infection secondary to Klebsiella pneumoniae Urinary retention requiring Merchant catheter placement History of chronic atrial fibrillation, anticoagulated with Eliquis Diabetes mellitus Poor overall functional performance based on the above-mentioned multiple comorbidities Plan: The patient was seen and evaluated Labs and medications reviewed Continue Lasix 40 mg IVP every 12 hours Echocardiogram pending Procalcitonin pending Continue Zosyn Swallow evaluation Titrate the FiO2 as tolerated Prognosis is guarded DO NOT RESUSCITATE/DO NOT INTUBATE CODE STATUS We will continue to follow I have personally seen and examined the patient, performed the documentation and the assessment and plan as written. Number of minutes spent on the visit: 10.
[2023-08-25] MEDS ORDERED: SCOPOLAMINE 1 MG/72 HR PATCH TRANSDERM SCH (15:00)
[2023-08-25 15:24] VITALS: BP 107/75; PULSE 116; RESP 16; TEMP 98
[2023-08-25] MEDS ORDERED: METOCLOPRAMIDE 5 MG/ML 2 ML VIAL IVP PRN (17:20)
[2023-08-25] MEDS: traMADol 50 MG TAB PO PRN (18:49)
--- NOTE | 2023-08-25 21:03 | P.DS ---
Providers Date of admission: 08/15/23 13:07 Expected date of discharge: 08/25/23 Attending physician: Ana Novoa Consults: 08/15/23 13:07 Consult Physician Urgent Consulting Provider: Yanci Cunningham Consult Reason/Comments: neck, back, lumbar weakness, inability to ambulate Do you want consulting provider notified?: Yes 08/16/23 10:31 Consult Physician Routine Consulting Provider: Roberto Gerard Consult Reason/Comments: infection? Do you want consulting provider notified?: Yes 08/24/23 10:53 Consult Physician Urgent Consulting Provider: Ashley Guan Consult Reason/Comments: respiratory failure Do you want consulting provider notified?: Yes Primary care physician: Raissa Munguia Hospital Course: Final diagnosis Acute hypoxic respiratory failure requiring 10 L high flowoxygen via nasal cannula likely due to aspiration pneumonia and fluid overload. Bilateral lower extremity pain and weakness, likely secondary to severe spinal stenosis Severe degenerative disc disease is generalized body aches of the back and lower extremity Positive GRETCHEN titer and antibody and DNA strand was positive suggesting lupus. Patient reports being told she had lupus years ago although unsure when and family had no recollection of this Acute kidney injury likely secondary to poor oral intake and dehydration Acute urinary tract infection with Klebsiella pneumonia, present on admission repeat urine culture showing enterococcus with VRE Urinary retention requiring indwelling Merchant cathete Chronic persistent atrial fibrillation, currently rate controlled Diabetes mellitus, type II, uncontrolled with hyper glycemia as well as hypoglycemia Gait dysfunction and generalized weakness History of osteoarthritis GI prophylaxis DVT prophylaxis no code Discharge disposition Patient is being transitioned to a clear and hospice GIP and has not criteria with comfort measures. Total time taken is greater than 35 minutes. Hospital course This is a 88-year-old female who was recently admitted with severe lower back pain and progressive weakness with difficulty in ambulation. Patient has significant comorbidities and has had prolonged hospitalization with no significant improvement. Patient has gone through urinary tract infection and repeat urinalysis with culture now showing enterococcus faecium VRE continuing to have significant respiratory decline requiring 10 L high flow with concerns of aspiration pneumonia as well as volume overload. Patient has not been eating and is a diabetic and has had extremely uncontrolled blood sugars. Multiple medical consultations following with no significant improvement and patient was deemed not a surgical candidate given her age and other comorbidities for any surgical interventions on her lower back for the stenosis. Family discussed further discussing CODE STATUS and patient was made no code. Other family members arrived today from out of town and discuss further and have requested a hospice informational meeting. Family met with them and willing to proceed with hospice per family and patient wishes. Patient meets criteria given significant clinical decline requiring increased oxygen demands, significant weakness and no oral intake. Please refer to other consultation notes for further HPI. Overall poor prognosis. Currently no reports of chest pain, reports shortness of breath, denies palpitations. Patient is afebrile. reports of nausea with no vomiting and patient is not tolerating any oral intake. Patient will be transitioned to [facility] hospice comfort measures only later today. Awaiting further family members to arrive. Physical exam: Gen: This is a 78-year-old female who was lethargic although arousable, ill- appearing, elderly appearing, obese HEENT: Head is atraumatic, normocephalic. Pupils equal, round. Sclerae is anicteric. NECK: Supple. No JVD. No lymphadenopathy. No thyromegaly. LUNGS: Diminished breath sounds bilaterally with coarse rhonchi and crackles noted at the bases. No intercostal retractions. HEART: Regular rate and rhythm. No murmur. ABDOMEN: Soft. Bowel sounds are present. No masses. No tenderness. EXTREMITIES: No pedal edema. No calf tenderness. NEUROLOGICAL: Patient is asleep although easily arousable, alert and oriented x3. Diffusely weak Please refer to medication reconciliation sheet for a list of medications. The impression and plan of care has been dictated by Dolores Chaudhari, Nurse Practitioner as directed. Dr. Derek MD I have performed a history and examination and MDM of this patient, discussed the same with the dictator, and agree with the dictator's assessment and plan as written ,documented as a scribe. Based on total visit time, I have performed more than 50% of the visit. Patient Condition at Discharge: Poor Plan - Discharge Summary Discharge Rx Participant: No New Discharge Prescriptions: No Action Ergocalciferol [Vitamin D2 (DRISDOL)] 100,000 unit PO Q30D Acetaminophen-Codeine 300-30mg [Tylenol w/codeine #3] 1 tab PO BID PRN PRN Reason: Pain calcitrioL [Calcitriol] 0.25 mcg PO MOWEFR Rosuvastatin Calcium 5 mg PO HS Glucosamine/Chondr Belcher A Sod [Osteo Bi-Flex Caplet] 1 tab PO DAILY Metoprolol Succinate (ER) [Toprol Xl] 50 mg PO DAILY Dapagliflozin Propanediol [Farxiga] 5 mg PO DAILY Apixaban [Eliquis] 5 mg PO BID Amiodarone [Cordarone] 200 mg PO DAILY Prevagen 1 cap PO DAILY Neuriva 1 cap PO DAILY Docusate [Colace] 100 mg PO DAILY Discharge Medication List Ergocalciferol [Vitamin D2 (DRISDOL)] 100,000 unit PO Q30D 02/25/17 [History] Acetaminophen-Codeine 300-30mg [Tylenol w/codeine #3] 1 tab PO BID PRN 08/14/23 [History] Amiodarone [Cordarone] 200 mg PO DAILY 08/14/23 [History] Apixaban [Eliquis] 5 mg PO BID 08/14/23 [History] Dapagliflozin Propanediol [Farxiga] 5 mg PO DAILY 08/14/23 [History] Docusate [Colace] 100 mg PO DAILY 08/14/23 [History] Glucosamine/Chondr Belcher A Sod [Osteo Bi-Flex Caplet] 1 tab PO DAILY 08/14/23 [History] Metoprolol Succinate (ER) [Toprol Xl] 50 mg PO DAILY 08/14/23 [History] Neuriva 1 cap PO DAILY 08/14/23 [History] Prevagen 1 cap PO DAILY 08/14/23 [History] Rosuvastatin Calcium 5 mg PO HS 08/14/23 [History] calcitrioL [Calcitriol] 0.25 mcg PO MOWEFR 08/14/23 [History] Follow up Appointment(s)/Referral(s): Joann ramey Rives, [NON-STAFF] - As Needed Raissa Munguia MD [Primary Care Provider] - 1-2 days Discharge Disposition: HOME WITH HOSPICE
--- NOTE | 2023-08-26 09:58 | P.PN ---
Subjective Progress Note Date: 08/25/23 Patient was seen initially on 08/16/2023, then followed up on 08/17/2023. Thereafter for 1 week, Dr. Huddleston was following the patient. Please refer to his notes for details. Patient was seen for a follow-up. Multiple family members were present today. Patient appears to be in distress, diffuse pain all over. Patient could not tell where the pain is. She states that she is sick to stomach, wants to throw up. She feels hot and cold. She feels sore "all over". Patient has developed pneumonia, now being on Zosyn. She already has been treated for UTI. Family members says that she is lethargic the entire time. Objective - Vital Signs Vital signs: Vital Signs Temp 98.0 F 08/25/23 14:00 Pulse 116 H 08/25/23 14:00 Resp 16 08/25/23 14:00 BP 107/75 08/25/23 14:00 Pulse Ox 95 08/25/23 14:00 FiO2 Intake & Output 08/24/23 08/25/23 08/25/23 18:59 06:59 18:59 Output Total 1025 Balance -1025 Weight 94 kg 94 kg Output: Urine 1025 Other: Voiding Method Indwelling Catheter Indwelling Catheter # Voids 1,270 - Exam On examination, patient appears to be delirious, somewhat in distress because of diffuse body pains. She appears to be in agony. Speech and language functions are normal. Patient not able to concentrate to tell about a month year city or state. She is just in too much pain. Family mentions that the pain is in her back. On cranial nerve examination pupils are equal, round and reacting. Face is symm etric. Visual vargas are full. 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 In the lower limbs (right/left) Hip flexion is 2/3+, Ankle dorsiflexion 5-/5. Deep tendon reflexes are (right/left) biceps 1+/1, brachioradialis 1/1, knee trace/trace, absent ankles. - Labs CBC & Chem 7: 08/25/23 05:18 08/25/23 05:18 Labs: Abnormal Lab Results - Last 24 Hours (Table) 08/24/23 08/25/23 08/25/23 Range/Units 21:04 05:18 05:18 WBC 18.36 H (4.50-10.00) X 10*3/uL RBC 3.61 L (4.10-5.20) X 10*6/uL Hgb 10.4 L (12.0-15.0) d/dL Hct 33.4 L (37.2-46.3) % MCHC 31.1 L (32.0-37.0) d/dL RDW 16.1 H (11.5-14.5) % Neutrophils # 16.86 H (1.80-7.70) X 10*3/uL Lymphocytes # 0.57 L (0.90-5.00) X 10*3/uL Eosinophils # 0 L (0.04-0.35) X 10*3/uL BUN 42.1 H (9.0-27.0) mg/dL Est GFR (CKD-EPI) 44 L (>=60) BUN/Creatinine Ratio 35.08 H (12.00-20.00) Ratio Glucose 198 H (70-110) mg/dL POC Glucose (mg/dL) 238 H (70-110) mg/dL Procalcitonin (0.02-0.09) ng/mL 08/25/23 08/25/23 08/25/23 Range/Units 06:22 10:27 12:18 WBC (4.50-10.00) X 10*3/uL RBC (4.10-5.20) X 10*6/uL Hgb (12.0-15.0) d/dL Hct (37.2-46.3) % MCHC (32.0-37.0) d/dL RDW (11.5-14.5) % Neutrophils # (1.80-7.70) X 10*3/uL Lymphocytes # (0.90-5.00) X 10*3/uL Eosinophils # (0.04-0.35) X 10*3/uL BUN (9.0-27.0) mg/dL Est GFR (CKD-EPI) (>=60) BUN/Creatinine Ratio (12.00-20.00) Ratio Glucose (70-110) mg/dL POC Glucose (mg/dL) 188 H 191 H (70-110) mg/dL Procalcitonin 0.27 H (0.02-0.09) ng/mL Microbiology - Last 24 Hours (Table) 08/23/23 16:00 Urine Culture - Preliminary Urine,Voided Group D Enterococcus Assessment and Plan Assessment: * 88-year-old female, otherwise healthy, presented with 4 week history of leg pains, changes in the personality, with 5 day history of diffuse body pains from neck all the way to the feet, and also severe headache 08/19. Patient is hallucinating, encephalopathic. Patient is slightly tremulous. Encep halopathy due to urosepsis. Denies off any further headaches. No confusion.--mentation has improved. Unsure if patient had lupus exacerbation. * Acute on chronic lower back pain. On examination has lowers > upper extremity weakness: Rule out any cervical or lumbar severe stenosis. Possible urosepsis exacerbated her lower back pain. * Elevated rheumatoid factor 18/15 with elevated ESR 77 and CRP 29/0.8. Repeat ESR is 25, which is normal. * Probable UTI with urine cultures growing greater than 100,000 CFU per mL Klebsiella pneumoniae, treated * Newly developed pneumonia. Patient on Zosyn. * Lupus for past couple years * Diabetes * Atrial fibrillation, currently on Eliquis * Hypertension * Osteoarthritis Plan: * CT lumbar spine showed moderate to advanced multilevel spondylotic change. No vertebral compression collapse or malalignment. Focal moderate spinal canal stenosis at L1-L2 and L3-L4. Variable neuro foraminal stenosis, moderate to severe on the left at L5-S1 and on the right at L1-L2. * CT Thoracic spine revealed mild/moderate degenerative disc disease. Scattered facet arthropathy. No vertebral compression collapse or malalignment. 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 * CT Cervical spine showed moderate multilevel spondylotic change in the cervical spine with degenerative grade 1 spondylolisthesis C3-C4, C4-C5, C5- C6, C6-C7. Overall moderate spinal canal stenosis at C5-C6 and C6-C7. Variable neural foraminal stenosis. Overall, S shaped scoliosis throughout the spine. Grade discourage her in the lumbar spine and secondary left lateral subluxation at L3-L4. * Patient currently on ceftriaxone for UTI. * West Nile virus serology is negative. * MRI of the cervical spine is reported as multilevel degenerative disc disease. Borderline mild central stenosis at C5-C6 and C6-C7. Varying degree of bilateral foraminal encroachment. * MRI lumbar spine is reported as multilevel degenerative disc disease with disc endplate complex seen at several levels. Mild central stenosis and right for maternal encroachment at L1-L2. Borderline stenosis at L3-L4. Left lateral recess stenosis at L4 5. Varying degree of foraminal encroachment. * Dr. Eleazar Huddleston head discussed with the family members regarding her MRI results of the cervical and lumbar and they stated that stated that its chronic and they want to hold off any orthopedic surgical intervention at this time. * Patient continues to have significant weakness mostly in the lower than upper extremity can consider LP. * Rheumatoid factor is mildly elevated . GRETCHEN is positive. Titer level: 1:320. Her antidsDNA is positive. She states she is known to have Lupus and was diagnosed by her Athletic Events Scorer a couple years ago per patient. According to her family members they're not aware that she had lupus. Suggest rheumatology consultation. Consider starting her on steroids. I discussed with Dr. Reed about steroids. He mentioned that patient received Solu- Medrol 60 mg IV every 6 hours that was started on 08/16/2023, but did not help, therefore it was stopped on 08/19/2023. Only blood sugars were elevated, without any clinical improvement. * For pain that the patient was started on gabapentin 100 mg 1 tablet 3 times a day when necessary. Cymbalta was discontinued since the per family member she was too sleepy. Patient currently on tramadol 50-grams every 8 hours as needed. * Folic acid 12.30, B12 > 3600 * Hemoglobin A1c 7.9. * Initial CK level is 208 and the repeated is 67. * PT and OT are consulted * Family is considering hospice care. Discussed with Dr. Reed in detail. Addendum: 08/26/2023 Spoke to patient's son on the phone. Informed him that patient already has tried SoluMedrol without any improvement. Her son concurred that there was no improvement with the steroids whatsoever. Neurologically I cannot think of any other workup except for possible pursuing lumbar puncture. For that she has to be off Eliquis for 7 days before lumbar puncture can be performed. Patient's son states that the amount of pain she is in, he does not believe it's the best option for her. He believes that her heart would not able to tolerate lumbar puncture because of the pain and the stress. He declined lumbar puncture. Informed him that if there is any rheumatological conditions causing her symptoms, I cannot comment, may need rheumatological consultation. He confirmed that patient never has been diagnosed with lupus in the past. Whatever she told Dr. Huddleston was incorrect, and probably she was confused at that time. Patient at this time has been discharged and status change to hospice. Encouraged to call neurology service if any concerns.
--- NOTE | 2023-08-27 10:39 | CDI ---
Documentation Clarification Form Date: 08/27/2023 10:13:15 AM From: Lindsay Barraza Admit Date: 08/15/2023 01:07:00 PM Patient Name: Aileen Rosales Visit Number: [id number] Discharge Date: 08/25/2023 07:37:00 PM ATTENTION: The Clinical Documentation Specialists (CDI) and [facility] Coding Staff appreciate your assistance in clarifying documentation. Please respond to the clarification below the line at the bottom and electronically sign. The CDI & [facility] Coding staff will review the response and follow-up if needed. Please note: Queries are made part of the Legal Health Record. If you have any questions, please contact the author of this message via ITS. Dr. Ana Novoa Aspiration pneumonia is documented in the DCS and PN 08/24. For each diagnosis, documentation must be clear to determine if the condition was present at the time of the patients inpatient admission or developed during the hospital stay. Additional clarification regarding aspiration pneumonia is requested. History/Risk Factors: Patient with Acute hypoxic respiratory failure. Klebsiella pneumoniae UTI POA Clinical Indicators: 08/23 CXR Correlate for aspiration pneumonia, fever of 99.8F on admit, O2 sat down to 90% on RA on Aug.14, CXR 08/14 increased interstitial density could represent bronchitis or asthma. Treatment: 10L high flow oxygen via NC, Rocephin and Zosyn Definition of Present on Admission (POA): A diagnosis present at the time the order for admission to inpatient status was written. Please clarify if aspiration pneumonia was POA [ ] Y = Yes, the condition was present at the time of the order for inpatient admission. [ ] N = No, the condition was not present at the time of the order for inpatient admission. [ ] W = Clinically undetermined if the condition was present at the time of the order for inpatient admission. Y = Yes, the condition was present at the time of the order for inpatient admission. MTDD
--- NOTE | 2023-09-01 12:56 | P.PN ---
Subjective Progress Note Date: 08/24/23 Principal diagnosis: Klebsiella urinary tract infection Patient is a 88-year-old female with a past medical history significant for Atrial Fibrillation, Blood Disorder, Diabetes Mellitus, Hypertension, Osteoarthritis (OA) presenting to the hospital for evaluation of generalized body aches pain in her back and bilateral legs low-grade fever nausea and decreased appetite , patient did have a positive UA Unasyn concerning for a symptomatic UTI On today's evaluation and that is 08/24/2023, the patient remains to be afebrile, the patient is complaining of shortness of breath and requiring more supplemental oxygen , the patient denies chest pain did have a cough but not bring up any sputum, patient denies nausea/vomiting or diarrhea and denies any abdominal pain Patient did have white count is slightly up to 22.87, creatinine is 1.0, chest x-ray with right lower lobe pneumonia Objective - Vital Signs Vital signs: Vital Signs Temp 97.6 F 08/24/23 07:05 Pulse 89 08/24/23 11:47 Resp 18 08/24/23 11:47 BP 123/66 08/24/23 11:47 Pulse Ox 89 L 08/24/23 10:59 FiO2 Intake & Output 08/23/23 08/24/23 08/24/23 18:59 06:59 18:59 Output Total 1400 610 200 Balance -1400 -610 -200 Weight 94.5 kg Output: Urine 1400 610 200 Straight 700 Other: Voiding Method Indwelling Catheter # Bowel Movements 2 - Exam GENERAL DESCRIPTION: An elderly female lying in bed in no distress RESPIRATORY SYSTEM: Unlabored breathing , decreased breath sounds at bases HEART: S1 S2 regular rate and rhythm , ABDOMEN: Soft , no tenderness EXTREMITIES: No edema feet - Labs CBC & Chem 7: 08/25/23 05:18 08/25/23 05:18 Labs: Abnormal Lab Results - Last 24 Hours (Table) 08/23/23 08/23/23 08/23/23 Range/Units 16:00 16:30 19:40 WBC (4.50-10.00) X 10*3/uL RBC (4.10-5.20) X 10*6/uL Hgb (12.0-15.0) d/dL Hct (37.2-46.3) % MCHC (32.0-37.0) d/dL RDW (11.5-14.5) % Neutrophils # (1.80-7.70) X 10*3/uL Lymphocytes # (0.90-5.00) X 10*3/uL Eosinophils # (0.04-0.35) X 10*3/uL BUN (9.0-27.0) mg/dL Est GFR (CKD-EPI) (>=60) BUN/Creatinine Ratio (12.00-20.00) Ratio Glucose (70-110) mg/dL POC Glucose (mg/dL) 127 H 258 H (70-110) mg/dL C-Reactive Protein (0.00-0.80) mg/dL Total Protein (6.2-8.2) d/dL Albumin (3.8-4.9) d/dL Albumin/Globulin Ratio (1.60-3.17) Ratio Urine Appearance Cloudy H (Clear) Urine Protein 1+ H (Negative) Urine Glucose (UA) 4+ H (Negative) Urine Blood Large H (Negative) Ur Leukocyte Esterase Large H (Negative) Urine RBC >182 H (0-5) /hpf Urine WBC >182 H (0-5) /hpf Urine WBC Clumps Occasional H (None) /hpf Urine Bacteria Moderate H (None) /hpf Hyaline Casts 46 H (0-2) /lpf Urine Mucus Rare H (None) /hpf Urine Yeast (Budding) Many H (None) /hpf 08/24/23 08/24/23 08/24/23 Range/Units 04:41 04:41 06:03 WBC 22.87 H (4.50-10.00) X 10*3/uL RBC 3.97 L (4.10-5.20) X 10*6/uL Hgb 11.5 L (12.0-15.0) d/dL Hct 36.8 L (37.2-46.3) % MCHC 31.3 L (32.0-37.0) d/dL RDW 16.0 H (11.5-14.5) % Neutrophils # 21.07 H (1.80-7.70) X 10*3/uL Lymphocytes # 0.64 L (0.90-5.00) X 10*3/uL Eosinophils # 0.01 L (0.04-0.35) X 10*3/uL BUN 39.4 H (9.0-27.0) mg/dL Est GFR (CKD-EPI) 55 L (>=60) BUN/Creatinine Ratio 39.40 H (12.00-20.00) Ratio Glucose 219 H (70-110) mg/dL POC Glucose (mg/dL) 199 H (70-110) mg/dL C-Reactive Protein 12.60 H (0.00-0.80) mg/dL Total Protein 4.9 L (6.2-8.2) d/dL Albumin 2.3 L (3.8-4.9) d/dL Albumin/Globulin Ratio 0.88 L (1.60-3.17) Ratio Urine Appearance (Clear) Urine Protein (Negative) Urine Glucose (UA) (Negative) Urine Blood (Negative) Ur Leukocyte Esterase (Negative) Urine RBC (0-5) /hpf Urine WBC (0-5) /hpf Urine WBC Clumps (None) /hpf Urine Bacteria (None) /hpf Hyaline Casts (0-2) /lpf Urine Mucus (None) /hpf Urine Yeast (Budding) (None) /hpf 08/24/23 Range/Units 11:48 WBC (4.50-10.00) X 10*3/uL RBC (4.10-5.20) X 10*6/uL Hgb (12.0-15.0) d/dL Hct (37.2-46.3) % MCHC (32.0-37.0) d/dL RDW (11.5-14.5) % Neutrophils # (1.80-7.70) X 10*3/uL Lymphocytes # (0.90-5.00) X 10*3/uL Eosinophils # (0.04-0.35) X 10*3/uL BUN (9.0-27.0) mg/dL Est GFR (CKD-EPI) (>=60) BUN/Creatinine Ratio (12.00-20.00) Ratio Glucose (70-110) mg/dL POC Glucose (mg/dL) 293 H (70-110) mg/dL C-Reactive Protein (0.00-0.80) mg/dL Total Protein (6.2-8.2) d/dL Albumin (3.8-4.9) d/dL Albumin/Globulin Ratio (1.60-3.17) Ratio Urine Appearance (Clear) Urine Protein (Negative) Urine Glucose (UA) (Negative) Urine Blood (Negative) Ur Leukocyte Esterase (Negative) Urine RBC (0-5) /hpf Urine WBC (0-5) /hpf Urine WBC Clumps (None) /hpf Urine Bacteria (None) /hpf Hyaline Casts (0-2) /lpf Urine Mucus (None) /hpf Urine Yeast (Budding) (None) /hpf Assessment and Plan (1) UTI (urinary tract infection) Status: Acute Code(s): N39.0 - URINARY TRACT INFECTION, SITE NOT SPECIFIED SNOMED Code(s): 72236980 (2) Diarrhea Status: Acute Code(s): R19.7 - DIARRHEA, UNSPECIFIED SNOMED Code(s): 47547336 (3) Thrush Status: Acute Code(s): B37.0 - CANDIDAL STOMATITIS SNOMED Code(s): 35881854 (4) Aspiration pneumonia Status: Acute Code(s): J69.0 - PNEUMONITIS DUE TO INHALATION OF FOOD AND VOMIT SNOMED Code(s): 258517989 Plan: 1patient was in the hospital generalized weakness decreased appetite did have low-grade fever urinary symptom positive UA likely a component of symptomatic Uritact infection likely from enteric gram-negative pathogen with urine currently showing gram-negative bacilli with ID and sensitivities pending, patient is currently breathing comfortably on room air abdominal soft on clear examination no evidence of any joint swelling or cellulitis 2-patient urine culture did grow Klebsiella that is sensitive to Rocephin 3-patient complaining of sores in the mouth we will add nystatin swish and swallow 4- with worsening leukocytosis and now with evidence of right lower lobe pneu monia concerning for possibly gram-negative strength/question pneumonia antibiotic has been adjusted to Zosyn to continue and monitor clinical course closely Multiple family member at the bedside questions were answered Dictation was produced using [employer] software. please excuse any gramm atical, word or spelling errors.
--- NOTE | 2023-09-01 12:58 | P.PN ---
Subjective Progress Note Date: 08/25/23 Principal diagnosis: Klebsiella urinary tract infection Patient is a 88-year-old female with a past medical history significant for Atrial Fibrillation, Blood Disorder, Diabetes Mellitus, Hypertension, Osteoarthritis (OA) presenting to the hospital for evaluation of generalized body aches pain in her back and bilateral legs low-grade fever nausea and decreased appetite , patient did have a positive UA Unasyn concerning for a symptomatic UTI On today's evaluation and that is 08/25/2023, the patient remains to be afebrile, the patient is breathing comfortably however is still requiring 10 L high flow nasal cannula supplemental oxygen and no shortness of breath, the patient denies having any chest pain worsening cough or sputum production, patient denies nausea/vomiting /diarrhea and no abdominal pain, Patient did have white count is down to 18.36, creatinine is 1.2, chest x-ray with right lower lobe pneumonia Objective - Vital Signs Vital signs: Vital Signs Temp 98.0 F 08/25/23 14:00 Pulse 116 H 08/25/23 14:00 Resp 16 08/25/23 14:00 BP 107/75 08/25/23 14:00 Pulse Ox 95 08/25/23 14:00 FiO2 Intake & Output 08/24/23 08/25/23 08/25/23 18:59 06:59 18:59 Output Total 1025 Balance -1025 Weight 94 kg 94 kg Output: Urine 1025 Other: Voiding Method Indwelling Catheter Indwelling Catheter # Voids 1,270 - Exam GENERAL DESCRIPTION: An elderly female lying in bed in no distress RESPIRATORY SYSTEM: Unlabored breathing , decreased breath sounds at bases HEART: S1 S2 regular rate and rhythm , ABDOMEN: Soft , no tenderness EXTREMITIES: No edema feet - Labs CBC & Chem 7: 08/25/23 05:18 08/25/23 05:18 Labs: Abnormal Lab Results - Last 24 Hours (Table) 08/24/23 08/24/23 08/25/23 Range/Units 16:43 21:04 05:18 WBC 18.36 H (4.50-10.00) X 10*3/uL RBC 3.61 L (4.10-5.20) X 10*6/uL Hgb 10.4 L (12.0-15.0) d/dL Hct 33.4 L (37.2-46.3) % MCHC 31.1 L (32.0-37.0) d/dL RDW 16.1 H (11.5-14.5) % Neutrophils # 16.86 H (1.80-7.70) X 10*3/uL Lymphocytes # 0.57 L (0.90-5.00) X 10*3/uL Eosinophils # 0 L (0.04-0.35) X 10*3/uL BUN (9.0-27.0) mg/dL Est GFR (CKD-EPI) (>=60) BUN/Creatinine Ratio (12.00-20.00) Ratio Glucose (70-110) mg/dL POC Glucose (mg/dL) 276 H 238 H (70-110) mg/dL 08/25/23 08/25/23 08/25/23 Range/Units 05:18 06:22 12:18 WBC (4.50-10.00) X 10*3/uL RBC (4.10-5.20) X 10*6/uL Hgb (12.0-15.0) d/dL Hct (37.2-46.3) % MCHC (32.0-37.0) d/dL RDW (11.5-14.5) % Neutrophils # (1.80-7.70) X 10*3/uL Lymphocytes # (0.90-5.00) X 10*3/uL Eosinophils # (0.04-0.35) X 10*3/uL BUN 42.1 H (9.0-27.0) mg/dL Est GFR (CKD-EPI) 44 L (>=60) BUN/Creatinine Ratio 35.08 H (12.00-20.00) Ratio Glucose 198 H (70-110) mg/dL POC Glucose (mg/dL) 188 H 191 H (70-110) mg/dL Microbiology - Last 24 Hours (Table) 08/23/23 16:00 Urine Culture - Preliminary Urine,Voided Group D Enterococcus Assessment and Plan (1) UTI (urinary tract infection) Status: Acute Code(s): N39.0 - URINARY TRACT INFECTION, SITE NOT SPECIFIED SNOMED Code(s): 06622531 (2) Diarrhea Status: Acute Code(s): R19.7 - DIARRHEA, UNSPECIFIED SNOMED Code(s): 01538924 (3) Thrush Status: Acute Code(s): B37.0 - CANDIDAL STOMATITIS SNOMED Code(s): 00824690 Plan: 1patient was in the hospital generalized weakness decreased appetite did have low-grade fever urinary symptom positive UA likely a component of symptomatic Uritact infection likely from enteric gram-negative pathogen with urine currently showing gram-negative bacilli with ID and sensitivities pending, patient is currently breathing comfortably on room air abdominal soft on clear examination no evidence of any joint swelling or cellulitis 2-patient urine culture did grow Klebsiella that is sensitive to Rocephin 3-patient complaining of sores in the mouth we will add nystatin swish and swallow 4- patient with right lower lobe pneumonia concerning for gram-negative versus aspiration pneumonia the patient white count is trending down with the addition of Zosyn which will be continued try to obtain sputum and aspiration precaution Multiple family member at the bedside questions were answered Dictation was produced using [employer] dictation software. please excuse any grammatical, word or spelling errors. Time with Patient: Less than 30
== END 2023-08-25 19:37 | disposition hospice, inpatient (51) | DRG 177 ==
LOC: EC 01:36 → 6NMEDSUR 07:28 → 5NMEDONC 08:19 → OBSVTOIN 08-15 13:07 → 3SCARD 08-18 18:32 → 4SSUR 08-21 14:45
PROVIDERS: ADMIT Hospitalist; ATTEND Hospitalist
DX: J69.0 Pneumonitis due to inhalation of food and vomit (principal); J96.01 Acute respiratory failure with hypoxia; N39.0 Urinary tract infection, site not specified; Z16.22 Resistance to vancomycin related antibiotics; G93.40 Encephalopathy, unspecified; I48.19 Other persistent atrial fibrillation; N17.9 Acute kidney failure, unspecified; B37.0 Candidal stomatitis; B96.89 Other specified bacterial agents as the cause of diseases classified elsewhere; D69.6 Thrombocytopenia, unspecified; E11.40 Type 2 diabetes mellitus with diabetic neuropathy, unspecified; M32.9 Systemic lupus erythematosus, unspecified; E11.649 Type 2 diabetes mellitus with hypoglycemia without coma; I10 Essential (primary) hypertension; Z66 Do not resuscitate; Z51.5 Encounter for palliative care; E86.0 Dehydration; E78.5 Hyperlipidemia, unspecified; E87.6 Hypokalemia; E87.70 Fluid overload, unspecified; E66.9 Obesity, unspecified; Z68.33 Body mass index [BMI] 33.0-33.9, adult; M06.9 Rheumatoid arthritis, unspecified; Z20.822 Contact with and (suspected) exposure to COVID-19; G89.29 Other chronic pain; R76.8 Other specified abnormal immunological findings in serum; R26.9 Unspecified abnormalities of gait and mobility; R33.9 Retention of urine, unspecified; M41.9 Scoliosis, unspecified; M43.12 Spondylolisthesis, cervical region; M48.02 Spinal stenosis, cervical region; M48.061 Spinal stenosis, lumbar region without neurogenic claudication; M51.34 Other intervertebral disc degeneration, thoracic region; M51.17 Intervertebral disc disorders with radiculopathy, lumbosacral region; M48.07 Spinal stenosis, lumbosacral region; Z79.01 Long term (current) use of anticoagulants; Z79.82 Long term (current) use of aspirin; Z79.84 Long term (current) use of oral hypoglycemic drugs; Z79.899 Other long term (current) drug therapy; Z83.3 Family history of diabetes mellitus; Z82.61 Family history of arthritis
CPT/HCPCS: 36415; 70450; 71045; 72126; 72129; 72132; 72156; 72158; 73502; 76770; 80048; 80053; 81001; 82550; 82607; 82746; 83036; 83605; 83735; 83880; 84145; 84443; 85025; 85610; 85652; 85730; 86038; 86039; 86140; 86200; 86225; 86431; 86618; 86788; 86789; 87040; 87077; 87086; 87186; 87635; 87636; 93922; 94640; 94760; 96361; 96374; 96376; 99285

== ENCOUNTER 2023-08-25 14:33 | Inpatient (IN) | payer MEDICAID ==
[2023-08-25] MEDS ORDERED: HALOPERIDOL LACTATE 5 MG/ML 1 ML VIAL IM PRN (14:36)
[2023-08-25] MEDS ORDERED: GLYCOPYRROLATE 0.2 MG/ML 2 ML VIAL IVP PRN (14:36)
[2023-08-25] MEDS ORDERED: LORazepam 2 MG/ML INJ IV PRN (14:36)
[2023-08-25] MEDS ORDERED: ACETAMINOPHEN SUPPOSITORY 650 MG SUPP RECTAL PRN (14:36)
[2023-08-25] MEDS ORDERED: SCOPOLAMINE 1 MG/72 HR PATCH TRANSDERM SCH (15:00)
[2023-08-25] MEDS: MORPHINE SULFATE 2 MG/ML SYRINGE IV PRN ×2 (19:52→20:39)
[2023-08-25] MEDS: ONDANSETRON 4 MG/2 ML VIAL IVP PRN (20:21)
[2023-08-25] MEDS: MORPHINE SULFATE (100 MG/2 ML) 100 MG in SODIUM CHLORIDE 0.9% 100 ML IV SCH (20:39)
[2023-08-26] MEDS: ONDANSETRON 4 MG/2 ML VIAL IVP PRN ×3 (05:23→18:19)
[2023-08-26] MEDS: MORPHINE SULFATE 2 MG/ML SYRINGE IV PRN ×5 (05:24→22:33)
[2023-08-26] MEDS: METOCLOPRAMIDE 5 MG/ML 2 ML VIAL IVP PRN ×2 (09:04→15:40)
[2023-08-26] MEDS ORDERED: bisacodyL 10 MG SUPP RECTAL STA (11:29)
--- NOTE | 2023-08-26 16:31 | P.HPIM ---
History of Present Illness H&P Date: 08/26/23 This is an 88-year-old female who was recently admitted with weakness of bilateral lower extremities with significant pain and difficulty in ambulation. Patient was noted to have significant history of severe stenosis and was deemed not a surgical candidate given her age. Patient is lethargic today although arousable oral intake remains poor and patient was seen and evaluated by physical therapy awaiting notes for possible ECF. Patient maintained on antibiotics in the form of ceftriaxone with infectious disease following an urine culture showing Klebsiella pneumonia. Patient's urine is more concentrated and having some retention requiring indwelling Merchant catheter. Patient being lethargic will limit IV narcotic use and discontinue Dilaudid and add Celebrex and adjust medications accordingly. Patient is currently afebrile with no reported chest pain or shortness of breath. Patient needs encouragement with meals. 08/20/2023 Patient seen and evaluated in follow-up today with family members at bedside. Patient is more awake and alert and reports continued significant weakness. Patient being followed by multiple medical consultations including neurology and has ordered MRI of the spine which is currently pending. Patient continues to have indwelling Merchant catheter and urine is significantly concentrated with scant amount of blood and sediment noted and is being maintained on IV antibiotics with infectious disease following 4 Klebsiella UTI. Patient is afebrile with no reported chest pain or shortness of breath. Patient's blood sugars are uncontrolled and have resume long-acting along with sliding scale and will add pre-meal insulins. Continue consistent carb, low potassium diet. Encouraged to increase activity as tolerated and recommended physical therapy daily. Case management following plan is for ECF once stabilized discharge. 08/21/2023 Patient is seen in follow-up today more awake and alert AND is with significant weakness. Patient is being scheduled for MRI of the cervical and lumbar spine with neurology following closely. Patient is also continued on antibiotics with infectious disease following for Klebsiella pneumonia noted in the urine. Blood cultures remain negative. Blood sugars are extremely uncontrolled with hyper and hypoglycemia and will adjust the medications accordingly. Dietary following and will continue low potassium with consistent carb diet. Encouraged oral intake as patient is not eating very much. Family at bedside reports he is eating better than yesterday. Continue with physical therapy daily. Concerns with positive GRETCHEN and titer is elevated at 1/320 which is significant and further lab tests being ordered by neurology will attempt to consult rheumatology and appreciate input and recommendations. Patient is maintained on Tylenol and having some continued pain will add low-dose Ultram and monitor me ntation. Patient is currently afebrile with reports of chest pain or shortness of breath. No reported nausea or vomiting and tolerating oral intake 08/22/2023 Patient is seen in follow-up and continues to report pain most significantly in her lower extremities and her right hip and is having very little improvement. Family reports have noticed significant sleepiness since starting Cymbalta and requesting to have it discontinued. Patient is maintained on Ultram along with Tylenol as needed and will add low-dose gabapentin as needed as well. Patient did have positive GRETCHEN and DNA stranding suggesting lupus and after further discussion with the patient, patient reported she was told she had this years ago although unsure when. Family was not aware of this. Patient continues with right upper and lower extremity weakness and family is concerned as patient had a stroke. Will obtain CT brain. Patient was on a course of steroids with no relief other than causing increased uncontrollable diabetes leading to insulin drip. Patient is afebrile with no reported chest pain or shortness of breath. Patient is making little improvement on working with physical therapy. Patient will need ECF on discharge for continued strength and mobility. 08/23/2023 Patient is currently lying in the bed. Awake, alert but lethargic and weak. Patient does have a minimal oral intake. Also requiring oxygen at 2 L via nasal cannula. Patient is also retaining urine requiring straight catheterization x2 and Merchant cath is being placed today. Patient has been afebrile. No nausea vomiting. Patient did not have any bowel movement today. Repeat UA and chest x-ray was ordered. Patient is being current on ceftriaxone 1 g daily for urinary tract infection. Urine culture showed Klebsiella. Laboratory data showed WBC count increasing to 18.3 hemoglobin 12.2 and platelets 219 Sodium 134 potassium 3.8 chloride 103 bicarb is 25 BUN 40 and creatinine 0.89 and blood sugar is 125. CRP 6.8. 08/24/2023 Patient is currently lying in bed. Awake alert but seems to be lethargic and weak. Requiring 5 L oxygen via nasal cannula. Patient is saturating at 94%. No complaints of chest pain or shortness of breath. Patient has been afebrile. Chest x-ray yesterday showed right lower lobe airspace opacities concerning for pneumonia. Correlate for aspiration. Small pleural effusion correlate for CHF. Patient was started on Zosyn last night and was also given a dose of IV Lasix. Pulmonary was consulted for further evaluation. Laboratory data showed WBC 22.8 hemoglobin 11.5 and platelets 224 BUN 39.4 and creatinine 1.0 and blood sugar is 219 this morning. CRP 12.6 Repeat urinalysis showed cloudy with 1+ protein 4+ glucose and large blood, large leukocyte esterase. RBCs and WBCs. Patient is on Merchant catheter. 08/26/2023 Patient is seen and evaluated and family has discussed with hospice and patient is meeting inpatient criteria and patient will be transitioned to [facility] services with comfort measures. Family is agreeable with this and will continue on morphine as needed along with Ativan as needed and anti-nausea medications. Family is not quite ready for morphine drip at this time. We will continue to follow make adjustments accordingly with [facility]. Lengthy discussion was had with family today at bedside about overall poor prognosis and quality of life moving forward. Patient appears extremely lethargic and weak although is arousable and answering questions appropriately. Review of systems: Constitutional: reports of fatigue, no fever, or chills Cardiovascular: No reports of chest pain or palpitations Respiratory: No reports of shortness of breath or cough GI: reports of nausea, with continuous dry heaving and vomiting, reports no appetite and is not eating at all : No reports of dysuria nursing staff reported retention requiring indwelling Merchant catheter, continue indwelling Merchant catheter Neurovascular: reports of generalized weakness, difficulty in ambulating All medications have been reviewed PHYSICAL EXAMINATION: GENERAL: The patient is alert and oriented x3, lethargic today although arousable but fatigues easily, Well developed, ill-appearing, elderly appearing HEENT: Pupils are round and equally reacting to light. EOMI. no scleral icterus. No conjunctival pallor. Normocephalic, atraumatic. No pharyngeal erythema. No thyromegaly. CARDIOVASCULAR: S1 and S2 muffled PULMONARY: diminished breath sounds bilaterally with no wheezing or rhonchi noted. ABDOMEN: soft. Nontender on exam. non-distended, normoactive bowel sounds. No palpable organomegaly. MUSCULOSKELETAL: No joint swelling or deformity. EXTREMITIES: No cyanosis, clubbing, or pedal edema. NEUROLOGICAL: Gross neurological examination did not reveal any focal deficits. Diffuse weakness, significant muscle wasting noted SKIN: No rashes. Assessment: Bilateral lower extremity pain and weakness, likely secondary to severe spinal stenosis, significant degenerative disc disease with stenosis at multiple levels, was told not a surgical candidate generalized body aches of the back and lower extremity History of lupus Acute kidney injury likely secondary to poor oral intake and dehydration Acute urinary tract infection with Klebsiella pneumonia, present on admission, repeat urine showing VRE Urinary retention requiring indwelling Merchant catheter Chronic persistent atrial fibrillation, currently rate controlled Diabetes mellitus, type II, uncontrolled with hyperglycemia Gait dysfunction and generalized weakness History of osteoarthritis No code Plan: Patient and family have met with [facility] and agreeable to hospice services. Patient is meeting inpatient criteria with poor oral intake, increasing respiratory demand on high flow oxygen. Family is agreeable with as needed IV push morphine and Ativan and discussing further about possible morphine drip. Family would like to discuss further with the patient We will continue to follow with [facility] during hospitalization Overall poor prognosis The impression and plan of care has been dictated by Dolores Chaudhari, nurse practitioner as directed. Dr. Derek MD I have performed a history and examination and MDM of this patient, discussed the same with the dictator, and agree with the dictator's assessment and plan as written ,documented as a scribe. Based on total visit time, I have performed more than 50% of the visit. Any additional findings or plans will be noted. Past Medical History Past Medical History: Atrial Fibrillation, Blood Disorder, Diabetes Mellitus, Hypertension, Osteoarthritis (OA) Additional Past Medical History / Comment(s): NEUTROPENIA. ANEMIA. History of Any Multi-Drug Resistant Organisms: None Reported Past Surgical History: Appendectomy, Cholecystectomy, Orthopedic Surgery Additional Past Surgical History / Comment(s): LEFT SHOULDER SURGERY. BILATERAL CATARACTS. Past Anesthesia/Blood Transfusion Reactions: No Reported Reaction Past Psychological History: No Psychological Hx Reported Smoking Status: Never smoker Past Alcohol Use History: None Reported Past Drug Use History: None Reported - Past Family History Mother Family Medical History: Rheumatoid Arthritis (RA) Father Family Medical History: Diabetes Mellitus Additional Family Medical History / Comment(s): Father had diabetes later in his life. Medications and Allergies Home Medications Medication Instructions Recorded Confirmed Type Ergocalciferol [Vitamin D2 100,000 unit PO Q30D 02/25/17 08/14/23 History (DRISDOL)] Acetaminophen-Codeine 300-30mg 1 tab PO BID PRN 08/14/23 08/14/23 History [Tylenol w/codeine #3] Amiodarone [Cordarone] 200 mg PO DAILY 08/14/23 08/14/23 History Apixaban [Eliquis] 5 mg PO BID 08/14/23 08/14/23 History Dapagliflozin Propanediol [Farxiga] 5 mg PO DAILY 08/14/23 08/14/23 History Docusate [Colace] 100 mg PO DAILY 08/14/23 08/14/23 History Glucosamine/Chondr Belcher A Sod [Osteo 1 tab PO DAILY 08/14/23 08/14/23 History Bi-Flex Caplet] Metoprolol Succinate (ER) [Toprol 50 mg PO DAILY 08/14/23 08/14/23 History Xl] Neuriva 1 cap PO DAILY 08/14/23 08/14/23 History Prevagen 1 cap PO DAILY 08/14/23 08/14/23 History Rosuvastatin Calcium 5 mg PO HS 08/14/23 08/14/23 History calcitrioL [Calcitriol] 0.25 mcg PO MOWEFR 08/14/23 08/14/23 History Allergies Allergy/AdvReac Type Severity Reaction Status Date / Time No Known Allergies Allergy Verified 08/14/23 08:09 Physical Exam Vitals: Intake and Output 08/26/23 08/26/23 08/26/23 06:59 14:59 22:59 Output Total 750 Balance -750 Output: Urine 750
[2023-08-26] MEDS: MORPHINE SULFATE (100 MG/2 ML) 100 MG in SODIUM CHLORIDE 0.9% 100 ML IV SCH (21:32)
[2023-08-27] MEDS: ONDANSETRON 4 MG/2 ML VIAL IVP PRN ×2 (05:20→17:35)
[2023-08-27] MEDS: MORPHINE SULFATE 2 MG/ML SYRINGE IV PRN ×3 (05:21→13:58)
[2023-08-27] MEDS: METOCLOPRAMIDE 5 MG/ML 2 ML VIAL IVP PRN (11:12)
[2023-08-27] MEDS ORDERED: MORPHINE SULFATE (100 MG/2 ML) 100 MG in SODIUM CHLORIDE 0.9% 100 ML IV SCH (14:00)
--- NOTE | 2023-08-28 06:08 | P.PN ---
Subjective Progress Note Date: 08/27/23 This is an 88-year-old female who was recently admitted with weakness of bilateral lower extremities with significant pain and difficulty in ambulation. Patient was noted to have significant history of severe stenosis and was deemed not a surgical candidate given her age. Patient is lethargic today although arousable oral intake remains poor and patient was seen and evaluated by physical therapy awaiting notes for possible ECF. Patient maintained on antibiotics in the form of ceftriaxone with infectious disease following an urine culture showing Klebsiella pneumonia. Patient's urine is more concentrated and having some retention requiring indwelling Merchant catheter. Patient being lethargic will limit IV narcotic use and discontinue Dilaudid and add Celebrex and adjust medications accordingly. Patient is currently afebrile with no reported chest pain or shortness of breath. Patient needs encouragement with meals. 08/20/2023 Patient seen and evaluated in follow-up today with family members at bedside. Patient is more awake and alert and reports continued significant weakness. Pat ient being followed by multiple medical consultations including neurology and has ordered MRI of the spine which is currently pending. Patient continues to have indwelling Merchant catheter and urine is significantly concentrated with scant amount of blood and sediment noted and is being maintained on IV antibiotics with infectious disease following 4 Klebsiella UTI. Patient is afebrile with no reported chest pain or shortness of breath. Patient's blood sugars are uncontrolled and have resume long-acting along with sliding scale and will add pre-meal insulins. Continue consistent carb, low potassium diet. Encouraged to increase activity as tolerated and recommended physical therapy daily. Case management following plan is for ECF once stabilized discharge. 08/21/2023 Patient is seen in follow-up today more awake and alert AND is with significant weakness. Patient is being scheduled for MRI of the cervical and lumbar spine with neurology following closely. Patient is also continued on antibiotics with infectious disease following for Klebsiella pneumonia noted in the urine. Blood cultures remain negative. Blood sugars are extremely uncontrolled with hyper and hypoglycemia and will adjust the medications accordingly. Dietary following and will continue low potassium with consistent carb diet. Encouraged oral intake as patient is not eating very much. Family at bedside reports he is eating better than yesterday. Continue with physical therapy daily. Concerns with positive GRETCHEN and titer is elevated at 1/320 which is significant and further lab tests being ordered by neurology will attempt to consult rheumatology and appreciate input and recommendations. Patient is maintained on Tylenol and having some continued pain will add low-dose Ultram and monitor mentation. Patient is currently afebrile with reports of chest pain or shortness of breath. No reported nausea or vomiting and tolerating oral intake 08/22/2023 Patient is seen in follow-up and continues to report pain most significantly in her lower extremities and her right hip and is having very little improvement. Family reports have noticed significant sleepiness since starting Cymbalta and requesting to have it discontinued. Patient is maintained on Ultram along with Tylenol as needed and will add low-dose gabapentin as needed as well. Patient did have positive GRETCHEN and DNA stranding suggesting lupus and after further discussion with the patient, patient reported she was told she had this years ago although unsure when. Family was not aware of this. Patient continues with right upper and lower extremity weakness and family is concerned as patient had a stroke. Will obtain CT brain. Patient was on a course of steroids with no relief other than causing increased uncontrollable diabetes leading to insulin drip. Patient is afebrile with no reported chest pain or shortness of breath. Patient is making little improvement on working with physical therapy. Patient will need ECF on discharge for continued strength and mobility. 08/23/2023 Patient is currently lying in the bed. Awake, alert but lethargic and weak. Patient does have a minimal oral intake. Also requiring oxygen at 2 L via nasal cannula. Patient is also retaining urine requiring straight catheterization x2 and Merchant cath is being placed today. Patient has been afebrile. No nausea vomiting. Patient did not have any bowel movement today. Repeat UA and chest x-ray was ordered. Patient is being current on ceftriaxone 1 g daily for urinary tract infection. Urine culture showed Klebsiella. Laboratory data showed WBC count increasing to 18.3 hemoglobin 12.2 and platelets 219 Sodium 134 potassium 3.8 chloride 103 bicarb is 25 BUN 40 and creatinine 0.89 and blood sugar is 125. CRP 6.8. 08/24/2023 Patient is currently lying in bed. Awake alert but seems to be lethargic and weak. Requiring 5 L oxygen via nasal cannula. Patient is saturating at 94%. No complaints of chest pain or shortness of breath. Patient has been afebrile. Chest x-ray yesterday showed right lower lobe airspace opacities concerning for pneumonia. Correlate for aspiration. Small pleural effusion correlate for CHF. Patient was started on Zosyn last night and was also given a dose of IV Lasix. Pulmonary was consulted for further evaluation. Laboratory data showed WBC 22.8 hemoglobin 11.5 and platelets 224 BUN 39.4 and creatinine 1.0 and blood sugar is 219 this morning. CRP 12.6 Repeat urinalysis showed cloudy with 1+ protein 4+ glucose and large blood, large leukocyte esterase. RBCs and WBCs. Patient is on Merchant catheter. 08/26/2023 Patient is seen and evaluated and family has discussed with hospice and patient is meeting inpatient criteria and patient will be transitioned to [facility] services with comfort measures. Family is agreeable with this and will continue on morphine as needed along with Ativan as needed and anti-nausea medications. Family is not quite ready for morphine drip at this time. We will continue to follow make adjustments accordingly with [facility]. Lengthy discussion was had with family today at bedside about overall poor prognosis and quality of life moving forward. Patient appears extremely lethargic and weak although is arousable and answering questions appropriately. 08/27/2023 Patient is seen in follow-up today with [facility] following. Patient is maintained on IV push morphine along with Ativan and antinausea medication. [facility] discussing further with family about possible morphine drip. Patient is having severe pain when being touched on light palpation of the lower extremities, continues to not eat very well at all and is continued on supplemental oxygen. Review of systems: Constitutional: reports of fatigue, no fever, or chills Cardiovascular: No reports of chest pain or palpitations Respiratory: No reports of shortness of breath or cough GI: reports of nausea, with continuous dry heaving and vomiting, reports no appetite and is not eating at all : No reports of dysuria nursing staff reported retention requiring indwelling Merchant catheter, continue indwelling Merchant catheter Neurovascular: reports of generalized weakness, difficulty in ambulating All medications have been reviewed PHYSICAL EXAMINATION: GENERAL: The patient is alert and oriented x3, lethargic today although arousable but fatigues easily, Well developed, ill-appearing, elderly appearing HEENT: Pupils are round and equally reacting to light. EOMI. no scleral icterus. No conjunctival pallor. Normocephalic, atraumatic. No pharyngeal erythema. No thyromegaly. CARDIOVASCULAR: S1 and S2 muffled PULMONARY: diminished breath sounds bilaterally with no wheezing or rhonchi noted. ABDOMEN: soft. Nontender on exam. non-distended, normoactive bowel sounds. No palpable organomegaly. MUSCULOSKELETAL: No joint swelling or deformity. EXTREMITIES: No cyanosis, clubbing, or pedal edema. NEUROLOGICAL: Gross neurological examination did not reveal any focal deficits. Diffuse weakness, significant muscle wasting noted SKIN: No rashes. Assessment: Bilateral lower extremity pain and weakness, likely secondary to severe spinal stenosis, significant degenerative disc disease with stenosis at multiple levels, was told not a surgical candidate generalized body aches of the back and lower extremity History of lupus Acute kidney injury likely secondary to poor oral intake and dehydration Acute urinary tract infection with Klebsiella pneumonia, present on admission, repeat urine showing VRE Urinary retention requiring indwelling Merchant catheter Chronic persistent atrial fibrillation, currently rate controlled Diabetes mellitus, type II, uncontrolled with hyperglycemia Gait dysfunction and generalized weakness History of osteoarthritis No code Plan: Patient is continue to be followed by [facility] and maintained on comfort meds and discussing possible morphine drip as family is hesitant. Further discussion with [facility] hospice nurse and family at bedside Patient reports severe pain of lower extremities We will continue to follow with [facility] during hospitalization Overall poor prognosis The impression and plan of care has been dictated by Dolores Chaudhari, nurse practitioner as directed. Dr. Derek MD I have performed a history and examination and MDM of this patient, discussed t he same with the dictator, and agree with the dictator's assessment and plan as written ,documented as a scribe. Based on total visit time, I have performed more than 50% of the visit. Any additional findings or plans will be noted. Objective - Vital Signs Vital signs: Intake & Output 08/27/23 08/27/23 08/28/23 06:59 18:59 06:59 Intake Total 0.867 Output Total 400 900 Balance -400 -899.133 Intake: Intake, IV Titration 0.867 Amount Morphine Sulfate (100 mg/ 0.867 2 ml) 100 mg In Sodium Chloride 0.9% 100 ml @ 0. 5 MG/HR 0.51 mls/hr IV . Q24H [facility] Rx#:[id number] Output: Urine 400 900 Other: Voiding Method Indwelling Catheter Indwelling Catheter
--- NOTE | 2023-08-30 07:59 | P.DS ---
Providers Date of admission: 08/25/23 19:33 Expected date of discharge: 08/28/23 Attending physician: Ana Novoa Primary care physician: Raissa Munguia Hospital Course: Preliminary cause of Aspiration pneumonia Final diagnosis Bilateral lower extremity pain and weakness, likely secondary to severe spinal stenosis, significant degenerative disc disease with stenosis at multiple levels, was told not a surgical candidate Pneumonia, likely aspiration with acute hypoxic respiratory failure generalized body aches of the back and lower extremity History of lupus Acute kidney injury likely secondary to poor oral intake and dehydration Acute urinary tract infection with Klebsiella pneumonia, present on admission, repeat urine showing VRE Urinary retention requiring indwelling Merchant catheter Chronic persistent atrial fibrillation, currently rate controlled Diabetes mellitus, type II, uncontrolled with hyperglycemia Gait dysfunction and generalized weakness History of osteoarthritis No code Discharge disposition Patient has . According to nursing documentation, time of was 11:10 AM with multiple family members present on 08/28/2023. Patient was on comfort measures with [facility] hospice following. Total time taken is greater than 35 minutes. Hospital course This is an 88-year-old female who was recently hospitalized for extreme lower extremity pain and difficulty to ambulate and progressive weakness. Patient had prolonged hospitalization with severe spinal stenosis and degenerative disc disease and multiple testings performed. Patient with significant comorbidities and clinical decline family had opted for hospice informational and agreed to make the patient comfortable and placed on [facility] hospice comfort measures. Patient was also initially hospitalized with acute urinary tract infection and culture showed Klebsiella pneumonia and repeat culture showing VRE. Patient had been maintained on antibiotics with infectious disease following. Patient continued to deteriorate and not eating with increasing pain and no ambulation during the hospitalization. CODE STATUS was addressed and patient was no code. Patient had worsening respiratory decline likely secondary to aspiration and requiring high flow oxygen. Family had opted for comfort measures at this point and initially started with IV push morphine although patient became more restless and having more pain, family was agreeable to morphine drip. Please refer to other dictations for further HPI. Patient 1110 on 08/28/2023 with family members present. The impression and plan of care has been dictated by Dolores Chaudhari, Nurse Practitioner as directed. Dr. Mo MD I have performed a history and examination and MDM of this patient, discussed the same with the dictator, and agree with the dictator's assessment and plan as written ,documented as a scribe. Based on total visit time, I have performed more than 50% of the visit. Patient Condition at Discharge: Poor Plan - Discharge Summary New Discharge Prescriptions: No Action Ergocalciferol [Vitamin D2 (DRISDOL)] 100,000 unit PO Q30D Acetaminophen-Codeine 300-30mg [Tylenol w/codeine #3] 1 tab PO BID PRN PRN Reason: Pain calcitrioL [Calcitriol] 0.25 mcg PO MOWEFR Rosuvastatin Calcium 5 mg PO HS Glucosamine/Chondr Belcher A Sod [Osteo Bi-Flex Caplet] 1 tab PO DAILY Metoprolol Succinate (ER) [Toprol Xl] 50 mg PO DAILY Dapagliflozin Propanediol [Farxiga] 5 mg PO DAILY Apixaban [Eliquis] 5 mg PO BID Amiodarone [Cordarone] 200 mg PO DAILY Prevagen 1 cap PO DAILY Neuriva 1 cap PO DAILY Docusate [Colace] 100 mg PO DAILY Discharge Medication List Ergocalciferol [Vitamin D2 (DRISDOL)] 100,000 unit PO Q30D 02/25/17 [History] Acetaminophen-Codeine 300-30mg [Tylenol w/codeine #3] 1 tab PO BID PRN 08/14/23 [History] Amiodarone [Cordarone] 200 mg PO DAILY 08/14/23 [History] Apixaban [Eliquis] 5 mg PO BID 08/14/23 [History] Dapagliflozin Propanediol [Farxiga] 5 mg PO DAILY 08/14/23 [History] Docusate [Colace] 100 mg PO DAILY 08/14/23 [History] Glucosamine/Chondr Belcher A Sod [Osteo Bi-Flex Caplet] 1 tab PO DAILY 08/14/23 [History] Metoprolol Succinate (ER) [Toprol Xl] 50 mg PO DAILY 08/14/23 [History] Neuriva 1 cap PO DAILY 08/14/23 [History] Prevagen 1 cap PO DAILY 08/14/23 [History] Rosuvastatin Calcium 5 mg PO HS 08/14/23 [History] calcitrioL [Calcitriol] 0.25 mcg PO MOWEFR 08/14/23 [History] Discharge Disposition: - Preliminary Cause of Preliminary Cause of : Aspiration pneumonia
== END 2023-08-28 14:19 | disposition expired | DRG 951 ==
LOC: 4SSUR 19:33
PROVIDERS: ADMIT Hospitalist; ATTEND Hospitalist
DX: Z51.5 Encounter for palliative care (principal); I48.19 Other persistent atrial fibrillation; N17.9 Acute kidney failure, unspecified; N39.0 Urinary tract infection, site not specified; B96.1 Klebsiella pneumoniae [K. pneumoniae] as the cause of diseases classified elsewhere; E11.649 Type 2 diabetes mellitus with hypoglycemia without coma; R33.8 Other retention of urine; E86.0 Dehydration; I10 Essential (primary) hypertension; R53.1 Weakness; R26.2 Difficulty in walking, not elsewhere classified; Z79.01 Long term (current) use of anticoagulants; D64.9 Anemia, unspecified; D70.9 Neutropenia, unspecified; M48.00 Spinal stenosis, site unspecified; M32.9 Systemic lupus erythematosus, unspecified; R76.8 Other specified abnormal immunological findings in serum; Z79.84 Long term (current) use of oral hypoglycemic drugs; Z79.899 Other long term (current) drug therapy